=== PATIENT | male | born 1940 | race Caucasian/White ===

== ENCOUNTER 2021-05-04 11:57 | Emergency (ER) | payer MEDICARE, OTHER, SELFPAY ==
[2021-02-22 15:38] VITALS: BMI 32.6
[2021-05-04 11:58] VITALS: BP 104/65; PULSE 83; RESP 18; TEMP 37.4; O2SAT 96; BMI 30.4
[2021-05-04 12:02] VITALS: BP 104/65; PULSE 83; RESP 18; TEMP 37.4; O2SAT 96
--- NOTE | 2021-05-04 12:37 | RAD_ITS ---
STUDY: X-RAY CHEST REASON FOR EXAM: Male, 81 years old. Cough TECHNIQUE: Single frontal view of the chest. COMPARISON: 04/19/2017 FINDINGS: There are groundglass appearing opacities within the lower lungs. There is blunting of the right costophrenic angle. There is a nonspecific opacity within the left mid and lower lung. There is stable cardiomegaly. There is a dual-lead cardiac pacer device in place. There is a radiolucency again noted projecting over the cardiac silhouette suggestive of a hiatal hernia. Normal visualized pulmonary arteries. Normal visualized aortic arch and descending thoracic aorta. Normal visualized thoracic spine. Normal visualized ribs, clavicles, and shoulders. There is no demonstrated abnormality of the visualized soft tissue structures of the upper abdomen. RAD/Chest 1 View (Portable) IMPRESSION: Indeterminate bilateral groundglass opacities, nonspecific finding may be secondary to edema and/or an infectious process. Left basilar patchy opacity may be secondary to underlying atelectasis and/or pneumonia. Electronically Signed: Cheryl Avery MD at 13:51 EDT Tel , Service support ,
--- NOTE | 2021-05-04 12:38 | EKG12_ITS ---
Test Reason : SOB Blood Pressure : / mmHG Vent. Rate : 072 BPM Atrial Rate : 072 BPM P-R Int : 176 ms QRS Dur : 154 ms QT Int : 430 ms P-R-T Axes : 028 034 072 degrees QTc Int : 470 ms Atrial-sensed ventricular-paced rhythm Abnormal ECG Confirmed by SHAYY BALTAZAR, PING ([id number]), online editor EVERT JULIEN ([id number]) on 05/09/2021 9:32:52 AM Referred By: SHAYY/MAURICE Confirmed By:PING LUCAS MD
--- NOTE | 2021-05-04 12:39 | EDS_ITS ---
HPI History of Present Illness Chief Complaint: Shortness of Breath Detail of Chief Complaint: Shortness of breath for several weeks Informant: patient Narrative Narrative: Patient presents to the emergency department with his daughter from home. Patient complains of a cough and shortness of breath for several weeks. He was seen in urgent care last week and had a Covid test which was negative. Patient also has been immunized against Covid. Complains of exertional dyspnea. He denies fever. He denies chest pain. Today patient noted a quivering or a pulsation in his abdomen. He has had some mild nausea but no vomiting. He describes watery stools in the morning that has been going on for over a year. Patient denies any urinary symptoms. Patient has history of a pacemaker. [facility] Medical History (Updated 05/04/21 @ 14:[address] Luc Rogers DO) BPH w urinary obs/LUTS Chronic kidney disease (CKD) Complete heart block (04/19/17) Diverticulitis Dysphagia Essential (primary) hypertension GERD (gastroesophageal reflux disease) Obesity Home Medications aspirin 81 mg PO DAILY 04/19/17 [History Last Taken 05/05/17 07:00] lisinopril 10 mg tablet 10 mg PO DAILY 02/16/20 [History Last Taken Unknown] benzonatate [Tessalon Perles] 100 mg PO TID PRN #20 cap 05/04/21 [Rx Last Taken Unknown] levofloxacin 750 mg PO DAILY #7 tab 05/04/21 [Rx Last Taken Unknown] Allergy/AdvReac Type Severity Reaction Status Date / Time Fish Containing Products Allergy Swelling Verified 05/04/21 12:02 Family History Father Colon cancer Surgical History History of colonoscopy History of esophagogastroduodenoscopy (EGD) 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) History of tonsillectomy Social History Smoking Status: Former smoker ROS ROS ED ROS Narrative Intermittent lightheadedness Constitutional Constitutional ED: Reports systems reviewed and no addt'l complaints, except as documented; Denies body ache(s), change in weight or chills Eyes Eyes: Denies acute decrease in peripheral vision, change in vision, double vision or loss of vision ENT ENT ED: Reports none; Denies ear pain, lip swelling, loss taste/smell, neck pain, otalgia or sore throat Cardiovascular Cardiovascular: Reports none; Denies abdominal pain, chest pain with activity, leg edema, lightheadedness, palpitations, rapid heart rate or syncope Respiratory/Chest Respiratory/Chest: Reports none, cough and dyspnea; Denies change in mental status, dry cough, hemoptysis, shortness of breath at rest or shortness of breath with exertion Gastrointestinal Gastrointestinal: Reports none and diarrhea; Denies abdominal pain, change in stool character, hematemesis, hematochezia, melena, rectal bleeding or vomiting Genitourinary Genitourinary ED: Reports none; Denies abdominal discomfort, anuria, dysuria, genital pain or polyuria Musculoskeletal Musculoskeletal: Reports none; Denies arthralgias, back pain, difficulty walking, extremity pain, muscle weakness or myalgias Integumentary Reports none; Denies abscess or rash Neurologic Neurologic: Reports none; Denies abnormal gait, confusion, focal weakness, frequent falls, headache(s), loss of vision, numbness, paresthesias, radicular pain, vertigo or weakness Psychiatric Psychiatric: Reports systems reviewed and no addt'l complaints, except as documented and none; Denies behavioral changes, confusion, difficulty concentrating, hallucinations, suicidal ideation, tactile hallucinations or visual hallucinations Endocrine Endocrinology: Denies none, cold intolerance, excessive sweating, fatigue or heat intolerance Hematologic/Lymphatic Hematologic/Lymphatic: Reports none; Denies anemia, easy bleeding or easy bru ising Allergic/Immunologic Allergic/Immunologic ED: Denies as per HPI, none, lip swelling, mouth swelling, throat swelling, tongue swelling or hives EXAM Physical Exam Const Vital Signs: 05/04/21 11:58 05/04/21 12:02 05/04/21 12:16 Temperature 99.4 F H 99.4 F H Temperature Source Temporal Temporal Pulse Rate 83 83 Respiratory Rate 18 18 Respiratory Effort Short of Breath Blood Pressure 104/65 104/65 Blood Pressure Mean 78 78 Pulse Ox 96 96 Oxygen Delivery Method Room Air Room Air 05/04/21 12:58 05/04/21 13:00 Temperature Temperature Source Pulse Rate 72 72 Respiratory Rate 23 H 23 H Respiratory Effort Blood Pressure 120/59 L 120/59 L Blood Pressure Mean 79 79 Pulse Ox 95 95 Oxygen Delivery Method Room Air Room Air Positive well nourished and well developed General Appearance ED: well developed and NAD HEENT Reports TM's clear and moist mucous membranes normocephalic and atraumatic; Negative for trauma or tenderness Tympanic Membrane ED: Yes TM's clear Eyes PERRL and EOMs intact bilaterally General Eye ED: Negative for pale conjunctiva or scleral icterus Neck no lymphadenopathy, supple and no JVD General: Negative for tenderness Chest Wall inspection of chest normal and palpation of chest normal Chest: Negative for tenderness Resp normal respiratory effort and clear to auscultation bilaterally Effort and Inspection: Negative for respiratory distress or pain with movement Auscultation: Negative for rhonchi, wheezes or diminished lung sounds Cardio regular rate, regular rhythm, S1 normal heart sound, S2 normal heart sound and no murmurs Peripheral Pulses: pulses 2+ throughout GI normal to inspection, nondistended, normoactive bowel sounds, soft to palpation, non-tender, non-distended and no masses Back/Spine no CVA tenderness and no thoracic nor lumbar tenderness Extremity normal to inspection General Extremety ED: Negative for edema General Extremity: Negative for edema Neuro oriented x3, CN's II-XII intact bilaterally, no sensory deficits noted and gait normal Sensorium / Orientation: awake, alert, oriented to person, oriented to place and oriented to time Motor Exam: strength 5/5 throughout and strength abnormal Psych mental status grossly normal Skin no rashes or lesions noted and no wounds MDM MDM MDM Narrative Medical decision making narrative: Patient with increased markings in both lungs etiology uncertain. He has had symptoms for over 2 weeks however he is not hypoxic or ill-appearing. I will send off a Covid PCR test. He had a negative rapid test last week and has been fully immunized. Patient will be started on Levaquin and Tessalon Perles. He will be given referral to pulmonology for follow-up. He is advised to return if increasing shortness of breath or condition should worsen anyway. I will order a Legionella antigen. Lab Data Attestation: I reviewed the patient's lab results. Labs: Laboratory Results - last 24 hr 05/04/21 05/04/21 05/04/21 12:21 12:21 12:21 WBC 6.9 RBC 4.48 L Hgb 13.7 Hct 43.1 MCV 96.2 H MCH 30.6 MCHC 31.8 L RDW Std Deviation 46.0 H RDW Coeff of Angela 12.8 Plt Count 314 MPV 10.0 Immature Gran % (Auto) 0.300 Neut % (Auto) 64.8 Lymph % (Auto) 11.3 L [place] % (Auto) 14.9 H Eos % (Auto) 7.1 H Baso % (Auto) 1.6 H Absolute Neuts (auto) 4.5 Absolute Lymphs (auto) 0.78 L Nucleated RBC % 0 D-Dimer Quant (PE/DVT) Sodium 140 Potassium 4.7 Chloride 111 H Carbon Dioxide 23.0 Anion Gap 6 BUN 34 H Creatinine 1.58 H Estim Creat Clear Calc 35.47 Est GFR (MDRD) Af Amer 54 L Est GFR (MDRD) Non-Af 45 L BUN/Creatinine Ratio 21.5 H Glucose 90 Calcium 8.8 Total Bilirubin 0.60 AST 19 ALT 22 Alkaline Phosphatase 88 Troponin I High Sens 7.0 B-Natriuretic Peptide 19.1 Total Protein 7.3 Albumin 3.2 Globulin 4.1 Albumin/Globulin Ratio 0.8 L 05/04/21 12:55 WBC RBC Hgb Hct MCV MCH MCHC RDW Std Deviation RDW Coeff of Angela Plt Count MPV Immature Gran % (Auto) Neut % (Auto) Lymph % (Auto) [place] % (Auto) Eos % (Auto) Baso % (Auto) Absolute Neuts (auto) Absolute Lymphs (auto) Nucleated RBC % D-Dimer Quant (PE/DVT) 1.08 H* Sodium Potassium Chloride Carbon Dioxide Anion Gap BUN Creatinine Estim Creat Clear Calc Est GFR (MDRD) Af Amer Est GFR (MDRD) Non-Af BUN/Creatinine Ratio Glucose Calcium Total Bilirubin AST ALT Alkaline Phosphatase Troponin I High Sens B-Natriuretic Peptide Total Protein Albumin Globulin Albumin/Globulin Ratio Radiography Chest X-Ray - ED: 1 View Diagnostic Testing: Radiology Impression Chest X-Ray 05/04/21 12:37 IMPRESSION: Indeterminate bilateral groundglass opacities, nonspecific finding may be secondary to edema and/or an infectious process. Left basilar patchy opacity may be secondary to underlying atelectasis and/or pneumonia. Electronically Signed: Cheryl Avery MD at 13:51 EDT Tel , Service support , Abdomen/Pelvis CT 05/04/21 13:23 IMPRESSION: No acute intra-abdominal process. Atherosclerosis. Hiatal hernia. Degenerative changes of the lumbar spine. Electronically Signed: Cheryl Avery MD at 14:14 EDT Tel , Service support , Chest CTA 05/04/21 13:23 IMPRESSION: No demonstrated pulmonary embolism or arterial dissection. Bilateral groundglass opacities, a nonspecific finding which may be secondary to underlying edema and/or infectious process. Atherosclerosis. Hiatal hernia. Electronically Signed: Cheryl Avery MD at 14:10 EDT Tel , Service support , 1 view chest x-ray obtained interpreted by myself as bilateral infiltrates. Radiology in agreement. EKG Initial EKG: Attestation: I personally reviewed and interpreted this EKG as follows: Comments: Atrially sensed ventricularly paced rhythm with a ventricular rate of 72 bpm Discharge Plan Triage Chief Complaint: Shortness of Breath ED Provider: Luc Rogers Dx/Rx/DC Orders Clinical Impression: Pneumonia Instructions: ED Pneumonia (Adult) Prescriptions: New levofloxacin 750 mg tablet 750 mg PO DAILY Qty: 7 RF: 0 benzonatate [Tessalon Perles] 100 mg capsule 100 mg PO TID PRN (Reason: cough) Qty: 20 RF: 0 No Action lisinopril 10 mg tablet 10 mg PO DAILY RF: 0 aspirin 81 MG tablet,chewable 81 mg PO DAILY RF: 0 Primary Care Provider: Aris Og Referrals: Cody Monk MD [STAFF PHYSICIAN] - 3-5 Days Aris Og MD [Primary Care Provider] - 3-5 Days Disposition Disposition: Home, Self Care
[2021-05-04 12:51] LABS: Absolute Lymphocyte Count 0.78 X10^3/uL (0.83-4.51); Absolute Neutrophil Count 4.5 X10^3/uL (2.0-7.7); Basophil# 0.11 X10^3/uL; Basophil% 1.6 % (0-1); Eosinophil# 0.49 X10^3/uL; Eosinophils% 7.1 % (0-5); Hematocrit 43.1 % (40-54); Hemoglobin 13.7 g/dL (13.0-16.5); Lymphocyte # 0.78 X10^3/ul (0.83-4.51); Lymphocyte % 11.3 % (19-41); Mean Corp Hgb Conc 31.8 g/dL (32-36); Mean Corpuscular Hgb 30.6 pg (27.0-32.0); Mean Corpuscular Volume 96.2 fL (80-94); Monocyte# 1.03 X10^3/uL; Monocyte% 14.9 % (0-10); NRBC Flagged by Analyzer 0 % (0-5); Neutrophil # 4.49 X10^3/uL (2.7-7.7); Neutrophil % 64.8 % (47-70); Platelet Count 314 K/mm3 (150-450); RBC Distribution Width CV 12.8 % (11.6-14.6); Red Blood Count 4.48 M/mm3 (4.6-6.2); White Blood Count 6.9 K/mm3 (4.4-11.0)
[2021-05-04 12:58] VITALS: BP 120/59; PULSE 72; RESP 23; O2SAT 95
[2021-05-04 13:00] VITALS: BP 120/59; PULSE 72; RESP 23; O2SAT 95
[2021-05-04 13:10] LABS: ALB/GLOB Ratio 0.8 RATIO (0.9-2.4); AST(SGOT) 19 U/L (15-37); Alanine Aminotransfer ALT/SGPT 22 U/L (16-61); Albumin, Serum 3.2 g/dL (3.2-5.0); Alkaline Phosphatase 88 U/L (45-117); Anion Gap 6 (5-15); BNP,B-Type NATRIURETIC PEPTIDE 19.1 pg/mL (0-100); BUN 34 mg/dL (7-18); BUN/Creat Ratio 21.5 RATIO (10-20); Calcium,Total 8.8 mg/dL (8.5-10.1); Chloride 111 mmol/L (98-107); Creatinine, Serum 1.58 mg/dL (0.70-1.30); EST Glomerular Filtration Rate 45 mL/min (>60); Est Glom Filt Rate - Afr Amer 54 mL/min (>60); Estimated Creatinine Clearance 35.47 ml/min; Globulin 4.1 g/dL (2.2-4.2); Glucose 90 mg/dL (74-106); Potassium 4.7 mmol/L (3.5-5.1); Protein, Total 7.3 g/dL (6.4-8.2); Sodium Level 140 mmol/L (136-145)
[2021-05-04 13:21] LABS: D-Dimer Quantitative (DVT/PE) 1.08 FEU/ug/m (0.27-0.49)
--- NOTE | 2021-05-04 13:23 | CT_ITS ---
STUDY: CTA CHEST REASON FOR EXAM: Male, 81 years old. Elevated d-dimer RADIATION DOSAGE (If Supplied By Facility): CTDIvol = ( 16.76 ) mGy, DLP = ( 1803.25 ) mGycm TECHNIQUE: The examination was performed with the intravenous administration of IV 100mL Isovue-370. Post-processing of the angiographic images was performed, with multiplanar reformation and 3D reconstruction. Individualized dose optimization techniques were used for this CT. COMPARISON: None. FINDINGS: There is motion artifact degrading anatomic detail. There are bilateral groundglass opacities throughout the lungs. Normal enhancement of the main pulmonary artery and right and left pulmonary arteries. Normal enhancement of the bilateral peripheral pulmonary arteries. There is no demonstrated pulmonary embolism. There is atherosclerotic calcification of the aortic arch and descending thoracic aorta. There is no demonstrated aortic dissection. There are calcifications of the coronary arteries. There is a cardiac pacer device in place. There is a moderate-sized hiatal hernia. There are prominent and borderline enlarged hilar lymph nodes. Normal visualized trachea and bronchi. There are degenerative changes of thoracic spine. There is a separate dedicated CT report of the abdomen and pelvis. CT/CTA Chest W/WO Contrast IMPRESSION: No demonstrated pulmonary embolism or arterial dissection. Bilateral groundglass opacities, a nonspecific finding which may be secondary to underlying edema and/or infectious process. Atherosclerosis. Hiatal hernia. Electronically Signed: Cheryl Avery MD at 14:10 EDT Tel , Service support ,
--- NOTE | 2021-05-04 13:23 | CT_ITS ---
STUDY: CT ABDOMEN AND PELVIS WITH CONTRAST REASON FOR EXAM: Male, 81 years old. Abdominal pain RADIATION DOSAGE (If Supplied By Facility): CTDIvol = ( 16.76 ) mGy, DLP = ( 1803.25 ) mGycm TECHNIQUE: Transaxial images were obtained from the dome of the diaphragm to the symphysis pubis without oral contrast. IV 100mL Isovue-370 was administered. Sagittal and coronal images were reconstructed. Individualized dose optimization techniques were used for this CT. COMPARISON: None. FINDINGS: There is a separate dedicated CT report of the chest. There are scattered well circumscribed round low-attenuation foci throughout the liver measuring up to 3.4 cm within the left hepatic lobe. Normal gallbladder and extrahepatic biliary system. Normal spleen. Normal pancreas. Normal bilateral adrenal glands. There is a right renal cyst. Normal left kidney. There is a moderate-sized hiatal hernia. Normal small intestine. Normal colon. The appendix is visualized and appears normal. There is diffuse atherosclerotic calcification of the abdominal aorta, without a demonstrated aneurysm. Normal inferior vena cava. Normal retroperitoneum. Normal urinary bladder. Normal abdominal wall. There are diffuse degenerative changes of the visualized lumbar spine. There is a levoscoliosis of the lumbar spine. CT/Abdomen/Pelvis W IV Cont ONLY IMPRESSION: No acute intra-abdominal process. Atherosclerosis. Hiatal hernia. Degenerative changes of the lumbar spine. Electronically Signed: Cheryl Avery MD at 14:14 EDT Tel , Service support ,
[2021-05-04] MEDS: 0.9% Normal Saline 1,000 ML 150 ML IV (13:55)
[2021-05-04 15:06] LABS: Mucous, Urine 0 SEEN /hpf (<or=2+); Red Blood Cells-Urine 0 SEEN /hpf (0-5); Squamous Epithelial Cells - UA 0 SEEN /hpf (0-5); White Blood Cells 0 SEEN /hpf (0-5)
[2021-05-04 15:07] LABS: Color, Urine Yellow (Yellow); Glucose, Dipstick Normal (Normal); Ketone-Dipstick Negative (Negative); Leukocyte Esterase-Dipstick Negative /ul (Negative); Nitrite-Dipstick Negative (Negative); Occult Blood-Urine Negative /ul (Negative); Protein-Dipstick 15 mg/dl (Negative); Specific Gravity, Urine 1.015 (1.002-1.030); Urine Bilirubin Dipstick Negative (Negative); Urine Clarity Sl. Cloudy (Clear); Urine Urobilinogen Normal (Normal)
[2021-05-04 15:17] LABS: Bacteria RARE /hpf (None Seen); Hyaline Cast 0-5 SEEN /lpf (0-5)
[2021-05-04] MEDS: levoFLOXacin 750 MG Tablet PO (15:22)
== END 2021-05-04 15:35 | disposition home or self-care (01) ==
PROVIDERS: Emergency Provider Emergency Medicine; PCP Family Medicine
DX: J18.9 Pneumonia, unspecified organism (principal); I12.9 Hypertensive chronic kidney disease with stage 1 through stage 4 chronic kidney disease, or unspecified chronic kidney disease; N18.9 Chronic kidney disease, unspecified; N40.0 Benign prostatic hyperplasia without lower urinary tract symptoms; K21.9 Gastro-esophageal reflux disease without esophagitis; Z87.19 Personal history of other diseases of the digestive system; Z79.82 Long term (current) use of aspirin; Z79.899 Other long term (current) drug therapy; Z87.891 Personal history of nicotine dependence
CPT/HCPCS: 71045; 71275; 74177; 80053; 81001; 83880; 84484; 85025; 85379; 87449; 87635; 93005; 96360; 96361; 99283; J7030; Q9967; U0005; A4216; U0003

== ENCOUNTER → 2021-05-16 14:01 | Outpatient (CLI) | payer MEDICARE, OTHER, SELFPAY ==
[2021-05-10 05:44] VITALS: BMI 29.6
--- NOTE | 2021-05-16 14:02 | ECHOCS_ITS ---
Reason For Study: DYSPNEA Procedure This was a 2D Doppler, Color Flow transthoracic echocardiogram. The study was technically difficult. Contrast injection was performed. Exam performed in department. Left Ventricle Normal LV size. Left ventricular systolic function is normal. The estimated ejection fraction is 55 %. Stage 1 diastolic dysfunction. No regional wall motion abnormalities noted. Right Ventricle Normal RV size. ICD or pacer leads identified within the right ventricle. Normal systolic function. Atria Normal left atrium. Normal right atrium. Mitral Valve Normal mitral valve. Tricuspid Valve Normal tricuspid valve. Mild (1+) tricuspid valve insufficiency. Pulmonary artery systolic pressure is 44 mmHg. Aortic Valve Normal aortic valve. Pulmonic Valve Normal pulmonic valve. Great Vessels Normal aortic root. The pulmonary artery is normal size. Normal inferior vena cava. Pericardium/Pleural No pericardial effusion. Medication 22 gauge I.V. with prn adaptor inserted into right arm. Diluted definity 3.0ml given slow IV push to enhance endocardial definition. MMode/2D Measurements & Calculations LVIDd: 4.5 cm IVSd: 0.57 cm Ao root diam: 3.0 cm LVIDs: 3.1 cm LVPWd: 0.87 cm RVDd: 4.4 cm FS: 31.9 % LAV(MOD-bp): 38.8 ml LVAd ap4: 27.6 cm2 SV(MOD-sp4): 51.0 ml LAV(MOD-bp) Indexed: 19.4 ml/m2 LVLd ap4: 8.5 cm LAV(MOD-sp2): 26.4 ml EDV(MOD-sp4): 72.2 ml LAV(MOD-sp4): 43.7 ml EDV(sp4-el): 75.9 ml LVAs ap4: 12.8 cm2 LVLs ap4: 6.5 cm ESV(MOD-sp4): 21.3 ml ESV(sp4-el): 21.4 ml EF(MOD-sp4): 70.6 % EF(sp4-el): 71.8 % SV(sp4-el): 54.5 ml LA A4 area: 19.5 cm2 LA dimension(2D): 3.8 cm RA A4 area: 16.5 cm2 Time Measurements MV dec time: 0.25 sec Doppler Measurements & Calculations MV E max aidan: 58.6 cm/sec Lat Peak E' Aidan: 5.8 cm/sec Med Peak E' Aidan: 3.9 cm/sec MV A max aidan: 78.2 cm/sec E/E' lat: 10.1 E/E' med: 14.9 MV E/A: 0.75 Ao V2 max: 117.3 cm/sec LV V1 max: 106.5 cm/sec TR max aidan: 315.4 cm/sec Ao max P.5 mmHg LV V1 max P.5 mmHg TR max P.8 mmHg ECHO/Echo Complete W/ Contrast Interpretation Summary Normal LV size. Left ventricular systolic function is normal. Pulmonary artery systolic pressure is 44 mmHg. The estimated ejection fraction is 55 %. Stage 1 diastolic dysfunction. Ordering Physician: Cody Monk Performed By: Lulu Trejo, ROBERT, RVT
== END ==
PROVIDERS: PCP Family Medicine; Referring Provider Internal Medicine Critical Care Medicine; Visit Provider Internal Medicine Critical Care Medicine
DX: I44.2 Atrioventricular block, complete (principal); R93.89 Abnormal findings on diagnostic imaging of other specified body structures
CPT/HCPCS: 93306; Q9957; A4216; C8929; J3490

== ENCOUNTER → 2021-05-17 09:16 | Outpatient (CLI) | payer MEDICARE, OTHER, SELFPAY ==
[2021-05-10 05:44] VITALS: BMI 29.6
--- NOTE | 2021-05-17 14:46 | PFTCOMP_ITS ---
COMPLETE PULMONARY FUNCTION TEST INTERPRETATION Brief HPI: Patient is an 81 year old male, currently under the care of myself, who presents to [facility] for complete pulmonary function tests secondary to diagnosis of abnormal imaging. Respiratory therapist reports good effort and reproducible results. Interpretation: Forced expiration spirometry shows no large airways obstructive ventilatory defect with an FEV1 of 82% predicted. There is no significant bronchodilator response by strict ATS criteria. Spirograms are of good quality and plateau normally. The respiratory flow volume loop shows a normal pattern. Lung volumes by body plethysmography show a decreased total lung capacity at 4.31 L, 73% predicted. All other lung volumes are reduced symmetrically. Diffusion capacity by carbon monoxide is decreased at 49% predicted. The airway resistance is elevated. No previous pulmonary function tests were available for review. Impression: Mild restrictive ventilatory defect with a disproportionate reduction in diffusion capacity
== END ==
PROVIDERS: PCP Family Medicine; Referring Provider Internal Medicine Critical Care Medicine; Visit Provider Internal Medicine Critical Care Medicine
DX: R93.89 Abnormal findings on diagnostic imaging of other specified body structures (principal); I44.2 Atrioventricular block, complete
CPT/HCPCS: 94060; 94726; 94729

== ENCOUNTER → 2021-07-25 13:10 | Outpatient (CLI) | payer MEDICARE, OTHER, SELFPAY ==
[2021-05-10 05:44] VITALS: BMI 29.6
--- NOTE | 2021-07-25 13:12 | CT_ITS ---
STUDY: CT CHEST WITHOUT CONTRAST REASON FOR EXAM: Male, 81 years old. GGO previously RADIATION DOSAGE (If Supplied By Facility): CTDIvol = ( 12.08 ) mGy, DLP = ( 429.38 ) mGycm TECHNIQUE: Transaxial imaging was performed without the administration of intravenous contrast material. Individualized dose optimization techniques were used for this CT. COMPARISON: 05/04/2021 FINDINGS: Left subclavian pacemaker. The lungs are normal. There is no demonstrated pleural abnormality. Normal heart and pericardium. There are calcifications of the coronary arteries. Large hiatal hernia. Normal hilar regions. Normal unenhanced pulmonary arteries. Normal aorta arch and descending thoracic aorta. Normal osseous structures. Multiple hepatic cysts. CT/Chest without Contrast IMPRESSION: Normal unenhanced CT Chest examination. Interval resolution of bilateral subsegmental atelectasis or pneumonitis. Electronically Signed: Albert Araujo MD at 9:15 EDT Tel , Service support ,
== END ==
PROVIDERS: PCP Family Medicine; Referring Provider Internal Medicine Critical Care Medicine; Visit Provider Internal Medicine Critical Care Medicine
DX: I44.2 Atrioventricular block, complete (principal); R93.89 Abnormal findings on diagnostic imaging of other specified body structures
CPT/HCPCS: 71250

== ENCOUNTER → 2024-03-31 | Outpatient (CLI) | payer MEDICARE, OTHER, SELFPAY ==
[2024-03-31 15:37] LABS: Absolute Lymphocyte Count 1.36 X10^3/uL (0.83-4.51); Absolute Neutrophil Count 4.6 X10^3/uL (2.0-7.7); Basophil% 1.4 % (0-1); Eosinophil# 0.42 X10^3/uL; Eosinophils% 5.8 % (0-5); Lymphocyte # 1.36 X10^3/ul (0.83-4.51); Lymphocyte % 18.8 % (19-41); Mean Corp Hgb Conc 31.8 g/dL (32-36); Mean Corpuscular Volume 97.6 fL (80-94); Mean Platelet Vol. 10.4 fl (6.2-12.0); Monocyte# 0.69 X10^3/uL; Monocyte% 9.6 % (0-10); NRBC Flagged by Analyzer 0 % (0-5); Neutrophil # 4.64 X10^3/uL (2.7-7.7); Neutrophil % 64.3 % (47-70); Platelet Count 234 K/mm3 (150-450); RBC Distribution Width CV 12.5 % (11.6-14.6); Red Blood Count 4.51 M/mm3 (4.6-6.2); White Blood Count 7.2 K/mm3 (4.4-11.0)
[2024-03-31 16:11] LABS: ALB/GLOB Ratio 0.9 RATIO (0.9-2.4); AST(SGOT) 18 U/L (15-37); Alanine Aminotransfer ALT/SGPT 22 U/L (16-61); Albumin, Serum 3.5 g/dL (3.2-5.0); Alkaline Phosphatase 72 U/L (45-117); Anion Gap 5 (5-15); BUN 21 mg/dL (7-18); BUN/Creat Ratio 15.8 RATIO (10-20); Calcium,Total 8.7 mg/dL (8.5-10.1); Chloride 111 mmol/L (98-107); Creatinine, Serum 1.33 mg/dL (0.70-1.30); EST Glomerular Filtration Rate 55 mL/min (>60); Est Glom Filt Rate - Afr Amer 66 mL/min (>60); Globulin 3.7 g/dL (2.2-4.2); Glucose 69 mg/dL (74-106); Magnesium 2.7 mg/dL (1.6-2.6); Potassium 4.6 mmol/L (3.5-5.1); Protein, Total 7.2 g/dL (6.4-8.2); Sodium Level 142 mmol/L (136-145); T4 Free Direct 0.85 ng/dL (0.76-1.46); Thyroid Stim Hormone (TSH) 0.82 uIU/mL (0.358-3.74)
== END | disposition home or self-care (01) ==
LOC: LAB 14:39
PROVIDERS: PCP Internal Medicine; Referring Provider Nurse Practitioner Family; Visit Provider Nurse Practitioner Family
DX: I47.29 Other ventricular tachycardia (principal); I11.0 Hypertensive heart disease with heart failure; I50.32 Chronic diastolic (congestive) heart failure; I44.2 Atrioventricular block, complete
CPT/HCPCS: 36415; 80053; 83735; 84439; 84443; 85025

== ENCOUNTER → 2024-05-09 | Outpatient (CLI) | payer MEDICARE, OTHER, SELFPAY ==
--- NOTE | 2024-05-09 14:36 | ECHOCS_ITS ---
Reason For Study: NSVT Procedure This was a 2D Doppler, Color Flow transthoracic echocardiogram. The study was technically difficult. Contrast injection was performed. Exam performed in department. Left Ventricle Normal LV size. Moderate concentric left ventricular hypertrophy. Left ventricular systolic function is normal. The left ventricular ejection fraction is 60 %. Stage 1 diastolic dysfunction. No regional wall motion abnormalities noted. Right Ventricle Normal RV size. Normal systolic function. Atria Normal left atrium. Normal right atrium. Mitral Valve Normal mitral valve. Tricuspid Valve Normal tricuspid valve. Aortic Valve Trisinus/trileaflet aortic valve. Mild focal aortic valve calcification. Pulmonic Valve Normal pulmonic valve. Great Vessels Normal aortic root. Pericardium/Pleural No pericardial effusion. Medication 22 gauge I.V. with prn adaptor inserted into left arm. Diluted definity 1ml given slow IV push to enhance endocardial definition. MMode/2D Measurements & Calculations LVIDd: 4.1 cm IVSd: 1.3 cm LAV(MOD-bp): 46.9 ml LVIDs: 2.3 cm LVPWd: 1.3 cm FS: 43.1 % LAV(MOD-bp) Indexed: 22.6 ml/m2 LAV(MOD-sp2): 31.8 ml LAV(MOD-sp4): 56.4 ml SV(MOD-sp4): 68.5 ml SV(sp4-el): 72.5 ml LVAd ap4: 35.2 cm2 LVLd ap4: 9.1 cm EDV(MOD-sp4): 110.6 ml EDV(sp4-el): 115.5 ml LVAs ap4: 19.3 cm2 LVLs ap4: 7.3 cm ESV(MOD-sp4): 42.1 ml ESV(sp4-el): 43.0 ml EF(MOD-sp4): 61.9 % EF(sp4-el): 62.8 % LA dimension(2D): 4.4 cm LA A4 area: 21.0 cm2 RA A4 area: 16.6 cm2 Time Measurements MV dec time: 0.29 sec Doppler Measurements & Calculations MV E max aidan: 43.5 cm/sec Lat Peak E' Aidan: 11.8 cm/sec Med Peak E' Aidan: 8.5 cm/sec MV A max aidan: 68.5 cm/sec E/E' lat: 3.7 E/E' med: 5.1 MV E/A: 0.64 MV V2 max: 81.4 cm/sec MV dec slope: 158.4 cm/sec2 Ao V2 max: 111.2 cm/sec MV max P.7 mmHg Ao max P.9 mmHg MV V2 mean: 46.6 cm/sec Ao V2 mean: 75.3 cm/sec MV mean P.0 mmHg Ao mean P.6 mmHg MV V2 VTI: 24.8 cm Ao V2 VTI: 27.1 cm AV (velocity ratio): 0.99 LV V1 max: 107.4 cm/sec LV V1 max P.6 mmHg LV V1 mean P.1 mmHg LV V1 mean: 65.3 cm/sec LV V1 VTI: 26.8 cm ECHO/Echo Complete W/ Contrast Interpretation Summary Normal LV size. Moderate concentric left ventricular hypertrophy. Left ventricular systolic function is normal. The left ventricular ejection fraction is 60 %. Stage 1 diastolic dysfunction. Contrast injection was performed. Ordering Physician: Maia Argueta Referring Physician: Maia Argueta Performed By: Leydi Serrano RCS
== END | disposition home or self-care (01) ==
LOC: CVS 14:35
PROVIDERS: PCP Internal Medicine; Referring Provider Physician Assistant Medical; Visit Provider Physician Assistant Medical
DX: I47.29 Other ventricular tachycardia (principal)
CPT/HCPCS: 93306; Q9957; A4216; C8929

== ENCOUNTER → 2025-04-14 | Outpatient (CLI) | payer MEDICARE, OTHER, SELFPAY ==
[2025-04-14 12:26] LABS: Hematocrit 45.3 % (40-54); Hemoglobin 15.1 g/dL (13.0-16.5); Immature Granulocytes Count 0.010 X10^3/uL (0.0-0.0); Mean Corp Hgb Conc 33.3 g/dL (32-36); Mean Corpuscular Volume 94.8 fL (80-94); Mean Platelet Vol. 10.0 fl (6.2-12.0); NRBC Flagged by Analyzer 0 % (0-5); Platelet Count 224 K/mm3 (150-450); RBC Distribution Width CV 12.9 % (11.6-14.6); RBC Distribution Width SD 45.2 fl (35.1-43.9); Red Blood Count 4.78 M/mm3 (4.6-6.2); White Blood Count 6.6 K/mm3 (4.4-11.0)
[2025-04-14 13:11] LABS: Cholesterol 186 mg/dL (<=200); Low Density Lipoprotein Calc. 115 mg/dL; Magnesium 2.5 mg/dL (1.5-2.2); Pro- Brain NATRIURETIC PEPTIDE 90 pg/mL (<=1800); Triglycerides 116 mg/dL; Very Low Density Lipoprotein 23 mg/dL (5-40); cholesterol:hdl ratio screen 3.86
[2025-04-14 13:15] LABS: AST(SGOT) 23 U/L (<=37); Alanine Aminotransfer ALT/SGPT 15 U/L (<=46); Albumin, Serum 4.0 g/dL (3.4-4.8); Alkaline Phosphatase 90 U/L (40-129); Anion Gap 11 (5-15); BUN 19 mg/dL (4-19); BUN/Creat Ratio 17.6 RATIO (10-20); Calcium,Total 9.3 mg/dL (7.6-11.0); Carbon Dioxide 24.2 mmol/L (21.0-32.0); Chloride 104 mmol/L (98-108); Globulin 3.1 g/dL (2.2-4.2); Glucose 93 mg/dL (70-99); Potassium 4.9 mmol/L (3.3-5.1)
== END | disposition home or self-care (01) ==
PROVIDERS: PCP Internal Medicine; Referring Provider Student in an Organized Health Care Education/Training Program; Visit Provider Student in an Organized Health Care Education/Training Program
DX: I47.29 Other ventricular tachycardia (principal); I11.0 Hypertensive heart disease with heart failure; I50.32 Chronic diastolic (congestive) heart failure; Z95.0 Presence of cardiac pacemaker; R06.09 Other forms of dyspnea
CPT/HCPCS: 36415; 80053; 80061; 83735; 83880; 84443; 85025

== ENCOUNTER → 2025-05-11 | Outpatient (CLI) | payer MEDICARE, OTHER, SELFPAY ==
--- NOTE | 2025-05-11 07:22 | ECHOD_ITS ---
Reason For Study Reason For Study: HO Procedure This was a 2D Doppler, Color Flow transthoracic echocardiogram. The study was technically difficult. Exam performed in department. Left Ventricle Normal LV size. The left ventricular ejection fraction is 65 %. Stage 1 diastolic dysfunction. No regional wall motion abnormalities noted. Right Ventricle Normal RV size. ICD or pacer leads identified within the right ventricle. Normal systolic function. Atria Normal left atrium. Normal right atrium. Mitral Valve Normal mitral valve. Tricuspid Valve Normal tricuspid valve. Aortic Valve Trisinus/trileaflet aortic valve. Pulmonic Valve Normal pulmonic valve. Great Vessels Normal aortic root. The pulmonary artery is normal size. Inferior vena cava collapse with respiration. Pericardium/Pleural No pericardial effusion. MMode/2D Measurements & Calculations LVIDd: 3.7 cm IVSd: 1.3 cm LVOT diam: 2.4 cm LVIDs: 2.5 cm LVPWd: 1.1 cm LVOT area: 4.6 cm2 RVDd: 3.6 cm FS: 31.7 % asc Aorta Diam: 2.6 cm LAV(MOD-bp): 38.6 ml LVAd ap4: 19.9 cm2 LAV(MOD-bp) Indexed: 19.1 ml/m2 LVLd ap4: 7.4 cm LAV(MOD-sp2): 39.7 ml EDV(MOD-sp4): 44.3 ml LAV(MOD-sp4): 36.1 ml EDV(sp4-el): 45.5 ml LVAs ap4: 11.1 cm2 LVLs ap4: 6.6 cm ESV(MOD-sp4): 15.9 ml ESV(sp4-el): 15.9 ml EF(MOD-sp4): 64.0 % EF(sp4-el): 65.0 % LVAd ap2: 18.3 cm2 SV(MOD-sp4): 28.4 ml SV(MOD-sp2): 21.3 ml LVLd ap2: 7.4 cm SI(MOD-sp4): 14.0 ml/m2 SI(MOD-sp2): 10.5 ml/m2 EDV(MOD-sp2): 36.5 ml EDV(sp2-el): 38.2 ml LVAs ap2: 10.9 cm2 LVLs ap2: 6.8 cm ESV(MOD-sp2): 15.2 ml ESV(sp2-el): 14.6 ml EF(MOD-sp2): 58.3 % SV(sp4-el): 29.6 ml Ao sinus diam: 3.[address] Junction: 2.7 cm LA dimension(2D): 3.0 cm LA A4 area: 17.0 cm2 RA A4 area: 12.2 cm2 TAPSE: 1.5 cm Time Measurements MV dec time: 0.22 sec Doppler Measurements & Calculations MV E max aidan: 49.8 cm/sec Lat Peak E' Aidan: 6.6 cm/sec Med Peak E' Aidan: 6.4 cm/sec MV A max aidan: 105.7 cm/sec E/E' lat: 7.5 E/E' med: 7.8 MV E/A: 0.47 MV dec slope: 230.3 cm/sec2 Ao V2 max: 112.2 cm/sec LV V1 max: 102.2 cm/sec Ao max P.0 mmHg LV V1 max P.2 mmHg Ao V2 mean: 78.5 cm/sec LV V1 mean P.3 mmHg Ao mean P.8 mmHg LV V1 mean: 70.5 cm/sec Ao V2 VTI: 23.7 cm LV V1 VTI: 20.9 cm AV (velocity ratio): 0.88 XIOMY(I,D): 4.0 cm2 XIOMY(V,D): 4.2 cm2 SV(LVOT): 95.7 ml PA V2 max: 119.3 cm/sec ECHO/Echo Complete Interpretation Summary Normal LV size. The left ventricular ejection fraction is 65 %. Stage 1 diastolic dysfunction. ICD or pacer leads identified within the right ventricle. Ordering Physician: Nino Gutierrez Referring Physician: Quentin Álvarez M.D. Performed By: Jacy Sepulveda RDCS
--- OUTSIDE RECORDS SUMMARY | 2025-05-11 07:23 | XMS RPT_ITS | CCD ---
Author Organization [facility] CliniSyla Care Team Providers Care Water Project Manager Name Role Phone JAZMIN ABDIEL Unavailable Unavailable SIERRA CHRISTOPHER Unavailable Unavailable JAZMIN, ABDIEL Unavailable Unavailable JAZMIN, ABDIEL Unavailable Unavailable SIERRA CHRISTOPHER Unavailable Unavailable JAZMIN, ABDIEL Unavailable Unavailable JAZMIN, ABDIEL Unavailable Unavailable JAZMIN ABDIEL Unavailable Unavailable SUSANNAH OG Unavailable Unavailable Susannah Og MD Primary Care Provider Susannah Og MD Primary Care Provider Quentin Álvarez MD Primary Care Provider Dr. Susannah Og Referring U navailable Pending, Provider Primary Care Unavailable Doug Hensley Attending Unavailable Doug Hensley Admitting Unavailable Quentin Álvarez MD Primary Care Provider Quentin Álvarez MD Primary Care Provider Susannah Og MD Primary Care Provider Ally HORSES OR MULES TEAMSTER.CLINICAL SECRETARY, Jailene M Unavailable Dr. Quentin Álvarez MD Primary Care Provider Dr. Marciano Couch MD Attending Provider Dr. Quentin Álvarez MD Referring Provider Nino Londono Attending Provider Nino Londono Referring Provider QUENTIN ÁLVAREZ Primary Care Unavailable QUENTIN ÁLVAREZ Referring Unavailable QUENTIN ÁLVAREZ Referring Unavailable QUENTIN ÁLVAREZ Primary Care Unavailable ADRIANO SANTOS Attending Unavailable ÁLVAREZ, EVELYNE Referring Unavailable ÁLVAREZ, EVELYNE Primary Care Unavailable ADRIANO SANTOS Attending Unavailable ÁLVAREZ, EVELYNE Primary Care Unavailable ÁLVAREZ, EVELYNE Primary Care Unavailable INGRID BISHOP Referring Unavailable ÁLVAREZ, EVELYNE Primary Care Unavailable ÁLVAREZ, EVELYNE Primary Care Unavailable GANTA, JOEY Referring Unavailable ÁLVAREZ, EVELYNE Referring Unavailable ÁLVAREZ, EVELYNE Primary Care Unavailable GANTAJOEY Attending Unavailable ÁLVAREZ, EVELYNE Primary Care Unavailable ÁLVAREZ, EVELYNE Referring Unavailable ÁLVAREZ, EVELYNE Primary Care Unavailable ÁLVAREZ, EVELYNE Attending Unavailable ÁLVAREZ, EVELYNE Primary Care Unavailable ANSHUL MANLEY Referring Unavailable ÁLVAREZ, EVELYNE Referring Unavailable ÁLVAREZ, EVELYNE Primary Care Unavailable ADRIANO SANTOS Attending Unavailable ÁLVAREZ, EVELYNE Primary Care Unavailable ÁLVAREZ, EVELYNE Referring Unavailable Álvarez, Quentin Primary Care Unavailable Khoa, Marciano Attending Unavailable Álvarez, Quentin Primary Care Unavailable Demiter, Nino Attending Unavailable Demiter, Nino Referring Unavailable Álvarez, Quentin Primary Care Unavailable Demiter, Nino Attending Unavailable Demiter, Nino Referring Unavailable Álvarez, Quentin Primary Care Unavailable Khoa, Marciano Attending Unavailable Álvarez, Quentin Primary Care Unavailable Khoa, Marciano Attending Unavailable Álvarez, Quentin Primary Care Unavailable Álvarez, Quentin Referring Unavailable Demiter, Nino Attending Unavailable Álvarez, Quentin Primary Care Unavailable Khoa, Marciano Attending Unavailable Allergies Allergy Classification Reported Allergen(s) Allergy Type Date of Onset Reaction(s) Facility (20 sources) CHICKEN DERIVED; Translations: [CHICKEN DERIVED] Propensity to adverse reactions (disorder) 8 Swelling [facility] Repository (1 source) CHICKEN; Translations: [CHICKEN] Propensity to adverse reactions (disorder) [facility]ository (20 sources) FISH CONTAINING PRODUCTS; Translations: [FISH CONTAINING PRODUCTS] Propensity to adverse reactions (disorder) 7 Intolerance [facility] Repository (3 sources) Latex Allergy to substance 4 Itching [facility] (1 source) Latex Drug allergy (disorder) 4 [facility] Medications Current Medications Medication Drug Class(es) Dates Sig (Normalized) Sig (Original) [id number] 200 actuat albuterol 0.09 mg/actuat metered dose inhaler (3 sources) beta2-Adrenergic Agonist Start: 10-28-2024 take 2 puff(s) by inhalation every four hours as needed for wheezing albuterol HFA (PROVENTIL HFA, VENTOLIN HFA) 90 mcg/actuation inhaler Inhale 2 Puffs as instructed every 4 hours as needed for wheezing/shortness of breath. 6.7 g 10/28/2024 Active benzonatate 100 mg oral capsule (8 sources) Non-narcotic Antitussive Start: 10-28-2024 take 1 capsule by mouth every eight hours as needed benzonatate (TESSALON PERLE) 100 mg capsule Take 1 capsule by mouth three times a day as needed. 21 capsule 10/28/2024 Active Start: 10-26-2023 End: 11-07-2023 take 1 capsule by mouth every eight hours as needed benzonatate (TESSALON PERLES) 100 mg capsule Take 1 capsule by mouth three times a day as needed. 14 capsule 10/26/2023 11/07/2023 Discontinued Start: 05-04-2021 End: 08-11-2021 take 1 capsule by mouth three times daily as needed for cough Benzonatate (Tessalon Perles) 100 mg capsule Discontinued 100 mg PO THREE TIMES A DAY as needed for cough 20 0 May 04, 2021 12:00am August 11, 2021 11:39am Comment on above: Take 1 capsule by [facility] three times a day as needed. dorzolamide 20 mg/ml / timolol 5 mg/ml ophthalmic solution (20 sources) Carbonic Anhydrase Inhibitor, beta-Adrenergic Lev Start: 04-09-2024 take 1 drop(s) into the eye(s) once daily dorzolamide-timolol (COSOPT) 22.3-6.8 mg/mL ophthalmic solution Use 1 Drop in both eyes once daily. 04/09/2024 Active 24 hr metoprolol succinate 25 mg extended release oral tablet (20 sources) beta-Adrenergic Lev Start: 04-16-2024 take 1 tablet by mouth every hour metoprolol succinate ER (TOPROL XL) 25 mg 24 hr tablet Take 1 tablet by mouth every afternoon. 04/16/2024 Active Start: 04-16-2024 End: 04-06-2025 take 1 tablet by mouth once daily Metoprolol Succinate 25 mg tablet extended release 24 hr Active 25 mg PO DAILY 90 3 April 06, 2025 8:45am Multivit With Min-Folic Acid (Centrum Adult 50 Fresh-Fruity) 120 mcg tablet,chewable (3 sources) Start: 02-16-2022 Multivit With Min-Folic Acid (Centrum Adult 50 Fresh-Fruity) 120 mcg tablet,chewable Active 1 {tbl} PO DAILY February 16, 2022 12:00am multivitamin tablet (20 sources) take 1 tablet by mouth once daily multivitamin tablet Take 1 tablet by mouth once daily. Active take 1 tablet by mouth once manny y multivitamin tablet Take 1 tablet by mouth once daily. 0 Active Comment on above: Take 1 tablet by selam th once daily. Prevagen (3 sources) Start: 04-06-2023 Prevagen Activ e PO April 06, 2023 12:00am Completed/Discontinued Medications Medication Drug Class(es) Dates Sig (Normalized) Sig (Original) aspirin 81 mg chewable tablet (10 sources) Platelet Aggregation Inhibitor, Nonsteroidal Anti-inflammatory Drug Start: 04-19-2017 End: 05-10-2021 take 1 tablet by mouth once daily Aspirin 81 MG tablet,chewable Discontinued 81 mg PO DAILY April 19, 2017 12:00am May 10, 2021 9:11am End: 08-02-2022 take 1 tablet by mouth once daily aspirin, enteric coated (ASPIRIN, ENTERIC COATED) 81 mg EC tablet Take 81 mg by mouth once daily. 08/02/2022 Discontinued Comment on above: Take 81 mg by mouth once daily. furosemide 20 mg oral tablet (1 source) Loop Diuretic Start: 05-24-20 End: 07-18-20 take 1 tablet by mouth once daily furosemide (LASIX) 20 mg tablet Indications: SOB (shortness of breath) Take 1 tablet by mouth once daily for 7 days. 7 tablet 05/24/2021 07/18/2021 Discontinued (Course of therapy completed) levoFLOXacin 750 mg oral tablet (3 sources) Quinolone Antimicrobial Start: 05-04-20 End: 08-11-20 take 1 tablet by mouth once daily Levofloxacin 750 mg tablet Discontinued 750 mg PO DAILY 7 May 04, 2021 12:00am August 11, 2021 11:39am lisinopril 2.5 mg oral tablet (20 sources) Angiotensin Converting Enzyme Inhibitor Start: 05-17-20 End: 05-07-20 take 1 tablet by mouth once daily Lisinopril 2.5 mg tablet Discontinued 2.5 mg PO DAILY 30 May 17, 2023 12:00am April 16, 2024 3:43pm Start: 04-06-2023 End: 05-17-2023 take 1 tablet by mouth once daily Lisinopril 5 mg tablet Discontinued 5 mg PO DAILY April 06, 2023 12:00am May 17, 2023 1:09pm Start: 01-31-2023 take 1 tablet by selam th once daily lisinopril (ZESTRIL) 5 mg tablet Indications: Primary hypertension Take 1 tablet by mouth once daily. 30 tablet 5 01/31/2023 Active Start: 11-02-2022 End: 01-31-2023 take 1 tablet by mouth once daily lisinopril (ZESTRIL, PRINIVIL) 10 mg tablet Take 1 tablet by mouth once daily. 90 tablet 3 11/02/2022 01/31/2023 Discontinued (Dosage adjustment) Start: 11-02-2022 take 1 tablet by selam th once daily lisinopril (ZESTRIL, PRINIVIL) 10 mg tablet Take 1 tablet by mouth once daily. 90 tablet 3 11/02/2022 Active Start: 04-11-2022 End: 08-02-2022 take 1 tablet by mouth once daily lisinopril (ZESTRIL, PRINIVIL) 10 mg tablet Indications: Hypertension, essential Take 1 tablet by mouth once daily. 90 tablet 0 07/17/2022 08/02/2022 Discontinued Start: 02-16-2022 End: 04-06-2023 Lisinopril 10 mg tablet Disc ontinued NMA PO February 16, 2022 12:00am April 06, 2023 2:10pm Start: 07-18-2021 End: 01-24-2022 take 1 tablet by mouth once daily lisinopril (ZESTRIL, PRINIVIL) 10 mg tablet Indications: Hypertension, essential Take 1 tablet by mouth once daily. 90 tablet 0 01/25/2022 Active Start: 02-16-2020 End: 05-10-2021 take 1 tablet by mouth once daily Lisinopril 10 mg tablet Discontinued 10 mg PO DAILY February 16, 2020 12:00am May 10, 2021 9:11am Comment on above: Take 1 tablet by selam th once daily. Take 1 tablet by selam th once daily. [facility] omeprazole 40 mg delayed release oral capsule (3 sources) Proton Pump Inhibitor Start: 7 End: 0 take 1 capsule by mouth once daily Omeprazole 40 MG capsule Discontinued 40 mg PO DAILY May 05, 2017 12:00am February 16, 2020 9:17pm Problems Active Problems Problem Classification Problem Date Documented Da te Episodic/Chronic Cardiac dysrhythmias (4 sources) Nonsustained ventricular tachycardia ; Translations: [Nonsustained ventricular tachycardia] 03-26-2024 Chronic Cataract (3 sources) Bilateral cataracts; Translations: [Unspecified cataract] 04-06-2023 Chronic Chronic kidney disease (20 sources) Chronic kidney disease stage 3; Translations: [CKD (chronic kidney disease), stage III] 11-25-2018 Chronic Chronic kidney disease (1 source) Chronic kidney disease; Translations: [Stage 3a chronic kidney disease (HCC)] Onset: 9 Conduction disorders (20 sources) Atrioventricular block, complete; Translations: [Complete atrioventricular block] Onset: 7 Resolved: 2 04-24-2017 Chronic Comment on above: [employer] 04/23/17 Congestive heart failure; nonhypertensive (4 sources) Chronic diastolic heart failure; Translations: [Chronic diastolic (congestive) heart failure] Onset: 5 08-11-2021 Chronic Diverticulosis and diverticulitis (1 source) Diverticulosis of large intestine without perforation or abscess without bleeding; Translations: [Dvrtclos of lg int w/o perforation or abscess w/o bleeding] Onset: 2 Chronic Essential hypertension (20 sources) Essential hypertension; Translations: [Essential (primary) hypertension] Onset: 9 Chronic Fluid and electrolyte disorders (1 source) Hyperkalemia; Translations: [Hyperkalemia] Episodic Gastritis and duodenitis (20 sources) Chronic superficial gastritis; Translations: [Chronic superficial gastritis without bleeding] Resolved: 2 04-22-2017 Chronic Glaucoma (20 sources) Glaucoma; Translations: [Unspecified glaucoma] Onset: 4 11-07-2023 Chronic Immunizations and screening for infectious disease (1 source) Vaccination needed; Translations: [Encounter for immunization] 11-07-2023 Episodic Other acquired deformities (20 sources) Thoracogenic scoliosis, thoracic region; Translations: [Thoracogenic scoliosis] Onset: 4 05-07-2024 Chronic Other ear and sense organ disorders (1 source) Hearing difficulty; Translations: [Unspecified hearing loss, bilateral] 06-04-2024 Chronic Other ear and sense organ disorders (1 source) Unspecified hearing loss, bilateral; Translations: [Hearing impaired person, bilateral] Onset: Chronic Other gastrointestinal disorders (1 source) Diarrhea; Translations: [Diarrhea, unspecified] 05-07-2024 Episodic Other hereditary and degenerative nervous system conditions (1 source) Impaired cognition; Translations: [Mild cognitive impairment, so stated] 06-04-2024 Chronic Other hereditary and degenerative nervous system conditions (1 source) Mild cognitive impairment, so stated; Translations: [Cognitive impairment, mild, so stated] Onset: Chronic Other lower respiratory disease (1 source) Paroxysmal dyspnea; Translations: [Dyspnea, unspecified] 11-07-2023 Episodic Other lower respiratory disease (2 sources) Cough; Translations: [Acute cough] 10-27-2023 Episodic Other lower respiratory disease (2 sources) Dyspnea; Translations: [Shortness of breath] 05-20-2021 Episodic Other lower respiratory disease (4 sources) Cough; Translations: [Acute cough] 09-01-2024 Episodic Other lower respiratory disease (3 sources) Dyspnea on exertion; Translations: [Other forms of dyspnea] 04-14-2025 Episodic Other lower respiratory disease (2 sources) Other forms of dyspnea; Translations: [Other forms of dyspnea] Onset: 5 Episodic Other nervous system disorders (1 source) Other chronic pain; Translations: [Neck pain, chronic] Onset: 4 Chronic Other nutritional; endocrine; and metabolic disorders (20 sources) Obese class I; Translations: [Obesity, unspecified] Onset: 3 Chronic Other screening for suspected conditions (not mental disorders or infectious disease) (3 sources) CT of chest abnormal; Translations: [Abnormal findings on diagnostic imaging of other specified body structures] 05-10-2021 Chronic Other upper respiratory infections (2 sources) Acute upper respiratory infection; Translations: [Acute upper respiratory infection, unspecified] 10-27-2023 Episodic Pneumonia (except that caused by tuberculosis or sexually transmitted disease) (3 sources) Pneumonia; Translations: [Pneumonia, unspecified organism] 05-04-2021 Episodic Residual codes; unclassified (1 source) Sleep apnea; Translations: [Sleep apnea, unspecified] 06-04-2024 Chronic Residual codes; unclassified (1 source) Sleep apnea, unspecified; Translations: [Sleep apnea, unspecified type] Onset: 4 Chronic Residual codes; unclassified (2 sources) Amnesia; Translations: [Other amnesia] 05-07-2024 Episodic Spondylosis; intervertebral disc disorders; other back problems (20 sources) Cervical spondylosis without myelopathy; Translations: [Spondylosis without myelopathy or radiculopathy, cervical region] Onset: 4 05-08-2024 Chronic Unclassified (1 source) Unknown / UNK(Unknown) Onset: 7 Unclassified (1 source) Acute cough; Translations: [Acute cough] Onset: 4 Unclassified (1 source) Other ventricular tachycardia; Translations: [Other ventricular tachycardia] Onset: 5 Past or Other Problems Problem Classification Problem Date Documented Da te Episodic/Chronic Abdominal hernia (20 sources) Hiatal hernia; Translations: [Diaphragmatic hernia without obstruction or gangrene] Onset: 11-07-2023 11-07-2023 Episodic Acute and unspecified renal failure (20 sources) Acute renal failure syndrome; Translations: [Acute kidney failure, unspecified] Onset: 04-20-2017 Resolved: 2017 04-24-2017 Episodic Esophageal disorders (20 sources) Gastro-esophageal reflux disease with esophagitis; Translations: [Reflux esophagitis] Resolved: 08-02-2022 04-19-2017 Chronic Genitourinary symptoms and ill-defined conditions (20 sources) Retention of urine; Translations: [Retention of urine, unspecified] Onset: 02-10-2023 02-10-2023 Episodic Hyperplasia of prostate (20 sources) Benign prostatic hypertrophy with outflow obstruction; Translations: [Benign prostatic hyperplasia with lower urinary tract symptoms] Onset: 07-28-2010 Resolved: 08-02-2022 09-26-2021 Chronic Other and unspecified benign neoplasm (20 sources) Polyp of colon; Translations: [Polyp of colon] Onset: 07-28-2010 Resolved: 08-02-2022 09-26-2021 Episodic Other and unspecified benign neoplasm (20 sources) History of polyp of colon; Translations: [Personal history of colonic polyps] Onset: 08-15-2010 08-15-2010 Episodic Other diseases of kidney and ureters (20 sources) Acquired complex renal cyst; Translations: [Cyst of kidney, acquired] Onset: 02-10-2023 02-10-2023 Episodic Other gastrointestinal disorders (20 sources) Dysphagia; Translations: [Dysphagia, unspecified] Onset: 11-09-2016 Resolved: 2017 2017 Episodic Other gastrointestinal disorders (1 source) Diarrhea, unspecified; Translations: [Diarrhea, unspecified type] Onset: 05-07-2024 Episodic Other nutritional; endocrine; and metabolic disorders (20 sources) Body mass index 30+ - obesity; Translations: [Obesity, unspecified] Onset: 04-23-2017 Resolved: 11-07-2023 04-23-2017 Chronic Other nutritional; endocrine; and metabolic disorders (20 sources) Obesity; Translations: [Obesity, unspecified] Onset: 07-28-2010 Resolved: 11-25-2018 11-25-2018 Chronic Other screening for suspected conditions (not mental disorders or infectious disease) (20 sources) Patient encounter status; Translations: [Encounter for screening for lipoid disorders] Onset: 11-09-2016 Resolved: 2017 Episodic Residual codes; unclassified (1 source) Family history of malignant neoplasm of digestive organs; Translations: [Family history of malignant neoplasm of digestive organs] Onset: 01-18-2022 Episodic Residual codes; unclassified (1 source) Other amnesia; Translations: [Memory loss] Onset: 06-04-2024 Episodic Screening and history of mental health and substance abuse codes (2 sources) Encounter for screening for depression; Translations: [Encounter for screening examination for other mental health and behavioral disorders] Onset: 05-07-2024 Episodic Spondylosis; intervertebral disc disorders; other back problems (20 sources) Chronic neck pain; Translations: [Cervicalgia] Onset: 05-07-2024 05-07-2024 Episodic Unclassified (20 sources) SUMMARY Onset: 04-22-2017 Resolved: 08-02-2022 09-27-2021 Results Test Name Value Interpretation Reference Range Facility Absolute lymphocyte countOrd ered By: Nino Gutierrez on 04-14-2025 Lymphocytes Auto (Unsp spec) [#/Vol] 1.40 10*3/uL 0.83-4.51 [facility] Absolute neutrophil countOrd ered By: Ninobrad Gutierrez on 04-14-2025 Neutrophils (Bld) [#/Vol] 4.0 10*3/uL 2.0-7.7 [facility] Anion gap in Serum or Plasma Ordered By: Nino Gutierrez on 04-14-2025 Anion gap [Moles/Vol] 11 mmol/L 02-12 [facility] Automated lymphocyte count a s percentage of total leukocytesOrdered By: Ninobrad Gutierrez on 04-14-2025 Lymphocytes/100 WBC Auto (Unsp spec) 21.3 % - [facility] BUN/creatinine ratioOrdered By: [facility] on 04-14-2025 Urea nitrogen/Creatinine [Mass ratio] 17.6 mg/mg 10- [facility] Basophil percentageOrdered B y: Ninobrad Gutierrez on 04-14-2025 Basophils/100 WBC (Bld) 1.5 % High 0- [facility] Bilirubin, totalOrdered By: Ninobrad Gutierrez on 04-14-2025 Bilirubin [Mass/Vol] 0.95 mg/dL 0.00-1.30 [facility] CBC W/Diff, Automatedon 03-31 Absolute Lymph 1.40 X10 3/uL Normal 0.83-4.51 [facility] Comment on above: Performed By: #### L 100.0100, L501.9520, L501.5200, L500.4100, L500.4050, [id number] #### [facility] [address] [place], [address] Absolute Neut 4.0 X10 3/uL Normal 2.0-7.7 [facility] Comment on above: Performed By: #### L 100.0100, L501.9520, L501.5200, L500.4100, L500.4050, [id number] #### [facility] [address] [place], [address] Basophils/100 WBC (Bld) 1.5 % High 0-1 [facility] Comment on above: Performed By: #### L 100.0100, L501.9520, L501.5200, L500.4100, L500.4050, [id number] #### [facility] [address] [place], [address] Eosinophils/100 WBC (Bld) 7.0 % High 0-5 [facility] Comment on above: Performed By: #### L 100.0100, L501.9520, L501.5200, L500.4100, L500.4050, [id number] #### [facility] [address] [place], [address] Erythrocyte distribution width (RBC) [Ratio] 12.9 % Normal 11.6-14.6 [facility] Comment on above: Performed By: #### L 100.0100, L501.9520, L501.5200, L500.4100, L500.4050, [id number] #### [facility] [address] [place], [address] Hematocrit (Bld) [Volume fraction] 45.3 % Normal 40-54 [facility] Comment on above: Performed By: #### L 100.0100, L501.9520, L501.5200, L500.4100, L500.4050, [id number] #### [facility] [address] [place], [address] Hemoglobin (Bld) [Mass/Vol] 15.1 g/dL Normal 13.0-16.5 [facility] Comment on above: Performed By: #### L 100.0100, L501.9520, L501.5200, L500.4100, L500.4050, [id number] #### [facility] [address] [place], [address] IG% 0.200 Normal 0.0-0.9 [facility] Comment on above: Result Comment: IG% - Immature Granulocytes (promyelocytes, myelocytes and metamyelocytes) > 1% indicates that a LEFT SHIFT is Present. Performed By: #### L 100.0100, L501.9520, L501.5200, L500.4100, L500.4050, [id number] #### [facility] [address] [place], [address] Lymphocytes/100 WBC (Bld) 21.3 % Normal 19-41 [facility] Comment on above: Performed By: #### L 100.0100, L501.9520, L501.5200, L500.4100, L500.4050, [id number] #### [facility] [address] [place], [address] MCH (RBC) [Entitic mass] 31.6 pg Normal 27.0-32.0 [facility] Comment on above: Performed By: #### L 100.0100, L501.9520, L501.5200, L500.4100, L500.4050, [id number] #### [facility] [address] [place], [address] MCHC (RBC) [Mass/Vol] 33.3 g/dL Normal 32-36 [facility] Comment on above: Performed By: #### L 100.0100, L501.9520, L501.5200, L500.4100, L500.4050, [id number] #### [facility] [address] [place], [address] MCV (RBC) [Entitic vol] 94.8 fL High 80-94 [facility] Comment on above: Performed By: #### L 100.0100, L501.9520, L501.5200, L500.4100, L500.4050, [id number] #### [facility] [address] [place], [address] Monocytes/100 WBC (Bld) 8.5 % Normal 0-10 [facility] Comment on above: Performed By: #### L 100.0100, L501.9520, L501.5200, L500.4100, L500.4050, [id number] #### [facility] [address] [place], [address] Neutrophils/100 WBC (Bld) 61.5 % Normal 47-70 [facility] Comment on above: Performed By: #### L 100.0100, L501.9520, L501.5200, L500.4100, L500.4050, [id number] #### [facility] [address] [place], [address] Nucleated RBC (Bld) [#/Vol] 0 10*3/uL Normal 0-5 [facility] Comment on above: Performed By: #### L 100.0100, L501.9520, L501.5200, L500.4100, L500.4050, [id number] #### [facility] [address] [place], [address] Platelet mean volume (Bld) [Entitic vol] 10.0 fL Normal 6.2-12.0 [facility] Comment on above: Performed By: #### L 100.0100, L501.9520, L501.5200, L500.4100, L500.4050, [id number] #### [facility] [address] [place], [address] Platelets (Bld) [#/Vol] 224 10*3/uL Normal 150-450 [facility] Comment on above: Performed By: #### L 100.0100, L501.9520, L501.5200, L500.4100, L500.4050, [id number] #### [facility] [address] [place], [address] RBC (Bld) [#/Vol] 4.78 10*6/uL Normal 4.6-6.2 [facility] Comment on above: Performed By: #### L 100.0100, L501.9520, L501.5200, L500.4100, L500.4050, [id number] #### [facility] [address] [place], [address] RDW SD 45.2 fl High 35.1-43.9 [facility] Comment on above: Performed By: #### L 100.0100, L501.9520, L501.5200, L500.4100, L500.4050, [id number] #### [facility] [address] [place], [address] WBC (Bld) [#/Vol] 6.6 10*3/uL Normal 4.4-11.0 [facility] Comment on above: Performed By: #### L 100.0100, L501.9520, L501.5200, L500.4100, L500.4050, [id number] #### [facility] [address] [place], [address] Calculated very low density lipoprotein (VLDL) cholesterol measurementOrdered By: Nino Gutierrez on 04-14-2025 Calculated very low density lipoprotein (VLDL) cholesterol measurement 23 mg/dL 5-40 [facility] Carbon dioxide, total [Moles /volume] in Central venous bloodOrdered By: Nino Gutierrez on 04-14-2025 CO2 [Moles/Vol] 24.2 mmol/L 21.0-32.0 [facility] Cardiology Visit Reporton Cardiology Visit Report [facility] [address] [place] [address] OFFICE VISIT Date of Service: 04/14/25 MR#: [id number] Acct: [id number] Name: OLIVIA BRISCOE Rep #: [id number] : 1940 Provider: JIMI Gutierrez Age/Sex: 84/M [place] [facility] Status: Signed HPI HPI History of Present Illness Details: Olivia Briscoe is an 84-year-old male who presents to office today for follow-up for monitoring his cardiovascular health. He has a history of hypertension and obesity. He presented to [facility] in March 2017 and was noted to be in complete heart block and was transferred to [facility] where he underwent placement of a dual-chamber Medtronic pacemaker. He does have some nonsustained ventricular tachycardia noted on his pacemaker evaluations, this is not new for him. He is intolerant to beta-blockers secondary to low blood pressures and not wanting to take them. Upon presentation today, patient reports overall doing well. He reports he received vaccinations a few months ago and he now finds himself becoming short of breath with over exertion. This resolves with rest. He is able to tolerate 1 flight of stairs and walking up to our office without any concerns. Further ROS below. Intake Vital Signs 04/16/24 15:20 04/14/25 06:23 Height 5 ft 8 in 5 ft 8 in Weight: 209 lb BMI 31.7 BP 138/83 H Blood Pressure Location Lt brachial Position Sitting Respiration 18 Pulse 64 Pulse Source Monitor Pulse Oximetry (%) 98 Intake Visit Reasons: 1 Y FU [employer]ding [employer] Required: No Is patient in pain?: No Allergies latex Allergy (Unknown, Verified 04/16/24 15:16) Itching Fish Containing Products Allergy (Verified 04/16/24 15:16) Swelling Medications ???Medication ???Instructions ???Recorded ???Confirmed ???Type multivitamin with minerals-folic 1 tab PO DAILY 02/16/22 04/14/25 H istory acid 120 mcg chewable tablet (Centrum Adult 50 Plus Fresh-Fruity) Prevagen PO 04/06/23 04/14/25 History metoprolol succinate 25 mg 25 mg PO DAILY #90 tabs 04/06/25 0 04/14/25 Rx tablet,extended release 24 hr Ejection fraction %: 55 Have you fallen in the past year?: No PFSH Medical History Nonsustained ventricular tachycardia Cataracts, bilateral Dysphagia Diverticulitis BPH w urinary obs/LUTS GERD (gastroesophageal reflux disease) Chronic kidney disease (CKD) Complete heart block (04/19/17) Essential (primary) hypertension Obesity Surgical History History of esophagogastroduodenoscopy (EGD) History of colonoscopy History of tonsillectomy 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) Family History Father Colon cancer Social History Smoking Status: Former smoker how long ago did patient quit smokin alcohol intake: never substance use type: does not use caffeine: Yes Type: carbonated beverages Number of servings: 2 and coffee ROS Const Const: Negative for fatigue, weakness, headache(s) or frequent falls Eyes Eyes: Negative for blurry vision ENT ENT: Negative for headache(s), dizziness or Nosebleed/epistaxis Cardio Chest Pain: No Palpitations: No Edema: None Muscle aches with walking: None Resp Respiratory: Positive for SOB with activity; Negative for SOB at rest or SOB orthopnea SOB lying down GI GI: Negative nausea, vomiting, heartburn, bright, red blood in stools or black,tarry stools : Negative for hematuria Neuro Neuro: Negative for dizziness, lightheadedness, near syncope, syncope, frequent falls, headache(s), weakness or blurry vision Endo Endo: Negative for fatigue Cardiology Exam Const Appearance: cooperative, comfortable, no acute distress and well developed; Negative diaphoretic or ill appearing Nutritional Appearance: average body habitus Orientation: alert and oriented x3 Ambulating without assistive device Head Head: normal to inspection, normocephalic and atraumatic Ears: hearing grossly normal bilaterally Nose: external nose normal and Negative epistaxis Face and Sinus: face symmetric Eyes General: appearance normal, both eyes and all related structures Eyelids: eyelids normal Conjunctivae: conjunctivae normal; Negative scleral icterus EOM: EOM intact bilaterally Neck Neck: no JVD Carotids: normal carotid upstroke; Negative bruit Neck Mass: Negative Neck mass Chest Chest inspection: normal respiratory effort; Negative respiratory distress, audible wheezes or tachypneic Auscultation: Bilateral: Clear to Auscultation Cardio Rate: regular rate Rhythm: regu (more content not included)... Normal [facility] Chloride assayOrdered By: Ceferino Gutierrez on 04-14-2025 Chloride [Moles/Vol] 104 mmol/L 98-108 [facility] Comprehensive Metabolic Prof ilon 04-14-2025 Albumin [Mass/Vol] 4.0 g/dL Normal 3.4-4.8 [facility] Comment on above: Performed By: #### L 100.0100, L501.9520, L501.5200, L500.4100, L500.4050, L503.7505 #### [facility] [address] [place], [address] Albumin/Globulin [Mass ratio] 1.3 {ratio} Normal 0.9-2.4 [facility] Comment on above: Performed By: #### L 100.0100, L501.9520, L501.5200, L500.4100, L500.4050, L503.7505 #### [facility] [address] [place], [address] ALK PHOS 90 U/L Normal 40-129 [facility] Comment on above: Performed By: #### L 100.0100, L501.9520, L501.5200, L500.4100, L500.4050, L503.7505 #### [facility] [address] [place], [address] ALT [Catalytic activity/Vol] 15 U/L Normal <=46 [facility] Comment on above: Performed By: #### L 100.0100, L501.9520, L501.5200, L500.4100, L500.4050, L503.7505 #### [facility] [address] [place], [address] AST [Catalytic activity/Vol] 23 U/L Normal <=37 [facility] Comment on above: Result Comment: Hemo lysis present, Results??could be affected. ?? Performed By: #### L 100.0100, L501.9520, L501.5200, L500.4100, L500.4050, L503.7505 #### [facility] [address] [place], [address] Bilirubin [Mass/Vol] 0.95 mg/dL Normal 0.00-1.30 [facility] Comment on above: Performed By: #### L 100.0100, L501.9520, L501.5200, L500.4100, L500.4050, L503.7505 #### [facility] [address] [place], [address] BUN/CRE 17.6 RATIO Normal 10-20 [facility] Comment on above: Performed By: #### L 100.0100, L501.9520, L501.5200, L500.4100, L500.4050, L503.7505 #### [facility] [address] [place], [address] Calcium [Mass/Vol] 9.3 mg/dL Normal 7.6-11.0 [facility] Comment on above: Performed By: #### L 100.0100, L501.9520, L501.5200, L500.4100, L500.4050, L503.7505 #### [facility] [address] [place], [address] Chloride [Moles/Vol] 104 mmol/L Normal 98-108 [facility] Comment on above: Performed By: #### L 100.0100, L501.9520, L501.5200, L500.4100, L500.4050, L503.7505 #### [facility] [address] [place], [address] CO2 [Moles/Vol] 24.2 mmol/L Normal 21.0-32.0 [facility] Comment on above: Performed By: #### L 100.0100, L501.9520, L501.5200, L500.4100, L500.4050, L503.7505 #### [facility] [address] [place], [address] Creatinine [Mass/Vol] 1.08 mg/dL Normal 0.70-1.20 [facility] Comment on above: Performed By: #### L 100.0100, L501.9520, L501.5200, L500.4100, L500.4050, L503.7505 #### [facility] [address] [place], [address] GAP 11 Normal 5-15 [facility] Comment on above: Performed By: #### L 100.0100, L501.9520, L501.5200, L500.4100, L500.4050, L503.7505 #### [facility] [address] [place], [address] GFR/1.73 sq M.predicted among non-blacks MDRD (S/P/Bld) [Vol rate/Area] 68 mL/min/{1.73_m2} Normal >60 [facility] Comment on above: Result Comment: mL/m in/1.73m2 CKD-EPI Creatinine Equation (2020) Performed By: #### L 100.0100, L501.9520, L501.5200, L500.4100, L500.4050, L503.7505 #### [facility] [address] [place], [address] Globulin (S) [Mass/Vol] 3.1 g/dL Normal 2.2-4.2 [facility] Comment on above: Performed By: #### L 100.0100, L501.9520, L501.5200, L500.4100, L500.4050, L503.7505 #### [facility] [address] [place], [address] Glucose [Mass/Vol] 93 mg/dL Normal 70-99 [facility] Comment on above: Performed By: #### L 100.0100, L501.9520, L501.5200, L500.4100, L500.4050, L503.7505 #### [facility] [address] [place], [address] Potassium [Moles/Vol] 4.9 mmol/L Normal 3.3-5.1 [facility] Comment on above: Result Comment: Hemo lysis present, Results??could be affected. ?? Performed By: #### L 100.0100, L501.9520, L501.5200, L500.4100, L500.4050, L503.7505 #### [facility] [address] [place], [address] Sodium [Moles/Vol] 139 mmol/L Normal 133-145 [facility] Comment on above: Performed By: #### L 100.0100, L501.9520, L501.5200, L500.4100, L500.4050, L503.7505 #### [facility] [address] [place], [address] T PROT 7.0 g/dL Normal 5.9-8.4 [facility] Comment on above: Performed By: #### L 100.0100, L501.9520, L501.5200, L500.4100, L500.4050, L503.7505 #### [facility] [address] [place], [place], [address] Urea nitrogen [Mass/Vol] 19 mg/dL Normal 4-19 [facility] Comment on above: Performed By: #### L 100.0100, L501.9520, L501.5200, L500.4100, L500.4050, L503.7505 #### [facility] [address] [place], [place], [address] Eosinophil percentageOrdered By: Nino Gutierrez on 04-14-2025 Eosinophils/100 WBC (Bld) 7.0 % High 0-5 [facility] Erythrocyte distribution wid th ratioOrdered By: Nino Gutierrez on 04-14-2025 Erythrocyte distribution width (RBC) [Ratio] 12.9 % 11.6-14.6 [facility] Erythrocyte distribution wid th standard deviationOrdered By: Ninobrad Gutierrez on 04-14-2025 Erythrocyte distribution width (RBC) [Ratio] 45.2 fl High 35.1-43.9 [facility] Glomerular filtration rate ( GFR) estimation/1.73 sq m using serum, plasma, or whole bOrdered By: Nino Gutierrez on 04-14-2025 GFR/1.73 sq M.predicted among non-blacks MDRD (S/P/Bld) [Vol rate/Area] 68 mL/min/{1.73_m2} >60 [facility] Comment on above: mL/min/1.73m2 CKD-EP I Creatinine Equation (2020) Hematocrit Auto (Bld) [Volum e fraction]Ordered By: Nino Gutierrez on 04-14-2025 Hematocrit (Bld) [Volume fraction] 45.3 % 40-54 [facility] Hemoglobin measurementOrdere d By: Nino Gutierrez on 04-14-2025 Hemoglobin (Bld) [Mass/Vol] 15.1 g/dL 13.0-16.5 [facility] Immature granulocytes/100 WB C Auto (Bld)Ordered By: Nino Gutierrez on 04-14-2025 Immature granulocytes/100 WBC (Bld) 0.200 % 0.0-0.9 [facility] Comment on above: IG% - Immature Granu locytes (promyelocytes, myelocytes and metamyelocytes) > 1% indicates that a LEFT SHIFT is Present. L503.7505on 04-14-2025 Natriuretic peptide B (Bld) [Mass/Vol] 90 pg/mL Normal <=1800 [facility] Comment on above: Result Comment: Hear t Failure Unlikely: < 300 pg/mL Heart Failure Likely < 50 Years: > 450 pg/mL 50-75 Years: > 900 pg/mL >75 Years: > 1800 pg/mL Performed By: #### L 100.0100, L501.9520, L501.5200, L500.4100, L500.4050, L503.7505 #### [facility] [address] [place], [address] LDL calc ser/plasOrdered By: Nino Gutierrez on 04-14-2025 Cholesterol in LDL [Mass/Vol] 115 mg/dL [facility] Comment on above: Cghqamjqpt=839-460 m g/dL & Higher Nguj=156 mg/dL or greater Laboratory - Chemistry and C hemistry - challengeOrdered By: Nino Gutierrez on 04-14-2025 AST [Catalytic activity/Vol] 23 U/L <38 [facility] Comment on above: Hemolysis present, R esults could be affected. Lipid Profileon 04-14-2025 CHOL:HDL 3.86 Normal [facility] Comment on above: Performed By: #### L 100.0100, L501.9520, L501.5200, L500.4100, L500.4050, L503.7505 #### [facility] [address], [address] Cholesterol [Mass/Vol] 186 mg/dL Normal <=200 [facility] Comment on above: Result Comment: Chol esterol level, Desirable <200 mg/dL Borderline high cholesterol 200-239 mg/dL High cholesterol >=240 mg/dL Recommendations of the NCEP Adult Treatment Panel for the following risk-cutoff thresholds for the [place] population. Performed By: #### L 100.0100, L501.9520, L501.5200, L500.4100, L500.4050, L503.7505 #### [facility] [address] [place], [address] Cholesterol in HDL [Mass/Vol] 48 mg/dL Normal [facility] Comment on above: Result Comment: Yesi onal Cholesterol Education Program (NCEP) guidelines: <40 mg/dL: Low HDL-cholesterol (major risk factor for CHD) >= 60 mg/dL: High HDL-cholesterol (negative risk factor for CHD) HDL-cholesterol is affected by a number of factors, e.g. smoking, exercise, hormones, sex and age. Performed By: #### L 100.0100, L501.9520, L501.5200, L500.4100, L500.4050, L503.7505 #### [facility] [address] [place], [address] Cholesterol in LDL [Mass/Vol] 115 mg/dL Normal [facility] Comment on above: Result Comment: Bord fsugcy=362-211 mg/dL Higher Zhiv=096 mg/dL or greater Performed By: #### L 100.0100, L501.9520, L501.5200, L500.4100, L500.4050, L503.7505 #### [facility] [address] [place], [address] Cholesterol in VLDL [Mass/Vol] 23 mg/dL Normal 5-40 [facility] Comment on above: Performed By: #### L 100.0100, L501.9520, L501.5200, L500.4100, L500.4050, L503.7505 #### [facility] [address] [place], [address] Triglyceride [Mass/Vol] 116 mg/dL Normal [facility] Comment on above: Result Comment: The drugs N-Acetylcysteine and Metamizole may falsely depress this assay. Normal range: <150 mg/dL Borderline High: 150-199 mg/dL High: 200-499 mg/dL Very High: >500 mg/dL Performed By: #### L 100.0100, L501.9520, L501.5200, L500.4100, L500.4050, L503.7505 #### [facility] [address] [place], [address] MCV (mean corpuscular volume ) determinationOrdered By: Nino Gutierrez on 04-14-2025 MCV (RBC) [Entitic vol] 94.8 fL High 80-94 [facility] Magnesiumon 04-14-2025 Magnesium [Mass/Vol] 2.5 mg/dL High 1.5-2.2 [facility] Comment on above: Performed By: #### L 100.0100, L501.9520, L501.5200, L500.4100, L500.4050, L503.7505 #### [facility] [address] [place], [place], [address] Magnesium measurement (mass/ volume)Ordered By: Nino Gutierrez on 04-14-2025 Magnesium (Unsp spec) [Mass/Vol] 2.5 mg/dL High 1.5-2.2 [facility] Mean corpuscular hemoglobin (MCH) determinationOrdered By: Nino Gutierrez on 04-14-2025 MCH (RBC) [Entitic mass] 31.6 pg 27.0-32.0 [facility] Mean corpuscular hemoglobin concentration (MCHC) determinationOrdered By: Nino Gutierrez on 04-14-2025 MCHC (RBC) [Mass/Vol] 33.3 g/dL 32-36 [facility] Mean platelet volume determi nationOrdered By: Nino Gutierrez on 04-14-2025 Platelet mean volume (Bld) [Entitic vol] 10.0 fL 6.2-12.0 [facility] Monocyte percentageOrdered B y: Nino Gutierrez on 04-14-2025 Monocytes/100 WBC (Bld) 8.5 % 0-10 [facility] Natriuretic peptide.B prohor ori N-Terminal [Mass/volume] in Serum or PlasmaOrdered By: Nino Gutierrez on 04-14-2025 Natriuretic peptide.B prohormone N-Terminal [Mass/Vol] 90 pg/mL <1800 [facility] Comment on above: Heart Failure Unlike ly: < 300 pg/mLHeart Failure Likely< 50 Years: > 450 pg/mL50-75 Years: > 900 pg/mL>75 Years: > 1800 pg/mL Neutrophil percentageOrdered By: Nino Gutierrez on 04-14-2025 Neutrophils/100 WBC (Bld) 61.5 % 47-70 [facility] Nucleated red blood cell per centageOrdered By: Nino Gutierrez on 04-14-2025 Nucleated RBC/100 WBC (Bld) [Ratio] 0 % 0-5 [facility] Platelet countOrdered By: Ceferino Gutierrez on 04-14-2025 Platelets (Bld) [#/Vol] 224 10*3/uL 150-450 [facility] Potassium measurement (mass/ volume)Ordered By: Nino Gutierrez on 04-14-2025 Potassium (Unsp spec) [Mass/Vol] 4.9 mmol/L 3.3-5.1 [facility] Comment on above: Hemolysis present, R esults could be affected. RBC Auto (Bld) [#/Vol]Ordere d By: Nino Gutierrez on 04-14-2025 RBC (Bld) [#/Vol] 4.78 10*6/uL 4.6-6.2 [facility] Screening total cholesterol/ high density lipoprotein (HDL) cholesterol ratioOrdered By: Nino Gutierrez on 04-14-2025 Cholesterol.total/Chol esterol in HDL [Mass ratio] 3.86 {ratio} [facility] Serum creatinine measurement (mass/volume)Ordered By: Nino Gutierrez on 04-14-2025 Creatinine [Mass/Vol] 1.08 mg/dL 0.70-1.20 [facility] Serum globulin measurementOr dered By: Nino Gutierrez on 04-14-2025 Globulin (S) [Mass/Vol] 3.1 g/dL 2.2-4.2 [facility] Serum glucose measurement (m ass/volume)Ordered By: Nino Matt on 04-14-2025 Glucose [Mass/Vol] 93 mg/dL 70-99 [facility] Serum or plasma alanine zaidi otransferase (ALT) measurementOrdered By: [facility]2025 ALT [Catalytic activity/Vol] 15 U/L <47 [facility] Serum or plasma albumin davin urement (mass/volume)Ordered By: [facility] on 04-14-2025 Albumin [Mass/Vol] 4.0 g/dL 3.4-4.8 [facility] Serum or plasma albumin/glob ulin mass ratioOrdered By: [facility] on 04-14-2025 Albumin/Globulin [Mass ratio] 1.3 {ratio} 0.9-2.4 [facility] Serum or plasma alkaline shana sphatase measurementOrdered By: [facility] on 04-14-2025 ALP [Catalytic activity/Vol] 90 U/L 40-129 [facility] Serum or plasma calcium davin urement (mass/volume)Ordered By: [facility] on 04-14-2025 Calcium [Mass/Vol] 9.3 mg/dL 7.6-11.0 [facility] Serum or plasma cholesterol in HDL measurement (mass/volume)Ordered By: Nino Matt on 04-14-2025 Cholesterol in HDL [Mass/Vol] 48 mg/dL >40 [facility] Comment on above: National Cholesterol Education Program (NCEP) guidelines:<40 mg/dL: Low HDL-cholesterol (major risk factor for CHD)>= 60 mg/dL: High HDL-cholesterol (negative risk factor for CHD)HDL-cholesterol is affected by a number of factors, e.g. smoking, exercise, hormones, sex and age. Serum or plasma cholesterol measurement (mass/volume)Ordered By: Nino Gutierrez on 04-14-2025 Cholesterol [Mass/Vol] 186 mg/dL <201 [facility] Comment on above: Cholesterol level, D esirable <200 mg/dLBorderline high cholesterol 200-239 mg/dLHigh cholesterol >=240 mg/dLRecommendations of the NCEP Adult Treatment Panel for the following risk-cutoff thresholds for the [place] population. Serum or plasma urea nitroge n measurement (mass/volume)Ordered By: Nino Gutierrez on 04-14-2025 Urea nitrogen [Mass/Vol] 19 mg/dL 4-19 [facility] Sodium levelOrdered By: Reji Gutierrez on 04-14-2025 Sodium [Moles/Vol] 139 mmol/L 133-145 [facility] TSH DL <= 0.005 mIU/L QnOrde red By: Nino Gutierrez on 04-14-2025 TSH Qn 1.140 uIU/mL 0.300-4.20 0 [facility] Thyroid Stim Hormone (TSH)on 04-14-2025 TSH 1.140 uIU/mL Normal 0.300-4.20 0 [facility] Comment on above: Performed By: #### L 100.0100, L501.9520, L501.5200, L500.4100, L500.4050, L503.7505 #### [facility] [place], [address] Total proteinOrdered By: Fabio Gutierrez on 04-14-2025 Protein [Mass/Vol] 7.0 g/dL 5.9-8.4 [facility] Triglycerides measurementOrd ered By: Nino Gutierrez on 04-14-2025 Triglyceride [Mass/Vol] 116 mg/dL <199 [facility] Comment on above: The drugs N-Acetylcy steine and Metamizole may falsely depress this assay. Normal range: <150 mg/dLBorderline High: 150-199 mg/dLHigh: 200-499 mg/dLVery High: >500 mg/dL White blood cell (WBC) count Ordered By: Nino Gutierrez on 04-14-2025 WBC (Bld) [#/Vol] 6.6 10*3/uL 4.4-11.0 [facility] CNOVon 10-28-2024 CNOV Office Visit ([facility] ) OLIVIA BRISCOE ([id number]) 1940 M Date Time Provider Department 10/28/24 1:45 PM ANSHUL [facility] During your visit today, we recorded the following information about you: Temperature Pulse Respiration Blood pressure 97 degrees 66/minute 22/minute 118/70 Weight 95 kg Anshul Manley PA 10/28/2024 12:56 PM Signed This note was created using Snapflowriter. Subjective Olivia Briscoe is a 84 year old male. HPI 84-year-old male presents for cough, chest congestion, wheezing, shortness of breath x 1 week. Patient states he has had a cough for the past week. He states occasionally he coughs up some phlegm. He feels congested in the chest and at nighttime feels like he is wheezing. He has a little shortness of breath with cough. No chest pain. No history of COPD or asthma. Does have history of CHF. No new leg swelling. He has had a runny nose, watery eyes. He has not had a fever. His is sick with similar symptoms. Patient had COVID back in August, states this feels similar. No other complaint. PAST MEDICAL HISTORY Diagnosis Date Chronic diastolic CHF (congestive heart failure) (HCC) 08/01/2021 Chronic superficial gastritis without bleeding History: EGD proven in 11/2016 Assessment: stable Plan: continue home PPI CKD (chronic kidney disease), stage III (HCC) Colon polyps 07/28/2010 polypectomy 2002, 2004 (Dr. Verdin); negative in 2006 FH of colon cancer (father) Complete heart block (HCC) 04/19/2017 Dr. Couch Diverticulitis [address] Larose Enlarged prostate 2006 has subsided-was taking flomax Family history of malignant neoplasm of gastrointestinal tract Glaucoma 11/07/2023 Hiatal hernia 02/20/2012 Hypertension Hypertrophy of prostate with urinary obstruction and other lower urinary tract symptoms (LUTS) 07/28/2010 Symptoms only with Sudafed, otherwise does well Obesity Obesity, Class I, BMI 30-34.9 01/31/2023 Pacemaker Personal history of colonic polyps Pneumonitis 05/04/2021 Seborrheic keratoses PAST SURGICAL HISTORY Procedure Laterality Date COLONOSCOPY COLONOSCOPY 11/28/2016 COLONOSCOPY FLX DX W/COLLJ SPEC WHEN PFRMD 08/15/2010 Normal EGD 11/28/2016 PACEMAKER INSERTION DUAL CHAMB 04/23/2017 TONSILLECTOMY PRIMARY/SECONDARY Tonsillectomy ALLERGIES Chicken Derived and Fish Containing Products MEDICATIONS metoprolol succinate ER (TOPROL XL) 25 mg 24 hr tablet Take 1 tablet by mouth every afternoon. dorzolamide-timolol (COSOPT) 22.3-6.8 mg/mL ophthalmic solution Use 1 Drop in both eyes once daily. multivitamin tablet Take 1 tablet by mouth once daily. FAMILY HISTORY Problem Relation Age of Onset Colon Cancer Father age 75 Social History Tobacco Use Smoking status: Former Current packs/day: 0.00 Types: Cigarettes Quit date: 1961 Years since quittin.1 Smokeless tobacco: Never Tobacco comments: 1961 quit Substance Use Topics Alcohol use: No Drug use: No Review of Systems Constitutional: Positive for chills and fatigue. Negative for fever. HENT: Positive for rhinorrhea. Negative for congestion and sore throat. Respiratory: Positive for cough, shortness of breath and wheezing. Gastrointestinal: Negative for diarrhea and vomiting. Objective BP 118/70 Pulse 66 Temp 36.1 ?C (97 ?F) Resp 22 Wt 95 kg (209 lb 7 oz) SpO2 95% BMI 33.05 kg/m? Physical Exam Vitals and nursing note reviewed. Constitutional: General: He is not in acute distress. Appearance: Normal appearance. He is not toxic-appearing. HENT: Right Ear: Tympanic membrane and ear canal normal. Left Ear: Tympanic membrane and ear canal normal. Nose: Nose normal. Mouth/Throat: Mouth: Mucous membranes are moist. Pharynx: Oropharynx is clear. Eyes: Conjunctiva/sclera: Conjunctivae normal. Cardiovascular: Rate and Rhythm: Normal rate and regular rhythm. Pulmonary: Effort: Pulmonary effort is normal. Breath sounds: Wheezing present. No rhonchi or rales. Skin: General: Skin is warm and dry. Neurological: Mental Status: He is alert. Assessment and Plan ASSESSMENT/PLAN: 1. Acute cough - ICD9: 786.2, ICD10: R05.1 - XR CHEST 2V FRONTAL/LAT-no acute radiographic abnormality. Stable large hiatal hernia. -Rx albuterol inhaler, Rx Tessalon [place]les -Follow-up with PCP if no improvement in symptoms. -Declines viral swab Diagnosis and treatment plan were discussed and questions were answered to the patient's satisfaction. Pt acknowledged understanding of concepts and follow up plan. Specific signs and symptoms that would indicate the need for higher level of care were discussed in detail warranting prompt ER evaluation. JIMI Oconnell Allergies As of Date: 10/28/2024 Noted Allergy Reaction CHICKEN DERIVED 12/13/2017 7 - Swelling Comments: Certain (more content not included)... Normal [facility] XR CHEST 2V FRONTAL/LATon XR CHEST 2V FRONTAL/LAT * * *Final Report* * * DATE OF EXAM: Oct 28 2024 12:49PM WOX [id number] - XR CHEST 2V FRONTAL/LAT / PROCEDURE REASON: Acute cough * * * * Physician Interpretation * * * * EXAMINATION: CHEST RADIOGRAPH (2 VIEW FRONTAL and LATERAL) CLINICAL HISTORY: Acute cough MQ: XC2_6 EXAM DATE/TIME: 10/28/2024 12:49 PM COMPARISON: Chest x-ray dated 09/01/2024 RESULT: Lines, tubes, and devices: Left transvenous pacemaker with leads projecting over the right-sided cardiac chambers. Lungs and pleura: No consolidation. No lung mass. No pleural effusion. No pneumothorax. Cardiomediastinal silhouette: Stable cardiomediastinal silhouette. Stable large hiatal hernia. Bones and soft tissues: Osseous demineralization and degenerative changes. IMPRESSION: No acute radiographic abnormality. Stable large hiatal hernia. Microfilm Machine Operator: IMMANUEL Transcribe Date/Time: Oct 28 2024 12:50P Dictated by : GERARD ROD MD This examination was interpreted and the report reviewed and electronically signed by: GERARD ROD MD on Oct 28 2024 12:51PM EST [id number] Normal [facility] XR Chest PA and Lateralon IMPRESSION: No acute radiographic abnormality. Stable large hiatal hernia. Microfilm Machine Operator: PSCB Transcribe Date/Time: Oct 28 2024 12:50P Dictated by : GERARD ROD MD This examination was interpreted and the report reviewed and electronically signed by: GERARD ROD MD on Oct 28 2024 12:51PM [facility] DIVISION OF RADIOLOGY * * *Final Report* * * DATE OF EXAM: Oct 28 2024 12:49PM WOX 5291 - XR CHEST 2V FRONTAL/LAT / PROCEDURE REASON: Acute cough * * * * Physician Interpretation * * * * EXAMINATION: CHEST RADIOGRAPH (2 VIEW FRONTAL & LATERAL) CLINICAL HISTORY: Acute cough MQ: XC2_6 EXAM DATE/TIME: 10/28/2024 12:49 PM COMPARISON: Chest x-ray dated 09/01/2024 RESULT: Lines, tubes, and devices: Left transvenous pacemaker with leads projecting over the right-sided cardiac chambers. Lungs and pleura: No consolidation. No lung mass. No pleural effusion. No pneumothorax. Cardiomediastinal silhouette: Stable cardiomediastinal silhouette. Stable large hiatal hernia. Bones and soft tissues: Osseous demineralization and degenerative changes. DIVISION OF RADIOLOGY Provider, [facility] - 10/28/2024 * * *Final Report* * * DATE OF EXAM: Oct 28 2024 12:49PM WOX 5291 - XR CHEST 2V FRONTAL/LAT / PROCEDURE REASON: Acute cough * * * * Physician Interpretation * * * * EXAMINATION: CHEST RADIOGRAPH (2 VIEW FRONTAL & LATERAL) CLINICAL HISTORY: Acute cough MQ: XC2_6 EXAM DATE/TIME: 10/28/2024 12:49 PM COMPARISON: Chest x-ray dated 09/01/2024 RESULT: Lines, tubes, and devices: Left transvenous pacemaker with leads projecting over the right-sided cardiac chambers. Lungs and pleura: No consolidation. No lung mass. No pleural effusion. No pneumothorax. Cardiomediastinal silhouette: Stable cardiomediastinal silhouette. Stable large hiatal hernia. Bones and soft tissues: Osseous demineralization and degenerative changes. IMPRESSION IMPRESSION: No acute radiographic abnormality. Stable large hiatal hernia. Microfilm Machine Operator: PSCB Transcribe Date/Time: Oct 28 2024 12:50P Dictated by : GERARD ROD MD This examination was interpreted and the report reviewed and electronically signed by: GERARD ROD MD on Oct 28 2024 12:51PM EST [facility] Radiology Study observation (narrative) [facility] XR Chest PA and LateralOrder ed By: Ccf Provider on 10-28-2024 [facility] Ami 09-04-2024 CNPN Telephone (UCWSTR) OLIVIA BRISCOE ([id number]) 1940 M Date Time Provider Department 09/04/24 [facility] During your visit today, we recorded the following information about you: Ingrid Bishop APRN.CLINICAL SECRETARY 09/04/2024 9:05 AM Signed Please reach out and share the above with patient. Luis Ivory MA 09/04/2024 9:58 AM Signed Patient notified. Luis Ivory MA Allergies As of Date: 09/04/2024 Noted Allergy Reaction CHICKEN DERIVED 12/13/2017 7 - Swelling Comments: Certain chicken and how it's cooked FISH CONTAINING PRODUCTS 11/09/2016 5 - Intolerance Date Reviewed: 09/01/2024 Reviewed by: Bethany Granados LPN - Fully Assessed Reason for Visit: Results [95] Prescriptions as of 09/04/2024 - metoprolol succinate ER (TOPROL XL) 25 mg 24 hr tablet Take 1 tablet by mouth every afternoon. - dorzolamide-timolol (COSOPT) 22.3-6.8 mg/mL ophthalmic solution Use 1 Drop in both eyes once daily. - multivitamin tablet Take 1 tablet by mouth once daily. Problem List As Of Date 09/04/2024 Noted Resolved Hypertrophy of prostate with urinary obstructio*07/28/2010 08/02/2022 Colon polyps [K63.5] 07/28/2010 08/02/2022 Obesity [E66.9] 07/28/2010 11/25/2018 Personal history of colonic polyps [Z86.0100] 08/15/2010 Dysphagia [R13.10] 11/09/2016 2017 Encounter for screening colonoscopy [Z12.11] 11/09/2016 2017 Chronic superficial gastritis without bleeding * 08/02/2022 Reflux esophagitis [K21.00] 08/02/2022 Complete heart block (HCC) [I44.2] 04/20/2017 08/02/2022 RAZIA (acute kidney injury) (HCC) [N17.9] 04/20/2017 2017 SUMMARY 04/22/2017 08/02/2022 Obesity (BMI 30-39.9) [E66.9] 04/23/2017 11/07/2023 Pacemaker [Z95.0] 04/23/2017 CKD (chronic kidney disease), stage III (HCC) [* Hypertension [I10] Obesity, Class I, BMI 30-34.9 [E66.811] 01/31/2023 Acquired complex cyst of kidney [N28.1] 02/10/2023 Bladder retention of urine [R33.9] 02/10/2023 Glaucoma [H40.9] 11/07/2023 Diagnosed: 11/07/2023 Hiatal hernia [K44.9] 11/07/2023 Thoracogenic scoliosis of thoracic region [M41.*05/07/2024 Neck pain, chronic [M54.2, G89.29] 05/07/2024 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 Patient should do supportive therapies at home. Patient was negative for flu and RSV. Ara Dumont MA 09/02/2024 7:51 AM Signed Patient given results and verbalized understanding of instructions given. PHOEBE Balderas Melissa, MA 09/02/2024 7:53 AM Signed Patient given results and verbalized understanding of instructions given. Ara Dumont MA Allergies As of Date: 09/02/2024 Noted Allergy Reaction CHICKEN DERIVED 12/13/2017 7 - Swelling Comments: Certain chicken and how it's cooked FISH CONTAINING PRODUCTS 11/09/2016 5 - Intolerance Date Reviewed: 09/01/2024 Reviewed by: Bethany Granados LPN - Fully Assessed Reason for Visit: Results [95] Prescriptions as of 09/02/2024 - metoprolol succinate ER (TOPROL XL) 25 mg 24 hr tablet Take 1 tablet by mouth every afternoon. - dorzolamide-timolol (COSOPT) 22.3-6.8 mg/mL ophthalmic solution Use 1 Drop in both eyes once daily. - multivitamin tablet Take 1 tablet by mouth once daily. Problem List As Of Date 09/02/2024 Noted Resolved Hypertrophy of prostate with urinary obstructio*07/28/2010 08/02/2022 Colon polyps [K63.5] 07/28/2010 08/02/2022 Obesity [E66.9] 07/28/2010 11/25/2018 Personal history of colonic polyps [Z86.0100] 08/15/2010 Dysphagia [R13.10] 11/09/2016 2017 Encounter for screening colonoscopy [Z12.11] 11/09/2016 2017 Chronic superficial gastritis without bleeding * 08/02/2022 Reflux esophagitis [K21.00] 08/02/2022 Complete heart block (HCC) [I44.2] 04/20/2017 08/02/2022 ARZIA (acute kidney injury) (HCC) [N17.9] 04/20/2017 2017 SUMMARY 04/22/2017 08/02/2022 Obesity (BMI 30-39.9) [E66.9] 04/23/2017 11/07/2023 Pacemaker [Z95.0] 04/23/2017 CKD (chronic kidney disease), stage III (HCC) [* Hypertension [I10] Obesity, Class I, BMI 30-34.9 [E66.811] 01/31/2023 Acquired complex cyst of kidney [N28.1] 02/10/2023 Bladder retention of urine [R33.9] 02/10/2023 Glaucoma [H40.9] 11/07/2023 Diagnosed: 11/07/2023 Hiatal hernia [K44.9] 11/07/2023 Thoracogenic scoliosis of thoracic region [M41.*05/07/2024 Neck pain, chronic [M54.2, G89.29] 05/07/2024 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 Subjective Olivia Gaona Juan Danielbradpascual is a 84 year old male. 84 year old male with PMH HTN, CHF, and obesity presents for illness. Acute onset 4 days ago +runny nose + cough +non productive Denies eye, ear complaints Denies sore throat Denies dyspnea Denies CP Has used OTC decongestants with much relief States today he feels better. He is here with his being seen for similar. The history is provided by the patient. No hourly sign language interpreter was used. Cough This is a new problem. The current episode started more than 2 days ago. The problem occurs constantly. The problem has been gradually improving. The cough is Non-productive. There has been no fever. Associated symptoms include chills, ear congestion and rhinorrhea. Pertinent negatives include no chest pain, no sweats, no weight loss, no ear pain, no headaches, no sore throat, no myalgias, no shortness of breath, no wheezing and no eye redness. He has tried decongestants for the symptoms. The treatment provided no relief. He is not a smoker. His past medical history does not include bronchitis, pneumonia, bronchiectasis, COPD, emphysema or asthma. PAST MEDICAL HISTORY Diagnosis Date Chronic diastolic CHF (congestive heart failure) (HCC) 08/01/2021 Chronic superficial gastritis without bleeding History: EGD proven in 11/2016 Assessment: stable Plan: continue home PPI CKD (chronic kidney disease), stage III ([facility]) Colon polyps 07/28/2010 polypectomy 2002, 2004 (Dr. Verdin); negative in 2006 FH of colon cancer (father) Complete heart block (HCC) 04/19/2017 Dr. Couch Diverticulitis [address] Larose Enlarged prostate 2006 has subsided-was taking flomax Family history of malignant neoplasm of gastrointestinal tract Glaucoma 11/07/2023 Hiatal hernia 02/20/2012 Hypertension Hypertrophy of prostate with urinary obstruction and other lower urinary tract symptoms (LUTS) 07/28/2010 Symptoms only with Sudafed, otherwise does well Obesity Obesity, Class I, BMI 30-34.9 01/31/2023 Pacemaker Personal history of colonic polyps Pneumonitis 05/04/2021 Seborrheic keratoses PAST SURGICAL HISTORY Procedure Laterality Date COLONOSCOPY /2006 COLONOSCOPY 11/28/2016 COLONOSCOPY FLX DX W/COLLJ SPEC WHEN PFRMD 08/15/2010 Normal EGD 11/28/2016 PACEMAKER INSERTION DUAL CHAMB 04/23/2017 TONSILLECTOMY PRIMARY/SECONDARY Tonsillectomy ALLERGIES Chicken Derived and Fish Containing Products MEDICATIONS metoprolol succinate ER (TOPROL XL) 25 mg 24 hr tablet Take 1 tablet by mouth every afternoon. dorzolamide-timolol (COSOPT) 22.3-6.8 mg/mL ophthalmic solution Use 1 Drop in both eyes once daily. multivitamin tablet Take 1 tablet by mouth once daily. FAMILY HISTORY Problem Relation Age of Onset Colon Cancer Father age 75 Social History Tobacco Use Smoking status: Former Current packs/day: 0.00 Types: Cigarettes Quit date: 1961 Years since quittin.9 Smokeless tobacco: Never Tobacco comments: 1961 quit Substance Use Topics Alcohol use: No Drug use: No Review of Systems Constitutional: Positive for chills and fatigue. Negative for fever and weight loss. HENT: Positive for congestion and rhinorrhea. Negative for ear pain and sore throat. Eyes: Negative for redness. Respiratory: Positive for cough. Negative for apnea, choking, chest tightness, shortness of breath and wheezing. Cardiovascular: Negative for chest pain. Gastrointestinal: Negative for abdominal pain, diarrhea, nausea and vomiting. Musculoskeletal: Negative for myalgias. Skin: Negative for color change, pallor and rash. Allergic/Immunologic: Positive for food allergies. Negative for environmental allergies and immunocompromised state. Neurological: Negative for dizziness, facial asymmetry and headaches. Hematological: Negative for adenopathy. Does not bruise/bleed easily. Psychiatric/Behavioral: Negative for agitation and behavioral problems. Objective BP 126/72 Pulse 67 Temp 36.9 ?C (98.4 ?F) (Tympanic) Resp 16 Wt 96.1 kg (211 lb 13.8 oz) SpO2 96% BMI 33.43 kg/m? Physical Exam Vitals and nursing note reviewed. Constitutional: General: He is not in acute distress. Appearance: Normal appearance. He is not ill-appearing, toxic-appearing or diaphoretic. Comments: Elderly but non toxic appearing HENT: Head: Normocephalic and atraumatic. Right Ear: External ear normal. Left Ear: Exte (more content not included)... Normal [facility] COVID AND INFLUENZA A/B AND RSV PCR, ROUTINEon 09-01-2024 SARS-CoV-2 (COVID-19) RNA LENNOX+probe Ql (Unsp spec) SARS-COV-2 (AGENT OF COVID-19) RNA: Detected INFLUENZA A RNA: Not detected INFLUENZA B RNA: Not detected RESPIRATORY SYNCYTIAL VIRUS (RSV) RNA: Not detected Abnormal [facility] Comment on above: Performed By: #### C VFLRS ####[facility] LABCLIA [id number] [place] [id number] [place] XR CHEST 2V FRONTAL/LATon XR CHEST 2V FRONTAL/LAT * * *Final Report* * * DATE OF EXAM: Sep 01 2024 6:24PM WOX [id number] - XR CHEST 2V FRONTAL/LAT / PROCEDURE REASON: Acute cough * * * * Physician Interpretation * * * * EXAMINATION: CHEST RADIOGRAPH (2 VIEW FRONTAL and LATERAL) CLINICAL HISTORY: Acute cough MQ: XC2_6 EXAM DATE/TIME: 09/01/2024 6:24 PM COMPARISON: 10/27/2023 RESULT: Lines, tubes, and devices: A cardiac pacemaker is noted with leads projecting the region of the right atrium and right ventricle. Lungs and pleura: No consolidation. No lung mass. No pleural effusion. No pneumothorax. Patchy linear densities are noted near the lung bases medially which may represent areas of scarring or atelectasis. This appears similar to the prior study. Cardiomediastinal silhouette: Stable cardiomediastinal silhouette.A large hiatal hernia is noted. Bones and soft tissues: Degenerative changes are noted in the thoracic spine. Scoliosis is noted. IMPRESSION: Stable chest x-ray. No acute radiographic abnormality. Microfilm Machine Operator: IMMANUEL Transcribe Date/Time: Sep 01 2024 6:36P Dictated by : GEOVANNA CRISTOBAL MD This examination was interpreted and the report reviewed and electronically signed by: GEOVANNA CRISTOBAL MD on Sep 01 2024 6:40PM EST [id number] Normal [facility] XR Chest PA and Lateralon IMPRESSION: Stable c hest x-ray. No acute radiographic abnormality. Microfilm Machine Operator: IMMANUEL Transcribe Date/Time: Sep 01 2024 6:36P Dictated by : GEOVANNA CRISTOBAL MD This examination was interpreted and the report reviewed and electronically signed by: GEOVANNA CRISTOBAL MD on Sep 01 2024 6:40PM EST DIVISION OF RADIOLOGY * * *Final Report* * * DATE OF EXAM: Sep 01 2024 6:24PM WOX 5291 - XR CHEST 2V FRONTAL/LAT / PROCEDURE REASON: Acute cough * * * * Physician Interpretation * * * * EXAMINATION: CHEST RADIOGRAPH (2 VIEW FRONTAL & LATERAL) CLINICAL HISTORY: Acute cough MQ: XC2_6 EXAM DATE/TIME: 09/01/2024 6:24 PM COMPARISON: 10/27/2023 RESULT: Lines, tubes, and devices: A cardiac pacemaker is noted with leads projecting the region of the right atrium and right ventricle. Lungs and pleura: No consolidation. No lung mass. No pleural effusion. No pneumothorax. Patchy linear densities are noted near the lung bases medially which may represent areas of scarring or atelectasis. This appears similar to the prior study. Cardiomediastinal silhouette: Stable cardiomediastinal silhouette.A large hiatal hernia is noted. Bones and soft tissues: Degenerative changes are noted in the thoracic spine. Scoliosis is noted. DIVISION OF RADIOLOGY Provider, [facility] - 09/01/2024 * * *Final Report* * * DATE OF EXAM: Sep 01 2024 6:24PM WOX 5291 - XR CHEST 2V FRONTAL/LAT / PROCEDURE REASON: Acute cough * * * * Physician Interpretation * * * * EXAMINATION: CHEST RADIOGRAPH (2 VIEW FRONTAL & LATERAL) CLINICAL HISTORY: Acute cough MQ: XC2_6 EXAM DATE/TIME: 09/01/2024 6:24 PM COMPARISON: 10/27/2023 RESULT: Lines, tubes, and devices: A cardiac pacemaker is noted with leads projecting the region of the right atrium and right ventricle. Lungs and pleura: No consolidation. No lung mass. No pleural effusion. No pneumothorax. Patchy linear densities are noted near the lung bases medially which may represent areas of scarring or atelectasis. This appears similar to the prior study. Cardiomediastinal silhouette: Stable cardiomediastinal silhouette.A large hiatal hernia is noted. Bones and soft tissues: Degenerative changes are noted in the thoracic spine. Scoliosis is noted. IMPRESSION IMPRESSION: Stable chest x-ray. No acute radiographic abnormality. Microfilm Machine Operator: IMMANUEL Transcribe Date/Time: Sep 01 2024 6:36P Dictated by : GEOVANNA CRISTOBAL MD This examination was interpreted and the report reviewed and electronically signed by: GEOVANNA CRISTOBAL MD on Sep 01 2024 6:40PM EST [facility] Radiology Study observation (narrative) [facility] XR Chest PA and LateralOrder ed By: Ccf Provider on 09-01-2024 [facility] CNTHERAPYon 07-02-2024 CNTHERAPY OT/PT/Speech Visit ( PTWS) OLIVIA BRISCOE ([id number]) 1940 M Date Time Provider Department 07/02/24 3:00 PM ADRIANO SANTOS PTWS Date Time Provider Department Center 07/02/2024 3:00 PM [id number], COLIN PTWS [employer] Reason for Visit: PT Discharge [752] Primary Visit Diagnosis: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] Allergies As of Date: 07/02/2024 Noted Allergy Reaction CHICKEN DERIVED 12/13/2017 7 - Swelling Comments: Certain chicken and how it's cooked FISH CONTAINING PRODUCTS 11/09/2016 5 - Intolerance Date Reviewed: 06/04/2024 Reviewed by: Kaleigh العراقي LPN - Fully Assessed Prescriptions as of 07/03/2024 - metoprolol succinate ER (TOPROL XL) 25 mg 24 hr tablet Take 1 tablet by mouth every afternoon. - dorzolamide-timolol (COSOPT) 22.3-6.8 mg/mL ophthalmic solution Use 1 Drop in both eyes once daily. - multivitamin tablet Take 1 tablet by mouth once daily. Screw Machine Operator Swiss Type: Therapy (PT/OT/Speech/Resp) ID: [id number] 07/02/2024 3:21 PM Author: ADRIANO SANTOS Signed by ADRIANO SANTOS PT on 07/02/2024 at 3:21 PM Document text: Program_ID:[id number] Access Code: [email or web address] URL: [email or web address]/ Date: 07-02-2024 Prepared By: Adriano Santos Program Notes Exercises - Seated Scapular Retraction - 2 x daily - 7 x weekly - 2 sets - 10 reps - Seated Shoulder Shrugs - 2 x daily - 7 x weekly - 2 sets - 10 reps - Seated Cervical Rotation AROM - 2 x daily - 7 x weekly - 2 sets - 10-15 reps - Seated Cervical Extension AROM - 2 x daily - 7 x weekly - 2 sets - 10-15 reps - Seated Shoulder Circles - 2 x daily - 7 x weekly - 2 sets - 10 reps Normal [facility] THERAPY NTon 07-02-2024 THERAPY NT HNO ID: [id number] Author: ADRIANO SANTOS, PT Service: ? Author Type: Physical Therapist Type: Therapy (PT/OT/Speech/Resp) Filed: 07/02/2024 15:21 Note Text: Program_ID:[id number] Access Code: [email or web address] URL: [email or web address]/ Date: 07-02-2024 Prepared By: Adriano Santos Program Notes Exercises - Seated Scapular Retraction - 2 x daily - 7 x weekly - 2 sets - 10 reps - Seated Shoulder Shrugs - 2 x daily - 7 x weekly - 2 sets - 10 reps - Seated Cervical Rotation AROM - 2 x daily - 7 x weekly - 2 sets - 10-15 reps - Seated Cervical Extension AROM - 2 x daily - 7 x weekly - 2 sets - 10-15 reps - Seated Shoulder Circles - 2 x daily - 7 x weekly - 2 sets - 10 reps Normal [facility] CNTHERAPYon 06-25-2024 CNTHERAPY OT/PT/Speech Visit ( PTWS) OLIVIA BRISCOE ([id number]) 1940 M Date Time Provider Department 06/25/24 3:30 PM JEANINE KU Date Time Provider Department Center 06/25/2024 3:30 PM [id number] MOLINA [employer] Reason for Visit: Physical Therapy [503] Primary Visit Diagnosis: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 - dorzolamide-timolol (COSOPT) 22.3-6.8 mg/mL ophthalmic solution Use 1 Drop in both eyes once daily. - multivitamin tablet Take 1 tablet by mouth once daily. 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 - dorzolamide-timolol (COSOPT) 22.3-6.8 mg/mL ophthalmic solution Use 1 Drop in both eyes once daily. - multivitamin tablet Take 1 tablet by mouth once daily. 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 - dorzolamide-timolol (COSOPT) 22.3-6.8 mg/mL ophthalmic solution Use 1 Drop in both eyes once daily. - multivitamin tablet Take 1 tablet by mouth once daily. Screw Machine Operator Swiss Type: Therapy (PT/OT/Speech/Resp) ID: [id number] 06/12/2024 4:20 PM Author: ADRIANO SANTOS Signed by ADRIANO SANTOS PT on 06/12/2024 at 4:20 PM Document text: Program_ID:[id number] Access Code: [email or web address] URL: [email or web address]/ Date: 06-12-2024 Prepared By: Adriano Santos Program Notes Exercises - Seated Scapular Retraction - 2 x daily - 7 x weekly - 2 sets - 10 reps - Seated Shoulder Shrugs - 2 x daily - 7 x weekly - 2 sets - 10 reps - Seated Cervical Rotation AROM - 2 x daily - 7 x weekly - 2 sets - 10-15 reps - Seated Cervical Extension AROM - 2 x daily - 7 x weekly - 2 sets - 10-15 reps Normal [facility] THERAPY NTon 06-12-2024 THERAPY NT HNO ID: [id number] Author: ADRIANO SANTOS, PT Service: ? Author Type: Physical Therapist Type: Therapy (PT/OT/Speech/Resp) Filed: 06/12/2024 16:20 Note Text: Program_ID:[id number] Access Code: [email or web address] URL: [email or web address]/ Date: 06-12-2024 Prepared By: Adriano Santos Program Notes Exercises - Seated Scapular Retraction - 2 x daily - 7 x weekly - 2 sets - 10 reps - Seated Shoulder Shrugs - 2 x daily - 7 x weekly - 2 sets - 10 reps - Seated Cervical Rotation AROM - 2 x daily - 7 x weekly - 2 sets - 10-15 reps - Seated Cervical Extension AROM - 2 x daily - 7 x weekly - 2 sets - 10-15 reps Normal [facility] TSH SerPl-aCncon 06-12-2024 TSH Qn 1.340 m[IU]/L Normal 0.270-4.20 0 [facility] Comment on above: Order Comment: Speci men Type: BLOOD SPECIMEN Ordering Facility: [facility] Address: [address] [place] [address] Performed By: #### 2 132-9, 3016-3 #### [facility] CLIA [id number] [address] [place] [address] [place] Vit B12 SerPl-mCncon 024 Cobalamin (Vitamin B12) [Mass/Vol] 516 pg/mL Normal 232-1245 [facility] Comment on above: Order Comment: Speci men Type: BLOOD SPECIMEN Ordering Facility: [facility] Address: [address] [place] [address] Performed By: #### 2 132-9, 3016-3 #### [facility] CLIA [id number] [address] [place] [address] OF [place] CNPMargarita 06-05-2024 [facility] OLIVIA BRISCOE ([id number]) 1940 M Date Time Provider Department 06/05/24 MICHELLE LOVE During your visit today, we recorded the following information about you: Michelle Love, RT(R) 06/05/2024 10:34 AM Signed Sean, This patient has a cardiac device that is not FDA approved for MRI and is considered MRI non-conditional. If there is no alternative diagnostic exam that can answer the clinical question and the MRI exam is required to decide the best course of treatment for the patient, then the ordering clinician will need to follow the steps below: Contact the staff radiologist or MR physician for the type of MR exam requested to discuss possible alternative diagnostic imaging exam, the potential risks of the MR exam, and the benefits of the MR exam. If both ordering clinician and staff radiologist agree that the benefits of the MR exam outweigh the risks, please document in the patient?s EPIC chart and include the name of the radiologist with whom you spoke. F Staff Rad: Neuro [phone] The potential risks of the MRI exam include any of the following: -Device malfunction which may or may not require surgical replacement -Cardiac arrhythmias from induced current in the leads -Heating of leads due to Radiofrequency which could cause núñez -Dislodgement or movement of device Please follow up using this telephone encounter to let us know the discussion has taken place and we will get the patient scheduled for device interrogation, informed consent, and the MRI exam. If the exam is no longer wanted, please cancel the order in Epic. Thank You, MR Imaging Education / MRI Safety Team Joey Hale MD 06/05/2024 12:52 PM Signed We should wait on the mri then RegardsJoey MD Allergies As of Date: 06/05/2024 Noted Allergy Reaction CHICKEN DERIVED 12/13/2017 7 - Swelling Comments: Certain chicken and how it's cooked FISH CONTAINING PRODUCTS 11/09/2016 5 - Intolerance Date Reviewed: 06/04/2024 Reviewed by: Kaleigh العراقي LPN - Fully Assessed Reason for Visit: Radiology MRI [1487] Prescriptions as of 06/05/2024 - metoprolol succinate ER (TOPROL XL) 25 mg 24 hr tablet Take 1 tablet by mouth every afternoon. - dorzolamide-timolol (COSOPT) 22.3-6.8 mg/mL ophthalmic solution Use 1 Drop in both eyes once daily. - multivitamin tablet Take 1 tablet by mouth once daily. Problem List As Of Date 06/05/2024 Noted Resolved Hypertrophy of prostate with urinary obstructio*07/28/2010 08/02/2022 Colon polyps [K63.5] 07/28/2010 08/02/2022 Obesity [E66.9] 07/28/2010 11/25/2018 Personal history of colonic polyps [Z86.010] 08/15/2010 Dysphagia [R13.10] 11/09/2016 2017 Encounter for screening colonoscopy [Z12.11] 11/09/2016 2017 Chronic superficial gastritis without bleeding * 08/02/2022 Reflux esophagitis [K21.00] 08/02/2022 Complete heart block (HCC) [I44.2] 04/20/2017 08/02/2022 RAZIA (acute kidney injury) (HCC) [N17.9] 04/20/2017 2017 SUMMARY 04/22/2017 08/02/2022 Obesity (BMI 30-39.9) [E66.9] 04/23/2017 11/07/2023 Pacemaker [Z95.0] 04/23/2017 CKD (chronic kidney disease), stage III (HCC) [* Hypertension [I10] Obesity, Class I, BMI 30-34.9 [E66.9] 01/31/2023 Acquired complex cyst of kidney [N28.1] 02/10/2023 Bladder retention of urine [R33.9] 02/10/2023 Glaucoma [H40.9] 11/07/2023 Diagnosed: 11/07/2023 Hiatal hernia [K44.9] 11/07/2023 Thoracogenic scoliosis of thoracic region [M41.*05/07/2024 Neck pain, chronic [M54.2, G89.29] 05/07/2024 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*05/08/2024 Encounter Status:Closed by MICHELLE LOVE on 06/05/24 [facility] Patrick 06-04-2024 CNOV Office Visit (INTMWS ) OLIVIA BRISCOE ([id number]) 1940 M Date Time Provider Department 06/04/24 4:00 PM JOEY HALE INTBRIA During your visit today, we recorded the following information about you: Pulse Respiration Blood pressure Weight 60/minute 12/minute 134/78 96.9 kg Joey Hale MD 06/04/2024 5:49 PM Signed error Jeoy Hale MD 06/04/2024 5:57 PM Addendum [facility] Initial Consult Olivia Briscoe is a 84 year old year old male who comes for Comprehensive Geriatric Assessment. Pt accompanied by: daughter Woodrow Caregivers involved in care: HPI: Family notes that he is generally not the best communicator but he has been more confused and having memory loss. Daughter also notes he has been more isolated than before, is watching TV most of the time, does not exercise, is having loneliness although he is and living in the same house because his and him do not have the best marriage. He is hard of hearing but refuses to admit to it. Patient is a self-admitted procrastinator. He has not been sleeping well and states it is because of his bed but is not willing to do anything about it. Had some problems with glaucoma and is having difficulty in vision on the left side. Recently he has also taken Prevagen for his memory issues and he thinks it is helping although daughter does not think it is helping For example if he just watched something on tv he cannot tell exactly what it was, or gives only half the story. Any Family History of dementia? No one in the family, Are you or your spouse a ? No Alzheimer Questionnaire Long-term Memory: Difficulty remembering distant events from the past like childhood, previous employment, wedding: YES Behavioral/personality: Withdrawn/Depressed: YES Crying spells: NO Anxious: YES History of aggression: NO History of irritability: NO Apathy:YES Recent changes in weight or appetite: YES gained Alcohol or Drug use: NO Smoking? NO Sleep: Do you snore loudly (louder than talking or loud enough to be heard through closed doors)? Likely yes Do you often feel tired, fatigued, or sleepy during daytime? Yes Has anyone observed you stop breathing during your sleep? Yes Are you restless when you sleep at night? No Do you have problems falling a sleep? No Do you have problems staying a sleep? no Psychosis: Hallucinations or delusions: NO Suicidal or homicidal ideations: NO Obsessions, compulsions, or hoarding: NO Safety: Does pt know his/her address? YES What would you do if there was a fire? Get out How would you call for help?911 Does he/she know 911? YES Are there any firearms in the home? NO If yes are they in a secure location? No Social History: Primary language: Sierra Leonean Marital Status: Living situation: Home w/ Spouse Socially engaged? (participates in activities such as clubs, bahai, community center, sports, games, visiting friends/relatives, etc?): NO his is house bound, so he is only going out to see family Caregiver [place] and Stress Are your feeling overwhelmed?no Do you have concerns about your own health? YES Are you neglecting your own needs? NO Do you have financial concerns? NO Do your fear loss of employment? NO Do you have concerns about verbal/physical abuse? NO Do you feel that you are still capable of taking care of your relative? NO Are you willing to continue being in the caregiver role? NO B-ADLs: (I=independent,A=assistance, D=dependent) ?Bathing: I, Dressing: I, Toileting: I, Transferring:I, Continence: I, Feeding: I, I-ADLs: Ability to use phone: I, Shopping: I, Cooking: I, Housekeeping: I, Laundry: I, Transportation:I, Medications: {I, Handle Finances: I. PMHx: PAST MEDICAL HISTORY 08/01/2021: Chronic diastolic CHF (congestive heart failure) ([facility]) No date: Chronic superficial gastritis without bleeding Comment: History: EGD proven in 11/2016 Assessment: stable Plan: continue home PPI No date: CKD (chronic kidney disease), stage III ([facility]) 07/28/2010: Colon polyps Comment: polypectomy 2002, 2004 (Dr. Verdin); negative in 2006 FH of colon cancer (father) 04/19/2017: Complete heart block ([facility]) Comment: Dr. Couch 2009: Diverticulitis No date: Dysphagia Comment: Seeing Dr. Larose 2006: Enlarged prostate Comment: has subsided-was taking flomax No date: Family history of malignant neoplasm of gastrointestinal tract 11/07/2023: Glaucoma 02/20/2012: Hiatal hernia No date: Hypertension 07/28/2010: Hypertrophy of prostate with urinary obstruction and other lower urinary tract symptoms (LUTS) Comment: Symptoms only with Sudafed, otherwise does well No date: Obesity 01/31/2023: Obesity, Class I, BMI 30-34.9 No date: Pacemaker No date: Personal history of colonic po (more content not included)... Normal [facility] [id number] 05-29-2024 [id number] HNO ID: [id number] Author: ADRIANO SANTOS PT Service: ? Author Type: Physical Therapist Type: [id number] Filed: 05/29/2024 14:19 Note Text: [facility] Physical Therapy Plan of Care Certification Patient Name: Olivia Briscoe : 1940 [facility] #: [id number] Date: 05/29/2024 To: Quentin Álvarez MD From Therapist: Adriano Santos PT RE: Patient Certification/ Recertification Your review, approval and electronic signature are required in order to comply with Payor: MEDICARE / Plan: MEDICARE A AND B / Product Type: Medicare / regulations. The identified Physical Therapy PLAN OF CARE for the patient is as follows: M47.812 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hy or radiculopathy (primary encounter diagnosis) PLAN OF CARE: Assessment: Olivia Briscoe presents with chief complaint of B neck pain that interferes with driving, sleeping AND Head Movement.. He presents with impairments in ADL's, flexibility, independence in exercise, joint mobility, overall function, posture, range of motion, symptom management, and tissue tenderness. PROMIS? (Patient-Reported Outcomes Measurement Information System) scores were reviewed and identified as within normal limits. Prognosis for therapy is Fair due to: clinical presentation, chronic nature of impairments, Prognosis may be improved by within-session changes, good support system/ coping skills, good overall health status.He will benefit from skilled therapy services to meet the goals established for this plan of care as noted below. Goals for Episode of Care: established 05/29/24 to 07/10/24. [place] in home exercise program. Patient will decrease pain rating by 2 points to meet minimal clinical important difference for numeric pain rating scale. Improve postural awareness. Improve cervical ROM of at least 10-15 degrees in each direction to allow for ease of ADL/IADLs. Drive with no aggravation of pain/symptoms. Sleep throughout the night without pain/symptoms. Patient Goals: Alleviate Pain; improve neck motion. Time Frame for Goals and Treatment : 07/10/24 Planned Interventions, Frequency, and Duration: Current Frequency: 1x/week Duration: 4 weeks Total Number of Visits Planned: 4 Planned Treatment Interventions: Therapeutic exercise (05691), Neuromuscular re-education (59630), Manual therapy (64186), Therapeutic activities (03118), Self-assisted management (45330), Patient/Family/Caregiver Education PLAN FOR NEXT VISIT: Assess reponse to HEP; posture awareness, soft tissue work and PROM/AAROM/AROM for cervical. Patient demonstrates good understanding of plan of care and treatment. The above goals and plan of care were discussed and agreed upon by patient/family. For further details regarding this patient refer to the Physical Therapy electronically documented visit dated 05/29/2024. Provider Attestation I have reviewed the treatment plan for Olivia Briscoe, [facility]# [id number] for the period of 05/29/24 -- 07/04/24, established on 05/29/2024. Signature certifies the need for therapy services. Normal [facility] CNTHERAPYon 05-29-2024 CNTHERAPY OT/PT/Speech Visit ( PTWS) OLIVIA BIRSCOE ([id number]) 1940 M Date Time Provider Department 05/29/24 12:15 PM ADRIANO SANTOS PTWS Date Time Provider Department Center 05/29/2024 12:15 PM [id number], COLIN PTWS Martínez Lopez Reason for Visit: PT Eval [747] Primary Visit Diagnosis: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] Allergies As of Date: 05/29/2024 Noted Allergy Reaction CHICKEN DERIVED 12/13/2017 7 - Swelling Comments: Certain chicken and how it's cooked FISH CONTAINING PRODUCTS 11/09/2016 5 - Intolerance Date Reviewed: 11/07/2023 Reviewed by: Kaleigh العراقي LPN - Fully Assessed Prescriptions as of 05/29/2024 - metoprolol succinate ER (TOPROL XL) 25 mg 24 hr tablet Take 1 tablet by mouth every afternoon. - dorzolamide-timolol (COSOPT) 22.3-6.8 mg/mL ophthalmic solution Use 1 Drop in both eyes once daily. - multivitamin tablet Take 1 tablet by mouth once daily. [facility]INTMWS[facility] OLIVIA BRISCOE ([id number]) 1940 M Date Time Provider Department 05/08/24 QUENTIN ÁLVAREZ During your visit today, we recorded the following information about you: Lizabeth Brumfield LPN 05/08/2024 3:00 PM Signed ----- Message from Quentin Álvarez MD sent at 05/08/2024 1:53 PM EDT ----- Significant degenerative joint disease. PT consult ordered. He can decide and schedule if desired. Lizabeth Brumfield LPN 05/08/2024 3:08 PM Signed Phoned patient went over results, notes from Dr Álvarez with understanding. Assisted with transfer to ladle patcher to get PT appt set up. Allergies As of Date: 05/08/2024 Noted Allergy Reaction CHICKEN DERIVED 12/13/2017 7 - Swelling Comments: Certain chicken and how it's cooked FISH CONTAINING PRODUCTS 11/09/2016 5 - Intolerance Date Reviewed: 11/07/2023 Reviewed by: Kaleigh العراقي LPN - Fully Assessed Reason for Visit: Results [95] Prescriptions as of 05/08/2024 - metoprolol succinate ER (TOPROL XL) 25 mg 24 hr tablet Take 1 tablet by mouth every afternoon. - dorzolamide-timolol (COSOPT) 22.3-6.8 mg/mL ophthalmic solution Use 1 Drop in both eyes once daily. - multivitamin tablet Take 1 tablet by mouth once daily. Problem List As Of Date 05/08/2024 Noted Resolved Hypertrophy of prostate with urinary obstructio*07/28/2010 08/02/2022 Colon polyps [K63.5] 07/28/2010 08/02/2022 Obesity [E66.9] 07/28/2010 11/25/2018 Personal history of colonic polyps [Z86.010] 08/15/2010 Dysphagia [R13.10] 11/09/2016 2017 Encounter for screening colonoscopy [Z12.11] 11/09/2016 2017 Chronic superficial gastritis without bleeding * 08/02/2022 Reflux esophagitis [K21.00] 08/02/2022 Complete heart block (HCC) [I44.2] 04/20/2017 08/02/2022 RAZIA (acute kidney injury) (HCC) [N17.9] 04/20/2017 2017 SUMMARY 04/22/2017 08/02/2022 Obesity (BMI 30-39.9) [E66.9] 04/23/2017 11/07/2023 Pacemaker [Z95.0] 04/23/2017 CKD (chronic kidney disease), stage III (HCC) [* Hypertension [I10] Obesity, Class I, BMI 30-34.9 [E66.9] 01/31/2023 Acquired complex cyst of kidney [N28.1] 02/10/2023 Bladder retention of urine [R33.9] 02/10/2023 Glaucoma [H40.9] 11/07/2023 Hiatal hernia [K44.9] 11/07/2023 Thoracogenic scoliosis of thoracic region [M41.*05/07/2024 Neck pain, chronic [M54.2, G89.29] 05/07/2024 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 Medicare Health Risk Assessment General Health Good Exercise: Minutes/Day 0 min Exercise: Days/Week 0 days Alcohol: Daily Use Never Alcohol: Drinks/Day Patient does not drink Alcohol: 6 or more drinks Never Feel off balance No Concerns: Teeth/Dentures Yes Concerns: Sexual function No Troubled by feelings None of the above Frequency: Eating healthy diet Several days ADLs requiring help Handling finances Safety precautions in home/vehicle Yes Smoke, vape, chews tobacco No Difficulty hearing No Difficulty seeing No Current Providers Specialists: I have reviewed specialist-related care of the patient in the medical record. Current care team: Patient Care Team: Quentin Álvarez MD as PCP - General (Internal Medicine) Outside specialists seen: [facility] Dr. Yaya Schaffer. Dr. Mildred Couch, Cardiology. Medical/Family history review Reviewed and updated problem list, medical/surgical/family/soci al history, medications, and allergies. Opioid use review Opioid Medications (last 90 days) No data to display Anxiety/Depression screening Recommendation: no further intervention at this time Cognitive screening Cognitive screening reviewed and Recommended referral for further evaluation (score 0-2). Functional Observation Was the patient's Timed Up AND Go test unsteady or ? 12 seconds? No Advance Care Planning Patient did not wish or was not able to name a surrogate decision maker or provide an advance care plan Measurements BP 153/85 (BP Site: Left Arm, BP Position: Sitting, BP Cuff Size: Large Adult) Pulse 61 Temp 36.7 ?C (98 ?F) (Temporal) Resp 12 Ht 169.5 cm (5' 6.75) Wt 95.4 kg (210 lb 5.1 oz) BMI 33.19 kg/m? Vision Screening: Follows with optometry/ophthalmology Right: 20/40 Left: 20/ 200 Both: 20/40 Assessment/Plan Medicare annual wellness visit, subsequent (Z00.00) - Counseled on healthy diet and regular exercise - Fall avoidance information provided - Personalized prevention plan provided - Discussed need for and benefit of weight loss. BMI 33.19 kg/(m2) - RSV vaccine at his pharmacy. Quentin Álvarez MD 05/07/2024 3:00 PM Signed This note was created using OneMorePallet. Subjective Olivia Briscoe is a 84 year old male here for follow up, accompanied by his daughter. He complained of chronic neck pain and stiffness 4-5 months. There has been no injury. His hypertension was not controlled. He was taken off lisinopril and started on metoprolol by his firefighter type one. Since he had Prevnar, he's had recurrent loose diarrhea that was slowly improving over the past 6 months. Review of Systems Constitutional: Negative for appetite change, fatigue and fever. HENT: Negative. Eyes: Negative for visual disturbance. Respiratory: Negative for cough, shortness of breath and wheezing. Cardiovascular: Negative for chest pain, palpitations and leg swelling. Gastrointestinal: Negative for abdominal pain, blood in stool, constipation, nausea and vomiting. Genitourinary: Positive for urgency. Negative for difficulty urinating. Musculoskeletal: Positive for neck pain. Neurological: Negative for dizziness and headaches. Psychiatric/Behavioral: Negative for dysphoric mood. The patient is not nervous/anxious. ACTIVE PROBLEM LIST Personal History of Colonic Polyps Pacemaker Ckd (Chronic Kidney Disease), Stage Iii (Hcc) Hypertension Obesity, Class I, Bmi 30-34.9 Acquired Complex Cyst of Kidney Bladder Retention of Urine Glaucoma Hiatal Hernia Thoracogenic Scoliosis of Thoracic Region Neck Pain, Chronic Social History Tobacco Use Smoking status: Former Packs/day: .5 Types: Cigarettes Quit date: 1961 Years since quittin.6 Smokeless tobacco: Never Tobacco comments: 1962 quit Substance Use Topics Alcohol use: No Drug use: No Current Outpatient Medications Medication Sig metoprolol succinate ER (TOPROL XL) 25 mg 24 hr tablet Take 1 tablet by mouth every afternoon. dorzolamide-timolol (COSOPT) 22.3-6.8 mg/mL ophthalmic solution Use 1 Drop in both eyes once daily. multivitamin tablet Take 1 tablet by mouth once daily. No current facility-administered medications for this visit. Objective BP 153/85 (BP Site: Left Arm, BP Position: Sitting, BP Cuff Size: Large Adult) Pulse 61 Temp 36.7 ?C (98 ?F) (Temporal) Resp 12 Ht 169.5 cm (5' 6.75) Wt 95.4 kg ( (more content not included)... Normal [facility] XR CERVICAL 4V AP/LAT/OBLon 05-07-2024 XR CERVICAL 4V AP/LAT/OBL * * *Final Report* * * DATE OF EXAM: May 07 2024 3:18PM WOX [id number] - XR CERVICAL 4V AP/LAT/OBL / PROCEDURE REASON: multiple diagnoses * * * * Physician Interpretation * * * * Examination: XR CERVICAL 4V AP/LAT/OBL History: Neck pain, chronic Neck pain, chronic Technique: XR CERVICAL 4V AP/LAT/OBL Comparison: None RESULT: Straightening of the normal lordosis with reversal of the curve in the lower cervical region. Levoscoliosis. No fracture or prevertebral swelling is seen. Multilevel moderate to severe disc space narrowing and spondylosis throughout the mid and lower cervical region. No significant foraminal encroachment IMPRESSION: DEGENERATIVE CHANGE AND ALIGNMENT ABNORMALITIES DESCRIBED Microfilm Machine Operator: [facility] Transcribe Date/Time: May 07 2024 4:08P Dictated by : OLIVIA KRAUSE MD This examination was interpreted and the report reviewed and electronically signed by: OLIVIA KRAUSE MD on May 07 2024 4:11PM EST [id number] Normal [facility] XR Cervical spine AP and Lat eral and obliqueon 05-07-2024 IMPRESSION: DEGENERATIVE CHANGE AND ALIGNMENT ABNORMALITIES DESCRIBED Microfilm Machine Operator: IMMANUEL Transcribe Date/Time: May 07 2024 4:08P Dictated by : OLIVIA KRAUSE MD This examination was interpreted and the report reviewed and electronically signed by: OLIVIA KRAUSE MD on May 07 2024 4:11PM [facility] DIVISION OF RADIOLOGY * * *Final Report* * * DATE OF EXAM: May 07 2024 3:18PM WOX [id number] - XR CERVICAL 4V AP/LAT/OBL / PROCEDURE REASON: multiple diagnoses * * * * Physician Interpretation * * * * Examination: XR CERVICAL 4V AP/LAT/OBL History: Neck pain, chronic Neck pain, chronic Technique: XR CERVICAL 4V AP/LAT/OBL Comparison: None RESULT: Straightening of the normal lordosis with reversal of the curve in the lower cervical region. Levoscoliosis. No fracture or prevertebral swelling is seen. Multilevel moderate to severe disc space narrowing and spondylosis throughout the mid and lower cervical region. No significant foraminal encroachment DIVISION OF RADIOLOGY Provider, Regi Garcia [facility] - 05/07/2024 * * *Final Report* * * DATE OF EXAM: May 07 2024 3:18PM WOX [id number] - XR CERVICAL 4V AP/LAT/OBL / PROCEDURE REASON: multiple diagnoses * * * * Physician Interpretation * * * * Examination: XR CERVICAL 4V AP/LAT/OBL History: Neck pain, chronic Neck pain, chronic Technique: XR CERVICAL 4V AP/LAT/OBL Comparison: None RESULT: Straightening of the normal lordosis with reversal of the curve in the lower cervical region. Levoscoliosis. No fracture or prevertebral swelling is seen. Multilevel moderate to severe disc space narrowing and spondylosis throughout the mid and lower cervical region. No significant foraminal encroachment IMPRESSION IMPRESSION: DEGENERATIVE CHANGE AND ALIGNMENT ABNORMALITIES DESCRIBED Microfilm Machine Operator: IMMANUEL Transcribe Date/Time: May 07 2024 4:08P Dictated by : OLIVIA KRAUSE MD This examination was interpreted and the report reviewed and electronically signed by: OLIVIA KRAUSE MD on May 07 2024 4:11PM [facility] Radiology Study observation (narrative) [facility] XR Cervical spine AP and Lat eral and obliqueOrdered By: Ccf Provider on 05-07-2024 [facility] XR Chest PA and Lateralon IMPRESSION: 1. No radiographic evidence of acute cardiopulmonary process. 2. Large hiatal hernia. Microfilm Machine Operator: PSCB Transcribe Date/Time: Oct 27 2023 11:50A Dictated by : GERARD ROD MD This examination was interpreted and the report reviewed and electronically signed by: GERARD ROD MD on Oct 27 2023 11:51AM [facility] DIVISION OF RADIOLOGY * * *Final Report* * * DATE OF EXAM: Oct 27 2023 11:50AM WOX 5291 - XR CHEST 2V FRONTAL/LAT / PROCEDURE REASON: multiple diagnoses * * * * Physician Interpretation * * * * EXAMINATION: CHEST RADIOGRAPH (2 VIEW FRONTAL & LATERAL) CLINICAL HISTORY: URI, acute Acute cough MQ: XC2_6 EXAM DATE/TIME: 10/27/2023 11:50 AM COMPARISON: Chest x-ray dated June 02, 2021 RESULT: Lines, tubes, and devices: Left transvenous pacemaker with leads projecting over the right-sided cardiac chambers. Lungs and pleura: No consolidation. No lung mass. No pleural effusion. No pneumothorax. Stable mild elevation of the left hemidiaphragm. Cardiomediastinal silhouette: Stable cardiomediastinal silhouette. Large hiatal hernia. Bones and soft tissues: Stable dextroscoliosis. Multilevel degenerative changes. DIVISION OF RADIOLOGY Provider, [facility] - 10/27/2023 * * *Final Report* * * DATE OF EXAM: Oct 27 2023 11:50AM WOX 5291 - XR CHEST 2V FRONTAL/LAT / PROCEDURE REASON: multiple diagnoses * * * * Physician Interpretation * * * * EXAMINATION: CHEST RADIOGRAPH (2 VIEW FRONTAL & LATERAL) CLINICAL HISTORY: URI, acute Acute cough MQ: XC2_6 EXAM DATE/TIME: 10/27/2023 11:50 AM COMPARISON: Chest x-ray dated June 02, 2021 RESULT: Lines, tubes, and devices: Left transvenous pacemaker with leads projecting over the right-sided cardiac chambers. Lungs and pleura: No consolidation. No lung mass. No pleural effusion. No pneumothorax. Stable mild elevation of the left hemidiaphragm. Cardiomediastinal silhouette: Stable cardiomediastinal silhouette. Large hiatal hernia. Bones and soft tissues: Stable dextroscoliosis. Multilevel degenerative changes. IMPRESSION IMPRESSION: 1. No radiographic evidence of acute cardiopulmonary process. 2. Large hiatal hernia. Microfilm Machine Operator: IMMANUEL Transcribe Date/Time: Oct 27 2023 11:50A Dictated by : GERARD ROD MD This examination was interpreted and the report reviewed and electronically signed by: GERARD ROD MD on Oct 27 2023 11:51AM EST [facility] Radiology Study observation (narrative) [facility] XR Chest PA and LateralOrder ed By: Ccf Provider on 10-27-2023 [facility] Colonoscopyon 01-18-2022 Colonoscopy PATIENTNAME Patient Name: Olivia Briscoe EXAMDATE Procedure Date: 01/18/2022 8:28 AM PATIENTID PATIENTACCOUNTNUM PATIENTDOB Date of : 1940 ADMITTYPE Admit Type: Outpatient PATIENTROOM Site: [facility] Proc RM 1 ETHNICITY Ethnicity: Not or RACE Race: White PROVDR Attending MD: Doug Hensley DO ENDOPROCEDURENAME Procedure: Colonoscopy INDICATION Indications: Screening patient at increased risk: Family history of colorectal cancer in multiple 1st-degree relatives PRIMARYPROVIDER Providers: Doug Hensley DO (Doctor), Sveta Cooper RN (Nurse), Winifred Herring, Piece Work Inspector EDREFPROVIDER Referring: Susannah Og CURRENT_MEDS Medicines: Midazolam 2.5 mg IV, Meperidine 50 mg IV COMPLIC Complications: No immediate complications. ENDOPROCEDURETEXT Procedure: Pre-Anesthesia Assessment: - Prior to the procedure, a History and Physical was performed, and patient medications and allergies were reviewed. The patient is competent. The risks and benefits of the procedure and the sedation options and risks were discussed with the patient. All questions were answered and informed consent was obtained. Patient identification and proposed procedure were verified by the physician in the pre-procedure area. Mental Status Examination: alert and oriented. Airway Examination: normal oropharyngeal airway and neck mobility. Respiratory Examination: clear to auscultation. CV Examination: normal. Prophylactic Antibiotics: The patient does not require prophylactic antibiotics. Prior Anticoagulants: The patient has taken no anticoagulant or antiplatelet agents. ASA Grade Assessment: II - A patient with mild systemic disease. After reviewing the risks and benefits, the patient was deemed in satisfactory condition to undergo the procedure. The anesthesia plan was to use moderate sedation / analgesia (conscious sedation). Immediately prior to administration of medications, the patient was re-assessed for adequacy to receive sedatives. The heart rate, respiratory rate, oxygen saturations, blood pressure, adequacy of pulmonary ventilation, and response to care were monitored throughout the procedure. The physical status of the patient was re-assessed after the procedure. After I obtained informed consent, the scope was passed under direct vision. Throughout the procedure, the patient's blood pressure, pulse, and oxygen saturations were monitored continuously. The adult colonoscope was introduced through the anus and advanced to the cecum, identified by appendiceal orifice and ileocecal valve. The colonoscopy was performed without difficulty. The patient tolerated the procedure well. The quality of the bowel preparation was good. The ileocecal valve, appendiceal orifice, and rectum were photographed. FINDING Findings: The perianal and digital rectal examinations were normal. Pertinent negatives include normal sphincter tone and no palpable rectal lesions. Multiple small and large-mouthed diverticula were found in the sigmoid colon and descending colon. The exam was otherwise without abnormality on direct and retroflexion views. SEDATION Moderate Sedation: Moderate (conscious) sedation was administered by the endoscopy nurse and supervised by the endoscopist. The following parameters were monitored: oxygen saturation, heart rate, blood pressure, and response to care. Total physician intraservice time was 23 minutes. EBL Estimated Blood Loss: Estimated blood loss: none. IMPRESS Impression: - Moderate diverticulosis in the sigmoid colon and in the descending colon. - The examination was otherwise normal on direct and retroflexion views. - No specimens collected. ENDORECOMMENDATION Recommendation: - Patient has a contact number available for emergencies. The signs and symptoms of potential delayed complications were discussed with the patient. Return to normal activities tomorrow. Written discharge instructions were provided to the patient. - Resume previous diet. - Continue present medications. - No repeat colonoscopy due to the absence of advanced adenomas. - Return to referring physician as previously scheduled. CPT_CODES Procedure Code(s): --- Professional --- G0105, Colorectal cancer screening; colonoscopy on individual at high risk 74067, Moderate sedation; each additional 15 minutes intraservice time G0500, Moderate sedation services provided by the same physician or other qualified health account executive healthcare performing a gastrointestinal endoscopic service that sedation supports, requiring the presence of an independent trained observer to assist in the monitoring of the patient's level of consciousness and physiological status; initial 15 minutes of intra-service time; patient age 5 years or older (additional time may be reported (more content not included)... Normal [facility] CORONAVIRUS 2019, SCREEN ASY MPTOMATICon 01-17-2022 SARS-CoV-2 (COVID-19) RNA LENNOX+probe Ql (Unsp spec) Not detected Normal Not Detected [facility] Comment on above: Result Comment: . This assay is designed to detect the N, ORF1ab and/or S genes of SARS-CoV-2 via nucleic acid amplification. A Negative (NOT DETECTED) result does not preclude 2019-nCoV infection since the adequacy of sample collection and/or low viral burden may result in presence of viral nucleic acids below the clinical sensitivity of this test method. Negative (NOT DETECTED) result should not be used as the sole basis for treatment or other patient management decisions. Rather negative results should be combined with clinical observations, patient history, and epidemiological information to make patient management decisions. Fact sheet for providers: https://www.fda.gov/media/684545/download Fact sheet for patients: https://www.fda.gov/media/242455/download This test has received FDA Emergency Use Authorization (EUA) and has been verified by [facility] ([facility]). This test is only authorized for the duration of time that circumstances exist to justify the authorization of the emergency use of in vitro diagnostic tests for the detection of SARS-CoV-2 virus and/or diagnosis of COVID-19 infection under section 564(b)(1) of the Act, 21 U.S.C. 360bbb-3(b)(1), unless the authorization is terminated or revoked sooner. [facility] is certified under CLIA-88 as qualified to perform high complexity testing. Testing is performed in the [facility] laboratories located at [address] [place] [address]. Performed By: #### C OVSC #### [address] [place] [address] Covid 19 Resultson SARS-CoV-2 (COVID-19) RNA LENNOX+probe Ql (Unsp spec) NEGATIVE COVID-19 Test Coronaviruses are common world-wide and are the cause of many common colds. SARS-COV2 is a new coronavirus that began circulating worldwide in 2019 so we are calling it COVID-19. It has been estimated that four out of five patients with COVID-19 will recover at home without the need for medical attention. Symptoms of COVID-19 may include cough, fever, shortness of breath, loss of taste or smell and other flu-like symptoms including chills, sore muscles, sore throat, and headache. Severe illness is more common in older people and people with other health problems such as high blood pressure, obesity, and immune system problems. If the test is positive, you have COVID-19. You will be contacted by the ordering physicians office and instructed to remain on home isolation, in accordance with CDC guidelines. You may also be contacted by the [facility] to see if any of your close contacts may have been exposed to the virus and need to quarantine. If the test is negative, you likely do not have COVID-19 at this time, but you still may have a different illness that can spread to other people (like Influenza, or the Flu) and could still be at risk for getting COVID-19. We recommend that you stay away from other people to limit the spread of illness until your symptoms are improving and you are fever-free for 24 hours without the use of fever lowering medications such as acetaminophen or ibuprofen. No test is 100% accurate so if you are still concerned you may have COVID-19, talk to your doctor about the need to continue to stay away from others. Medicines Unless your provider told you not to use the following: Acetaminophen (Tylenol and others) is generally safe. Anti-inflammatory medications, such as Ibuprofen (Advil or Motrin) or Naproxen (Aleve) can also be used. Avtm-cnq-euuitxg cough and cold medicines can be used according to the instructions on the package. Some iirm-ybc-ltwfkac medicines also contain acetaminophen. Make sure you are not taking more than your recommended dose. For those not hospitalized, there is no specific treatment available for this illness. Antibiotics do not treat Coronaviruses. Follow-Up Follow up with your doctor by scheduling a virtual visit or consider follow-up at one of our urgent care fever clinics. If you are having difficulty breathing, or are very weak and having difficulty standing, this is a medical emergency. Call 911 or have someone take you to the nearest emergency room immediately. If possible, wear a facemask. Additional guidance from the CDC for patients who tested POSITIVE for COVID-19 How to isolate: Isolate yourself in a specific room at home and limit your contact with others. Use a separate bathroom from other members of the household, when possible. Leave home only to get essential medical care. Do not go to work, school or public areas. Avoid using public transportation, ride-sharing, or taxis. Restrict contact with pets and other animals. If you must care for your pet or be around animals while you are sick, wash your hands before and after your interaction and wear a facemask. Make sure that shared spaces in the home have good airflow, such as by an air conditioner or an opened window, weather permitting. Personal Hygiene Procedures: Wear a face mask when in the same room as other people or pets. If a face mask interferes with your breathing, others should wear a mask when sharing space with you. Frequent hand-washing: wash your hands with soap and water for at least 20 seconds. If soap and water are not available, use alcohol-based hand inventory assistant. Avoid touching your eyes, nose, and mouth with unwashed hands. Household Hygiene Procedures: Avoid sharing personal household items such as dishes, glassware, cups, eating utensils, towels or bedding with other people or pets in your home. After use, these items should be washed with soap and hot water. Disinfect all high-touch surfaces every day with antibacterial cleaning solutions such as Lysol wipes, bleach, cleansers, etc. High-touch surfaces include tabletops, doorknobs, bathroom fixtures, toilets, phones, keyboards, tablets and bedside tables. Immediately clean any surfaces that may have blood, poop or body fluids on them, using antibacterial cleaning solutions such as Lysol wipes, bleach, cleansers, etc. If clothing or bedding come into contact with blood, poop or body fluids, they should be washed immediately. Follow the directions on the laundry detergent and clothing labels but hot water is recommended when possible. Stopping home isolation precautions: If possible, consult your doctor before stopping home isolation precautions. According to the CDC, you can discontinue home isolation precautions when you have met both of these criteria: Your fever and respiratory symptoms have been gone for 24 tarun (more content not included)... Normal [facility] CORONAVIRUS 2019, SCREEN ASY MPTOMATICon 01-16-2022 Lab Specimen Source Nasal, Nasopharyngeal Normal [facility] Comment on above: Performed By: #### C OVSC #### [facility] [address] [place] [address] XR Chest PA and Lateralon IMPRESSION: Grossly stable chronic interstitial lung changes. No definite vascular redistribution to suggest active pulmonary edema. No focal consolidation. Large hiatal hernia. Microfilm Machine Operator: PSCB Transcribe Date/Time: Jun 02 2021 2:08P Dictated by : LIZABETH CORONADO MD This examination was interpreted and the report reviewed and electronically signed by: LIZABETH CORONADO MD on Jun 02 2021 2:15PM [facility] DIVISION OF RADIOLOGY * * *Final Report* * * DATE OF EXAM: Jun 02 2021 2:04PM WOX 5291 - XR CHEST 2V FRONTAL/LAT / PROCEDURE REASON: SOB (shortness of breath) * * * * Physician Interpretation * * * * EXAMINATION: CHEST RADIOGRAPH (2 VIEW FRONTAL & LATERAL) CLINICAL HISTORY: SOB (shortness of breath) MQ: XC2_6 EXAM DATE/TIME: 06/02/2021 2:04 PM COMPARISON: Comparison is made to prior chest radiographs dated 05/20/2021 and 04/24/2017 RESULT: Lines, tubes, and devices: There is a cardiac pacemaker with the tips of its intact leads overlying cardiac silhouette. Lungs and pleura: Chronic interstitial lung changes with lingular and bibasilar fibrotic scarring is stable. There is no superimposed focal consolidation or acute pleural process/fluid. There is no vascular redistribution to suggest pulmonary edema. Cardiomediastinal silhouette: The cardiac, mediastinal and hilar shadows are unchanged with enlarged cardiac silhouette and unfolded thoracic aorta. Large hiatal hernia is again identified and may be increased in size. Other: The bony structures are intact DIVISION OF RADIOLOGY Provider, Regi Yao - 06/02/2021 * * *Final Report* * * DATE OF EXAM: Jun 02 2021 2:04PM WOX 5291 - XR CHEST 2V FRONTAL/LAT / PROCEDURE REASON: SOB (shortness of breath) * * * * Physician Interpretation * * * * EXAMINATION: CHEST RADIOGRAPH (2 VIEW FRONTAL & LATERAL) CLINICAL HISTORY: SOB (shortness of breath) MQ: XC2_6 EXAM DATE/TIME: 06/02/2021 2:04 PM COMPARISON: Comparison is made to prior chest radiographs dated 05/20/2021 and 04/24/2017 RESULT: Lines, tubes, and devices: There is a cardiac pacemaker with the tips of its intact leads overlying cardiac silhouette. Lungs and pleura: Chronic interstitial lung changes with lingular and bibasilar fibrotic scarring is stable. There is no superimposed focal consolidation or acute pleural process/fluid. There is no vascular redistribution to suggest pulmonary edema. Cardiomediastinal silhouette: The cardiac, mediastinal and hilar shadows are unchanged with enlarged cardiac silhouette and unfolded thoracic aorta. Large hiatal hernia is again identified and may be increased in size. Other: The bony structures are intact IMPRESSION IMPRESSION: Grossly stable chronic interstitial lung changes. No definite vascular redistribution to suggest active pulmonary edema. No focal consolidation. Large hiatal hernia. Microfilm Machine Operator: [facility] Transcribe Date/Time: Jun 02 2021 2:08P Dictated by : LIZABETH CORONADO MD This examination was interpreted and the report reviewed and electronically signed by: LIZABETH CORONADO MD on Jun 02 2021 2:15PM EST [facility] Radiology Study observation (narrative) [facility] XR Chest PA and LateralOrder ed By: Ccf Provider on 06-02-2021 [facility] XR Chest PA and Lateralon IMPRESSION: Findings are suggestive of pulmonary venous congestion/pulmonary edema. Hiatal hernia. Microfilm Machine Operator: [email or web address] Transcribe Date/Time: May 20 2021 3:51P Dictated by : YASMINE OSBORNE MD This examination was interpreted and the report reviewed and electronically signed by: YASMINE OSBORNE MD on May 20 2021 3:53PM [facility] DIVISION OF RADIOLOGY * * *Final Report* * * DATE OF EXAM: May 20 2021 3:47PM WOX 5291 - XR CHEST 2V FRONTAL/LAT / PROCEDURE REASON: multiple diagnoses * * * * Physician Interpretation * * * * EXAMINATION: CHEST RADIOGRAPH (2 VIEW FRONTAL & LATERAL) CLINICAL HISTORY: Cough SOB (shortness of breath) MQ: XC2_6 EXAM DATE/TIME: 05/20/2021 3:47 PM COMPARISON: Chest x-ray on 04/24/2017. RESULT: Lines, tubes, and devices: No change in position of left chest dual-chamber pacemaker. Lungs and pleura: Obscuring of the bilateral pulmonary markings is demonstrated, with what appears to be pulmonary vascular cephalization. Bibasilar atelectasis seen. No pleural effusions or pneumothorax. Cardiomediastinal silhouette: Slightly prominent cardiac silhouette. There is a medium-sized hiatal hernia. Bones and soft tissues: The spine shows degenerative changes. DIVISION OF RADIOLOGY [facility] * * *Final Report* * * DATE OF EXAM: May 20 2021 3:47PM WOX 5291 - XR CHEST 2V FRONTAL/LAT / PROCEDURE REASON: multiple diagnoses * * * * Physician Interpretation * * * * EXAMINATION: CHEST RADIOGRAPH (2 VIEW FRONTAL & LATERAL) CLINICAL HISTORY: Cough SOB (shortness of breath) MQ: XC2_6 EXAM DATE/TIME: 05/20/2021 3:47 PM COMPARISON: Chest x-ray on 04/24/2017. RESULT: Lines, tubes, and devices: No change in position of left chest dual-chamber pacemaker. Lungs and pleura: Obscuring of the bilateral pulmonary markings is demonstrated, with what appears to be pulmonary vascular cephalization. Bibasilar atelectasis seen. No pleural effusions or pneumothorax. Cardiomediastinal silhouette: Slightly prominent cardiac silhouette. There is a medium-sized hiatal hernia. Bones and soft tissues: The spine shows degenerative changes. IMPRESSION IMPRESSION: Findings are suggestive of pulmonary venous congestion/pulmonary edema. Hiatal hernia. Microfilm Machine Operator: PSCB Transcribe Date/Time: May 20 2021 3:51P Dictated by : YASMINE OSBORNE MD This examination was interpreted and the report reviewed and electronically signed by: YASMINE OSBORNE MD on May 20 2021 3:53PM EST [facility] Radiology Study observation (narrative) [facility] XR Chest PA and LateralOrder ed By: Ccf Provider on 05-20-2021 [facility] Vital Signs Date Time Vital Sign Value Performing Clinician Facility 04-14-2025 06:23-0400 Body height 172.[address] Quentin Álvarez MD Work Phone: [phone] [place] [address] 04-14-2025 06:23-0400 Body mass index (BMI) [Ratio] 31.7 kg/m2 Dr. Quentin Álvarez MD Work Phone: [phone] [place] [address] 04-14-2025 06:23-0400 Body weight 94.[address] Quentin Álvarez MD Work Phone: 3([phone])[phone] [place] [address] 04-14-2025 06:23-0400 Diastolic blood pressure 83 mm[Hg] Dr. Quentin Álvarez MD Work Phone: 7(720)[phone] [place] [address] 04-14-2025 06:23-0400 Heart rate 64 /min Dr. Quentin Álvarez MD Work Phone: 6([phone])[phone] [place] [address] 04-14-2025 06:23-0400 Respiratory rate 18 /min Dr. Quentin Álvarez MD Work Phone: 4(083)[phone] [place] [address] 04-14-2025 06:23-0400 SaO2% (BldA) [Mass fraction] 98 % Dr. Quentin Álvarez MD Work Phone: [phone])[phone] [place] [address] 04-14-2025 06:23-0400 Systolic blood pressure 138 mm[Hg] Dr. Quentin Álvarez MD Work Phone: [phone] [place] [address] 10-28-2024 12:30-0500 Body mass index (BMI) [Ratio] 33.05 kg/m2 Krispaul Abmarc PA Work Phone: [phone] [place] [address] 10-28-2024 12:30-0500 Body temperature 97 [degF] Krislyn Aberegg PA Work Phone: [phone])[phone] [place] [address] 10-28-2024 12:30-0500 Body weight 95 kg Krislyaime Abchachogg PA Work Phone: 1(122)[phone] [place] [address] 10-28-2024 12:30-0500 Diastolic blood pressure 70 mm[Hg] Krislyn Aberegg PA Work Phone: [facility] 10-28-2024 12:30-0500 Heart rate 66 /min Krislyn Aberegg PA Work Phone: [facility] 10-28-2024 12:30-0500 Respiratory rate 22 /min Krislyn Aberegg PA Work Phone: [facility] 10-28-2024 12:30-0500 SaO2% (BldA) [Mass fraction] 95 % Krislyn Aberegg PA Work Phone: [facility] 10-28-2024 12:30-0500 Systolic blood pressure 118 mm[Hg] Krislyn Aberegg PA Work Phone: [facility] 09-01-2024 17:32-0500 Body mass index (BMI) [Ratio] 33.43 kg/m2 Ingrid Bishop HORSES [employer] MULES TEAMSTER.CLINICAL SECRETARY Work Phone: [facility] 09-01-2024 17:32-0500 Body temperature 98.4 [degF] Ingrid Bishop HORSES OR MULES TEAMSTER.CLINICAL SECRETARY Work Phone: [facility] 09-01-2024 17:32-0500 Body weight 96.1 kg Ingrid Bishop HORSES OR MULES TEAMSTER.CLINICAL SECRETARY Work Phone: [facility] 09-01-2024 17:32-0500 Diastolic blood pressure 72 mm[Hg] Ingrid Bishop HORSES OR MULES TEAMSTER.CLINICAL SECRETARY Work Phone: [facility] 09-01-2024 17:32-0500 Heart rate 67 /min Ingrid Bishop HORSES OR MULES TEAMSTER.CLINICAL SECRETARY Work Phone: [facility] 09-01-2024 17:32-0500 Respiratory rate 16 /min Ingrid Bishop HORSES OR MULES TEAMSTER.CLINICAL SECRETARY Work Phone: [facility] 09-01-2024 17:32-0500 SaO2% (BldA) [Mass fraction] 96 % Ingrid Bishop HORSES OR MULES TEAMSTER.CLINICAL SECRETARY Work Phone: [facility] 09-01-2024 17:32-0500 Systolic blood pressure 126 mm[Hg] Ingrid Bishop CLINICAL SECRETARY Work Phone: [facility] 06-25-2024 15:00-0400 Diastolic blood pressure 84 mm[Hg] Jeanine Ku PLASTICS PRODUCTION MACHINE OPERATOR Work Phone: [facility] 06-25-2024 15:00-0400 Heart rate 61 /min Jeanine Ku PLASTICS PRODUCTION MACHINE OPERATOR Work Phone: [facility] 06-25-2024 15:00-0400 SaO2% (BldA) [Mass fraction] 97 % Jeanine Ku PLASTICS PRODUCTION MACHINE OPERATOR Work Phone: [facility] 06-25-2024 15:00-0400 Systolic blood pressure 145 mm[Hg] Jeanine Truonglake PLASTICS PRODUCTION MACHINE OPERATOR Work Phone: [facility] 06-04-2024 15:19-0400 Body mass index (BMI) [Ratio] 33.71 kg/m2 Joey Hale MD Work Phone: [facility] 06-04-2024 15:19-0400 Body weight 96.89 kg Joey Hale MD Work Phone: [facility] 06-04-2024 15:19-0400 Diastolic blood pressure 78 mm[Hg] Joey Hale MD Work Phone: [facility] 06-04-2024 15:19-0400 Heart rate 60 /min Joey Hale MD Work Phone: [facility] 06-04-2024 15:19-0400 Respiratory rate 12 /min Joey Hale MD Work Phone: [facility] 06-04-2024 15:19-0400 Systolic blood pressure 134 mm[Hg] Joey Hale MD Work Phone: [facility] 05-07-2024 13:40-0400 Diastolic blood pressure 85 mm[Hg] Quentin Álvarez MD Work Phone: [facility] 05-07-2024 13:40-0400 Heart rate 61 /min Quentin Álvarez MD Work Phone: [facility] 05-07-2024 13:40-0400 Systolic blood pressure 153 mm[Hg] Quentin Álvarez MD Work Phone: [facility] 05-07-2024 13:34-0400 Body height 169.5 cm Quentin Álvarez MD Work Phone: [facility] 05-07-2024 13:34-0400 Body mass index (BMI) [Ratio] 33.19 kg/m2 Quentin Álvarez MD Work Phone: [facility] 05-07-2024 13:34-0400 Body temperature 98.01 [degF] Quentin Álvarez MD Work Phone: [facility] 05-07-2024 13:34-0400 Body weight 95.4 kg Quentin Álvarez MD Work Phone: [facility] 05-07-2024 13:34-0400 Respiratory rate 12 /min Quentin Álvarez MD Work Phone: [facility] 11-07-2023 14:15-0500 Body temperature 98.4 [degF] Quentin Álvarez MD Work Phone: [facility] 11-07-2023 14:15-0500 Body weight 93.44 kg Quentin Álvarez MD Work Phone: [facility] 11-07-2023 14:15-0500 Diastolic blood pressure 62 mm[Hg] Quentin Álvarez MD Work Phone: [facility] 11-07-2023 14:15-0500 Heart rate 68 /min Quentin Álvarez MD Work Phone: [facility] 11-07-2023 14:15-0500 Respiratory rate 16 /min Quentin Álvarez MD Work Phone: [facility] 11-07-2023 14:15-0500 Systolic blood pressure 110 mm[Hg] Quentin Álvarez MD Work Phone: [facility] 01-31-2023 14:35-0400 Body height 169.2 cm Quentin Álvarez MD Work Phone: [facility] 01-31-2023 14:35-0400 Body weight 94.35 kg Quentin Álvarez MD Work Phone: [facility] 01-31-2023 14:35-0400 Diastolic blood pressure 62 mm[Hg] Quentin Álvarez MD Work Phone: [facility] 01-31-2023 14:35-0400 Heart rate 64 /min Quentin Álvarez MD Work Phone: [facility] 01-31-2023 14:35-0400 Respiratory rate 16 /min Quentin Álvarez MD Work Phone: [facility] 01-31-2023 14:35-0400 Systolic blood pressure 118 mm[Hg] Quentin Álvarez MD Work Phone: [facility] 08-02-2022 09:21-0400 Body height 169.5 cm Quentin Álvarez MD Work Phone: [facility] 08-02-2022 09:21-0400 Body temperature 97.5 [degF] Quentin Álvarez MD Work Phone: [facility] 08-02-2022 09:21-0400 Body weight 94.35 kg Quentin Álvarez MD Work Phone: [facility] 08-02-2022 09:21-0400 Diastolic blood pressure 74 mm[Hg] Quentin Álvarez MD Work Phone: [facility] 08-02-2022 09:21-0400 Heart rate 68 /min Quentin Álvarez MD Work Phone: [facility] 08-02-2022 09:21-0400 Respiratory rate 16 /min Quentin Álvarez MD Work Phone: [facility] 08-02-2022 09:21-0400 Systolic blood pressure 116 mm[Hg] Quentin Álvarez MD Work Phone: [facility] 01-30-2022 08:45-0400 Body weight 94.62 kg Katerin Podlogar HORSES OR MULES TEAMSTER.CLINICAL SECRETARY Work Phone: [facility] 01-30-2022 08:45-0400 Diastolic blood pressure 64 mm[Hg] Katerin Podlogar HORSES OR MULES TEAMSTER.CLINICAL SECRETARY Work Phone: [facility] 01-30-2022 08:45-0400 Heart rate 71 /min Katerin Podlogar HORSES OR MULES TEAMSTER.CLINICAL SECRETARY Work Phone: [facility] 01-30-2022 08:45-0400 Respiratory rate 18 /min Katerin Podlogar HORSES OR MULES TEAMSTER.CLINICAL SECRETARY Work Phone: [facility] 01-30-2022 08:45-0400 SaO2% (BldA) [Mass fraction] 99 % Katerin Podlogar HORSES OR MULES TEAMSTER.CLINICAL SECRETARY Work Phone: [facility] 01-30-2022 08:45-0400 Systolic blood pressure 122 mm[Hg] Katerin Podlogar HORSES OR MULES TEAMSTER.CLINICAL SECRETARY Work Phone: [facility] Encounters Encounter Date Encounter Type Care Provider Facility Start: 05-11-2025 ambulatory Quentin Reis ty:[facility] Start: 05-04-2025 End: 05-04-2025 ambulatory Winifred Nelson MA [facility] [place] Start: 05-04-2025 End: 05-04-2025 Patient encounter procedure Winifred Nelson MA [facility] Comment on above: Population Health Na vigation Outreach ([facility] Start: 04-14-2025 End: 04-14-[address] Quentin Álvarez MD Work Phone: -Laboratory Start: 04-14-2025 End: 04-14-2025 Patient encounter procedure Nino KRAUSE -Laboratory Work Phone: Start: 04-14-2025 End: 04-14-2025 Patient encounter procedure Nino KRAUSE -[facility] Work Phone: Start: 04-14-2025 End: 04-14-[address] Quentin Álvarez MD Work Phone: [facility] Start: 04-14-2025 End: 04-14-2025 ambulatory Quentin Álvarez Facility:[facility] Start: 03-26-2025 End: 03-26-[address] Quentin Álvarez MD Work Phone: [facility] Start: 03-26-2025 End: 03-26-[address] Marciano Couch MD [facility] Work Phone: Start: 12-25-2024 End: 12-25-[facility] [place] [place]: 12-25-2024 End: 12-25-[address] Marciano Couch MD [facility] Work Phone: Start: 12-10-2024 End: 12-10-2024 ambulatory Winifred Nelson MA [facility] [place] Start: 12-10-2024 End: 12-10-2024 Patient encounter procedure Winifred Nelson MA [facility] [place] Comment on above: Population Health Na vigation Outreach ([facility]) Start: 10-28-2024 End: 10-28-2024 Patient encounter procedure Anshul KRAUSE Work Phone: [facility] Comment on above: Acute cough (Primary Dx) Start: 10-28-2024 End: 10-28-2024 ambulatory QUENTIN ÁLVAREZ Facility:[facility] Start: 10-28-2024 End: 10-28-2024 Subsequent hospital visit by physician Xr [facility] Work Phone: Radiology Comment on above: Acute cough [R05.1] Start: 09-25-2024 End: 09-25-2024 ambulatory Quentin Álvarez [place] Start: 09-04-2024 End: 09-04-2024 Telephone encounter Ingrid Bishop APRN.CNP Work Phone: [facility] Comment on above: Results Start: 09-02-2024 End: 09-02-2024 Telephone encounter Vishnu Cobian APRN.CNP Work Phone: [facility] Comment on above: Results Start: 09-01-2024 End: 09-01-2024 Subsequent hospital visit by physician [facility] Work Phone: Radiology Comment on above: Acute cough [R05.1] Start: 09-01-2024 End: 09-01-2024 ambulatory EVELYNE MEHUL Facility: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) Start: 06-26-2024 End: 06-26-2024 ambulatory Quentin Álvarez Facility:[facility] Start: 06-25-2024 End: 06-25-2024 ambulatory Jeanine Truongba PLASTICS PRODUCTION MACHINE OPERATOR Work Phone: [facility] Comment on above: 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 Start: 06-05-2024 End: 06-05-2024 ambulatory Michelle Love RT(R) [facility] Comment on above: MRI Scheduling Start: 06-05-2024 End: 06-05-2024 E-mail encounter from caregiver Michelle Love RT(R) [facility] Start: 06-05-2024 End: 06-05-2024 Telephone encounter Michelle Love RT(R) [facility] Comment on above: Radiology MRI Start: 06-04-2024 End: 06-04-2024 Patient encounter procedure Joey Hale MD Work Phone: [facility] Comment on above: Cognitive impairment , mild, so stated (Primary Dx); Memory loss; Hearing impaired person, bilateral; Sleep apnea, unspecified type Start: 06-04-2024 End: 06-04-2024 ambulatory QUENTIN ÁLVAREZ Facility: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 Start: 05-07-2024 End: 05-07-2024 Patient encounter procedure Quentin Álvarez MD Work Phone: [facility] [place] Comment on above: Medicare annual well ness visit, subsequent (Primary Dx); Screening for depression; Encounter for screening examination for other mental health and behavioral disorders; Primary hypertension; Stage 3a chronic kidney disease (HCC); Pacemaker; Neck pain, chronic; Thoracogenic scoliosis of thoracic region; Diarrhea, unspecified type; Memory loss Start: 11-07-2023 End: 11-07-2023 Patient encounter procedure Quentin Álvarez MD Work Phone: Internal [facility] Comment on above: Paroxysmal dyspnea ( Primary Dx); Primary hypertension; Hiatal hernia; Stage 3a chronic kidney disease (HCC); Need for vaccination Start: 10-27-2023 End: 10-27-2023 Subsequent hospital visit by physician [facility]r [facility] Work Phone: Radiology Comment on above: URI, acute [J06.9] Start: 05-04-2023 Telephone encounter Quentin cotter MD Work Phone: Internal [facility] Comment on above: Eye Doctor Informati on Start: 04-06-[address] Yessi Álvarez MD Work Phone: [facility] Comment on above: Bilateral cataract e xtractions Start: 01-31-2023 End: 01-31-2023 Patient encounter procedure Quentin Álvarez MD Work Phone: Internal [facility] Comment on above: Medicare annual well ness visit, subsequent (Primary Dx); Stage 3a chronic kidney disease (HCC); Obesity, Class I, BMI 30-34.9; Primary hypertension; Screening for glaucoma Start: 08-02-2022 End: 08-02-2022 Patient encounter procedure Quentin Álvarez MD Work Phone: [facility] Comment on above: Primary hypertension (Primary Dx); Stage 3a chronic kidney disease (HCC); Obesity (BMI 30-39.9); Complete heart block (HCC) Start: 07-17-2022 Refill Susannah Og MD Work Phone: [facility] Comment on above: Refill Request Start: 01-31-2022 Telephone encounter Katerin mullen APRN.CLINICAL SECRETARY Work Phone: [facility] Comment on above: Results Start: 01-30-2022 End: 01-30-2022 Patient encounter procedure Katerin Lerma APRN.CNP Work Phone: [facility] Comment on above: Hypertension, essent ial (Primary Dx); Screening for hyperlipidemia; Stage 3a chronic kidney disease (HCC); Complete heart block (HCC) Start: 01-24-2022 Refill Susannah Og MD Work Phone: [facility] Comment on above: Refill Request Start: 01-18-2022 End: 01-18-[address] Susannah Og Facility:[id number] Start: 06-02-2021 End: 06-02-2021 Subsequent hospital visit by physician [facility] Work Phone: Radiology Comment on above: SOB (shortness of br eat) [R06.02] Start: 05-20-2021 End: 05-20-2021 Subsequent hospital visit by physician [facility]r [facility] [place] Work Phone: Radiology Comment on above: Cough [R05] Start: 10-16-[address] [facility] Facility :[facility] Start: 02-11-2018 End: 02-11-2018 [facility] Facility:[facility] Start: 09-13-2017 End: 09-13-2017 [facility] Facility:[facility] Start: 08-14-2017 End: 08-14-2017 [facility] Facility:[facility] Procedures Date Procedure Procedure Detail Performing Clinician Start: 10-28-2024 Radiologic exam ches t 2 views Anshul Manley PA Work Phone: Start: 09-01-2024 Radiologic exam ches t 2 views Ingrid Bishop APRN.CLINICAL SECRETARY Work Phone: Start: 05-07-2024 Radex spine cervical 4 or 5 views Quentin Álvarez MD Work Phone: Start: 05-07-2024 Adult depression screening assessment Quentin Álvarez MD Work Phone: Start: 10-27-2023 Radiologic exam ches t 2 views Jamesn P Abchachogg PA Work Phone: Start: 06-02-2021 Radiologic exam ches t 2 views Susannah Og MD Work Phone: Start: 05-20-2021 Radiologic exam ches t 2 views Susannah Og MD Work Phone: Plan of Treatment Date Care Activity Detail Author Start: 03-19-2028 Urine microalbumin profile [facility] Start: 05-01-2027 Diabetes Screening Diabetes Screenin g [facility] Start: 05-08-2026 Diabetes Screening Diabetes Screenin g [facility] Start: 01-23-2026 DIABETES SCREEN DIABETES SCREEN [facility] Start: 06-01-2025 Influenza vaccination Influenza Vacc ine (#1) [facility] Start: 05-20-2025 End: 05-20-2025 Patient encounter procedure 05/20/2025 10:40 AM EDT Office Visit [facility] [address] [place], [place] [phone] Quentin Álvarez MD [address] [place], [place] [phone] Medicare Wellness [facility] Comment on above: Medicare Wellness Start: 05-07-2025 Anxiety Screening Anxiety Screening [facility] Start: 05-07-2025 Depression Screening Depression Scre ening [facility] Start: 05-07-2025 Medicare Annual Well ness Visit Medicare Annual Wellness Visit [facility] Start: 01-30-2025 DIABETES SCREEN DIABETES SCREEN [facility] Start: 11-07-2024 Covid-19 Vaccine ( season) Covid-19 Vaccine () [facility] Comment on above: Postponed from 06/01 (Declined at this time) Start: 10-01-2024 Advance Directive Discussion Advance Directive Discussion [facility] Start: 09-05-2024 End: 09-05-2024 Patient encounter procedure 09/05/2024 1:00 PM EST Office Visit Neurology [address] [place], [place] [id number] Carmella Bang, HORSES OR MULES TEAMSTER.CLINICAL SECRETARY [address] [place] [address] Sleep apnea, unspecified type [G47.30] Neurology Comment on above: Sleep apnea, unspeci fied type [G47.30] Start: 08-13-2024 End: 08-13-2024 Patient encounter procedure [facility] Comment on above: 2 month follow up Start: 08-07-2024 End: 08-07-2024 Patient encounter procedure 08/07/2024 2:40 PM EST Office Visit [facility] [place] [address] [place] [address] Quentin Álvarez MD [address] [place] [address] 3 month follow-up [facility] [place] Comment on above: 3 month follow-up Start: 07-02-2024 End: 07-02-2024 ambulatory 07/02/2024 3:00 PM EDT OT/PT/Speech Visit [facility] [address], [place] [phone] Adriano Santos, PT [address] [place] [address] 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 (ICD-10-CM)] [facility] Comment on above: 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 (ICD-10-CM)] Start: 06-25-2024 End: 06-25-2024 ambulatory 06/25/2024 3:30 PM EDT OT/PT/Speech Visit [facility] [address] [facility] [address] Jeanine Ku, PLASTICS PRODUCTION MACHINE OPERATOR [address] [place], [place] [phone] 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 (ICD-10-CM)] [facility] Comment on above: 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 (ICD-10-CM)] Start: 06-18-2024 End: 06-18-2024 ambulatory 06/18/2024 3:30 PM EDT OT/PT/Speech Visit [facility] [address] [place] [address] Jeanine Ku, PLASTICS PRODUCTION MACHINE OPERATOR [address] [place] [address] 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 (ICD-10-CM)] [facility] Comment on above: 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 (ICD-10-CM)] Start: 06-12-2024 End: 06-12-2024 ambulatory 06/12/2024 3:45 PM EDT OT/PT/Speech Visit [facility] [address] [place] [address] Adriano Santos, PT [address] [place] [address] 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 (ICD-10-CM)] [facility] Comment on above: 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 (ICD-10-CM)] Start: 06-09-2024 End: 06-09-2024 Patient encounter procedure 06/09/2024 11:30 AM EDT Office Visit Audiology [address] [address] Kellen Longo, AUD [address] [place] [address] Memory loss [R41.3] Audiology Comment on above: Memory loss [R41.3] Start: 06-04-2024 End: 06-04-2024 Patient encounter procedure [facility] Comment on above: Consult to Geriatric s Start: 06-04-2024 End: 09-03-2024 Cobalamin (Vitamin B12) [Mass/volume] in Serum or Plasma VITAMIN B12 Lab Routine Cognitive impairment, mild, so stated Expected: 06/04/2024, Expires: 09/03/2024 [facility] Comment on above: Expected: 06/04/2024 , Expires: 09/03/2024 Start: 06-04-2024 End: 09-03-2024 Thyrotropin [Units/volume] in Serum or Plasma THYROID STIMULATING HORMONE Lab Routine Cognitive impairment, mild, so stated Expected: 06/04/2024, Expires: 09/03/2024 [facility] Comment on above: Expected: 06/04/2024 , Expires: 09/03/2024 Start: 06-01-2024 Covid-19 Vaccine () Covid-19 Vaccine () [facility] Start: 06-01-2024 Covid-19 Vaccine () Covid-19 Vaccine () [facility] Start: 06-01-2024 Influenza vaccination Influenza Vacc ine (#1) [facility] Start: 05-29-2024 End: 05-29-2024 ambulatory 05/29/2024 12:15 PM EDT OT/PT/Speech Visit [facility] [address] [place] [phone] Adriano Santos, PT [address] [place] [address] 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] [facility] Comment on above: 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] Start: 05-07-2024 End: 08-06-2024 CBC panel - Blood by Automated count CBC Lab Routine Primary hypertension Expected: 05/07/2024, Expires: 08/06/2024 [facility] Work Phone: Comment on above: Expected: 05/07/2024 , Expires: 08/06/2024 Start: 05-07-2024 End: 08-06-2024 Comprehensive metabolic 2000 panel - Serum or Plasma COMP METABOLIC PANEL Lab Routine Stage 3a chronic kidney disease (HCC) Expected: 05/07/2024, Expires: 08/06/2024 [facility] Work Phone: Comment on above: Expected: 05/07/2024 , Expires: 08/06/2024 Start: 05-07-2024 End: 08-06-2024 Lipid 1996 panel - Serum or Plasma LIPID PANEL BASIC Lab Routine Primary hypertension Expected: 05/07/2024, Expires: 08/06/2024 [facility] Work Phone: Comment on above: Expected: 05/07/2024 , Expires: 08/06/2024 Start: 03-30-2024 Influenza vaccination Influenza Vacc ine (#1) [facility] Comment on above: Postponed from 06/01 (Declined at this time) Start: 12-21-2023 DIABETES SCREEN DIABETES SCREEN [facility] Start: 10-01-2023 Advance Directive Discussion Advance Directive Discussion [facility] Start: 08-02-2023 COVID-19 VACCINE (3 - Booster for Moderna series) COVID-19 VACCINE (3 - Booster for Moderna series) [facility] Comment on above: Postponed from 12/01 (Declined at this time) Start: 08-02-2023 COVID-19 VACCINE (3 - Moderna series) COVID-19 VACCINE (3 - Moderna series) [facility] Comment on above: Postponed from 12/01 (Declined at this time) Start: 06-01-2023 Influenza vaccination [facility] Start: 05-03-2023 End: 07-03-2023 Basic metabolic 2000 panel - Serum or Plasma BASIC METABOLIC PNL Lab Routine Stage 3a chronic kidney disease (HCC) Expected: 05/03/2023, Expires: 07/03/2023 [facility] Work Phone: Comment on above: Expected: 05/03/2023 , Expires: 07/03/2023 Start: 03-30-2023 Influenza vaccination INFLUENZA (#1) [facility] Comment on above: Postponed from 06/01 (Declined at this time) Start: 01-30-2023 End: 04-01-2023 Basic metabolic 2000 panel - Serum or Plasma BASIC METABOLIC PNL Lab Routine Stage 3a chronic kidney disease (HCC) Expected: 01/30/2023, Expires: 04/01/2023 [facility] Work Phone: Comment on above: Expected: 01/30/2023 , Expires: 04/01/2023 Start: 01-30-2023 End: 04-01-2023 CBC panel - Blood by Automated count CBC Lab Routine Stage 3a chronic kidney disease (HCC) Expected: 01/30/2023, Expires: 04/01/2023 [facility] Work Phone: Comment on above: Expected: 01/30/2023 , Expires: 04/01/2023 Start: 06-01-2022 Influenza vaccination [facility] Start: 03-06-2022 COVID-19 VACCINE (3 - Booster for Moderna series) COVID-19 VACCINE (3 - Booster for Moderna series) [facility] Start: 01-31-2022 End: 04-02-2022 POTASSIUM BLD POTASSIUM BLD Lab Routine Hyperkalemia Expected: 01/31/2022, Expires: 04/02/2022 [facility] Work Phone: Comment on above: Expected: 01/31/2022 , Expires: 04/02/2022 Start: 01-30-2022 End: 04-01-2022 Comprehensive metabolic 2000 panel - Serum or Plasma [facility] Work Phone: Comment on above: Expected: 01/30/2022 , Expires: 04/01/2022 Start: 01-30-2022 End: 04-01-2022 LIPID PANEL BASIC [facility] Work Phone: Comment on above: Expected: 01/30/2022 , Expires: 04/01/2022 Start: 12-01-2021 COVID-19 VACCINE (3 - Booster for Moderna series) COVID-19 VACCINE (3 - Booster for Moderna series) [facility] Start: 10-01-2021 ADVANCE DIRECTIVE DISCUSSION ADVANCE DIRECTIVE DISCUSSION [facility] Start: 10-01-2021 DEPRESSION ASSESSMENT DEPRESSION ASS ESSMENT [facility] Start: 01-13-2021 COVID-19 VACCINE (2 - Moderna 3-dose series) COVID-19 VACCINE (2 - Moderna 3-dose series) [facility] Start: 05-14-2018 SHINGRIX VACCINE (2 of 2) SHINGRIX VACCINE (2 of 2) [facility] Start: 2000 RSV Vaccine (1 - 1-d ose 60+ series) RSV Vaccine (1 - 1-dose 60+ series) [facility] CBC W Auto Different ial panel - Blood [facility] Clostridioides diffi cile toxin genes [Presence] in Stool by LENNOX with probe detection C. DIFFICILE PCR Lab Routine Diarrhea, unspecified type Ordered: 05/07/2024 [facility] Work Phone: Comment on above: Ordered: 05/07/2024 Comprehensive metabo lic 2000 panel - Serum or Plasma [facility] COVID & INFLUENZA A/ B & RSV PCR, ROUTINE COVID & INFLUENZA A/B & RSV PCR, ROUTINE Microbiology Routine URI, acute Ordered: 09/01/2024 [facility] Work Phone: Comment on above: Ordered: 09/01/2024 End: 06-05-2025 HEARING TEST/AUDIOGRAM HEARING TEST/AUDIOGRAM Audiology Routine Memory loss Cognitive impairment, mild, 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, bilateral 1 Occurrences starting 06/04/2024 until 06/05/2025 [facility] Comment on above: 1 Occurrences starti ng 06/04/2024 until 06/05/2025 Lipid 1996 panel - S usha or Plasma [facility] Magnesium measurement [facility] End: 07-04-2025 MR Brain WO contrast MRI BRAIN W QUANT WO IVCON Radiology Routine Cognitive impairment, mild, so stated 1 Occurrences starting 06/04/2024 until 07/04/2025 [facility] Work Phone: Comment on above: 1 Occurrences starti ng 06/04/2024 until 07/04/2025 End: 07-04-2025 MR Unspecified body region 3D post processing MRI 3D POST PROCESSING Radiology Routine Cognitive impairment, mild, so stated 1 Occurrences starting 06/04/2024 until 07/04/2025 [facility] Comment on above: 1 Occurrences starti ng 06/04/2024 until 07/04/2025 Natriuretic peptide. B prohormone N-Terminal [Mass/volume] in Serum or Plasma [facility] NM Heart Views W str ess and W radionuclide IV [facility] Thyroid stimulating hormone measurement [facility] Heart [facility] End: 03-01-2024 US KIDNEY/BLADDER US KIDNEY/BLADDER Radiology Routine Stage 3a chronic kidney disease (HCC) 1 Occurrences starting 01/31/2023 until 03/01/2024 [facility] Work Phone: Comment on above: 1 Occurrences starti ng 01/31/2023 until 03/01/2024 [facility] Immun[facility] Immunization Date Immunization Notes Care Provider Fa cility 11-07-2023 pneumococcal Conjuga te, unspecified formulation Quentin Álvarez MD Work Phone: [facility] Work Phone: 11-07-2023 pneumococcal conjuga te (PCV20) vaccine, 20 valent (PREVNAR 20) Quentin Álvarez MD Work Phone: [facility] 11-25-2018 influenza virus vaccine, unspecified formulation Quentin Álvarez MD Work Phone: [facility] 11-10-2016 pneumococcal conjuga te vaccine, 13 valent Susannah Og MD Work Phone: [facility] 07-28-2010 pneumococcal polysaccharide vaccine, 23 valent Susannah Og MD Work Phone: [facility] Work Phone: 12-02-2004 pneumococcal polysaccharide vaccine, 23 valent Susannah Og MD Work Phone: [facility] Payers Date Payer Category Payer Self-pay 2019 Private Health Insurance DAVE RM PPO [id number] 2019-Present [phone] [address] [place] [address] PPO [id number] 2019 Private Health Insurance [id number] 2007 Private Health Insurance [id number] 2005 Medicare MEDICARE MEDICAR E A AND B [id number] 2005-Present [phone] [place] [address] Medicare [id number] 2005 Medicare [id number] 2005 Medicare [id number] 1940 Unknown [id number] Medicare [id number] Unknown [id number] Unknown [id number] Unknown [id number] Unknown [id number] Unknown [id number] Unknown [id number] Unknown [id number] Unknown [id number] Social History Date Type Detail Facility Start: 04-20-2017 End: 06-04-2024 Tobacco smoking status MIIS Ex-smoker [facility] Work Phone: End: 10-01-1961 History of tobacco use Current smoker [facility] Work Phone: End: 10-01-1961 History of tobacco use Cigarette Smoker [facility] Work Phone: Start: 07-18-2021 End: 10-28-2024 Alcohol intake Current non-drinker of alcohol (finding) [facility] Start: 08-03-2010 End: 08-02-2022 Tobacco Comment 2 quit [facility] Start: 1940 Sex Assigned At Not on file [facility] Start: 04-20-2021 End: 08-02-2022 Exposure to SARS-CoV-2 (event) Not sure [facility] Work Phone: Start: 04-20-2017 End: 01-31-2023 Cigarettes smoked current (pack per day) - Reported 0.5 [facility] Work Phone: Start: 04-20-2017 End: 06-04-2024 Tobacco use and exposure Smokeless tobacco non-user [facility] Work Phone: Start: 1940 Sex Assigned At Male [facility] Start: 01-31-2023 History SDOH Alcohol Frequency 1 [facility] Start: 01-31-2023 History SDOH Alcohol Std Drinks 0 [facility] Start: 01-31-2023 End: 05-07-2024 Alcohol Use Disorder Identification Test - Consumption [AUDIT-C] [facility] Work Phone: How often to you hav e a drink containing alcohol? Never [facility] Work Phone: How many standard dr inks containing alcohol do you have on a typical day? Patient does not drink [facility] Work Phone: Do you feel stress - tense, restless, nervous, or anxious, or unable to sleep at night because your mind is troubled all the time - these days [OSQ] Not at all [facility] Work Phone: Start: 08-01-2022 Gender identity Identifies as male gender (finding) [facility] Start: 08-01-2022 Sexual orientation Heterosexual (finding) [facility] Medical Equipment Procedure Code Equipment Code Equipment Origin al Text Equipment Identifier Dates [id number] Advisa [id number] Start: 04-23-2017 Functional Status Date Assessment Result Facility 04-24-2017 Are you deaf, or do you have serious difficulty hearing No 04/24/2017 3:12 PM EDT Roque Randle, DANISH No [facility] 04-24-2017 Are you blind, or do you have serious difficulty seeing, even when wearing glasses No 04/24/2017 3:12 PM EDT Roque Randle, DANISH No [facility] 04-24-2017 Do you have serious difficulty walking or climbing stairs No 04/24/2017 3:12 PM EDT Roque Randle RN No [facility] 04-24-2017 Do you have difficul ty dressing or bathing No 04/24/2017 3:12 PM EDT Roque Randle, DANISH No [facility] 04-24-2017 Because of a physica l, mental, or emotional condition, do you have difficulty doing errands alone such as visiting a physician's office or shopping No 04/24/2017 3:12 PM EDT Roque Randle RN No [facility] Mental Status Date Assessment Result Facility 04-24-2017 Because of a physica l, mental, or emotional condition, do you have serious difficulty concentrating, remembering, or making decisions No 04/24/2017 3:12 PM EDT Roque Randle RN No [facility] Clinical Notes 04-20-2017 to 05-04-2025 Winifred Nelson MA - 05/04/2025 3:32 PM EDT Note Date & Type Note Facility 05-04-2025 Note HNO ID: [id number] Author: WINIFRED NELSON MA Service: ? Author Type: Line Manager Type: Progress Notes Filed: 05/04/2025 15:37 Note Text: POPULATION HEALTH NAVIGATION OUTREACH Action/FYI Topic Due (Y or N) Comments Medicare Wellness PCP Follow up Colorectal Cancer Screening Controlling Blood Pressure A1C HCC Y Flu Vaccine Care Everywhere Reviewed MyChart Activation Updated Appointment Note Y Reason for Outreach Care Gap/HCC or Scheduling Wellness Visits Care Gaps due: N/A Patient Contacted: Unable or unnecessary to reach patient: HCC related Patient already scheduled Updated appointment notes Navigation Signature: Winifred Nelson MA May 04, 2025 3:32 PM [facility] 05-04-2025 History of Present illness Narrative POPULATION HEALTH NAVIGATION OUTREACH Action/FYI Topic Due (Y or N) Comments Medicare Wellness PCP Follow up Colorectal Cancer Screening Controlling Blood Pressure A1C HCC Y Flu Vaccine Care Everywhere Reviewed MyChart Activation Updated Appointment Note Y Reason for Outreach Care Gap/HCC or Scheduling Wellness Visits Care Gaps due: N/A Patient Contacted: Unable or unnecessary to reach patient: HCC related Patient already scheduled Updated appointment notes Navigation Signature: Winifred Nelson MA May 04, 2025 3:32 PM documented in this encounter [facility] 05-04-2025 Note Patient Outreach (ERICH TNAV) OLIVIA BRISCOE ([id number]) 1940 M Date Time Provider Department 05/04/25 WINIFRED NELSON NETJOSHV During your visit today, we recorded the following information about you: Winifred Nelson MA 05/04/2025 3:37 PM Signed POPULATION HEALTH NAVIGATION OUTREACH Action/FYI Topic Due (Y or N) Comments Medicare Wellness PCP Follow up Colorectal Cancer Screening Controlling Blood Pressure A1C HCC Y Flu Vaccine Care Everywhere Reviewed MyChart Activation Updated Appointment Note Y Reason for Outreach Care Gap/HCC or Scheduling Wellness Visits Care Gaps due: N/A Patient Contacted: Unable or unnecessary to reach patient: HCC related Patient already scheduled Updated appointment notes Navigation Signature: Winifred Nelson MA May 04, 2025 3:32 PM Allergies As of Date: 05/04/2025 Noted Allergy Reaction CHICKEN DERIVED 12/13/2017 7 - Swelling Comments: Certain chicken and how it's cooked FISH CONTAINING PRODUCTS 11/09/2016 5 - Intolerance Date Reviewed: 10/28/2024 Reviewed by: Renee Villa LPN - Fully Assessed Reason for Visit: Population Health Navigation Outreach [3910] Cmt: JONO MIRELES PCSA Prescriptions as of 05/04/2025 - albuterol HFA (PROVENTIL HFA, VENTOLIN HFA) 90 mcg/actuation inhaler Inhale 2 Puffs as instructed every 4 hours as needed for wheezing/shortness of breath. - benzonatate (TESSALON PERLE) 100 mg capsule Take 1 capsule by mouth three times a day as needed. - metoprolol succinate ER (TOPROL XL) 25 mg 24 hr tablet Take 1 tablet by mouth every afternoon. - dorzolamide-timolol (COSOPT) 22.3-6.8 mg/mL ophthalmic solution Use 1 Drop in both eyes once daily. - multivitamin tablet Take 1 tablet by mouth once daily. Problem List As Of Date 05/04/2025 Noted Resolved Hypertrophy of prostate with urinary obstructio*07/28/2010 08/02/2022 Colon polyps [K63.5] 07/28/2010 08/02/2022 Obesity [E66.9] 07/28/2010 11/25/2018 Personal history of colonic polyps [Z86.0100] 08/15/2010 Dysphagia [R13.10] 11/09/2016 2017 Encounter for screening colonoscopy [Z12.11] 11/09/2016 2017 Chronic superficial gastritis without bleeding * 08/02/2022 Reflux esophagitis [K21.00] 08/02/2022 Complete heart block (HCC) [I44.2] 04/20/2017 08/02/2022 RAZIA (acute kidney injury) (HCC) [N17.9] 04/20/2017 2017 SUMMARY 04/22/2017 08/02/2022 Obesity (BMI 30-39.9) [E66.9] 04/23/2017 11/07/2023 Pacemaker [Z95.0] 04/23/2017 CKD (chronic kidney disease), stage III (HCC) [* Hypertension [I10] Obesity, Class I, BMI 30-34.9 [E66.811] 01/31/2023 Acquired complex cyst of kidney [N28.1] 02/10/2023 Bladder retention of urine [R33.9] 02/10/2023 Glaucoma [H40.9] 11/07/2023 Diagnosed: 11/07/2023 Hiatal hernia [K44.9] 11/07/2023 Thoracogenic scoliosis of thoracic region [M41.*05/07/2024 Neck pain, chronic [M54.2, G89.29] 05/07/2024 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*05/08/2024 Encounter Status:Closed by WINIFRED NELSON on 05/04/25 [facility] 04-14-2025 Evaluation note Diagnosis Onset Date Resolution Dyspnea on exertion acute April 14, 2025 10:29am Nonsustained ventricular tachycardia acute April 14, 2025 10:29am Complete heart block April 19, 2017 chronic April 14, 2025 10:29am Essential (primary) hypertension chronic April 14, 2025 10:29am History of permanent cardiac pacemaker placement April 23, 2017 chronic April 14, 2025 10:29am [facility] Work Phone: 1(717) 836-109203-12-2025 NoteHNO ID: [id number] Author: WINIFRED NELSON MA Service: ? Author Type: Line Manager Type: Progress Notes Filed: 12/10/2024 13:54 Note Text: POPULATION HEALTH NAVIGATION OUTREACH Action/FYI [employer] MESSAGE SENT Topic Due (Y or N) Comments Medicare Wellness Y AFTER 05-07-25 PCP Follow up Colorectal Cancer Screening Controlling Blood Pressure A1C HCC Y Flu Vaccine Y Care Everywhere Reviewed MyChart Activation Updated Appointment Note Reason for Outreach Care Gap/HCC or Scheduling Wellness Visits Care Gaps due: Medicare Annual Wellness Visit Flu Vaccine Patient Contacted: Unable or unnecessary to reach patient: Left message Scoutziehart message sent HCC related Navigation Signature: Winifred Nelson MA December 10, 2024 1:[facility] History of Present illness Narrative* Winifred Nelson MA - 12/10/2024 1:48 PM EDT POPULATION HEALTH NAVIGATION OUTREACH Action/FYI L[facility] [employer] MESSAGE SENT Topic Due (Y or N) Comments Medicare Wellness Y AFTER 05-07-25 PCP Follow up Colorectal Cancer Screening Controlling Blood Pressure A1C HCC Y Flu Vaccine Y Care Everywhere Reviewed MyChart Activation Updated Appointment Note Reason for Outreach Care Gap/HCC or Scheduling Wellness Visits Care Gaps due: Medicare Annual Wellness Visit Flu Vaccine Patient Contacted: Unable or unnecessary to reach patient: Left message MyChart message sent HCC related Navigation Signature: Winifred Nelson MA December 10, 2024 1:48 PM [facility] NotePatient Outreach (NETNAV) OLIVIA BRISCOE ([id number]) 1940 M Date Time Provider Department 12/10/24 WINIFRED NELSON NETNAV During your visit today, we recorded the following information about you: Winifred Nelson MA 12/10/2024 1:54 PM Signed POPULATION HEALTH NAVIGATION OUTREACH Action/FYI [facility] MYCHART MESSAGE SENT Topic Due (Y or N) Comments Medicare Wellness Y AFTER 05-07-25 PCP Follow up Colorectal Cancer Screening Controlling Blood Pressure A1C HCC Y Flu Vaccine Y Care Everywhere Reviewed MyChart Activation Updated Appointment Note Reason for Outreach Care Gap/HCC or Scheduling Wellness Visits Care Gaps due: Medicare Annual Wellness Visit Flu Vaccine Patient Contacted: Unable or unnecessary to reach patient: Left message Scoutziehart message sent HCC related Navigation Signature: Winifred Nelson MA December 10, 2024 1:48 PM Allergies As of Date: 12/10/2024 Noted Allergy Reaction CHICKEN DERIVED 12/13/2017 7 - Swelling Comments: Certain chicken and how it's cooked FISH CONTAINING PRODUCTS 11/09/2016 5 - Intolerance Date Reviewed: 10/28/2024 Reviewed by: Renee Villa LPN - Fully Assessed Reason for Visit: Population Health Navigation Outreach [3910] Cmt: [employer] WORKBE[employer]CK MARTÍNEZ PCSA Prescriptions as of 12/10/2024 - albuterol HFA (PROVENTIL HFA, VENTOLIN HFA) 90 mcg/actuation inhaler Inhale 2 Puffs as instructed every 4 hours as needed for wheezing/shortness of breath. - benzonatate (TESSALON PERLE) 100 mg capsule Take 1 capsule by mouth three times a day as needed. - metoprolol succinate ER (TOPROL XL) 25 mg 24 hr tablet Take 1 tablet by mouth every afternoon. - dorzolamide-timolol (COSOPT) 22.3-6.8 mg/mL ophthalmic solution Use 1 Drop in both eyes once daily. - multivitamin tablet Take 1 tablet by mouth once daily. Problem List As Of Date 12/10/2024 Noted Resolved Hypertrophy of prostate with urinary obstructio*07/28/2010 08/02/2022 Colon polyps [K63.5] 07/28/2010 08/02/2022 Obesity [E66.9] 07/28/2010 11/25/2018 Personal history of colonic polyps [Z86.0100] 08/15/2010 Dysphagia [R13.10] 11/09/2016 2017 Encounter for screening colonoscopy [Z12.11] 11/09/2016 2017 Chronic superficial gastritis without bleeding * 08/02/2022 Reflux esophagitis [K21.00] 08/02/2022 Complete heart block (HCC) [I44.2] 04/20/2017 08/02/2022 RAZIA (acute kidney injury) (HCC) [N17.9] 04/20/2017 2017 SUMMARY 04/22/2017 08/02/2022 Obesity (BMI 30-39.9) [E66.9] 04/23/2017 11/07/2023 Pacemaker [Z95.0] 04/23/2017 CKD (chronic kidney disease), stage III (HCC) [* Hypertension [I10] Obesity, Class I, BMI 30-34.9 [E66.811] 01/31/2023 Acquired complex cyst of kidney [N28.1] 02/10/2023 Bladder retention of urine [R33.9] 02/10/2023 Glaucoma [H40.9] 11/07/2023 Diagnosed: 11/07/2023 Hiatal hernia [K44.9] 11/07/2023 Thoracogenic scoliosis of thoracic region [M41.*05/07/2024 Neck pain, chronic [M54.2, G89.29] 05/07/2024 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 FALL SCREENING: Has the patient had 2 falls in the last year or 1 fall with injury or currently using an Ambulatory Assistive Device (Walker, Cane, Wheelchair, Crutches, etc.)? No PATIENT GENDER DATA: Assigned male at PATIENT RELEVANT IMPLANT DATA REVIEWED: Not Applicable PATIENT PRESENTS WITH AN IMPLANTABLE OR ATTACHED CARD DEALER: No RADIOLOGY DEPARTMENT: General X-ray: Exam(s) Completed: Chest X-Ray PERIPHERAL IV DATA: Not applicable SIGNED BY: Neli Krause October 28, 2024 12:50 PM documented in this encounterV[facility]01-28-2025 NoteHNO ID: [id number] Author: JOYCELYN SANTOS Tech Service: ? Author Type: Technologist Type: Progress Notes Filed: 10/28/2024 12:50 Note Text: Radiology Service Progress Note PATIENT NAME: Olivia Briscoe DATE OF SERVICE: October 28, 2024 TIME: 12:50 PM PATIENT IDENTITY VERIFICATION COMPLETED USING TWO (2) IDENTIFIERS: Name and Date of confirmed by patient verbally. FALL SCREENING: Has the patient had 2 falls in the last year or 1 fall with injury or currently using an Ambulatory Assistive Device (Walker, Cane, Wheelchair, Crutches, etc.)? No PATIENT GENDER DATA: Assigned male at PATIENT RELEVANT IMPLANT DATA REVIEWED: Not Applicable PATIENT PRESENTS WITH AN IMPLANTABLE OR ATTACHED CARD DEALER: No RADIOLOGY DEPARTMENT: General X-ray: Exam(s) Completed: Chest X-Ray PERIPHERAL IV DATA: Not applicable SIGNED BY: Neli Krause October 28, 2024 12:50 [facility]01-28-2025 NoteHNO ID: [id number] Author: ANSHUL MANLEY PA Service: ? Author Type: Physician Placement Interviewer Type: Progress Notes Filed: 10/28/2024 12:56 Note Text: This note was created using Snapflowriter. Subjective Olivia Briscoe is a 84 year old male. HPI 84-year-old male presents for cough, chest congestion, wheezing, shortness of breath x 1 week. Patient states he has had a cough for the past week. He states occasionally he coughs up some phlegm. He feels congested in the chest and at nighttime feels like he is wheezing. He has a little shortness of breath with cough. No chest pain. No history of COPD or asthma. Does have history of CHF. No new leg swelling. He has had a runny nose, watery eyes. He has not had a fever. His is sick with similar symptoms. Patient had COVID back in August, states this feels similar. No other complaint. PAST MEDICAL HISTORY Diagnosis Date Chronic diastolic CHF (congestive heart failure) (HCC) 08/01/2021 Chronic superficial gastritis without bleeding History: EGD proven in 11/2016 Assessment: stable Plan: continue home PPI CKD (chronic kidney disease), stage III (HCC) Colon polyps 07/28/2010 polypectomy 2002, 2004 (Dr. Verdin); negative in 2006 FH of colon cancer (father) Complete heart block (HCC) 04/19/2017 Dr. Couch Diverticulitis [address] Larose Enlarged prostate 2006 has subsided-was taking flomax Family history of malignant neoplasm of gastrointestinal tract Glaucoma 11/07/2023 Hiatal hernia 02/20/2012 Hypertension Hypertrophy of prostate with urinary obstruction and other lower urinary tract symptoms (LUTS) 07/28/2010 Symptoms only with Sudafed, otherwise does well Obesity Obesity, Class I, BMI 30-34.9 01/31/2023 Pacemaker Personal history of colonic polyps Pneumonitis 05/04/2021 Seborrheic keratoses PAST SURGICAL HISTORY Procedure Laterality Date COLONOSCOPY COLONOSCOPY 11/28/2016 COLONOSCOPY FLX DX W/COLLJ SPEC WHEN PFRMD 08/15/2010 Normal EGD 11/28/2016 PACEMAKER INSERTION DUAL CHAMB 04/23/2017 TONSILLECTOMY PRIMARY/SECONDARY Tonsillectomy ALLERGIES Chicken Derived and Fish Containing Products MEDICATIONS metoprolol succinate ER (TOPROL XL) 25 mg 24 hr tablet Take 1 tablet by mouth every afternoon. dorzolamide-timolol (COSOPT) 22.3-6.8 mg/mL ophthalmic solution Use 1 Drop in both eyes once daily. multivitamin tablet Take 1 tablet by mouth once daily. FAMILY HISTORY Problem Relation Age of Onset Colon Cancer Father age 75 Social History Tobacco Use Smoking status: Former Current packs/day: 0.00 Types: Cigarettes Quit date: 1961 Years since quittin.1 Smokeless tobacco: Never Tobacco comments: 1961 quit Substance Use Topics Alcohol use: No Drug use: No Review of Systems Constitutional: Positive for chills and fatigue. Negative for fever. HENT: Positive for rhinorrhea. Negative for congestion and sore throat. Respiratory: Positive for cough, shortness of breath and wheezing. Gastrointestinal: Negative for diarrhea and vomiting. Objective BP 118/70 Pulse 66 Temp 36.1 ?C (97 ?F) Resp 22 Wt 95 kg (209 lb 7 oz) SpO2 95% BMI 33.05 kg/m? Physical Exam Vitals and nursing note reviewed. Constitutional: General: He is not in acute distress. Appearance: Normal appearance. He is not toxic-appearing. HENT: Right Ear: Tympanic membrane and ear canal normal. Left Ear: Tympanic membrane and ear canal normal. Nose: Nose normal. Mouth/Throat: Mouth: Mucous membranes are moist. Pharynx: Oropharynx is clear. Eyes: Conjunctiva/sclera: Conjunctivae normal. Cardiovascular: Rate and Rhythm: Normal rate and regular rhythm. Pulmonary: Effort: Pulmonary effort is normal. Breath sounds: Wheezing present. No rhonchi or rales. Skin: General: Skin is warm and dry. Neurological: Mental Status: He is alert. Assessment and Plan ASSESSMENT/PLAN: 1. Acute cough - ICD9: 786.2, ICD10: R05.1 - XR CHEST 2V FRONTAL/LAT-no acute radiographic abnormality. Stable large hiatal hernia. -Rx albuterol inhaler, Rx Tessalon Perles -Follow-up with PCP if no improvement in symptoms. -Declines viral swab Diagnosis and treatment plan were discussed and questions were answered to the patient's satisfaction. Pt acknowledged understanding of concepts and follow up plan. Specific signs and symptoms that would indicate the need for higher level of care were discussed in detail warranting prompt ER evaluation. Anshul Manley [facility] [facility] History of Present illness Narrative* Anshul Manley, JIMI - 10/28/2024 12:37 PM EST This note was created using Snapflowriter. Subjective Olivia Briscoe is a 84 year old male. HPI 84-year-old male presents for cough, chest congestion, wheezing, shortness of breath x 1 week. Patient states he has had a cough for the past week. He states occasionally he coughs up some phlegm. He feels congested in the chest and at nighttime feels like he is wheezing. He has a little shortness of breath with cough. No chest pain. No history of COPD or asthma. Does have history of CHF. No new leg swelling. He has had a runny nose, watery eyes. He has not had a fever. His is sick with similar symptoms. Patient had COVID back in August, states this feels similar. No other complaint. PAST MEDICAL HISTORY Diagnosis Date Chronic diastolic CHF (congestive heart failure) (HCC) 08/01/2021 Chronic superficial gastritis without bleeding History: EGD proven in 11/2016 Assessment: stable Plan: continue home PPI CKD (chronic kidney disease), stage III (HCC) Colon polyps 07/28/2010 polypectomy 2002, 2004 (Dr. Verdin); negative in 2006 FH of colon cancer (father) Complete heart block (HCC) 04/19/2017 Dr. Couch Diverticulitis [address] Larose Enlarged prostate 2006 has subsided-was taking flomax Family history of malignant neoplasm of gastrointestinal tract Glaucoma 11/07/2023 Hiatal hernia 02/20/2012 Hypertension Hypertrophy of prostate with urinary obstruction and other lower urinary tract symptoms (LUTS) 07/28/2010 Symptoms only with Sudafed, otherwise does well Obesity Obesity, Class I, BMI 30-34.9 01/31/2023 Pacemaker Personal history of colonic polyps Pneumonitis 05/04/2021 Seborrheic keratoses PAST SURGICAL HISTORY Procedure Laterality Date COLONOSCOPY COLONOSCOPY 11/28/2016 COLONOSCOPY FLX DX W/COLLJ SPEC WHEN PFRMD 08/15/2010 Normal EGD 11/28/2016 PACEMAKER INSERTION DUAL CHAMB 04/23/2017 TONSILLECTOMY PRIMARY/SECONDARY <AGE 12 Tonsillectomy ALLERGIES Chicken Derived and Fish Containing Products MEDICATIONS metoprolol succinate ER (TOPROL XL) 25 mg 24 hr tablet Take 1 tablet by mouth every afternoon. dorzolamide-timolol (COSOPT) 22.3-6.8 mg/mL ophthalmic solution Use 1 Drop in both eyes once daily. multivitamin tablet Take 1 tablet by mouth once daily. FAMILY HISTORY Problem Relation Age of Onset Colon Cancer Father age 75 Social History Tobacco Use Smoking status: Former Current packs/day: 0.00 Types: Cigarettes Quit date: 1961 Years since quittin.1 Smokeless tobacco: Never Tobacco comments: 1961 quit Substance Use Topics Alcohol use: No Drug use: No Review of Systems Constitutional: Positive for chills and fatigue. Negative for fever. HENT: Positive for rhinorrhea. Negative for congestion and sore throat. Respiratory: Positive for cough, shortness of breath and wheezing. Gastrointestinal: Negative for diarrhea and vomiting. Objective BP 118/70 Pulse 66 Temp 36.1 C (97 F) Resp 22 Wt 95 kg (209 lb 7 oz) SpO2 95% BMI 33.05kg/m Physical Exam Vitals and nursing note reviewed. Constitutional: General: He is not in acute distress. Appearance: Normal appearance. He is not toxic-appearing. HENT: Right Ear: Tympanic membrane and ear canal normal. Left Ear: Tympanic membrane and ear canal normal. Nose: Nose normal. Mouth/Throat: Mouth: Mucous membranes are moist. Pharynx: Oropharynx is clear. Eyes: Conjunctiva/sclera: Conjunctivae normal. Cardiovascular: Rate and Rhythm: Normal rate and regular rhythm. Pulmonary: Effort: Pulmonary effort is normal. Breath sounds: Wheezing present. No rhonchi or rales. Skin: General: Skin is warm and dry. Neurological: Mental Status: He is alert. Assessment and Plan ASSESSMENT/PLAN: 1. Acute cough - ICD9: 786.2, ICD10: R05.1 - XR CHEST 2V FRONTAL/LAT-no acute radiographic abnormality. Stable large hiatal hernia. -Rx albuterol inhaler, Rx Tessalon Perles -Follow-up with PCP if no improvement in symptoms. -Declines viral swab Diagnosis and treatment plan were discussed and questions were answered to the patient's satisfaction. Pt acknowledged understanding of concepts and follow up plan. Specific signs and symptoms that would indicate the need for higher level of care were discussed in detail warranting prompt ER evaluation. JIMI Oconnell [facility] Telephone encounter Note * Telephone Encounter - Luis Ivory MA - 09/04/2024 9:57 AM EST Patient notified. Luis Ivory MA [facility]12-[facility]24 Miscellaneous Notes* Telephone Encounter - Luis Ivory MA - 09/04/2024 9:57 AM EST Patient notified. Luis Ivory MA * Telephone Encounter - Ingrid Bishop APRN.CNP - 09/04/2024 9:04 AM EST Images from the original note were not included. Please reach out and share the above with patient. documented in this [facility]12-[facility]-2024 Telephone encounter Note * Telephone Encounter - Ingrid Bishop APRN.CNP - 09/04/2024 9:04 AM EST Images from the original note were not included. Please reach out and share the above with patient. [facility] Work Phone: 1(935) 603-859112-03-2024 Telephone encounter Note* Telephone Encounter - Ara Dumont MA - 09/02/2024 7:52 AM EST Patient given results and verbalized understanding of instructions given. Ara Dumont MA [facility]12-03-2024 Miscellaneous Notes* Telephone Encounter - Ara Dumont MA - 09/02/2024 7:52 AM EST Patient given results and verbalized understanding of instructions given. Ara Dumont MA * Telephone Encounter - Ara Dumont MA - 09/02/2024 7:51 AM EST Patient given results and verbalized understanding of instructions given. Ara Dumont MA * Telephone Encounter - Vishnu Cobian APRN.CNP - 09/02/2024 7:45 AM EST Please call patient let him know he is positive for COVID. Patient should do supportive therapies at home. Patient was negative for flu and RSV. documented in this [facility]12-[facility]-2024 Telephone encounter Note * Telephone Encounter - Ara Dumont MA - 09/02/2024 7:51 AM EST Patient given results and verbalized understanding of instructions given. Ara Dumont MA [facility]12-03-2024 Telephone encounter Note* Telephone Encounter - Vishnu Cobian APRN.CNP - 09/02/2024 7:45 AM EST Please call patient let him know he is positive for COVID. Patient should do supportive therapies at home. Patient was negative for flu and RSV. [facility] Work Phone: 1(735) 231-856812-02-2024 NoteHNO ID: [id number] Author: INGRID BISHOP APRN.CNP Service: ? Author Type: Nurse Practitioner Type: Progress Notes Filed: 09/01/2024 19:02 Note Text: Attempted to call patient to inform of negative CXR No answer. VM left [employer] message sent.[facility]12-02-2024 History of Present illness Narrative* Ingrid Bishop APRN.CNP - 09/01/2024 7:00 PM EST Attempted to call patient to inform of negative CXR No answer. VM left [employer] message sent. * Ingrid Bishop APRN.CNP - 09/01/2024 5:46 PM EST This note was created using Snapflowriter. Subjective Olivia Briscoe is a 84 year old male. 84 year old male with PMH HTN, CHF, and obesity presents for illness. Acute onset 4 days ago +runny nose + cough +non productive Denies eye, ear complaints Denies sore throat Denies dyspnea Denies CP Has used OTC decongestants with much relief States today he feels better. He is here with his being seen for similar. The history is provided by the patient. No hourly sign language interpreter was used. Cough This is a new problem. The current episode started more than 2 days ago. The problem occurs constantly. The problem has been gradually improving. The cough is Non-productive. There has been no fever.Associated symptoms include chills, ear congestion and rhinorrhea. Pertinent negatives include no chest pain, no sweats, no weight loss, no ear pain, no headaches, no sore throat, no myalgias, no shortness of breath, no wheezing and no eye redness. He has tried decongestants for the symptoms. The treatment provided no relief. He is not a smoker. His past medical history does not include bronchitis, pneumonia, bronchiectasis, COPD, emphysema or asthma. PAST MEDICAL HISTORY Diagnosis Date Chronic diastolic CHF (congestive heart failure) ([facility]) 08/01/2021 Chronic superficial gastritis without bleeding History: EGD proven in 11/2016 Assessment: stable Plan: continue home PPI CKD (chronic kidney disease), stage III ([facility]) Colon polyps 07/28/2010 polypectomy 2002, 2004 (Dr. Verdin); negative in 2006 FH of colon cancer (father) Complete heart block ([facility]) 04/19/2017 Dr. Couch Diverticulitis [address] Larose Enlarged prostate 2006 has subsided-was taking flomax Family history of malignant neoplasm of gastrointestinal tract Glaucoma 11/07/2023 Hiatal hernia 02/20/2012 Hypertension Hypertrophy of prostate with urinary obstruction and other lower urinary tract symptoms (LUTS) 07/28/2010 Symptoms only with Sudafed, otherwise does well Obesity Obesity, Class I, BMI 30-34.9 01/31/2023 Pacemaker Personal history of colonic polyps Pneumonitis 05/04/2021 Seborrheic keratoses PAST SURGICAL HISTORY Procedure Laterality Date COLONOSCOPY /2006 COLONOSCOPY 11/28/2016 COLONOSCOPY FLX DX W/COLLJ SPEC WHEN PFRMD 08/15/2010 Normal EGD 11/28/2016 PACEMAKER INSERTION DUAL CHAMB 04/23/2017 TONSILLECTOMY PRIMARY/SECONDARY <AGE 12 Tonsillectomy ALLERGIES Chicken Derived and Fish Containing Products MEDICATIONS metoprolol succinate ER (TOPROL XL) 25 mg 24 hr tablet Take 1 tablet by mouth every afternoon. dorzolamide-timolol (COSOPT) 22.3-6.8 mg/mL ophthalmic solution Use 1 Drop in both eyes once daily. multivitamin tablet Take 1 tablet by mouth once daily. FAMILY HISTORY Problem Relation Age of Onset Colon Cancer Father age 75 Social History Tobacco Use Smoking status: Former Current packs/day: 0.00 Types: Cigarettes Quit date: 1961 Years since quittin.9 Smokeless tobacco: Never Tobacco comments: 1961 quit Substance Use Topics Alcohol use: No Drug use: No Review of Systems Constitutional: Positive for chills and fatigue. Negative for fever and weight loss. HENT: Positive for congestion and rhinorrhea. Negative for ear pain and sore throat. Eyes: Negative for redness. Respiratory: Positive for cough. Negative for apnea, choking, chest tightness, shortness of breath and wheezing. Cardiovascular: Negative for chest pain. Gastrointestinal: Negative for abdominal pain, diarrhea, nausea and vomiting. Musculoskeletal: Negative for myalgias. Skin: Negative for color change, pallor and rash. Allergic/Immunologic: Positive for food allergies. Negative for environmental allergies and immunocompromised state. Neurological: Negative for dizziness, facial asymmetry and headaches. Hematological: Negative for adenopathy. Does not bruise/bleed easily. Psychiatric/Behavioral: Negative for agitation and behavioral problems. Objective BP 126/72 Pulse 67 Temp 36.9 C (98.4 F) (Tympanic) Resp 16 Wt 96.1 kg (211 lb 13.8 oz) SpO2 96% BMI 33.43 kg/m Physical Exam Vitals and nursing note reviewed. Constitutional: General: He is not in acute distress. Appearance: Normal appearance. He is not ill-appearing, toxic-appearing or diaphoretic. Comments: Elderly but non toxic appearing HENT: Head: Normocephalic and atraumatic. Right Ear: External ear normal. Left Ear: External ear normal. Nose: Rhinorrhea present. Mouth/Throat: Mouth: Mucous membranes are moist. Pharynx: Oropharynx is clear. Posterior oropharyngeal erythema present. No oropharyngeal exudate. Eyes: General: Right eye: No discharge. Left eye: No discharge. Extraocular Movements: Extraocular movements intact. Conjunctiva/sclera: Conjunctivae normal. Pupils: Pupils are equal, round, and reactive to light. Cardiovascular: Rate and Rhythm: Normal rate and regular rhythm. Pulses: Normal pulses. Heart sounds: Normal heart sounds. No murmur heard. No friction rub. No gallop. Pulmonary: Effort: Pulmonary effort is normal. No respiratory distress. Breath sounds: Normal breath sounds. No stridor. No wheezing, rhonchi or rales. Chest: Chest wall: No tenderness. Abdominal: General: Abdomen is flat. There is no distension. Palpations: Abdomen is soft. There is no mass. Tenderness: There is no abdominal tenderness. There is no guarding or rebound. Hernia: No hernia is present. Musculoskeletal: General: No swelling, tenderness, deformity or signs of injury. Normal range of motion. Cervical back: Normal range of motion and neck supple. No rigidity or tenderness. Right lower leg: No edema. Left lower leg: No edema. Lymphadenopathy: Cervical: Cervical adenopathy present. Skin: General: Skin is warm and dry. Capillary Refill: Capillary refill takes less than 2 seconds. Coloration: Skin is not jaundiced or pale. Findings: No bruising, lesion or rash. Neurological: General: No focal deficit present. Mental Status: He is alert and oriented to person, place, and time. Cranial Nerves: No cranial nerve deficit. Sensory: No sensory deficit. Motor: No weakness. Coordination: Coordination normal. Gait: Gait normal. Deep Tendon Reflexes: Reflexes normal. Psychiatric: Mood and Affect: Mood normal. Behavior: Behavior normal. Thought Content: Thought content normal. Assessment and Plan ASSESSMENT/PLAN: 1. Acute cough - ICD9: 786.2, ICD10: R05.1 (primary diagnosis) X 4 days Lungs CTA here for same Concerns for pneumonia - XR CHEST 2V FRONTAL/LAT-obtained and pending, will call with result. 2. URI, acute - ICD9: 465.9, ICD10: J06.9 X 4 days No red flags - Discussed viral etiology and rationale for treatment. - Symptomatic treatment with prn analgesia - Supportive care with fluids and rest - The patient may also use nasal saline gtts and suction prn. - Follow up in 3-5 days if symptoms persist or sooner if worsening of symptoms - COVID & INFLUENZA A/B & RSV PCR, ROUTINE-obtained and pending Ingrid Bishop APRN.CLINICAL SECRETARY documented in this encounterV[facility]12-02-2024 History of Present illness Narrative* Dwain Heath RT(R) - 09/01/2024 6:00 PM EST Radiology Service Progress Note PATIENT NAME: Olivia Briscoe DATE OF SERVICE: September 01, 2024 TIME: 6:15PM PATIENT IDENTITY VERIFICATION COMPLETED USING TWO (2) IDENTIFIERS: Name and Date of confirmedby patient verbally. FALL SCREENING: Has the patient had 2 falls in the last year or 1 fall with injury or currently using an Ambulatory Assistive Device (Walker, Cane, Wheelchair, Crutches, etc.)? No PATIENT GENDER DATA: Male PATIENT RELEVANT IMPLANT DATA REVIEWED: Not Applicable PATIENT PRESENTS WITH AN IMPLANTABLE OR ATTACHED CARD DEALER: No RADIOLOGY DEPARTMENT: General X-ray: Exam(s) Completed: Chest X-Ray PERIPHERAL IV DATA: Not applicable SIGNED BY: RT Juan David(Brad) September 01, 2024 6:25 PM documented in this encounterVeter[facility]12-02-2024 NoteHNO ID: [id number] Author: DWAIN HEATH RT(R) Service: Radiology Author Type: Technologist Type: Progress Notes Filed: 09/01/2024 18:25 Note Text: Radiology Service Progress Note PATIENT NAME: Olivia Briscoe DATE OF SERVICE: September 01, 2024 TIME: 6:15PM PATIENT IDENTITY VERIFICATION COMPLETED USING TWO (2) IDENTIFIERS: Name and Date of confirmed by patient verbally. FALL SCREENING: Has the patient had 2 falls in the last year or 1 fall with injury or currently using an Ambulatory Assistive Device (Walker, Cane, Wheelchair, Crutches, etc.)? No PATIENT GENDER DATA: Male PATIENT RELEVANT IMPLANT DATA REVIEWED: Not Applicable PATIENT PRESENTS WITH AN IMPLANTABLE OR ATTACHED CARD DEALER: No RADIOLOGY DEPARTMENT: General X-ray: Exam(s) Completed: Chest X-Ray PERIPHERAL IV DATA: Not applicable SIGNED BY: RT Juan David(Brad) September 01, 2024 6:25 [facility]12-02-2024 NoteHNO ID: [id number] Author: INGRID BISHOP APRN.CLINICAL SECRETARY Service: ? Author Type: Nurse Practitioner Type: Progress Notes Filed: 09/01/2024 18:20 Note Text: This note was created using Snapflowriter. Subjective Olivia Briscoe is a 84 year old male. 84 year old male with PMH HTN, CHF, and obesity presents for illness. Acute onset 4 days ago +runny nose + cough +non productive Denies eye, ear complaints Denies sore throat Denies dyspnea Denies CP Has used OTC decongestants with much relief States today he feels better. He is here with his being seen for similar. The history is provided by the patient. No hourly sign language interpreter was used. Cough This is a new problem. The current episode started more than 2 days ago. The problem occurs constantly. The problem has been gradually improving. The cough is Non-productive. There has been no fever. Associated symptoms include chills, ear congestion and rhinorrhea. Pertinent negatives include no chest pain, no sweats, no weight loss, no ear pain, no headaches, no sore throat, no myalgias, no shortness of breath, no wheezing and no eye redness. He has tried decongestants for the symptoms. The treatment provided no relief. He is not a smoker. His past medical history does not include bronchitis, pneumonia, bronchiectasis, COPD, emphysema or asthma. PAST MEDICAL HISTORY Diagnosis Date Chronic diastolic CHF (congestive heart failure) ([facility]) 08/01/2021 Chronic superficial gastritis without bleeding History: EGD proven in 11/2016 Assessment: stable Plan: continue home PPI CKD (chronic kidney disease), stage III ([facility]) Colon polyps 07/28/2010 polypectomy 2002, 2004 (Dr. Verdin); negative in 2006 FH of colon cancer (father) Complete heart block ([facility]) 04/19/2017 Dr. Couch Diverticulitis [address] Larose Enlarged prostate 2006 has subsided-was taking flomax Family history of malignant neoplasm of gastrointestinal tract Glaucoma 11/07/2023 Hiatal hernia 02/20/2012 Hypertension Hypertrophy of prostate with urinary obstruction and other lower urinary tract symptoms (LUTS) 07/28/2010 Symptoms only with Sudafed, otherwise does well Obesity Obesity, Class I, BMI 30-34.9 01/31/2023 Pacemaker Personal history of colonic polyps Pneumonitis 05/04/2021 Seborrheic keratoses PAST SURGICAL HISTORY Procedure Laterality Date COLONOSCOPY /2006 COLONOSCOPY 11/28/2016 COLONOSCOPY FLX DX W/COLLJ SPEC WHEN PFRMD 08/15/2010 Normal EGD 11/28/2016 PACEMAKER INSERTION DUAL CHAMB 04/23/2017 TONSILLECTOMY PRIMARY/SECONDARY Tonsillectomy ALLERGIES Chicken Derived and Fish Containing Products MEDICATIONS metoprolol succinate ER (TOPROL XL) 25 mg 24 hr tablet Take 1 tablet by mouth every afternoon. dorzolamide-timolol (COSOPT) 22.3-6.8 mg/mL ophthalmic solution Use 1 Drop in both eyes once daily. multivitamin tablet Take 1 tablet by mouth once daily. FAMILY HISTORY Problem Relation Age of Onset Colon Cancer Father age 75 Social History Tobacco Use Smoking status: Former Current packs/day: 0.00 Types: Cigarettes Quit date: 1961 Years since quittin.9 Smokeless tobacco: Never Tobacco comments: 1961 quit Substance Use Topics Alcohol use: No Drug use: No Review of Systems Constitutional: Positive for chills and fatigue. Negative for fever and weight loss. HENT: Positive for congestion and rhinorrhea. Negative for ear pain and sore throat. Eyes: Negative for redness. Respiratory: Positive for cough. Negative for apnea, choking, chest tightness, shortness of breath and wheezing. Cardiovascular: Negative for chest pain. Gastrointestinal: Negative for abdominal pain, diarrhea, nausea and vomiting. Musculoskeletal: Negative for myalgias. Skin: Negative for color change, pallor and rash. Allergic/Immunologic: Positive for food allergies. Negative for environmental allergies and immunocompromised state. Neurological: Negative for dizziness, facial asymmetry and headaches. Hematological: Negative for adenopathy. Does not bruise/bleed easily. Psychiatric/Behavioral: Negative for agitation and behavioral problems. Objective BP 126/72 Pulse 67 Temp 36.9 ?C (98.4 ?F) (Tympanic) Resp 16 Wt 96.1 kg (211 lb 13.8 oz) SpO2 96% BMI 33.43 kg/m? Physical Exam Vitals and nursing note reviewed. Constitutional: General: He is not in acute distress. Appearance: Normal appearance. He is not ill-appearing, toxic-appearing or diaphoretic. Comments: Elderly but non toxic appearing HENT: Head: Normocephalic and atraumatic. Right Ear: External ear normal. Left Ear: External ear normal. Nose: Rhinorrhea present. Mouth/Throat: Mouth: Mucous membranes are moist. Pharynx: Oropharynx is clear. Posterior oropharyngeal erythema present. No oropharyngeal exudate. Eyes: General: Right eye: No discharge. Left eye: No discharge. Extraocular Moveme (more content not included)...[facility] 07-02-2024 History of Present illness Narrative* Adriano Santos, PT - 07/02/2024 3:21 PM EDT Program_ID:[id number] Access Code: [email or web address] URL: [email or web address] Date: 07-02-2024 Prepared By: Adriano Santos Program Notes Exercises - Seated Scapular Retraction - 2 x daily - 7 x weekly - 2 sets - 10 reps - Seated Shoulder Shrugs - 2 x daily - 7 x weekly - 2 sets - 10 reps - Seated Cervical Rotation AROM - 2 x daily - 7 x weekly - 2 sets - 10-15 reps - Seated Cervical Extension AROM - 2 x daily - 7 x weekly - 2 sets - 10-15 reps - Seated Shoulder Circles - 2 x daily - 7 x weekly - 2 sets - 10 reps * Adriano Santos, PT - 07/02/2024 2:56 PM EDT Episode Visit Count: 5 Therapist That Will Accept/Oversee The Plan Of Care: Adriano Santos PT. Start of Care Date: 05/29/24 Onset Date: 04/17/24 Plan of Care Certification Date: 05/29/24 Next Certification Due Date: 07/04/24 [facility] PHYSICAL THERAPY DISCONTINUANCE OF CARE PLAN OF CARE UPDATE: Assessment: Olivia Briscoe is discontinued from Physical Therapy services due to goal achievementand maximal benefit.. Patient was seen for 5 visits from Start of Care Date: 05/29/24 to 07/02/2024 and treatment included: Therapeutic exercise, Manual therapy, and Self-assisted management. Updated 07/02/24. Goals for Episode of Care: established 05/29/24 to 07/10/24. [place] in home exercise program. (Goal Met) Patient will decrease pain rating by 2 points to meet minimal clinical important difference for numeric pain rating scale. (Goal Met) Improve postural awareness. (Goal Met) Improve cervical ROM of at least 10-15 degrees in each direction to allow for ease of ADL/IADLs. (Partially Met) Drive with no aggravation of pain/symptoms. (Improved, Partially Met) Sleep throughout the night without pain/symptoms. (Goal Met) Patient Goals: Alleviate Pain; improve neck motion. (Goal Met) SUBJECTIVE: States he didn't seem to have pain at home prior to coming, however driving activated it. Sitting here no pain/sxs. Thinks PT has helped quite a bit. Pain is not all over as it was, seemsmore isolated (points to trap area). Believes his head is positioned more straight. Pain: Pain Pain Level: (Not Rated) Pain Location: Neck - Left Description: Sore Frequency: With movement (With Rotation) PROMIS Scales 07/02/2024 06/12/2024 05/29/2024 Higher is Better Phys Func - Score 46 (within normal limits) 46 (within normal limits) Phys Func - Percentile 34 34 Self-Eff Symptom - Score 41 (Average) Self-Eff Symptom - Percentile 18 T-scores: mean of general population = 50. 5 points is clinically meaningfully difference Percentiles provide an indication of how the patient's score ranks in relation to the general population. Higher percentile rankings indicate better function/quality of life. 50th percentile is the average of the general population and indicates half of respondents had a worse score. OBJECTIVE MEASURES WITH LEVEL OF FUNCTION: Spine Observations R Cervical Spine Palpation Tenderness: No tenderness noted L Cervical Spine Palpation Tenderness: No tenderness noted Cervical Spine ROM Cervical ROM : Measurement AROM Cervical Flexion AROM (degrees) : 35 Degrees Cervical Extension AROM (degrees) : 25 Degrees Cervical Side-Bend Right AROM (degrees): 24 Degrees Cervical Side-Bend Left AROM (degrees) : 18 Degrees Cervical Rotation Right AROM (degrees) : 36 Degrees Cervical Rotation Left AROM (degrees) : 45 Degrees Upper Cervical AROM: Most Likely Close to Functional Limits/Baseline based on degeneration. UE and Cervical Strength R UE Strength: WNL L UE Strength: WNL TREATMENT: Therapeutic Exercise: 1: *Reassessment & objectives collected above. Discussed progress overall and POC. Patient reports he wants to continue with self-maintenance of improvement on his own. Anticipates d/c. 2: *Discussed HEP; reprinted all exercises on a new handout. Re-educated and demoed exercises for increased adherance and proper execution. 3: *Shoulder Posterior Circles: x10. Skilled Intervention: Patient was educated in proper exercise technique and purpose for exercises. Reviewed and educated patient on additions/changes for home exercise program as above (*). Skilled judgment was used in selection of appropriate interventions. Provided written instruction for home exercise program to facilitate proper performance and compliance. Correct performance of therapeutic exercises was facilitated with verbal and visual cuing. Billing Therapeutic Exercise Treatment Minutes: 30 Skilled Treatment Time Minutes (timed and untimed codes): 30 Total Session Time (minutes): 30 Session Start Time : 1500 Session Stop Time : 1530 Adriano Santos PT documented in this encounterV[facility]10-02-2024 NoteHNO ID: [id number] Author: ADRIANO SANTOS PT Service: ? Author Type: Physical Therapist Type: Progress Notes Filed: 07/03/2024 11:30 Note Text: Episode Visit Count: 5 Therapist That Will Accept/Oversee The Plan Of Care: Adriano Santos PT. Start of Care Date: 05/29/24 Onset Date: 04/17/24 Plan of Care Certification Date: 05/29/24 Next Certification Due Date: 07/04/24 REHABILITATION AND SPORTS THERAPY PHYSICAL THERAPY DISCONTINUANCE OF CARE PLAN OF CARE UPDATE: Assessment: Olivia Briscoe is discontinued from Physical Therapy services due to goal achievement and maximal benefit.. Patient was seen for 5 visits from Start of Care Date: 05/29/24 to 07/02/2024 and treatment included: Therapeutic exercise, Manual therapy, and Self-assisted management. Updated 07/02/24. Goals for Episode of Care: established 05/29/24 to 07/10/24. [place] in home exercise program. (Goal Met) Patient will decrease pain rating by 2 points to meet minimal clinical important difference for numeric pain rating scale. (Goal Met) Improve postural awareness. (Goal Met) Improve cervical ROM of at least 10-15 degrees in each direction to allow for ease of ADL/IADLs. (Partially Met) Drive with no aggravation of pain/symptoms. (Improved, Partially Met) Sleep throughout the night without pain/symptoms. (Goal Met) Patient Goals: Alleviate Pain; improve neck motion. (Goal Met) SUBJECTIVE: States he didn't seem to have pain at home prior to coming, however driving activated it. Sitting here no pain/sxs. Thinks PT has helped quite a bit. Pain is not all over as it was, seems more isolated (points to trap area). Believes his head is positioned more straight. Pain: Pain Pain Level: (Not Rated) Pain Location: Neck - Left Description: Sore Frequency: With movement (With Rotation) PROMIS Scales 07/02/2024 06/12/2024 05/29/2024 Higher is Better Phys Func - Score 46 (within normal limits) 46 (within normal limits) Phys Func - Percentile 34 34 Self-Eff Symptom - Score 41 (Average) Self-Eff Symptom - Percentile 18 T-scores: mean of general population = 50. 5 points is clinically meaningfully difference Percentiles provide an indication of how the patient's score ranks in relation to the general population. Higher percentile rankings indicate better function/quality of life. 50th percentile is the average of the general population and indicates half of respondents had a worse score. OBJECTIVE MEASURES WITH LEVEL OF FUNCTION: Spine Observations R Cervical Spine Palpation Tenderness: No tenderness noted L Cervical Spine Palpation Tenderness: No tenderness noted Cervical Spine ROM Cervical ROM : Measurement AROM Cervical Flexion AROM (degrees) : 35 Degrees Cervical Extension AROM (degrees) : 25 Degrees Cervical Side-Bend Right AROM (degrees): 24 Degrees Cervical Side-Bend Left AROM (degrees) : 18 Degrees Cervical Rotation Right AROM (degrees) : 36 Degrees Cervical Rotation Left AROM (degrees) : 45 Degrees Upper Cervical AROM: Most Likely Close to Functional Limits/Baseline based on degeneration. UE and Cervical Strength R UE Strength: WNL L UE Strength: WNL TREATMENT: Therapeutic Exercise: 1: *Reassessment AND objectives collected above. Discussed progress overall and POC. Patient reports he wants to continue with self-maintenance of improvement on his own. Anticipates d/c. 2: *Discussed HEP; reprinted all exercises on a new handout. Re-educated and demoed exercises for increased adherance and proper execution. 3: *Shoulder Posterior Circles: x10. Skilled Intervention: Patient was educated in proper exercise technique and purpose for exercises. Reviewed and educated patient on additions/changes for home exercise program as above (*). Skilled judgment was used in selection of appropriate interventions. Provided written instruction for home exercise program to facilitate proper performance and compliance. Correct performance of therapeutic exercises was facilitated with verbal and visual cuing. Billing Therapeutic Exercise Treatment Minutes: 30 Skilled Treatment Time Minutes (timed and untimed codes): 30 Total Session Time (minutes): 30 Session Start Time : 1500 Session Stop Time : 1530 Adriano Santos [facility]09-25-2024 NoteHNO ID: [id number] Author: JEANINE KU PTA Service: ? Author Type: Historical Archeologist Type: Progress Notes Filed: 06/26/2024 09:51 Note Text: Episode Visit Count: 4 Therapist That Will Accept/Oversee The Plan Of Care: Adriano Santos PT. Start of Care Date: 05/29/24 Onset Date: 04/17/24 Plan of Care Certification Date: 05/29/24 Next Certification Due Date: 07/04/24 Patient Identified by Name and Date of : Yes REHABILITATION AND SPORTS THERAPY PHYSICAL THERAPY TREATMENT NOTE ASSESSMENT: Olivia Briscoe tolerated the session with fatigue and expected muscle soreness. He demonstrated improvements in tightness of L side of neck with AROM. At end of session, pt felt dizzy and as he went to walk he was unsteady, BP taken 145/84, pulse 61. Pt is on Toprol and stated he took it this morning. BP was re-checked before pt left, one time it decreased, second time it increased. Pt did not want someone to be called to come and pick him up, stating they only have one vehicle and he had errands to run. Pt stated that he felt okay upon standing to leave and was escorted to lobby without any LOB or dizzy sensation. Message sent to pt's physician as precaution. The patient will continue to benefit from ongoing skilled physical therapy to progress toward set goals. PLAN FOR NEXT VISIT: PN SUBJECTIVE: Pt reports that his neck is normal today. Feels it may be a little better, but seems it is hard to always tell. Feels like his head is straighter and not tilited too much to the L or R . Exercises only seem to hurt a little while doing them, but once stopped goes away. Bothers him the most with laying on his side at night. Pain: Pain Pain Location: Neck - Left Description: Sore (when looking to the L) Post Treatment Pain Post Treatment Pain Location: Neck - Left OBJECTIVE MEASURES WITH LEVEL OF FUNCTION: Cervical Spine ROM Cervical Rotation Right AROM: Moderate limitation (27) Cervical Rotation Left AROM: Moderate limitation (34) Vitals BP: 145/84 Pulse: 61 SpO2: 97 % Additional Vitals: Yes Intra Assessment 1: BP Intra 1 Intra BP 1: 134/82 Intra BP Position 1: Sitting Intra Assessment 2: BP Intra 2 Intra BP 2: 144/85 TREATMENT: Therapeutic Exercise: 1: Cervical Rotation AROM: 2x10 each side. Kissing the pain. 2: AROM cervcial flexion and extension x10 3: Scapular retractions 2x10 4: Cervical circles ( head rolls) 2x5 each direction 5: *discontinue shoulder shrugs, causing increased tightness in neck Skilled Intervention: Patient was educated in proper exercise technique and purpose for exercises. Skilled judgment was used in selection of appropriate interventions. Correct performance of therapeutic exercises was facilitated with verbal and visual cuing. Manual Therapy: 1: STM over B cervical paraspinals and UT x 5 minutes 2: Manual PROM cervical rotation x15 3: Manual PROM cervical side bend to the R x15 Skilled Intervention: Manual skills to improve joint mobility, ROM, and decrease pain. Utilized anatomy knowledge of the therapist, and assessment of patient's response to intervention. Self-Fdc Management: 1: Advised pt to re-check BP at home and signs to watch for if BP is elevated. Skilled Intervention: Skilled judgment in the selection of proper modification for activity of daily living/home management based on clinical presentation, deficits, and needs. Billing Therapeutic Exercise Treatment Minutes: 33 Manual TherapyTreatment Minutes: 10 Self-Care/Home Management Treatment Minutes: 7 Skilled Treatment Time Minutes (timed and untimed codes): 50 Total Session Time (minutes): 50 Session Start Time : 1530 Session Stop Time : 1620 NICHOLE Rodriguez, PT, DPT.[facility]09-25-2024 History of Present illness Narrative* Jeanine Ku PTA - 06/25/2024 3:31 PM EDT Episode Visit Count: 4 Therapist That Will Accept/Oversee The Plan Of Care: Adriano Santos PT. Start of Care Date: 05/29/24 Onset Date: 04/17/24 Plan of Care Certification Date: 05/29/24 Next Certification Due Date: 07/04/24 Patient Identified by Name and Date of : Yes REHABILITATION AND SPORTS THERAPY PHYSICAL THERAPY TREATMENT NOTE ASSESSMENT: Olivia Briscoe tolerated the session with fatigue and expected muscle soreness. He demonstrated improvements in tightness of L side of neck with AROM. At end of session, pt felt dizzy and as he went to walk he was unsteady, BP taken 145/84, pulse 61. Pt is on Toprol and stated he tookit this morning. BP was re-checked before pt left, one time it decreased, second time it increased.Pt did not want someone to be called to come and pick him up, stating they only have one vehicle and he had errands to run. Pt stated that he felt okay upon standing to leave and was escorted to lobby without any LOB or dizzy sensation. Message sent to pt's physician as precaution. The patient will continue to benefit from ongoing skilled physical therapy to progress toward set goals. PLAN FOR NEXT VISIT: PN SUBJECTIVE: Pt reports that his neck is normal today. Feels it may be a little better, but seems it is hard to always tell. Feels like his head is straighter and not tilited too much to the L or R . Exercises only seem to hurt a little while doing them, but once stopped goes away. Bothers him themost with laying on his side at night. Pain: Pain Pain Location: Neck - Left Description: Sore (when looking to the L) Post Treatment Pain Post Treatment Pain Location: Neck - Left OBJECTIVE MEASURES WITH LEVEL OF FUNCTION: Cervical Spine ROM Cervical Rotation Right AROM: Moderate limitation (27) Cervical Rotation Left AROM: Moderate limitation (34) Vitals BP: 145/84 Pulse: 61 SpO2: 97 % Additional Vitals: Yes Intra Assessment 1: BP Intra 1 Intra BP 1: 134/82 Intra BP Position 1: Sitting Intra Assessment 2: BP Intra 2 Intra BP 2: 144/85 TREATMENT: Therapeutic Exercise: 1: Cervical Rotation AROM: 2x10 each side. Kissing the pain. 2: AROM cervcial flexion and extension x10 3: Scapular retractions 2x10 4: Cervical circles ( head rolls) 2x5 each direction 5: *discontinue shoulder shrugs, causing increased tightness in neck Skilled Intervention: Patient was educated in proper exercise technique and purpose for exercises. Skilled judgment was used in selection of appropriate interventions. Correct performance of therapeutic exercises was facilitated with verbal and visual cuing. Manual Therapy: 1: STM over B cervical paraspinals and UT x 5 minutes 2: Manual PROM cervical rotation x15 3: Manual PROM cervical side bend to the R x15 Skilled Intervention: Manual skills to improve joint mobility, ROM, and decrease pain. Utilized anatomy knowledge of the therapist, and assessment of patient's response to intervention. Self-Fdc Management: 1: Advised pt to re-check BP at home and signs to watch for if BP is elevated. Skilled Intervention: Skilled judgment in the selection of proper modification for activity of daily living/home management based on clinical presentation, deficits, and needs. Billing Therapeutic Exercise Treatment Minutes: 33 Manual TherapyTreatment Minutes: 10 Self-Care/Home Management Treatment Minutes: 7 Skilled Treatment Time Minutes (timed and untimed codes): 50 Total Session Time (minutes): 50 Session Start Time : 1530 Session Stop Time : 1620 NICHOLE Rodriguez, PT, DPT. documented in this encounterV[facility]09-18-2024 NoteHNO ID: [id number] Author: INGRID TALBOT PT Service: ? Author Type: Physical Therapist Type: Progress Notes Filed: 06/18/2024 17:14 Note Text: Episode Visit Count: 3 Therapist That Will Accept/Oversee The Plan Of Care: Adriano Santos PT. Start of Care Date: 05/29/24 Onset Date: 04/17/24 Plan of Care Certification Date: 05/29/24 Next Certification Due Date: 07/04/24 Patient Identified by Name and Date of : Yes REHABILITATION AND SPORTS THERAPY PHYSICAL THERAPY TREATMENT NOTE ASSESSMENT: Olivia Briscoe tolerated the session with fatigue, decreased symptoms, and expected muscle soreness. He demonstrated difficulty with flexion and extension AROM . The patient will continue to benefit from ongoing skilled physical therapy to progress toward set goals. PLAN FOR NEXT VISIT: Continue with cervical ROM and manual prn. SUBJECTIVE: Pt reports that the L side of his neck is very hard, feels tight. Pt states that when he turns his head to the L he feels like something is stopping it and can't go any further. Pain: Pain Pain Level: 2 Pain Location: Neck - Left Description: Tightness (painful when looking to the L) Post Treatment Pain Post Treatment Pain Location: Neck - Left Post Treatment Symptoms: [place] looser at end of session OBJECTIVE MEASURES WITH LEVEL OF FUNCTION: Soft tissue restrictions throughout L cervical paraspinals TREATMENT: Therapeutic Exercise: 1: Cervical Rotation AROM: 2x10 each side. Kissing the pain. 2: AROM cervcial flexion and extension x10 3: Scapular retractions 2x10 Skilled Intervention: Patient was educated in proper exercise technique and purpose for exercises. Skilled judgment was used in selection of appropriate interventions. Correct performance of therapeutic exercises was facilitated with verbal and visual cuing. Manual Therapy: 1: STM over L cervical paraspinals and UT 2: Manual PROM cervical rotation x15 3: Manual PROM cervical side bend to the R x15 Skilled Intervention: Manual skills to improve joint mobility, ROM, and decrease pain. Utilized anatomy knowledge of the therapist, and assessment of patient's response to intervention. Billing Therapeutic Exercise Treatment Minutes: 19 Manual TherapyTreatment Minutes: 23 Skilled Treatment Time Minutes (timed and untimed codes): 42 Total Session Time (minutes): 42 Session Start Time : 1526 Session Stop Time : 1608 NICHOLE Rodriguez, [facility]09-18-2024 History of Present illness Narrative* Ingrid Talbot, PT - 06/18/2024 3:28 PM EDT Episode Visit Count: 3 Therapist That Will Accept/Oversee The Plan Of Care: Adriano Santos, PT. Start of Care Date: 05/29/24 Onset Date: 04/17/24 Plan of Care Certification Date: 05/29/24 Next Certification Due Date: 07/04/24 Patient Identified by Name and Date of : Yes REHABILITATION AND SPORTS THERAPY PHYSICAL THERAPY TREATMENT NOTE ASSESSMENT: Olivia Brsicoe tolerated the session with fatigue, decreased symptoms, and expected muscle soreness. He demonstrated difficulty with flexion and extension AROM . The patient will continue to benefit from ongoing skilled physical therapy to progress toward set goals. PLAN FOR NEXT VISIT: Continue with cervical ROM and manual prn. SUBJECTIVE: Pt reports that the L side of his neck is very hard, feels tight. Pt states that when he turns his head to the L he feels like something is stopping it and can't go any further. Pain: Pain Pain Level: 2 Pain Location: Neck - Left Description: Tightness (painful when looking to the L) Post Treatment Pain Post Treatment Pain Location: Neck - Left Post Treatment Symptoms: [place] looser at end of session OBJECTIVE MEASURES WITH LEVEL OF FUNCTION: Soft tissue restrictions throughout L cervical paraspinals TREATMENT: Therapeutic Exercise: 1: Cervical Rotation AROM: 2x10 each side. Kissing the pain. 2: AROM cervcial flexion and extension x10 3: Scapular retractions 2x10 Skilled Intervention: Patient was educated in proper exercise technique and purpose for exercises. Skilled judgment was used in selection of appropriate interventions. Correct performance of therapeutic exercises was facilitated with verbal and visual cuing. Manual Therapy: 1: STM over L cervical paraspinals and UT 2: Manual PROM cervical rotation x15 3: Manual PROM cervical side bend to the R x15 Skilled Intervention: Manual skills to improve joint mobility, ROM, and decrease pain. Utilized anatomy knowledge of the therapist, and assessment of patient's response to intervention. Billing Therapeutic Exercise Treatment Minutes: 19 Manual TherapyTreatment Minutes: 23 Skilled Treatment Time Minutes (timed and untimed codes): 42 Total Session Time (minutes): 42 Session Start Time : 1526 Session Stop Time : 1608 NICHOLE Rodriguez PT documented in this encounterV[facility]09-12-2024 History of Present illness Narrative* Adriano Santos, PT - 06/12/2024 4:20 PM EDT Program_ID:[id number] Access Code: [email or web address] URL: [email or web address] Date: 06-12-2024 Prepared By: Adriano Santos Program Notes Exercises - Seated Scapular Retraction - 2 x daily - 7 x weekly - 2 sets - 10 reps - Seated Shoulder Shrugs - 2 x daily - 7 x weekly - 2 sets - 10 reps - Seated Cervical Rotation AROM - 2 x daily - 7 x weekly - 2 sets - 10-15 reps - Seated Cervical Extension AROM - 2 x daily - 7 x weekly - 2 sets - 10-15 reps * Adriano Santos, PT - 06/12/2024 3:47 PM EDT Episode Visit Count: 2 Therapist That Will Accept/Oversee The Plan Of Care: Adriano Santos PT. Start of Care Date: 05/29/24 Onset Date: 04/17/24 Plan of Care Certification Date: 05/29/24 Next Certification Due Date: 07/04/24 Patient Identified by Name and Date of : Yes REHABILITATION AND SPORTS THERAPY PHYSICAL THERAPY TREATMENT NOTE ASSESSMENT: Olivia Briscoe tolerated the session with expected muscle soreness. He demonstrated difficulty with completion and form of prior HEP exercises. The patient will continue to benefit fromongoing skilled physical therapy to progress toward set goals. PLAN FOR NEXT VISIT: Assess response and form for new HEP; manual therapy and progress as tolerated. SUBJECTIVE: Heat seems to help the pain the most; exercises seem to cause soreness. Reports sometimes he makes it worse by pinching the area. States it/pain seems a little more tolerable Pain: Pain Pain Level: 4 Pain Location: Neck - Left, Neck - Right Description: Sore, Tightness Post Treatment Pain Post Treatment Pain Level: Better Post Treatment Pain Location: Neck OBJECTIVE MEASURES WITH LEVEL OF FUNCTION: Decreased R AROM/PROM Cervical Rotation compared to Left. TREATMENT: Therapeutic Exercise: 1: *Discontinued UT Stretch, Pec Stretch and Open the Book due to continuous cueing and supervisionneeded; simplified exercises, reprinted handout. 2: *Discussed Heating prior to completing exercises. 3: Cervical Rotation AROM: 2x10 each side. Kissing the pain. 4: *Scapular Squeezes in Seated: 3x10. 5: *Seated Shoulder Shrugs: x10. 6: *Seated Neck Extension AROM: 2x10. 7: Trialed Supine Chin Tucks, Unable to follow cues. Skilled Intervention: Patient was educated in proper exercise technique and purpose for exercises. Reviewed and educated patient on additions/changes for home exercise program as above (*). Skilled judgment was used in selection of appropriate interventions. Provided written instruction for home exercise program to facilitate proper performance and compliance. Correct performance of therapeutic exercises was facilitated with verbal, visual, and tactile cuing. Manual Therapy: 1: STM with hands to B Paraspinals and UT: Push to tolerance. 2: Manual PROM Cervical Rotation: x20 Guzman. 3: Manual Flexibility to B UT: 4x30 each. Skilled Intervention: Manual skills to improve joint mobility, ROM, and decrease pain. Utilized anatomy knowledge of the therapist, and assessment of patient's response to intervention. Billing Therapeutic Exercise Treatment Minutes: 23 Manual TherapyTreatment Minutes: 17 Skilled Treatment Time Minutes (timed and untimed codes): 40 Total Session Time (minutes): 40 Session Start Time : 1545 Session Stop Time : 1625 Adriano Santos PT documented in this encounterVeter[facility] Health Administration09-12-2024 NoteHNO ID: [id number] Author: ADRIANO SANTOS PT Service: ? Author Type: Physical Therapist Type: Progress Notes Filed: 06/12/2024 16:28 Note Text: Episode Visit Count: 2 Therapist That Will Accept/Oversee The Plan Of Care: Adriano Santos PT. Start of Care Date: 05/29/24 Onset Date: 04/17/24 Plan of Care Certification Date: 05/29/24 Next Certification Due Date: 07/04/24 Patient Identified by Name and Date of : Yes REHABILITATION AND SPORTS THERAPY PHYSICAL THERAPY TREATMENT NOTE ASSESSMENT: Olivia Briscoe tolerated the session with expected muscle soreness. He demonstrated difficulty with completion and form of prior HEP exercises. The patient will continue to benefit from ongoing skilled physical therapy to progress toward set goals. PLAN FOR NEXT VISIT: Assess response and form for new HEP; manual therapy and progress as tolerated. SUBJECTIVE: Heat seems to help the pain the most; exercises seem to cause soreness. Reports sometimes he makes it worse by pinching the area. States it/pain seems a little more tolerable Pain: Pain Pain Level: 4 Pain Location: Neck - Left, Neck - Right Description: Sore, Tightness Post Treatment Pain Post Treatment Pain Level: Better Post Treatment Pain Location: Neck OBJECTIVE MEASURES WITH LEVEL OF FUNCTION: Decreased R AROM/PROM Cervical Rotation compared to Left. TREATMENT: Therapeutic Exercise: 1: *Discontinued UT Stretch, Pec Stretch and Open the Book due to continuous cueing and supervision needed; simplified exercises, reprinted handout. 2: *Discussed Heating prior to completing exercises. 3: Cervical Rotation AROM: 2x10 each side. Kissing the pain. 4: *Scapular Squeezes in Seated: 3x10. 5: *Seated Shoulder Shrugs: x10. 6: *Seated Neck Extension AROM: 2x10. 7: Trialed Supine Chin Tucks, Unable to follow cues. Skilled Intervention: Patient was educated in proper exercise technique and purpose for exercises. Reviewed and educated patient on additions/changes for home exercise program as above (*). Skilled judgment was used in selection of appropriate interventions. Provided written instruction for home exercise program to facilitate proper performance and compliance. Correct performance of therapeutic exercises was facilitated with verbal, visual, and tactile cuing. Manual Therapy: 1: STM with hands to B Paraspinals and UT: Push to tolerance. 2: Manual PROM Cervical Rotation: x20 Guzman. 3: Manual Flexibility to B UT: 4x30 each. Skilled Intervention: Manual skills to improve joint mobility, ROM, and decrease pain. Utilized anatomy knowledge of the therapist, and assessment of patient's response to intervention. Billing Therapeutic Exercise Treatment Minutes: 23 Manual TherapyTreatment Minutes: 17 Skilled Treatment Time Minutes (timed and untimed codes): 40 Total Session Time (minutes): 40 Session Start Time : 1545 Session Stop Time : 1625 Adriano Santos [facility]09-05-2024 Telephone encounter Note * Telephone Encounter - Joey Hale MD - 06/05/2024 12:52 PM EDT We should wait on the mri then Joey Cox MD [facility] Work Phone: [phone]) 333-901509-05-2024 Miscellaneous Notes* Telephone Encounter - Joey Hale MD - 06/05/2024 12:52 PM EDT We should wait on the mri then Joey Cox MD * Telephone Encounter - Michelle Love RT(R) - 06/05/2024 10:33 AM EDT Hello, This patient has a cardiac device that is not FDA approved for MRI and is considered MRI non-conditional. If there is no alternative diagnostic exam that can answer the clinical question and the MRI exam is required to decide the best course of treatment for the patient, then the ordering clinician will need to follow the steps below: Contact the staff radiologist or MR physician for the type of MR exam requested to discuss possiblealternative diagnostic imaging exam, the potential risks of the MR exam, and the benefits of the MRexam. If both ordering clinician and staff radiologist agree that the benefits of the MR exam outweigh the risks, please document in the patient s EPIC chart and include the name of the radiologist with whom you spoke. [facility] Staff Rad: Neuro [phone] The potential risks of the MRI exam include any of the following: -Device malfunction which may or may not require surgical replacement -Cardiac arrhythmias from induced current in the leads -Heating of leads due to Radiofrequency which could cause núñez -Dislodgement or movement of device Please follow up using this telephone encounter to let us know the discussion has taken place and we will get the patient scheduled for device interrogation, informed consent, and the MRI exam. If the exam is no longer wanted, please cancel the order in Epic. Thank You, MR Imaging Education / MRI Safety Team documented in [facility]24 Telephone encounter Note * Telephone Encounter - Michelle Love RT(R) - 06/05/2024 10:33 AM EDT Hello, This patient has a cardiac device that is not FDA approved for MRI and is considered MRI non-conditional. If there is no alternative diagnostic exam that can answer the clinical question and the MRI exam is required to decide the best course of treatment for the patient, then the ordering clinician will need to follow the steps below: Contact the staff radiologist or MR physician for the type of MR exam requested to discuss possiblealternative diagnostic imaging exam, the potential risks of the MR exam, and the benefits of the MRexam. If both ordering clinician and staff radiologist agree that the benefits of the MR exam outweigh the risks, please document in the patient s EPIC chart and include the name of the radiologist with whom you spoke. [facility] Staff Rad: Neuro [phone] The potential risks of the MRI exam include any of the following: -Device malfunction which may or may not require surgical replacement -Cardiac arrhythmias from induced current in the leads -Heating of leads due to Radiofrequency which could cause núñez -Dislodgement or movement of device Please follow up using this telephone encounter to let us know the discussion has taken place and we will get the patient scheduled for device interrogation, informed consent, and the MRI exam. If the exam is no longer wanted, please cancel the order in Epic. Thank You, MR Imaging Education / MRI Safety Team [facility]09-04-2024 NoteHNO ID: [id number] Author: JOEY HALE MD Service: ? Author Type: Physician Type: Progress Notes Filed: 06/04/2024 17:57 Note Text: [facility] Initial Consult Olivia Briscoe is a 84 year old year old male who comes for Comprehensive Geriatric Assessment. Pt accompanied by: daughter Woodrow Caregivers involved in care: HPI: Family notes that he is generally not the best communicator but he has been more confused and having memory loss. Daughter also notes he has been more isolated than before, is watching TV most of the time, does not exercise, is having loneliness although he is and living in the same house because his and him do not have the best marriage. He is hard of hearing but refuses to admit to it. Patient is a self-admitted procrastinator. He has not been sleeping well and states it is because of his bed but is not willing to do anything about it. Had some problems with glaucoma and is having difficulty in vision on the left side. Recently he has also taken Prevagen for his memory issues and he thinks it is helping although daughter does not think it is helping For example if he just watched something on tv he cannot tell exactly what it was, or gives only half the story. Any Family History of dementia? No one in the family, Are you or your spouse a ? No Alzheimer Questionnaire Long-term Memory: Difficulty remembering distant events from the past like childhood, previous employment, wedding: YES Behavioral/personality: Withdrawn/Depressed: YES Crying spells: NO Anxious: YES History of aggression: NO History of irritability: NO Apathy:YES Recent changes in weight or appetite: YES gained Alcohol or Drug use: NO Smoking? NO Sleep: Do you snore loudly (louder than talking or loud enough to be heard through closed doors)? Likely yes Do you often feel tired, fatigued, or sleepy during daytime? Yes Has anyone observed you stop breathing during your sleep? Yes Are you restless when you sleep at night? No Do you have problems falling a sleep? No Do you have problems staying a sleep? no Psychosis: Hallucinations or delusions: NO Suicidal or homicidal ideations: NO Obsessions, compulsions, or hoarding: NO Safety: Does pt know his/her address? YES What would you do if there was a fire? Get out How would you call for help?911 Does he/she know 911? YES Are there any firearms in the home? NO If yes are they in a secure location? No Social History: Primary language: [place] Leonean Marital Status: Living situation: Home w/ Spouse Socially engaged? (participates in activities such as clubs, bahai, community center, sports, games, visiting friends/relatives, etc?): NO his is house bound, so he is only going out to see family Caregiver [place]ham and Stress Are your feeling overwhelmed?no Do you have concerns about your own health? YES Are you neglecting your own needs? NO Do you have financial concerns? NO Do your fear loss of employment? NO Do you have concerns about verbal/physical abuse? NO Do you feel that you are still capable of taking care of your relative? NO Are you willing to continue being in the caregiver role? NO B-ADLs: (I=independent,A=assistance,D=dependent) ?Bathing: I, Dressing: I, Toileting: I, Transferring:I, Continence: I, Feeding: I, I-ADLs: Ability to use phone: I, Shopping: I, Cooking: I, Housekeeping: I, Laundry: I, Transportation:I, Medications: {I, Handle Finances: I. PMHx: PAST MEDICAL HISTORY 08/01/2021: Chronic diastolic CHF (congestive heart failure) (HCC) No date: Chronic superficial gastritis without bleeding Comment: History: EGD proven in 11/2016 Assessment: stable Plan: continue home PPI No date: CKD (chronic kidney disease), stage III (HCC) 07/28/2010: Colon polyps Comment: polypectomy 2002, 2004 (Dr. Verdin); negative in 2006 FH of colon cancer (father) 04/19/2017: Complete heart block (HCC) Comment: Dr. Couch 2009: Diverticulitis No date: Dysphagia Comment: Seeing Dr. Larose 2006: Enlarged prostate Comment: has subsided-was taking flomax No date: Family history of malignant neoplasm of gastrointestinal tract 11/07/2023: Glaucoma 02/20/2012: Hiatal hernia No date: Hypertension 07/28/2010: Hypertrophy of prostate with urinary obstruction and other lower urinary tract symptoms (LUTS) Comment: Symptoms only with Sudafed, otherwise does well No date: Obesity 01/31/2023: Obesity, Class I, BMI 30-34.9 No date: Pacemaker No date: Personal history of colonic polyps 05/04/2021: Pneumonitis No date: Seborrheic keratoses PSHx: PAST SURGICAL HISTORY /2006: COLONOSCOPY 11/28/2016: COLONOSCOPY 08/15/2010: COLONOSCOPY FLX DX W/COLLJ SPEC WHEN PFRMD Comment: Normal 11/28/2016: EGD 04/23/2017: PACEMAKER INSERTION DUAL CHAMB No date: TONSILLECTOMY PRIMARY/S (more content not included)...[facility]09-04-2024 History of Present illness Narrative* Joey Hale MD - 06/04/2024 4:13 PM EDT [facility] Initial Consult Olivia Briscoe is a 84 year old year old male who comes for Comprehensive Geriatric Assessment. Pt accompanied by: daughter Woodrow Caregivers involved in care: HPI: Family notes that he is generally not the best communicator but he has been more confused and having memory loss. Daughter also notes he has been more isolated than before, is watching TV most of thetime, does not exercise, is having loneliness although he is and living in the same house because his and him do not have the best marriage. He is hard of hearing but refuses to admit toit. Patient is a self-admitted procrastinator. He has not been sleeping well and states it is because of his bed but is not willing to do anything about it. Had some problems with glaucoma and is having difficulty in vision on the left side. Recently he has also taken Prevagen for his memory issuesand he thinks it is helping although daughter does not think it is helping For example if he just watched something on tv he cannot tell exactly what it was, or gives only half the story. Any Family History of dementia? No one in the family, Are you or your spouse a ? No Alzheimer Questionnaire Long-term Memory: Difficulty remembering distant events from the past like childhood, previous employment, wedding: YES Behavioral/personality: Withdrawn/Depressed: YES Crying spells: NO Anxious: YES History of aggression: NO History of irritability: NO Apathy:YES Recent changes in weight or appetite: YES gained Alcohol or Drug use: NO Smoking? NO Sleep: Do you snore loudly (louder than talking or loud enough to be heard through closed doors)? Likely yes Do you often feel tired, fatigued, or sleepy during daytime? Yes Has anyone observed you stop breathing during your sleep? Yes Are you restless when you sleep at night? No Do you have problems falling a sleep? No Do you have problems staying a sleep? no Psychosis: Hallucinations or delusions: NO Suicidal or homicidal ideations: NO Obsessions, compulsions, or hoarding: NO Safety: Does pt know his/her address? YES What would you do if there was a fire? Get out How would you call for help?911 Does he/she know 911? YES Are there any firearms in the home? NO If yes are they in a secure location? No Social History: Primary language: [place]an Marital Status: Living situation: Home w/ Spouse Socially engaged? (participates in activities such as clubs, bahai, community center, sports, games, visiting friends/relatives, etc?): NO his is house bound, so he is only going out to see family Caregiver [place] and Stress Are your feeling overwhelmed?no Do you have concerns about your own health? YES Are you neglecting your own needs? NO Do you have financial concerns? NO Do your fear loss of employment? NO Do you have concerns about verbal/physical abuse? NO Do you feel that you are still capable of taking care of your relative? NO Are you willing to continue being in the caregiver role? NO B-ADLs: (I=independent,A=assistance,D=dependent) ?Bathing: I, Dressing: I, Toileting: I, Transferring:I, Continence: I, Feeding: I, I-ADLs: Ability to use phone: I, Shopping: I, Cooking: I, Housekeeping: I, Laundry: I, Transportation:I, Medications: {I, Handle Finances: I. PMHx: PAST MEDICAL HISTORY 08/01/2021: Chronic diastolic CHF (congestive heart failure) (HCC) No date: Chronic superficial gastritis without bleeding Comment: History: EGD proven in 11/2016 Assessment: stable Plan: continue home PPI No date: CKD (chronic kidney disease), stage III ([facility]) 07/28/2010: Colon polyps Comment: polypectomy 2002, 2004 (Dr. Verdin); negative in 2006 FH of colon cancer (father) 04/19/2017: Complete heart block (HCC) Comment: Dr. Couch 2009: Diverticulitis No date: Dysphagia Comment: Seeing Dr. Larose 2006: Enlarged prostate Comment: has subsided-was taking flomax No date: Family history of malignant neoplasm of gastrointestinal tract 11/07/2023: Glaucoma 02/20/2012: Hiatal hernia No date: Hypertension 07/28/2010: Hypertrophy of prostate with urinary obstruction and other lower urinary tract symptoms (LUTS) Comment: Symptoms only with Sudafed, otherwise does well No date: Obesity 01/31/2023: Obesity, Class I, BMI 30-34.9 No date: Pacemaker No date: Personal history of colonic polyps 05/04/2021: Pneumonitis No date: Seborrheic keratoses PSHx: PAST SURGICAL HISTORY : COLONOSCOPY 11/28/2016: COLONOSCOPY 08/15/2010: COLONOSCOPY FLX DX W/COLLJ SPEC WHEN PFRMD Comment: Normal 11/28/2016: EGD 04/23/2017: PACEMAKER INSERTION DUAL CHAMB No date: TONSILLECTOMY PRIMARY/SECONDARY <AGE 12 Comment: Tonsillectomy Home Meds: Prior to Admission medications : Medication metoprolol succinate ER (TOPROL XL) 25 mg 24 hr tablet, Sig Take 1 tablet by mouth everyafternoon., Start Date 04/16/24, End Date , Taking? Yes, Authorizing Provider Provider, [facility] Medication dorzolamide-timolol (COSOPT) 22.3-6.8 mg/mL ophthalmic solution, Sig Use 1 Drop in both eyes once daily., Start Date 04/09/24, End Date , Taking? Yes, Authorizing Provider Provider, [facility] Medication multivitamin tablet, Sig Take 1 tablet by mouth once daily., Start Date , End Date , Taking? Yes, Authorizing Provider Provider, [facility] Other OTC med/supplements: Prevagen Medication Review: - ANY HIGH RISK MEDICATIONS (STOPP CRITERIA): NO ALLERGIES Allergen Reactions Chicken Derived Swelling Certain chicken and how it's cooked Fish Containing Pro* Intolerance Review of Systems Difficulty chew/swallow: no Pain: No Tremor: No Incontinence - During the last 3 months did you leak urine? NO Constipation/Change in bowel habits: NO Vision No vision problems reported Follows with accounting director:YES Hearing - Hearing aid : Hearing impairment, no hearing aids Falls: .: Falls in the last 12 months: None. If + falls: Physical Exam: General: Well-nourished, kempt Ambulatory: without assistance Mobility Aid: None Head: Normocephalic Eyes: EOMI Ears: R TM - nl light reflex, L TM - clear with good landmarks, nl light reflex Nose: clear Oropharynx: teeth in good repair Neck: supple and no adenopathy Cardio: regular rate and rhythm Pulmonary: Lungs clear to auscultation bilaterally Extremities: Extremities normal. No deformities, edema, or skin discoloration. Musculoskeletal: Normal but slow gait Gait: Unsteadiness: NO Shuffling: NO Tremors: NO Slowness: YES MoCA test was 13 on 30 CDR Dementia Scale 1) Subjective Memory Loss: YES 2) Measurable Memory Loss: YES 3) IADLs: NO 4) BADLs: NO Driving Safely: Yes > 50% 6) Medications: No Level: CDR 0.5 Depression Screening/Evaluation: GDS: Not done Labs: None available today Brain Imaging: Not done (R41.3) Memory loss Comment: \ Plan: CONSULT TO GERIATRICS Assessment and Plan: I. Medical /Mental Status/Decision Making Capacity 1-Mentation # Subjective memory loss with measurable memory loss with MOCA score of 16/30 ... Patient does not have functional impairment, he continues to do the same things that he did. Etiology is unclear at this point. He did not have any recall of the 5 words so there is some amnestic process. Contributorsto this presentation are multiple in his case. From interview it appears that he has sleep apnea that is not treated and he is not open to treatment, he has hearing issues that he does not admit to, he also appears depressed to me. Multiple times in the visit he said he is not going to be alive too long, he is admitted to feelinglonely, he says he is lonely in his own home because he does not talk to his and there is nobody he talks to. Not been a person who used to go out. He is not exercising, he is not motivated to do the things he did. And some suggestion of passive wishes for not being around. No active issues. Barriers to care are, lack of reflection, fear of medications and side effects and prompting him not to take medications. Some mistrust of the medical system and depression. We discussed with the daughter his depression and being unable to make the right decisions but bothhis daughter and him think that medication is not an option. They were willing to consider things to help improve depression like socializing more, exercising every day and eating better CDR 0.5 FAST 5 Patient and family are looking for preservation of function. Plan: MRI of the brain with quantification, vitamin B12 and thyroid Sleep study if the he is willing to get it done Treatment of depression with citalopram if he is willing but he was not willing. Hearing test and getting hearing aids. 2-Mobility -- He is able to move well and does not have major mobility issues. Does have significant scoliosis and cervical neck issues related to degeneration and the scoliosis. He has been gaining weight. And hehas no reason why he is not exercising except that probably he is not motivated and little depressed. We tried to educate him and give him information about available resources where he can go and exercise but he seems to be least interested. Plan Requested daughter to look into Silver sneakers at [employer] which will also get him out and get him to do stuff. 3-Medications and chronic medical conditions He is not on medication that could cause him too many issues. Obesity is a concern and weight loss would be beneficial for him Plan 4- Matters Most - We will discuss about will living will and healthcare power of immigration attorney in the upcoming visits. REFERRALS AND RECOMMENDATIONS 1. Discussed the cognitive benefits of memory exercises and reviewed examples 2. Discussed the cognitive benefits of physical exercise and socialization Joey Hale MD [place] [facility] * Joey Hale MD - 06/04/2024 4:03 PM EDT error documented in this encounterVeterans Health Administration09-04-2024 NoteHNO ID: [id number] Author: JOEY HALE MD Service: ? Author Type: Physician Type: Progress Notes Filed: 06/04/2024 17:49 Note Text: [facility] NoteHNO ID: [id number] Author: ADRIANO SANTOS PT Service: ? Author Type: Physical Therapist Type: Progress Notes Filed: 05/29/2024 14:19 Note Text: Episode Visit Count: 1 Therapist That Will Accept/Oversee The Plan Of Care: Adriano Santos PT. Start of Care Date: 05/29/24 Onset Date: 04/17/24 Plan of Care Certification Date: 05/29/24 Next Certification Due Date: 07/04/24 Patient Identified by Name and Date of : Yes REHABILITATION AND SPORTS THERAPY PHYSICAL THERAPY EVALUATION PLAN OF CARE: Assessment: Olivia Briscoe presents with chief complaint of B neck pain that interferes with driving, sleeping AND Head Movement.. He presents with impairments in ADL's, flexibility, independence in exercise, joint mobility, overall function, posture, range of motion, symptom management, and tissue tenderness. PROMIS? (Patient-Reported Outcomes Measurement Information System) scores were reviewed and identified as within normal limits. Prognosis for therapy is Fair due to: clinical presentation, chronic nature of impairments, Prognosis may be improved by within-session changes, good support system/ coping skills, good overall health status.He will benefit from skilled therapy services to meet the goals established for this plan of care as noted below. Goals for Episode of Care: established 05/29/24 to 07/10/24. [place] in home exercise program. Patient will decrease pain rating by 2 points to meet minimal clinical important difference for numeric pain rating scale. Improve postural awareness. Improve cervical ROM of at least 10-15 degrees in each direction to allow for ease of ADL/IADLs. Drive with no aggravation of pain/symptoms. Sleep throughout the night without pain/symptoms. Patient Goals: Alleviate Pain; improve neck motion. Time Frame for Goals and Treatment : 07/10/24 Planned Interventions, Frequency, and Duration: Current Frequency: 1x/week Duration: 4 weeks Total Number of Visits Planned: 4 Planned Treatment Interventions: Therapeutic exercise (60115), Neuromuscular re-education (92295), Manual therapy (64671), Therapeutic activities (66022), Self-assisted management (32857), Patient/Family/Caregiver Education PLAN FOR NEXT VISIT: Assess reponse to HEP; posture awareness, soft tissue work and PROM/AAROM/AROM for cervical. Patient demonstrates good understanding of plan of care and treatment. The above goals and plan of care were discussed and agreed upon by patient/family. SUBJECTIVE: Patient reports pain has bothered him for over month; no LAURA; reports difficulty turning the head to the L>R. Pain is more bothersome in on the L Neck > R. Trouble driving and looking in blind spots. Reports L Neck is a lot more tight than the R. Sleeping is tough to do because he has to get his head in the right spot. Pacemaker on L Side, doesn't want to directly lay on that side (states slants back a little bit). Patient Goals: Alleviate Pain; improve neck motion. Functional Limitations: driving, sleeping Functional Limitation Comments: AND Head Movement. Prior Level of Function: Independent without limitations Relevant History Employment: Retired Intake Information: Prescription present Previous Treatment: None Falls Interview: No positive findings with falls interview Pain: Pain Pain Level: 5 Pain Location: Neck - Left, Neck - Right Description: Sore, Tightness Frequency: Intermittent Post Treatment Pain Post Treatment Symptoms: I Feel like I can turn my head more. PROMIS Scales 05/29/2024 Higher is Better Phys Func - Score 46 (within normal limits) Phys Func - Percentile 34 T-scores: mean of general population = 50. 5 points is clinically meaningfully difference Percentiles provide an indication of how the patient's score ranks in relation to the general population. Higher percentile rankings indicate better function/quality of life. 50th percentile is the average of the general population and indicates half of respondents had a worse score. OBJECTIVE MEASURES WITH LEVEL OF FUNCTION: Posture / Alignment UE Observations: R Shoulder Elevated compared to L.; L Ear elevated compared to right. Crooked posture throughout, tries to self-correct however quickly returns. Spine Observations R Cervical Spine Palpation Tenderness: Upper trapezius, Levator scapulae, Paraspinals L Cervical Spine Palpation Tenderness: Upper trapezius, Levator scapulae, Paraspinals Cervical Spine ROM Cervical ROM : Limitation AROM Cervical Flexion AROM: Moderate limitation (25deg.) Cervical Extension AROM: Major limitation (15deg.) Cervical Side-Bend Right AROM: Major limitation (10deg) Cervical Side-Bend Left AROM: Major limitation (15deg.) Cervical Rotation Right AROM: Moderate limitation (25deg.) Cervical Rotation Left AROM: Moderate limitation (35deg.) UE AROM R UE AROM: WNL L UE AROM: WNL UE and Cervical Strength R UE Strength: Grossly (more content not included)...[facility] 05-29-2024 History of Present illness Narrative* Adriano Santos, PT - 05/29/2024 12:15 PM EDT Episode Visit Count: 1 Therapist That Will Accept/Oversee The Plan Of Care: Adriano Santos PT. Start of Care Date: 05/29/24 Onset Date: 04/17/24 Plan of Care Certification Date: 05/29/24 Next Certification Due Date: 07/04/24 Patient Identified by Name and Date of : Yes REHABILITATION AND SPORTS THERAPY PHYSICAL THERAPY EVALUATION PLAN OF CARE: Assessment: Olivia Briscoe presents with chief complaint of B neck pain that interferes with driving, sleeping & Head Movement.. He presents with impairments in ADL's, flexibility, independencein exercise, joint mobility, overall function, posture, range of motion, symptom management, and tissue tenderness. PROMIS (Patient-Reported Outcomes Measurement Information System) scores were reviewed and identified as within normal limits. Prognosis for therapy is Fair due to: clinical presentation, chronic nature of impairments, Prognosis may be improved by within-session changes, good support system/ coping skills, good overall health status.He will benefit from skilled therapy services tomeet the goals established for this plan of care as noted below. Goals for Episode of Care: established 05/29/24 to 07/10/24. [place] in home exercise program. Patient will decrease pain rating by 2 points to meet minimal clinical important difference for numeric pain rating scale. Improve postural awareness. Improve cervical ROM of at least 10-15 degrees in each direction to allow for ease of ADL/IADLs. Drive with no aggravation of pain/symptoms. Sleep throughout the night without pain/symptoms. Patient Goals: Alleviate Pain; improve neck motion. Time Frame for Goals and Treatment : 07/10/24 Planned Interventions, Frequency, and Duration: Current Frequency: 1x/week Duration: 4 weeks Total Number of Visits Planned: 4 Planned Treatment Interventions: Therapeutic exercise (94630), Neuromuscular re- education (67953), Manual therapy (63353), Therapeutic activities (67987), Self- assisted management (34448), Patient/Family/Caregiver Education PLAN FOR NEXT VISIT: Assess reponse to HEP; posture awareness, soft tissue work and PROM/AAROM/AROMfor cervical. Patient demonstrates good understanding of plan of care and treatment. The above goals and plan of care were discussed and agreed upon by patient/family. SUBJECTIVE: Patient reports pain has bothered him for over month; no LAURA; reports difficulty turning the head to the L>R. Pain is more bothersome in on the L Neck > R. Trouble driving and looking in blind spots. Reports L Neck is a lot more tight than the R. Sleeping is tough to do because he has to get his head in the right spot. Pacemaker on L Side, doesn't want to directly lay on that side (states sl ants back a little bit). Patient Goals: Alleviate Pain; improve neck motion. Functional Limitations: driving, sleeping Functional Limitation Comments: & Head Movement. Prior Level of Function: Independent without limitations Relevant History Employment: Retired Intake Information: Prescription present Previous Treatment: None Falls Interview: No positive findings with falls interview Pain: Pain Pain Level: 5 Pain Location: Neck - Left, Neck - Right Description: Sore, Tightness Frequency: Intermittent Post Treatment Pain Post Treatment Symptoms: I Feel like I can turn my head more. PROMIS Scales 05/29/2024 Higher is Better Phys Func - Score 46 (within normal limits) Phys Func - Percentile 34 T-scores: mean of general population = 50. 5 points is clinically meaningfully difference Percentiles provide an indication of how the patient's score ranks in relation to the general population. Higher percentile rankings indicate better function/quality of life. 50th percentile is the average of the general population and indicates half of respondents had a worse score. OBJECTIVE MEASURES WITH LEVEL OF FUNCTION: Posture / Alignment UE Observations: R Shoulder Elevated compared to L.; L Ear elevated compared to right. Crooked posture throughout, tries to self-correct however quickly returns. Spine Observations R Cervical Spine Palpation Tenderness: Upper trapezius, Levator scapulae, Paraspinals L Cervical Spine Palpation Tenderness: Upper trapezius, Levator scapulae, Paraspinals Cervical Spine ROM Cervical ROM : Limitation AROM Cervical Flexion AROM: Moderate limitation (25deg.) Cervical Extension AROM: Major limitation (15deg.) Cervical Side-Bend Right AROM: Major limitation (10deg) Cervical Side-Bend Left AROM: Major limitation (15deg.) Cervical Rotation Right AROM: Moderate limitation (25deg.) Cervical Rotation Left AROM: Moderate limitation (35deg.) UE AROM R UE AROM: WNL L UE AROM: WNL UE and Cervical Strength R UE Strength: Grossly 4+/5 L UE Strength: Grossly 4+/5 Gait Gait Observation: Posturing during gait is R Shoulder elevated and L Ear/Top of head elevated when compared bilat. Education: Education Learning Preferences: Demonstration, Explanation, Printed Materials Barriers: None Learning/educational needs: Procedure / Surgery, Home exercise program, Safety, Plan of Care, Gait Training Education Provided: Yes, see treatment interventions for education provided Education Provided To: Patient Education Mode/Type: Demonstration, Explanation/Discussion, Literature/Printed Materials Response to Education/Teach Back: States/Identifies TREATMENT: PT Treatment Interventions: Therapeutic Exercise, Manual Therapy, Self-Fdc Management Evaluation Therapeutic Exercise: 1: *Cervical Rotation AROM: x10 each side. (Discussed kissing the pain.) 2: *Gentle UT Stretch in sitting: x30 ea. 3: *Pec Stretch with hand placement at 45-60deg abd: 1x30 each. 4: *Open the Book, T/S Mobility: 1x10 ea. 5: Discussed the purpose of the HEP and the HEP handout was provided to the pt. HEP discussed in detail with how to safely and properly perform each therapeutic exercise. 6: Educated to modify painful ADL/IADLs as tolerated. Advised not to push past pain during exercises, and stop activity/exercise that increases his pain. Skilled Intervention: Patient was educated in proper exercise technique and purpose for exercises. Reviewed and educated patient on additions/changes for home exercise program as above (*). Skilled judgment was used in selection of appropriate interventions. Provided written instruction for home exercise program to facilitate proper performance and compliance. Correct performance of therapeutic exercises was facilitated with verbal, visual, and tactile cuing. Manual Therapy: 1: STM with hands to B Paraspinals and UT: Push to tolerance. 2: Manual PROM Cervical Rotation: x15 Guzman. Skilled Intervention: Manual skills to improve joint mobility, ROM, and decrease pain. Utilized anatomy knowledge of the therapist, and assessment of patient's response to intervention. Self-Fdc Management: 1: *General discussion on radiograph findings and posture. 2: *Discussed anatomy related to current diagnosis and exam deficits; discussed structural deficitsand functional deficits that can be caused stemming from chronic degerenation; discussed treatment options, and rehab process. Skilled Intervention: Skilled judgment in the selection of proper modification for activity of daily living/home management based on clinical presentation, deficits, and needs. Billing * Evaluation Low Complexity: 1 Unit Therapeutic Exercise Treatment Minutes: 12 Manual TherapyTreatment Minutes: 10 Self-Care/Home Management Treatment Minutes: 10 Skilled Treatment Time Minutes (timed and untimed codes): 49 Total Session Time (minutes): 49 Session Start Time : 1215 Session Stop Time : 1304 Adriano Santos PT documented in this [facility]08-[facility]-2024 Telephone encounter Note * Telephone Encounter - Lizabeth Brumfield LPN - 05/08/2024 3:05 PM EDT Phoned patient went over results, notes from Dr Álvarez with understanding. Assisted with transfer to ladle patcher to get PT appt set up. [facility]08-08[facility] Miscellaneous Notes* Telephone Encounter - Lizabeth Brumfield LPN - 05/08/2024 3:05 PM EDT Phoned patient went over results, notes from Dr Álvarez with understanding. Assisted with transfer to ladle patcher to get PT appt set up. * Telephone Encounter - Lizabeth Brumfield LPN - 05/08/2024 3:00 PM EDT ----- Message from Quentin Álvarez MD sent at 05/08/2024 1:53 PM EDT ----- Significant degenerative joint disease. PT consult ordered. He can decide and schedule if desired. documented in this encounterV[facility]08-08-2024 Telephone encounter Note * Telephone Encounter - Lizabeth Brumfield LPN - 05/08/2024 3:00 PM EDT ----- Message from Quentin Álvarez MD sent at 05/08/2024 1:53 PM EDT ----- Significant degenerative joint disease. PT consult ordered. He can decide and schedule if desired. [facility]08-07-[facility] History of Present illness Narrative* Nano Peters RT(R) - 05/07/2024 3:00 PM EDT Radiology Service Progress Note PATIENT NAME: Olivia Briscoe DATE OF SERVICE: May 07, 2024 TIME: 3:02 PM PATIENT IDENTITY VERIFICATION COMPLETED USING TWO (2) IDENTIFIERS: Name and Date of confirmedby patient verbally. FALL SCREENING: Has the patient had 2 falls in the last year or 1 fall with injury or currently using an Ambulatory Assistive Device (Walker, Cane, Wheelchair, Crutches, etc.)? No PATIENT GENDER DATA: Male PATIENT RELEVANT IMPLANT DATA REVIEWED: Yes PATIENT PRESENTS WITH AN IMPLANTABLE OR ATTACHED CARD DEALER: No RADIOLOGY DEPARTMENT: General X-ray: Exam(s) Completed: Spine X-Ray(s): Cervical AP / LAT / OBL PERIPHERAL IV DATA: Not applicable SIGNED BY: RT Yobani(R) May 07, 2024 3:02 PM documented in this encounterVeter[facility] Health [facility]08-07-2024 NoteHNO ID: [id number] Author: NANO PETERS RT(R) Service: ? Author Type: Piece Work Inspector Type: Progress Notes Filed: 05/07/2024 15:16 Note Text: Radiology Service Progress Note PATIENT NAME: Olivia Briscoe DATE OF SERVICE: May 07, 2024 TIME: 3:02 PM PATIENT IDENTITY VERIFICATION COMPLETED USING TWO (2) IDENTIFIERS: Name and Date of confirmed by patient verbally. FALL SCREENING: Has the patient had 2 falls in the last year or 1 fall with injury or currently using an Ambulatory Assistive Device (Walker, Cane, Wheelchair, Crutches, etc.)? No PATIENT GENDER DATA: Male PATIENT RELEVANT IMPLANT DATA REVIEWED: Yes PATIENT PRESENTS WITH AN IMPLANTABLE OR ATTACHED CARD DEALER: No RADIOLOGY DEPARTMENT: General X-ray: Exam(s) Completed: Spine X-Ray(s): Cervical AP / LAT / OBL PERIPHERAL IV DATA: Not applicable SIGNED BY: RT Yobani(R) May 07, 2024 3:02 [facility]08-07-2024 NoteHNO ID: [id number] Author: QUENTIN ÁLVAREZ MD Service: ? Author Type: Physician Type: Progress Notes Filed: 05/07/2024 15:00 Note Text: This note was created using Snapflowriter. Subjective Olivia Briscoe is a 84 year old male here for follow up, accompanied by his daughter. He complained of chronic neck pain and stiffness 4-5 months. There has been no injury. His hypertension was not controlled. He was taken off lisinopril and started on metoprolol by his firefighter type one. Since he had Prevnar, he's had recurrent loose diarrhea that was slowly improving over the past 6 months. Review of Systems Constitutional: Negative for appetite change, fatigue and fever. HENT: Negative. Eyes: Negative for visual disturbance. Respiratory: Negative for cough, shortness of breath and wheezing. Cardiovascular: Negative for chest pain, palpitations and leg swelling. Gastrointestinal: Negative for abdominal pain, blood in stool, constipation, nausea and vomiting. Genitourinary: Positive for urgency. Negative for difficulty urinating. Musculoskeletal: Positive for neck pain. Neurological: Negative for dizziness and headaches. Psychiatric/Behavioral: Negative for dysphoric mood. The patient is not nervous/anxious. 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 dorzolamide-timolol (COSOPT) 22.3-6.8 mg/mL ophthalmic solution Use 1 Drop in both eyes once daily. multivitamin tablet Take 1 tablet by mouth once daily. No current facility-administered medications for this visit. Objective BP 153/85 (BP Site: Left Arm, BP Position: Sitting, BP Cuff Size: Large Adult) Pulse 61 Temp 36.7 ?C (98 ?F) (Temporal) Resp 12 Ht 169.5 cm (5' 6.75) Wt 95.4 kg (210 lb 5.1 oz) BMI 33.19 kg/m? Physical Exam Constitutional: General: He is not in acute distress. HENT: Head: Normocephalic and atraumatic. Eyes: General: No scleral icterus. Conjunctiva/sclera: Conjunctivae normal. Neck: Thyroid: No thyroid mass. Vascular: Normal carotid pulses. No carotid bruit. Cardiovascular: Rate and Rhythm: Regular rhythm. Bradycardia present. Heart sounds: S1 normal and S2 normal. No murmur heard. Gallop present. S4 sounds present. Pulmonary: Effort: No respiratory distress. Breath sounds: No wheezing or rales. Abdominal: Palpations: Abdomen is soft. Tenderness: There is no abdominal tenderness. Musculoskeletal: Cervical back: Rigidity present. Pain with movement and muscular tenderness present. Decreased range of motion. Thoracic back: Deformity present. No tenderness. Scoliosis present. Right lower le+ Pitting Edema present. Left lower le+ Pitting Edema present. Lymphadenopathy: Cervical: No cervical adenopathy. Neurological: General: No focal deficit present. Mental Status: He is alert. Cranial Nerves: Cranial nerves 2-12 are intact. Sensory: Sensation is intact. Motor: Motor function is intact. Gait: Gait is intact. Psychiatric: Attention and Perception: Attention normal. Mood and Affect: Affect is angry. Speech: Speech normal. Behavior: Behavior normal. Thought Content: Thought content normal. Latest Ref Rng 05/01/2024 Protein, Total 6.3 - 8.0 g/dL 6.5 Albumin 3.9 - 4.9 g/dL 3.8 (L) Calcium 8.5 - 10.2 mg/dL 9.1 Bilirubin, Total 0.2 - 1.3 mg/dL 0.9 Alkaline Phosphatase 38 - 113 U/L 76 AST 14 - 40 U/L 21 ALT 10 - 54 U/L 18 Glucose 74 - 99 mg/dL 85 BUN 9 - 24 mg/dL 23 Creatinine 0.73 - 1.22 mg/dL 1.20 Sodium 136 - 144 mmol/L 138 Potassium 3.7 - 5.1 mmol/L 4.4 Chloride 98 - 107 mmol/L 105 CO2 22 - 30 mmol/L 24 Anion Gap 8 - 15 mmol/L 9 eGFR >=60 mL/min/1.73m? 60 WBC 3.70 - 11.00 k/uL 7.89 RBC 4.20 - 6.00 m/uL 4.65 Hemoglobin 13.0 - 17.0 g/dL 14.3 Hematocrit 39.0 - 51.0 % 45.1 MCV 80.0 - 100.0 fL 97.0 MCH 26.0 - 34.0 pg 30.8 MCHC 30.5 - 36.0 g/dL 31.7 RDW-CV 11.5 - 15.0 % 12.5 Platelet Count 150 - 400 k/uL 225 MPV 9.0 - 12.7 fL 11.0 Absolute nRBC <0.01 k/uL <0.01 Cholesterol, Total <200 mg/dL 169 Triglyceride <150 mg/dL 121 HDL Cholesterol >39 mg/dL 45 Non HDL Cholesterol <130 mg/dL 124 Fasting Time hrs 12 VLDL Cholesterol <30 mg/dL 24 TC:HDL Ratio <5.10 3.76 LDL Cholesterol <100 mg/dL 100 (H) LDL:HDL Ratio <2.54 2.22 Legend: (L) Low (H) High Assessme (more content not included)...[facility]08-07-2024 History of Present illness Narrative* Quentin Álvarez MD - 05/07/2024 2:50 PM EDT This note was created using NoteWriter. Subjective Olivia Briscoe is a 84 year old male here for follow up, accompanied by his daughter. He complained of chronic neck pain and stiffness 4-5 months. There has been no injury. His hypertension was not controlled. He was taken off lisinopril and started on metoprolol by his firefighter type one. Since he had Prevnar, he's had recurrent loose diarrhea that was slowly improving over the past 6 months. Review of Systems Constitutional: Negative for appetite change, fatigue and fever. HENT: Negative. Eyes: Negative for visual disturbance. Respiratory: Negative for cough, shortness of breath and wheezing. Cardiovascular: Negative for chest pain, palpitations and leg swelling. Gastrointestinal: Negative for abdominal pain, blood in stool, constipation, nausea and vomiting. Genitourinary: Positive for urgency. Negative for difficulty urinating. Musculoskeletal: Positive for neck pain. Neurological: Negative for dizziness and headaches. Psychiatric/Behavioral: Negative for dysphoric mood. The patient is not nervous/anxious. 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 dorzolamide-timolol (COSOPT) 22.3-6.8 mg/mL ophthalmic solution Use 1 Drop in both eyes once daily. multivitamin tablet Take 1 tablet by mouth once daily. No current facility-administered medications for this visit. Objective BP 153/85 (BP Site: Left Arm, BP Position: Sitting, BP Cuff Size: Large Adult) Pulse 61 Temp 36.7 C (98 F) (Temporal) Resp 12 Ht 169.5 cm (5' 6.75) Wt 95.4 kg (210 lb 5.1 oz) BMI 33.19 kg/m Physical Exam Constitutional: General: He is not in acute distress. HENT: Head: Normocephalic and atraumatic. Eyes: General: No scleral icterus. Conjunctiva/sclera: Conjunctivae normal. Neck: Thyroid: No thyroid mass. Vascular: Normal carotid pulses. No carotid bruit. Cardiovascular: Rate and Rhythm: Regular rhythm. Bradycardia present. Heart sounds: S1 normal and S2 normal. No murmur heard. Gallop present. S4 sounds present. Pulmonary: Effort: No respiratory distress. Breath sounds: No wheezing or rales. Abdominal: Palpations: Abdomen is soft. Tenderness: There is no abdominal tenderness. Musculoskeletal: Cervical back: Rigidity present. Pain with movement and muscular tenderness present. Decreased range of motion. Thoracic back: Deformity present. No tenderness. Scoliosis present. Right lower le+ Pitting Edema present. Left lower le+ Pitting Edema present. Lymphadenopathy: Cervical: No cervical adenopathy. Neurological: General: No focal deficit present. Mental Status: He is alert. Cranial Nerves: Cranial nerves 2-12 are intact. Sensory: Sensation is intact. Motor: Motor function is intact. Gait: Gait is intact. Psychiatric: Attention and Perception: Attention normal. Mood and Affect: Affect is angry. Speech: Speech normal. Behavior: Behavior normal. Thought Content: Thought content normal. Latest Ref [facility] [place] 05/01/2024 Protein, Total 6.3 - 8.0 g/dL 6.5 Albumin 3.9 - 4.9 g/dL 3.8 (L) Calcium 8.5 - 10.2 mg/dL 9.1 Bilirubin, Total 0.2 - 1.3 mg/dL 0.9 Alkaline Phosphatase 38 - 113 U/L 76 AST 14 - 40 U/L 21 ALT 10 - 54 U/L 18 Glucose 74 - 99 mg/dL 85 BUN 9 - 24 mg/dL 23 Creatinine 0.73 - 1.22 mg/dL 1.20 Sodium 136 - 144 mmol/L 138 Potassium 3.7 - 5.1 mmol/L 4.4 Chloride 98 - 107 mmol/L 105 CO2 22 - 30 mmol/L 24 Anion Gap 8 - 15 mmol/L 9 eGFR >=60 mL/min/1.73m 60 WBC 3.70 - 11.00 k/uL 7.89 RBC 4.20 - 6.00 m/uL 4.65 Hemoglobin 13.0 - 17.0 g/dL 14.3 Hematocrit 39.0 - 51.0 % 45.1 MCV 80.0 - 100.0 fL 97.0 MCH 26.0 - 34.0 pg 30.8 MCHC 30.5 - 36.0 g/dL 31.7 RDW-CV 11.5 - 15.0 % 12.5 Platelet Count 150 - 400 k/uL 225 MPV 9.0 - 12.7 fL 11.0 Absolute nRBC <0.01 k/uL <0.01 Cholesterol, Total <200 mg/dL 169 Triglyceride <150 mg/dL 121 HDL Cholesterol >39 mg/dL 45 Non HDL Cholesterol <130 mg/dL 124 Fasting Time hrs 12 VLDL Cholesterol <30 mg/dL 24 TC:HDL Ratio <5.10 3.76 LDL Cholesterol <100 mg/dL 100 (H) LDL:HDL Ratio <2.54 2.22 Legend: (L) Low (H) High Assessment and Plan 1. Medicare annual wellness visit, subsequent - ICD9: V70.0, ICD10: Z00.00 (primary diagnosis) - See wellness note. 2. Screening for depression - ICD9: V79.0, ICD10: Z13.31 - DEPRESSION SCREENING 3. Encounter for screening examination for other mental health and behavioral disorders - ICD9: V79.8, ICD10: Z13.39 - ANXIETY SCREENING 4. Primary hypertension - ICD9: 401.9, ICD10: I10 - Worsening control - Continue current medications - I recommend he follow up with cardiology in 1-2 months, or at least reach out about hypertension.Medications are coming from his firefighter type one. 5. Stage 3a chronic kidney disease (HCC) - ICD9: 585.3, ICD10: N18.31 - eGFR: 60 Improving - Counseled on avoiding NSAIDs, adequate hydration 6. Pacemaker - ICD9: V45.01, ICD10: Z95.0 - [facility]. 7. Neck pain, chronic - ICD9: 723.1, 338.29, ICD10: M54.2, G89.29 Likely degenerative joint disease. Consider physical therapy. - XR CERV OTHER 4V AP/LAT/OBL 8. Thoracogenic scoliosis of thoracic region - ICD9: 737.34, ICD10: M41.34 Chronic. 9. Diarrhea, unspecified type - ICD9: 787.91, ICD10: R19.7 Chronic. - C. DIFFICILE PCR 10. Memory loss - ICD9: 780.93, ICD10: R41.3 - CONSULT TO GERIATRICS Quentin Álvarez MD * Quentin Álvarez MD - 05/07/2024 2:03 PM EDT Images from the original note were not included. Olivia Briscoe is a 84 year old male here for a Medicare wellness visit. Medicare Health Risk Assessment General Health Good Exercise: Minutes/Day 0 min Exercise: Days/Week 0 days Alcohol: Daily Use Never Alcohol: Drinks/Day Patient does not drink Alcohol: 6 or more drinks Never Feel off balance No Concerns: Teeth/Dentures Yes Concerns: Sexual function No Troubled by feelings None of the above Frequency: Eating healthy diet Several days ADLs requiring help Handling finances Safety precautions in home/vehicle Yes Smoke, vape, chews tobacco No Difficulty hearing No Difficulty seeing No Current Providers Specialists: I have reviewed specialist-related care of the patient in the medical record. Current care team: Patient Care Team: Quentin Álvarez MD as PCP - General (Internal Medicine) Outside specialists seen: [facility] Dr. Yaya Schaffer. Dr. Mildred Couch, Cardiology. Medical/Family history review Reviewed and updated problem list, medical/surgical/family/social history, medications, and allergies. Opioid use review Opioid Medications (last 90 days) No data to display Anxiety/Depression screening Recommendation: no further intervention at this time Cognitive screening Cognitive screening reviewed and Recommended referral for further evaluation (score 0-2). Functional Observation Was the patient's Timed Up & Go test unsteady or ? 12 seconds? No Advance Care Planning Patient did not wish or was not able to name a surrogate decision maker or provide an advance care plan Measurements BP 153/85 (BP Site: Left Arm, BP Position: Sitting, BP Cuff Size: Large Adult) Pulse 61 Temp 36.7 C (98 F) (Temporal) Resp 12 Ht 169.5 cm (5' 6.75) Wt 95.4 kg (210 lb 5.1 oz) BMI 33.19 kg/m Vision Screening: Follows with optometry/ophthalmology Right: 20/40 Left: 20/ 200 Both: 20/40 Assessment/Plan Medicare annual wellness visit, subsequent (Z00.00) - Counseled on healthy diet and regular exercise - Fall avoidance information provided - Personalized prevention plan provided - Discussed need for and benefit of weight loss. BMI 33.19 kg/(m^2) - RSV vaccine at his pharmacy. documented in this [facility]-2024 NoteHNO ID: [id number] Author: QUENTIN ÁLVAREZ MD Service: ? Author Type: Physician Type: Progress Notes Filed: 05/07/2024 15:00 Note Text: Olivia Briscoe is a 84 year old male here for a Medicare wellness visit. Medicare Health Risk Assessment General Health Good Exercise: Minutes/Day 0 min Exercise: Days/Week 0 days Alcohol: Daily Use Never Alcohol: Drinks/Day Patient does not drink Alcohol: 6 or more drinks Never Feel off balance No Concerns: Teeth/Dentures Yes Concerns: Sexual function No Troubled by feelings None of the above Frequency: Eating healthy diet Several days ADLs requiring help Handling finances Safety precautions in home/vehicle Yes Smoke, vape, chews tobacco No Difficulty hearing No Difficulty seeing No Current Providers Specialists: I have reviewed specialist-related care of the patient in the medical record. Current care team: Patient Care Team: Quentin Álvarez MD as PCP - General (Internal Medicine) Outside specialists seen: [facility] Dr. Yaya Schaffer. Dr. Mildred Couch, Cardiology. Medical/Family history review Reviewed and updated problem list, medical/surgical/family/social history, medications, and allergies. Opioid use review Opioid Medications (last 90 days) No data to display Anxiety/Depression screening Recommendation: no further intervention at this time Cognitive screening Cognitive screening reviewed and Recommended referral for further evaluation (score 0-2). Functional Observation Was the patient's Timed Up AND Go test unsteady or ? 12 seconds? No Advance Care Planning Patient did not wish or was not able to name a surrogate decision maker or provide an advance care plan Measurements BP 153/85 (BP Site: Left Arm, BP Position: Sitting, BP Cuff Size: Large Adult) Pulse 61 Temp 36.7 ?C (98 ?F) (Temporal) Resp 12 Ht 169.5 cm (5' 6.75) Wt 95.4 kg (210 lb 5.1 oz) BMI 33.19 kg/m? Vision Screening: Follows with optometry/ophthalmology Right: 20/40 Left: 20/ 200 Both: 20/40 Assessment/Plan Medicare annual wellness visit, subsequent (Z00.00) - Counseled on healthy diet and regular exercise - Fall avoidance information provided - Personalized prevention plan provided - Discussed need for and benefit of weight loss. BMI 33.19 kg/(m2) - RSV vaccine at his pharmacy.[facility]02-07-2024 History of Present illness Narrative* Quentin Álvarez MD - 11/07/2023 2:20 PM EST This note was created using OneMorePallet. Subjective Olivia Briscoe is a 83 year old male. He felt well, and did not pursue urology consult. His hypertension was controlled. He was on unrecalled eye drops, possibly prednisolone. He was seen a few weeks ago for RSV. CXR showed hiatal hernia. He gave a history of rare episodes of significant dyspnea when ill with cough, that felt like his airway was being cutoff. We discussed pulmonary function testing and pulmonary consult. He recalled being evaluated by pulmonary in the past, and review of records did show evaluation by Dr. Cody Monk with conclusion of diastolic congestive heart failure. Review of Systems Constitutional: Negative for fatigue and fever. Respiratory: Negative for cough, chest tightness, shortness of breath and wheezing. Cardiovascular: Negative for chest pain, palpitations and leg swelling. Genitourinary: Negative for decreased urine volume, difficulty urinating and dysuria. Neurological: Negative for dizziness and headaches. 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 [facility] multivitamin tablet Take 1 tablet by mouth once daily. No current facility-administered medications for this visit. Objective BP 110/62 (BP Site: Left Arm, BP Position: Sitting, BP Cuff Size: Large Adult) Pulse 68 Temp 36.9 C (98.4 F) (Temporal) Resp 16 Wt 93.4 kg (206 lb) BMI 32.65 kg/m Physical Exam Constitutional: General: He is not in acute distress. Appearance: He is obese. HENT: Head: Normocephalic. Eyes: Conjunctiva/sclera: Conjunctivae normal. Cardiovascular: Rate and Rhythm: Normal rate and regular rhythm. Heart sounds: No murmur heard. No gallop. Pulmonary: Breath sounds: No wheezing, rhonchi or rales. Chest: Chest wall: No tenderness. Abdominal: Tenderness: There is no abdominal tenderness. Musculoskeletal: Right lower leg: No edema. Neurological: Mental Status: He is alert. Assessment and Plan 1. Paroxysmal dyspnea - ICD9: 786.09, ICD10: R06.00 (primary diagnosis) Infrequent. I reviewed pulmonary consult 3 years ago. Observe only for now. 2. Primary hypertension - ICD9: 401.9, ICD10: I10 - Controlled - Continue current medications - Encouraged sodium restriction, DASH or Mediterranean diet - CBC - LIPID PANEL BASIC 3. Hiatal hernia - ICD9: 553.3, ICD10: K44.9 - It is doubtful this is causing symptoms. 4. Stage 3a chronic kidney disease (HCC) - ICD9: 585.3, ICD10: N18.31 - eGFR: 53 Stable - Counseled on avoiding NSAIDs, adequate hydration - COMP METABOLIC PANEL 5. Need for vaccination - ICD9: V05.9, ICD10: Z23 - PNEUMOCOCCAL VACCINE, 20 VALENT (PREVNAR 20) Quentin Álvarez MD documented in this encounterVeter[facility] Administration01-27-2024 History of Present illness Narrative* Dwain Heath, RT(R) - 10/27/2023 11:50 AM EST Radiology Service Progress Note PATIENT NAME: Olivia Briscoe DATE OF SERVICE: October 27, 2023 TIME: 11:40 AM PATIENT IDENTITY VERIFICATION COMPLETED USING TWO (2) IDENTIFIERS: Name and Date of confirmedby patient verbally. FALL SCREENING: Has the patient had 2 falls in the last year or 1 fall with injury or currently using an Ambulatory Assistive Device (Walker, Cane, Wheelchair, Crutches, etc.)? No PATIENT GENDER DATA: Male PATIENT RELEVANT IMPLANT DATA REVIEWED: Not Applicable PATIENT PRESENTS WITH AN IMPLANTABLE OR ATTACHED CARD DEALER: No RADIOLOGY DEPARTMENT: General X-ray: Exam(s) Completed: Chest X-Ray PERIPHERAL IV DATA: Not applicable SIGNED BY: RT Juan David(R) October 27, 2023 11:51 AM documented in this encounterVeterans Health Administration08-04-2023 Miscellaneous Notes* Telephone Encounter - Beth Barbosa RN - 05/04/2023 5:01 PM EDT Patient's calls and states that patient goes to [facility] Dr. Bartolome Pham OD [address] [facility] [place] [address]. [phone] Phone. [facility] is where work for cataract surgery plus follow up from glaucoma is done. Dr. Yaya Schaffer was the doctor who will do procedure. Beth Barbosa RN documented in this encounterVeterans Health Administration05-03-2023 History of Present illness Narrative* Quentin Álvarez MD - 01/31/2023 3:17 PM EDT This note was created using Snapflowriter. Subjective Olivia Briscoe is a 82 year old male. He was doing reasonably well. His blood pressure was controlled when checked at home. Water intake was adequate. His pacemaker reportedly had a few more years. Review of Systems Constitutional: Negative for fatigue and fever. Respiratory: Negative for chest tightness and shortness of breath. Cardiovascular: Negative for chest pain, palpitations and leg swelling. Genitourinary: Negative for difficulty urinating and dysuria. Musculoskeletal: Negative. Neurological: Negative for dizziness and headaches. ACTIVE PROBLEM LIST Personal History of Colonic Polyps Obesity (Bmi 30-39.9) Pacemaker Ckd (Chronic Kidney Disease), Stage Iii (Hcc) Hypertension Current Outpatient Medications Medication Sig multivitamin tablet Take 1 tablet by mouth once daily. lisinopril (ZESTRIL, PRINIVIL) 10 mg tablet Take 1 tablet by mouth once daily. No current facility-administered medications for this visit. Objective BP 118/62 (BP Site: Right Arm, BP Position: Sitting, BP Cuff Size: Large Adult) Pulse 64 Resp 16 Ht 169.2 cm (5' 6.6) Wt 94.3 kg (208 lb) BMI 32.97 kg/m Physical Exam Constitutional: Appearance: He is not ill-appearing. Cardiovascular: Rate and Rhythm: Normal rate and regular rhythm. Heart sounds: No murmur heard. No gallop. Pulmonary: Breath sounds: Normal breath sounds. Musculoskeletal: Right lower leg: No edema. Left lower leg: No edema. Neurological: General: No focal deficit present. Mental Status: He is alert. Component Latest Ref Rng & Units 01/23/2023 WBC 3.70 - 11.00 k/uL 8.37 RBC 4.20 - 6.00 m/uL 4.80 Hemoglobin 13.0 - 17.0 g/dL 14.9 Hematocrit 39.0 - 51.0 % 45.3 MCV 80.0 - 100.0 fL 94.4 MCH 26.0 - 34.0 pg 31.0 MCHC 30.5 - 36.0 g/dL 32.9 RDW-CV 11.5 - 15.0 % 12.9 Platelet Count 150 - 400 k/uL 257 MPV 9.0 - 12.7 fL 10.7 Absolute nRBC <0.01 k/uL <0.01 Glucose 74 - 99 mg/dL 96 BUN 9 - 24 mg/dL 24 Creatinine 0.73 - 1.22 mg/dL 1.45 (H) Sodium 136 - 144 mmol/L 138 Potassium 3.7 - 5.1 mmol/L 5.2 (H) Chloride 97 - 105 mmol/L 104 CO2 22 - 30 mmol/L 23 Anion Gap 9 - 18 mmol/L 11 Calcium 8.5 - 10.2 mg/dL 9.3 eGFR >=60 mL/min/1.73m 48 (L) Assessment and Plan 1. Medicare annual wellness visit, subsequent - ICD9: V70.0, ICD10: Z00.00 (primary diagnosis) See wellness visit. 2. Stage 3a chronic kidney disease (HCC) - ICD9: 585.3, ICD10: N18.31 - eGFR: Worsening - Counseled on avoiding regular use of NSAIDs, adequate hydration, potential risk of IV dye - BASIC METABOLIC PNL - US KIDNEY/BLADDER - Reduce LISINOPRIL to 5 MG. 3. Obesity, Class I, BMI 30-34.9 - ICD9: 278.00, ICD10: E66.9 Stable - Behavioral intervention 4. Primary hypertension - ICD9: 401.9, ICD10: I10 - good control - Decrease lisinopril (Zestril/Prinivil) - Reviewed risks of HTN and principles of treatment - Goal of BP <130/80 - LISINOPRIL 5 MG TABLET 5. Screening for glaucoma - ICD9: V80.1, ICD10: Z13.5 Last eye exam 20 years ago? - CONSULT TO OPHTHALMOLOGY Quentin Álvarez MD * Quentin Álvarez MD - 01/31/2023 2:56 PM EDT Medicare Yearly Visit Medical B eligibilty date 03/31/2005 Date of last exam NA PAST MEDICAL HISTORY Diagnosis Date Chronic diastolic CHF (congestive heart failure) (HCC) 08/01/2021 Chronic superficial gastritis without bleeding History: EGD proven in 11/2016 Assessment: stable Plan: continue home PPI CKD (chronic kidney disease), stage III (HCC) Colon polyps 07/28/2010 polypectomy 2002, 2004 (Dr. Verdin); negative in 2006 FH of colon cancer (father) Complete heart block (HCC) Dr. Couch Diverticulitis [address] Larose Enlarged prostate 2006 has subsided-was taking flomax Family history of malignant neoplasm of gastrointestinal tract Hiatal hernia Hypertension Hypertrophy of prostate with urinary obstruction and other lower urinary tract symptoms (LUTS) 07/28/2010 Symptoms only with Sudafed, otherwise does well Obesity Pacemaker Personal history of colonic polyps Pneumonitis 05/04/2021 Seborrheic keratoses PAST SURGICAL HISTORY Procedure Laterality Date COLONOSCOPY /2006 COLONOSCOPY 11/28/2016 COLONOSCOPY FLX DX W/COLLJ SPEC WHEN PFRMD 08/15/2010 Normal EGD 11/28/2016 PACEMAKER INSERTION DUAL CHAMB 04/23/2017 TONSILLECTOMY PRIMARY/SECONDARY <AGE 12 Tonsillectomy ALLERGIES: Chicken Derived and Fish Containing Products Medications reviewed: Yes FAMILY HISTORY Problem Relation Age of Onset Colon Cancer Father age 75 SOCIAL HISTORY: Social History Tobacco Use Smoking status: Former Packs/day: 0.50 Types: Cigarettes Quit date: 1961 Years since quittin.3 Smokeless tobacco: Never Tobacco comments: 1961 quit Substance Use Topics Alcohol use: No Drug use: No Olivia denies regular aerobic exercise. He watches his diet for sodium, low fat and low cholesterol most of the time. List of current specialists seen: Dr. Mildred Couch, cardiology. End of Live Planning discussed including patients advanced directive wishes: Yes I am willing to follow Olivia's advanced directives when made. PHQ-2 / Depression screen He in the past two weeks denies having felt down, depressed, hopeless, or with little interest or pleasure in doing things. Functional Ability/Safety Screen 1. Was the patient's timed Up and Go test unsteady or longer than 30 seconds? No 2. Does the patient need help with the phone, transportation, shopping,preparing meals, housework, laundry, medications or managing money? No 3. Does your home have rugs in the hallway, lack of grab bars in the bathroom, lack of handrails onthe stairs or have poor lighting? No Hearing Evaluation: normal PHYSICAL EXAM BP 118/62 (BP Site: Right Arm, BP Position: Sitting, BP Cuff Size: Large Adult) Pulse 64 Resp 16 Ht 169.2 cm (5' 6.6) Wt 94.3 kg (208 lb) BMI 32.97 kg/m Alert and oriented X 3: YES Body mass index is 32.97 kg/m . Visual acuity: OD: 20/100 OS: 20/ 100 OU: 20/100 The Mini Cog(c): Word recall=2/3 + Clock drawing=2/2=4/5. (<3 is positive). ASSESSMENT/PLAN: 82 year old male The following prevention plan was discussed during the office visit and provided to the patient: - Counseled on healthy diet and regular exercise - Discussed need for and benefit of weight loss. BMI 32.97 kg/(m^2) - Fall avoidance - Vaccines recommended Shingrix at pharmacy - Depression screening - Glaucoma screening Quentin Álvarez MD documented in this encounterVeterans Health Administration11-02-2022 Instructions* Patient Instructions* Quentin Álvarez MD - 08/02/2022 10:02 AM EDT BLOOD WORK IN 6 MONTHS. documented in this encounterVeterans Health Administration11-02-2022 History of Present illness Narrative* Quentin Álvarez MD - 08/02/2022 9:41 AM EDT This note was created using Callvineter. Subjective Patient presents with: Establish Care Olivia Briscoe is a 82 year old male. He had no concerns. He was taking only lisinopril, and hoping to get off medication in the future. He sees Dr. Couch for cardiology and was being seen only once a year. He had prolonged dyspnea, treated for pneumonitis, referred to pulmonary and found to havesome diastolic congestive heart failure by pulmonary but symptoms improved with no specific treatment. Review of Systems Constitutional: Negative. HENT: Negative. Eyes: Negative. Respiratory: Negative. Cardiovascular: Negative. Gastrointestinal: Negative. Genitourinary: Negative. Musculoskeletal: Negative. PAST MEDICAL HISTORY Diagnosis Date Chronic diastolic CHF (congestive heart failure) (HCC) 08/01/2021 Chronic superficial gastritis without bleeding History: EGD proven in 11/2016 Assessment: stable Plan: continue home PPI CKD (chronic kidney disease), stage III (HCC) Colon polyps 07/28/2010 polypectomy 2002, 2004 (Dr. Verdin); negative in 2006 FH of colon cancer (father) Complete heart block (HCC) Dr. Couch Diverticulitis [address] Larose Enlarged prostate 2006 has subsided-was taking flomax Family history of malignant neoplasm of gastrointestinal tract Gastritis Hiatal hernia Hypertension Hypertrophy of prostate with urinary obstruction and other lower urinary tract symptoms (LUTS) 07/28/2010 Symptoms only with Sudafed, otherwise does well Obesity Pacemaker Personal history of colonic polyps Pneumonitis 05/04/2021 Reflux esophagitis Seborrheic keratoses PAST SURGICAL HISTORY Procedure Laterality Date COLONOSCOPY COLONOSCOPY 11/28/2016 COLONOSCOPY FLX DX W/COLLJ SPEC WHEN PFRMD 08/15/10 Normal EGD 11/28/2016 TONSILLECTOMY PRIMARY/SECONDARY <AGE 12 Tonsillectomy Social History Tobacco Use Smoking status: Former Packs/day: 0.50 Types: Cigarettes Quit date: 1961 Years since quittin.8 Smokeless tobacco: Never Tobacco comments: 1961 quit Substance Use Topics Alcohol use: No Drug use: No ALLERGIES Allergen Reactions Chicken Derived Swelling Certain chicken and how it's cooked Fish Containing Pro* Intolerance Current Outpatient Medications Medication Sig [START ON 11/02/2022] lisinopril (ZESTRIL, PRINIVIL) 10 mg tablet Take 1 tablet by mouth once daily. No current facility-administered medications for this visit. Objective BP 116/74 (BP Site: Right Arm, BP Position: Sitting, BP Cuff Size: Large Adult) Pulse 68 Temp 36.4 C (97.5 F) (Temporal) Resp 16 Ht 169.5 cm (5' 6.75) Wt 94.3 kg (208 lb) BMI 32.82 kg/m Physical Exam Constitutional: Appearance: Normal appearance. HENT: Head: Normocephalic. Eyes: Extraocular Movements: Extraocular movements intact. Conjunctiva/sclera: Conjunctivae normal. Cardiovascular: Rate and Rhythm: Normal rate and regular rhythm. Heart sounds: No murmur heard. No gallop. Pulmonary: Effort: Pulmonary effort is normal. Breath sounds: Normal breath sounds. Abdominal: Palpations: Abdomen is soft. Tenderness: There is no abdominal tenderness. Musculoskeletal: Right lower leg: No edema. Left lower leg: No edema. Lymphadenopathy: Cervical: No cervical adenopathy. Neurological: General: No focal deficit present. Mental Status: He is alert and oriented to person, place, and time. Gait: Gait abnormal. Psychiatric: Attention and Perception: Attention normal. Mood and Affect: Affect is flat. Speech: Speech normal. Assessment and Plan ASSESSMENT/PLAN: 1. Primary hypertension - ICD9: 401.9, ICD10: I10 (primary diagnosis) - good control - Continue current medication(s) - Discussed need and benefit for weight loss. - Reviewed risks of HTN and principles of treatment - Goal of BP <130/80 2. Stage 3a chronic kidney disease (HCC) - ICD9: 585.3, ICD10: N18.31 - eGFR: Stable - Counseled on avoiding regular use of NSAIDs, adequate hydration, potential risk of IV dye - CBC - BASIC METABOLIC PNL 3. Obesity (BMI 30-39.9) - ICD9: 278.00, ICD10: E66.9 Newly diagnosed - Behavioral intervention 4. Complete heart block (HCC) - ICD9: 426.0, ICD10: I44.2 S/p PPM. Quentin Álvarez MD documented in this encounterVeterans Health Administration10-17-2022 Miscellaneous Notes* Telephone Encounter - Beth Barbosa RN - 07/17/2022 8:09 AM EDT Last Office Visit: 01/30/2022 Future Office Visit: 08/02/2022 Last Medication Refill: Lisinopril 04/11/2022 90 tab 0 refill Date of Last Labs: 01/30/2022 documented in this encounterVeterans Health Administration05-03-2022 Miscellaneous Notes* Telephone Encounter - Frances Peña RN - 01/31/2022 9:45 AM EDT Phoned patient and given provider's message below with verbalized understanding. Patient will call back to schedule lab appt. Sent provider message to patient's MC, per patient request. * Telephone Encounter - Katerin Lerma APRN.JAYA - 01/31/2022 8:48 AM EDT Please call patient and let him know his total cholesterol and LDL ( bad cholesterol) has increasedfrom last check. Recommend low fat diet and should exercise at least 150 minutes per week. Potassium level mildly elevated. I would recommend we recheck. Ihave placed order, please assist in scheduling lab appointment. Kidney function slightly decreased from last check- continue to eat low salt diet, stay well hydrated and avoid NSAID products. Thanks, Katerin Lerma APRN.CNP documented in this encounterVeterans Health Administration05-02-2022 History of Present illness Narrative* Katerin Lerma APRN.CNP - 01/30/2022 8:44 AM EDT 01/30/2022 Patient presents with: F/U 6 months: medication refills SUBJECTIVE: This is a 81 year old that is here today for Above Complaints. Since last office visit has been in good health without ER visits or hospitalizations. HTN: Patient is compliant with meds Yes Monitors bp at home: Yes. Denies side effects: Yes. Chest pain: No. Dyspnea: No. Edema: No. Palpitations: No. Syncope: No. Headache: No. Dizziness: No. HEART: Has upcoming follow-up with [facility]. Denies SOB, dyspnea, orthopnea, chest pain,palpitations, or leg edema CKD: reports eating low salt diet and avoids NSAID products Wants to switch PCP's. Patient reports Dr. Og put something his chart about his scientologist Had colonoscopy about 2 weeks ago. He reports findings were normal and told this is the last one heneeds to have. PAST MEDICAL HISTORY Diagnosis Date CKD (chronic kidney disease), stage III (HCC) Complete heart block (HCC) Dr. Couch Diverticulitis [address] Larose Enlarged prostate 2006 has subsided-was taking flomax Family history of malignant neoplasm of gastrointestinal tract Gastritis Hiatal hernia Hypertension Obesity Pacemaker Personal history of colonic polyps Reflux esophagitis Seborrheic keratoses ALLERGIES Chicken Derived and Fish Containing Products MEDICATIONS Current Outpatient Medications Medication Sig lisinopril (ZESTRIL, PRINIVIL) 10 mg tablet Take 1 tablet by mouth once daily. aspirin, enteric coated (ASPIRIN, ENTERIC COATED) 81 mg EC tablet Take 81 mg by mouth once daily. (Patient not taking: Reported on 05/10/2021 ) No current facility-administered medications for this visit. Medications and allergies reviewed by this provider. SOCIAL HISTORY Social History Tobacco Use Smoking status: Former Smoker Packs/day: 0.50 Types: Cigarettes Quit date: 1961 Years since quittin.3 Smokeless tobacco: Never Used Tobacco comment: 1962 quit Substance Use Topics Alcohol use: No Drug use: No REVIEW OF SYSTEMS All other reviewed and negative other than HPI. OBJECTIVE: BP 122/64 Pulse 71 Resp 18 Wt 94.6 kg (208 lb 9.6 oz) SpO2 99% BMI 30.80 kg/m . Vital signs reviewed by this provider. APPEARANCE Well appearing, alert, in no acute distress, well-hydrated, well nourished. EYES conjunctiva and sclera normal. HEART RRR with normal S1 and S2, no murmurs, no gallops, no JVD appreciated LUNG clear to auscultation. No wheezes, rhonchi, or rales EXTREMITIES Extremities normal, No deformities, No skin discoloration and No edema SKIN Skin color, texture, turgor normal, no suspicious rashes or lesions to exposed skin Component Latest Ref Rng & Units 12/20/2020 Protein, Total 6.3 - 8.0 g/dL 6.9 Albumin 3.9 - 4.9 g/dL 4.2 Calcium 8.5 - 10.2 mg/dL 8.9 Bilirubin, Total 0.2 - 1.3 mg/dL 0.7 Alkaline Phosphatase 38 - 113 U/L 85 AST 14 - 40 U/L 15 Glucose 74 - 99 mg/dL 77 BUN 9 - 24 mg/dL 22 Creatinine 0.73 - 1.22 mg/dL 1.24 (H) Sodium 136 - 144 mmol/L 141 Potassium 3.7 - 5.1 mmol/L 4.9 Chloride 97 - 105 mmol/L 106 (H) CO2 22 - 30 mmol/L 25 Anion Gap 9 - 18 mmol/L 10 ALT 10 - 54 U/L 12 eGFR- >60 eGFR-All Other Races . 56 Total Cholesterol, Nonfasting <200 mg/dL 176 Triglycerides, Nonfasting <150 mg/dL 142 HDL Cholesterol, Nonfasting >39 mg/dL 43 LDL Cholesterol, Nonfasting <100 mg/dL 105 (H) Non HDL Cholesterol, Nonfasting <130 mg/dL 133 (H) VLDL Cholesterol, Nonfasting <30 mg/dL 28 Total Chol/HDL Ratio, Nonfasting <5.10 mg/dL 4.09 LDL/HDL Ratio, Nonfasting <2.54 mg/dL 2.44 SHINGRIX VACCINE(2 of 2) due on 05/14/2018 ADVANCE DIRECTIVE DISCUSSION Never done COVID-19 VACCINE(3 - Booster for Moderna series) due on 03/06/2022 INFLUENZA(Season Ended) due on 06/01/2022 DIABETES SCREEN due on 12/21/2023 DTAP,TDAP,TD(2 - Td or Tdap) due on 03/19/2028 PNEUMOVAX AGE 65 AND OVER WITH 5YR LOOKBACK Addressed MENINGOCOCCAL CONJUGATE Aged Out ASSESSMENT/PLAN: 1. Hypertension, essential - ICD9: 401.9, ICD10: I10 (primary diagnosis) - good control - Continue current medication(s) - Encouraged dietary sodium restriction/DASH diet - Recommended regular aerobic exercise. - Recommend home blood pressure monitoring, to bring results in on next visit - Discussed need and benefit for weight loss. - Recheck in 6 months, sooner should new symptoms or problems arise. Discussed with patient he can make appointment to establish care for his next visit. Patient is thinking about changing to Dr. Álvarez - Goal of BP <130/80 - LIPID PANEL BASIC - COMP METABOLIC PANEL 2. Screening for hyperlipidemia - ICD9: V77.91, ICD10: Z13.220 - LIPID PANEL BASIC 3. Stage 3a chronic kidney disease (HCC) - ICD9: 585.3, ICD10: N18.31 - continue to eat low salt diet and avoid NSAID products - COMP METABOLIC PANEL 4. Complete heart block (HCC) - ICD9: 426.0, ICD10: I44.2 - follow-up with cardiology as scheduled Katerin Lerma APRN.JAYA Prescription instructions reviewed with patient as applicable. Patient advised if symptoms do not improve or if symptoms worsen sooner, to contact their primary care physician. Potential red flag symptoms discussed with the patient. Reviewed appropriate action plan to take if red flag symptoms occur. Patient agreeable to treatment plan. documented in this encounterVeterans Health Administration04-27-2022 Miscellaneous Notes* Telephone Encounter - Lorrie Xiao LPN - 01/25/2022 8:15 AM EDT Spoke with pt and scheduled for a follow up. Lorrie Xiao LPN * Telephone Encounter - Katerin Lerma APRN.CNP - 01/25/2022 7:50 AM EDT If he is going to stay on with us he is due for follow-up. Please assist in scheduling. Katerin Lerma APRN.CNP * Telephone Encounter - MARY KAY Mccullough - 01/24/2022 3:52 PM EDT TC to patient who was given providers message below. Patient says the he is wanting to find a new provider but the one he was planning on seeing is no longer accepting patients. Asked patient if he was still planning on changing to a new provider for which he says yes I am, but I haven't been looking so I'm still with you guys. Please advise. Thank you. MARY KAY Mccullough * Telephone Encounter - Katerin Lerma APRN.CNP - 01/24/2022 2:59 PM EDT Patient reported he wanted to see new doctor at last appointment. Can't refill medications if he isnot going to see us. Could give short term supply until he gets in to see someone else. Thanks, Katerin Lerma APRN.CNP * Telephone Encounter - Armida Bullock - 01/24/2022 1:06 PM EDT Patient has been identified by name and date of : Yes Pending Prescriptions Disp Refills LISINOPRIL 10 MG TABLET 90 tablet 1 Sig: Take 1 tablet by mouth once daily. CONCHIS: No RX INSTRUCTIONS: Patient aware RX will be sent to pharmacy. No need to notify patient. Armida Bullock documented in this encounterVeterans Health Administration09-02-2021 History of Present illness Narrative* Alecia Sargent RT(R) - 06/02/2021 2:00 PM EDT Radiology Service Progress Note PATIENT NAME: Olivia Briscoe DATE OF SERVICE: June 02, 2021 TIME: 1:53 PM PATIENT IDENTITY VERIFICATION COMPLETED USING TWO (2) IDENTIFIERS: Name and Date of confirmedby patient verbally. FALL SCREENING: Has the patient had 2 falls in the last year or 1 fall with injury or currently using an Ambulatory Assistive Device (Walker, Cane, Wheelchair, Crutches, etc.)? No PATIENT GENDER DATA: Male PATIENT RELEVANT IMPLANT DATA REVIEWED: Yes RADIOLOGY DEPARTMENT: General X-ray: Exam(s) Completed: Chest X-Ray PERIPHERAL IV DATA: Not applicable SIGNED BY: RT Esther(Brad) June 02, 2021 1:53 PM documented in this encounterV[facility] Administration08-20-2021 History of Present illness Narrative* Alecia Sargent RT(R) - 05/20/2021 3:20 PM EDT Radiology Service Progress Note PATIENT NAME: Olivia Briscoe DATE OF SERVICE: May 20, 2021 TIME: 3:34 PM PATIENT IDENTITY VERIFICATION COMPLETED USING TWO (2) IDENTIFIERS: Name and Date of confirmedby patient verbally. FALL SCREENING: Has the patient had 2 falls in the last year or 1 fall with injury or currently using an Ambulatory Assistive Device (Walker, Cane, Wheelchair, Crutches, etc.)? No PATIENT GENDER DATA: Male PATIENT RELEVANT IMPLANT DATA REVIEWED: Yes RADIOLOGY DEPARTMENT: General X-ray: Exam(s) Completed: Chest X-Ray PERIPHERAL IV DATA: Not applicable SIGNED BY: RT Esther(Brad) May 20, 2021 3:34 PM documented in this encounterVeter[facility] Health Administration07-24-2017 History of Past illness Narrative* Problem Noted Date Diagnosed Date Resolved Date Obesity (BMI 30-39.9) 04/23/20172023 SUMMARY 04/22/2017 08/02/2022 Overview: Presentation/Indication for admission/procedure: Complete heart block PMH/PSH: GERD Procedure/OR performed (including complications): Temporary RIJ pacer in place (ventricular pacing) Brief Hospital Course/Narrative: 04/20/2017: admitted for CHB 2017: temp pacemaker RIJ placed 04/22/2017: stable, no acute events, awaiting PPM placement on Sunday (04/23) Active Issues/New Events (dated): LVEF: 62% RVF: normal Impression/Plan: see below Complete heart block 04/20/2017 022 Overview: History: incidental finding during OP visit, asymptomatic, bradycardic in the 30s with escape rhythm. Assessment: CHB w/ wide escape rhythm, now s/p placement of PPM. Also had CXR and device check. Plan: - Device check and CXR completed. - stable for dc today. RAZIA (acute kidney injury) 04/20/2017 Dysphagia 11/09/2016 2017 Encounter for screening colonoscopy 11/09/2016 2017 Hypertrophy of prostate with urinary obstruction and other lower urinary tract symptoms (LUTS) 07/28/2010 08/02/2022 Overview: Symptoms only with Sudafed, otherwise does well Colon polyps 07/28/2010 08/02/2022 Overview: polypectomy 2002, 2004 (Dr. Verdin); negative in 2006 FH of colon cancer (father) Obesity 07/28/2010 11/25/2018 Chronic superficial gastriti s without bleeding 08/02/2022 Overview: History: EGD proven in 11/2016 Assessment: stable Plan: continue home PPI Reflux esophagitis documented as of this encounter (statuses as of 11/08/2023) [facility] History of Past illness Narrative* Problem Noted Date Resolved Date SUMMARY 04/22/2017 08/02/2022 Overview: Presentation/Indication for admission/procedure: Complete heart block PMH/PSH: GERD Procedure/OR performed (including complications): Temporary RIJ pacer in place (ventricular pacing) Brief Hospital Course/Narrative: 04/20/2017: admitted for CHB 2017: temp pacemaker RIJ placed 04/22/2017: stable, no acute events, awaiting PPM placement on Sunday (04/23) Active Issues/New Events (dated): LVEF: 62% RVF: normal Impression/Plan: see below Complete heart block 04/20/2017 08/02/2022 Overview: History: incidental finding during OP visit, asymptomatic, bradycardic in the 30s with escape rhythm. Assessment: CHB w/ wide escape rhythm, now s/p placement of PPM. Also had CXR and device check. Plan: - Device check and CXR completed. - stable for dc today. RAZIA (acute kidney injury) 04/20/20172016 Dysphagia 11/09/2016 2017 Encounter for screening colonoscopy 11/09/2016 2017 Hypertrophy of prostate with urinary obstruction and other lower urinary tract symptoms (LUTS) 07/28/2010 08/02/2022 Overview: Symptoms only with Sudafed, otherwise does well Colon polyps 07/28/2010 08/02/2022 Overview: polypectomy 2002, 2004 (Dr. Verdin); negative in 2006 FH of colon cancer (father) Obesity 07/28/2010 11/25/2018 Chronic superficial gastritis without bleeding 08/02/2022 Overview: History: EGD proven in 11/2016 Assessment: stable Plan: continue home PPI Reflux esophagitis 08/02/2022 documented as of this encounter (statuses as of 08/03/2022) [facility] of Past illness Narrative* Problem Noted Date Resolved Date SUMMARY 04/22/2017 08/02/2022 Overview: Presentation/Indication for admission/procedure: Complete heart block PMH/PSH: GERD Procedure/OR performed (including complications): Temporary RIJ pacer in place (ventricular pacing) Brief Hospital Course/Narrative: 04/20/2017: admitted for CHB 2017: temp pacemaker RIJ placed 04/22/2017: stable, no acute events, awaiting PPM placement on Sunday (04/23) Active Issues/New Events (dated): LVEF: 62% RVF: normal Impression/Plan: see below Complete heart block 04/20/2017 08/02/2022 Overview: History: incidental finding during OP visit, asymptomatic, bradycardic in the 30s with escape rhythm. Assessment: CHB w/ wide escape rhythm, now s/p placement of PPM. Also had CXR and device check. Plan: - Device check and CXR completed. - stable for dc today. RAZIA (acute kidney injury) 04/20/20172016 Dysphagia 11/09/2016 2017 Encounter for screening colonoscopy 11/09/2016 2017 Hypertrophy of prostate with urinary obstruction and other lower urinary tract symptoms (LUTS) 07/28/2010 08/02/2022 Overview: Symptoms only with Sudafed, otherwise does well Colon polyps 07/28/2010 08/02/2022 Overview: polypectomy 2004 (Dr. Verdin); negative in 2006 FH of colon cancer (father) Obesity 07/28/2010 11/25/2018 Chronic superficial gastritis without bleeding 08/02/2022 Overview: History: EGD proven in 11/2016 Assessment: stable Plan: continue home PPI Reflux esophagitis 08/02/2022 documented as of this encounter (statuses as of 02/01/2023) [facility] History of Past illness Narrative* Problem Noted Date Diagnosed Date Resolved Date SUMMARY 04/22/2017 08/02/2022 Overview: Presentation/Indication for admission/procedure: Complete heart block PMH/PSH: GERD Procedure/OR performed (including complications): Temporary RIJ pacer in place (ventricular pacing) Brief Hospital Course/Narrative: 04/20/2017: admitted for CHB 2017: temp pacemaker RIJ placed 04/22/2017: stable, no acute events, awaiting PPM placement on Sunday (04/23) Active Issues/New Events (dated): LVEF: 62% RVF: normal Impression/Plan: see below Complete heart block 04/20/2017 022 Overview: History: incidental finding during OP visit, asymptomatic, bradycardic in the 30s with escape rhythm. Assessment: CHB w/ wide escape rhythm, now s/p placement of PPM. Also had CXR and device check. Plan: - Device check and CXR completed. - stable for dc today. RAZIA (acute kidney injury) 04/20/2017 Dysphagia 11/09/2016 2017 Encounter for screening colonoscopy 11/09/2016 2017 Hypertrophy of prostate with urinary obstruction and other lower urinary tract symptoms (LUTS) 07/28/2010 08/02/2022 Overview: Symptoms only with Sudafed, otherwise does well Colon polyps 07/28/2010 08/02/2022 Overview: polypectomy 2002, 2004 (Dr. Verdin); negative in 2006 FH of colon cancer (father) Obesity 07/28/2010 11/25/2018 Chronic superficial gastriti s without bleeding 08/02/2022 Overview: History: EGD proven in 11/2016 Assessment: stable Plan: continue home PPI Reflux esophagitis documented as of this encounter (statuses as of 05/08/2023) [facility] History of Past illness Narrative* Problem Noted Date Resolved Date RAZIA (acute kidney injury) 04/20/20172016 Dysphagia 11/09/2016 2017 Encounter for screening colonoscopy 11/09/2016 2017 Obesity 07/28/2010 11/25/2018 documented as of this encounter (statuses as of 01/25/2022) [facility] History of Past illness Narrative* Problem Noted Date Resolved Date RAZIA (acute kidney injury) 04/20/20172016 Dysphagia 11/09/2016 2017 Encounter for screening colonoscopy 11/09/2016 2017 Obesity 07/28/2010 11/25/2018 documented as of this encounter (statuses as of 01/30/2022) [facility] History of Past illness Narrative* Problem Noted Date Resolved Date RAZIA (acute kidney injury) 04/20/20172016 Dysphagia 11/09/2016 2017 Encounter for screening colonoscopy 11/09/2016 2017 Obesity 07/28/2010 11/25/2018 documented as of this encounter (statuses as of 01/31/2022) [facility] of Past illness Narrative* Problem Noted Date Resolved Date RAZIA (acute kidney injury) 04/20/20172016 Dysphagia 11/09/2016 2017 Encounter for screening colonoscopy 11/09/2016 2017 Obesity 07/28/2010 11/25/2018 documented as of this encounter (statuses as of 07/17/2022) [facility] [place] [facility]* Diagnosis Hypertension, essential Unspecified essential hypertension documented [facility] this encounter [facility]* Diagnosis Hypertension, essential- Primary Unspecified essential hypertension Screening for hyperlipidemia Screening for lipoid disorders Stage 3a chronic kidney disease (HCC) Complete heart block (HCC) Atrioventricular block, complete [facility] encounter [facility]* Diagnosis Hyperkalemia- Primary [facility]potassemia [facility] Diagnosis Hypertension, essential Unspecified essential hypertension [facility] Diagnosis Primary hypertension- Primary Unspecified essential hypertension Stage 3a chronic kidney disease (HCC) Obesity (BMI 30-39.9) Obesity, unspecified Complete heart block (HCC) Atrioventricular block, complete [facility]* Diagnosis Medicare annual wellness visit, subsequent- Primary Routine general medical examination at a health care facility Stage 3a chronic kidney disease (HCC) Obesity, Class I, BMI 30-34.9 Obesity, unspecified Primary hypertension Unspecified essential hypertension Screening for glaucoma [facility]* Diagnosis Paroxysmal dyspnea- Primary Other dyspnea and respiratory abnormality Primary hypertension Unspecified essential hypertension Hiatal hernia Diaphragmatic hernia without mention of obstruction or gangrene Stage 3a chronic kidney disease (HCC) Need for vaccination Need for prophylactic vaccination and inoculation against unspecified single disease documented [facility] encounter [facility] [place] [facility]* Diagnosis Medicare annual wellness visit, subsequent- Primary Routine general medical examination at a health care facility Screening for depression Encounter for screening examination for other mental health and behavioral disorders Primary hypertension Unspecified essential hypertension Stage 3a chronic kidney disease (HCC) Pacemaker Cardiac pacemaker in situ Neck pain, chronic Cervicalgia Thoracogenic scoliosis of thoracic region Thoracogenic scoliosis Diarrhea, unspecified type Memory loss Neck pain, chronic Cervicalgia documented [facility] encounter [facility] [place] [facility]* Diagnosis 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 [facility] [place] [facility]* Diagnosis 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 [facility] [place] [facility]* Diagnosis Cognitive impairment, mild, so stated- Primary Mild cognitive impairment, so stated Memory loss Hearing impaired person, bilateral Sleep apnea, unspecified type [facility] [place] [facility]* Diagnosis Neck pain, chronic Cervicalgia [facility] [place] [facility]* Diagnosis URI, acute Acute upper respiratory infections of unspecified site Acute cough [facility] [place] [facility]* Diagnosis 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 [facility] [place] [facility]* Diagnosis 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 [facility] [place] [facility]* Diagnosis 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 documented in this encounter [facility] note* Diagnosis Cough SOB (shortness of breath) Shortness of breath [facility] [place] [facility]* Diagnosis SOB (shortness of breath) Shortness of breath [facility] [place] [facility]* Diagnosis Acute cough- Primary URI, acute Acute upper respiratory infections of unspecified site Acute cough [facility] [place] [facility]* Diagnosis Acute cough [facility] [place] [facility]* Diagnosis Acute cough- Primary Acute cough documented [facility] this encounter [facility] [place] noteNo assessment information availableBanning General Hospital Work Phone: Reason for referral (narrative)* Diagnostic Procedure Only (Routine) - Authorized Specialty Diagnoses / Procedures Referred By Contac t Referred To Contact US IMAGING Diagnoses Stage 3a chronic kidney disease (HCC) Procedures US KIDNEY/BLADDER US RETROPERITONEAL REAL TIME W/IMAGE COMPLETE Quentin Álvarez MD [address] [place] [address] Us Imaging Referral ID Status Reason Start Date Expiration Date Visits Requested Visits Authorized [id number] Authorized Auto-Generat ed Referral 01/31/2023 03/01/2024 1 1 * Consult, Test, Treat (Routine) - Authorized Specialty Diagnoses / Procedures Referred By Contart t Referred To Contact Ophthalmology Diagnoses Screening for glaucoma Procedures CONSULT TO OPHTHALMOLOGY OFFICE/OUTPATIENT [facility] 60-74 MINUTES Quentin Álvarez MD [address] [place] [id number] Referral ID Status Reason Start Date Expiration Date Visits Requested Visits Authorized [id number] Authorized PCP Requested Referral 01/31/2023 01/31/2024 1 1 [facility] for referral (narrative)* Diagnostic Procedure Only (Routine) - Closed Specialty Diagnoses / Procedures Referred By Nadir t Referred To Contact XR IMAGING Diagnoses Neck pain, chronic Procedures XR CERV OTHER 4V AP/LAT/OBL RADEX SPINE CERVICAL 4 OR 5 VIEWS Quentin Álvarez MD [address] [place] [id number] [place] [address] Referral ID Status Reason Start Date Expiration Date V isits Requested Visits Authorized [id number] Closed Auto-Generate d Referral 05/07/2024 06/06/2025 1 1 [facility] for referral (narrative)No reason for referral information availableBanning General Hospital Work Phone: Reason for visit Narrative* Diagnostic Procedure Only (Routine) - Closed Specialty Diagnoses / Procedures Referred By Contac t Referred To Contact XR IMAGING Diagnoses Neck pain, chronic Procedures XR CERV OTHER 4V AP/LAT/OBL RADEX SPINE CERVICAL 4 OR 5 VIEWS Quentin Álvarez MD [address] [place] [address] [place] [address] Referral ID Status Reason Start Date Expiration Date V isits Requested Visits Authorized [id number] Closed Auto-Generate d Referral 05/07/2024 06/06/2025 1 1 [facility] Summary Purpose Family History No Family History Records Found Relationship Condition Age at Onset Recorded Date/T minal father Malignant neoplasm of colon Unknown Advance Directives No Advanced Directives Records FoundDocuments on File Type Date Recorded Patient Scalemaker Expl anation Advance Directive(s) 04/20/2017 2:30 PM Advance Directive(s) 11/28/2016 1:36 PM Advance Directive Response Recorded Date/ Time Living Will No May 04, 2021 12:16pm Do you have a Healthcare Power of Marine Specialist? No May 04, 2021 12:16pm Health Concerns Infection Onset Date Last Indicated Resolved Time RSV 10/26/2023 10/26/2023 Reason for Referral Specialty Diagnoses / Procedures Referred By Contac t Referred To Contact Gerontology Diagnoses Memory loss Procedures CONSULT TO GERIATRICS OFFICE/OUTPATIENT [facility] 60 MINUTES Quentin Álvarez MD [address] [place] [address] Referral ID Status Reason Start Date Expiration Date Visits Requested Visits Authorized [id number] Authorized PCP Requested Referral 05/07/2024 05/07/2025 1 1 Specialty Diagnoses / Procedures Referred By Contac t Referred To Contact XR IMAGING Diagnoses Neck pain, chronic Procedures XR CERV OTHER 4V AP/LAT/OBL RADEX SPINE CERVICAL 4 OR 5 VIEWS Quentin Álvarez MD [address] [place] [address] [place] [address] Referral ID Status Reason Start Date Expiration Date V isits Requested Visits Authorized [id number] Closed Auto-Generate d Referral 05/07/2024 06/06/2025 1 1 Specialty Diagnoses / Procedures Referred By Contac t Referred To Contact [facility] Diagnoses 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hy or radiculopathy Procedures CONSULT TO PHYSICAL THERAPY PHYSICAL THERAPY EVALUATION HIGH COMPLEX 45 MINS Quentin Álvarez MD [address] [place] [address] [facility] [place] [address] [place] [address] Referral ID Status Reason Start Date Expiration Date Visits Requested Visits Authorized [id number] Authorized PCP Requested Referral Auto-Generate d Referral 05/08/2024 05/08/2025 99 99 Specialty Diagnoses / Procedures Referred By Contac t Referred To Contact Diagnoses Sleep apnea, unspecified type Procedures CONSULT TO SLEEP MEDICINE - ADULT OFFICE/OUTPATIENT [facility] MDM 60 MINUTES Joey Hale MD [address] [place] [address] Referral ID Status Reason Start Date Expiration Date Visits Requested Visits Authorized [id number] Authorized PCP Requested Referral 06/04/2024 06/04/2025 1 1 Specialty Diagnoses / Procedures Referred By Contac t Referred To Contact Diagnoses Memory loss Cognitive impairment, mild, 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, bilateral Procedures HEARING TEST/AUDIOGRAM COMPRE AUDIOMETRY THRESHOLD EVAL SP RECOGNIJ Joey Hale MD [address] [place] [address] [facility] [address] [place] [address] Referral ID Status Reason Start Date Expiration Date Visits Requested Visits Authorized [id number] Authorized Auto-Generat ed Referral 06/04/2024 09/02/2024 1 1 Specialty Diagnoses / Procedures Referred By Contac t Referred To Contact MR IMAGING Diagnoses Cognitive impairment, mild, so stated Procedures MRI 3D POST PROCESSING 3D RENDERING W/INTERP&POSTPROC DIFF WORK STATION Joey Hale MD [facility] [place] [address] [place] [address] Referral ID Status Reason Start Date Expiration Date Visits Requested Visits Authorized [id number] New Request Auto-Generat ed Referral 06/04/2024 07/04/2025 1 1 Specialty Diagnoses / Procedures Referred By Contac t Referred To Contact MR IMAGING Diagnoses Cognitive impairment, mild, so stated Procedures MRI BRAIN W QUANT WO IVCON MRI BRAIN BRAIN STEM W/O CONTRAST MATERIAL Joey Hale MD [address] [facility] [place] [address] [place] [address] Referral ID Status Reason Start Date Expiration Date Visits Requested Visits Authorized [id number] New Request Auto-Generat ed Referral 06/04/2024 07/04/2025 1 1 Chief Complaint and Reason for Visit Chief Complaint Admit Date Pacer Check Remote December 25, 2024 8:3 8am Pacer Check Remote March 26, 2025 9:21 am Chief Complaint Admit Date Pacer Check Remote December 25, 2024 8:3 8am Pacer Check Remote March 26, 2025 9:21 am 1 Y FU April 14, 2025 10:2 9am Chief Complaint Admit Date Pacer Check Remote December 25, 2024 8:3 8am Pacer Check Remote March 26, 2025 9:21 am 1 Y FU April 14, 2025 10:2 9am INT LAB ORDERS April 14, 2025 11:3 3am Reason for Visit Admit Date Dyspnea on exertion April 14, 2025 10:2 9am Nonsustained ventricular tachycardia Ashvin 2024 10:29am Complete heart block April 14, 2025 10: 29am Essential (primary) hypertension April 142024 10:29am History of permanent cardiac pacemaker p lacement April 14, 2025 10:29am Additional Source Comments (unrecognized sect ion and content) No Status Records FoundNo Status Records FoundNo Status Records FoundNo Status Records FoundNo Status Records FoundNo Status Records Found INFORMATION SOURCE (unrecogn ized section and content) DATE CREATED AUTHOR 03/20/2018 [facility] DATE CREATED AUTHOR AUTHOR'S ORGANIZ ATION 01/19/2022 [facility] DATE CREATED AUTHOR AUTHOR'S ORGANIZ ATION 12/20/2022 [facility] DATE CREATED AUTHOR AUTHOR'S ORGANIZ ATION 06/07/2024 [facility] DATE CREATED AUTHOR AUTHOR'S ORGANIZ ATION 05/07/2025 [facility] DATE CREATED AUTHOR AUTHOR'S ORGANIZ ATION 05/09/2025 [facility] Source Comments (unrecognize d section and content) In the event this informatio n is protected by the Federal Confidentiality of Alcohol and Drug Abuse Patient Records regulations: The Federal rules restrict any use of the information to criminally investigate or prosecute any alcohol or drug abuse patient.[facility] AdministrationIn the event this information is protected by the Federal Confidentiality of Alcohol and Drug Abuse Patient Records regulations: The Federal rules restrict any use of the information to criminally investigate or prosecute any alcohol or drug abuse patient.[facility] AdministrationIn the event this information is protected by the Federal Confidentiality of Alcohol and Drug Abuse Patient Records regulations: The Federal rules restrict any use of the information to criminally investigate or prosecute any alcohol or drug abuse patient.[facility] AdministrationIn the event this information is protected by the Federal Confidentiality of Alcohol and Drug Abuse Patient Records regulations: The Federal rules restrict any use of the information to criminally investigate or prosecute any alcohol or drug abuse patient.[facility] AdministrationIn the event this information is protected by the Federal Confidentiality of Alcohol and Drug Abuse Patient Records regulations: The Federal rules restrict any use of the information to criminally investigate or prosecute any alcohol or drug abuse patient.[facility] AdministrationIn the event this information is protected by the Federal Confidentiality of Alcohol and Drug Abuse Patient Records regulations: The Federal rules restrict any use of the information to criminally investigate or prosecute any alcohol or drug abuse patient.[facility] AdministrationIn the event this information is protected by the Federal Confidentiality of Alcohol and Drug Abuse Patient Records regulations: The Federal rules restrict any use of the information to criminally investigate or prosecute any alcohol or drug abuse patient.[facility] AdministrationIn the event this information is protected by the Federal Confidentiality of Alcohol and Drug Abuse Patient Records regulations: The Federal rules restrict any use of the information to criminally investigate or prosecute any alcohol or drug abuse patient.[facility] AdministrationIn the event this information is protected by the Federal Confidentiality of Alcohol and Drug Abuse Patient Records regulations: The Federal rules restrict any use of the information to criminally investigate or prosecute any alcohol or drug abuse patient.[facility] AdministrationIn the event this information is protected by the Federal Confidentiality of Alcohol and Drug Abuse Patient Records regulations: The Federal rules restrict any use of the information to criminally investigate or prosecute any alcohol or drug abuse patient.[facility] AdministrationIn the event this information is protected by the Federal Confidentiality of Alcohol and Drug Abuse Patient Records regulations: The Federal rules restrict any use of the information to criminally investigate or prosecute any alcohol or drug abuse patient.[facility] AdministrationIn the event this information is protected by the Federal Confidentiality of Alcohol and Drug Abuse Patient Records regulations: The Federal rules restrict any use of the information to criminally investigate or prosecute any alcohol or drug abuse patient.[facility] AdministrationIn the event this information is protected by the Federal Confidentiality of Alcohol and Drug Abuse Patient Records regulations: The Federal rules restrict any use of the information to criminally investigate or prosecute any alcohol or drug abuse patient.[facility] AdministrationIn the event this information is protected by the Federal Confidentiality of Alcohol and Drug Abuse Patient Records regulations: The Federal rules restrict any use of the information to criminally investigate or prosecute any alcohol or drug abuse patient.[facility] AdministrationIn the event this information is protected by the Federal Confidentiality of Alcohol and Drug Abuse Patient Records regulations: The Federal rules restrict any use of the information to criminally investigate or prosecute any alcohol or drug abuse patient.[facility] AdministrationIn the event this information is protected by the Federal Confidentiality of Alcohol and Drug Abuse Patient Records regulations: The Federal rules restrict any use of the information to criminally investigate or prosecute any alcohol or drug abuse patient.[facility] AdministrationIn the event this information is protected by the Federal Confidentiality of Alcohol and Drug Abuse Patient Records regulations: The Federal rules restrict any use of the information to criminally investigate or prosecute any alcohol or drug abuse patient.[facility] AdministrationIn the event this information is protected by the Federal Confidentiality of Alcohol and Drug Abuse Patient Records regulations: The Federal rules restrict any use of the information to criminally investigate or prosecute any alcohol or drug abuse patient.[facility] AdministrationIn the event this information is protected by the Federal Confidentiality of Alcohol and Drug Abuse Patient Records regulations: The Federal rules restrict any use of the information to criminally investigate or prosecute any alcohol or drug abuse patient.[facility] AdministrationIn the event this information is protected by the Federal Confidentiality of Alcohol and Drug Abuse Patient Records regulations: The Federal rules restrict any use of the information to criminally investigate or prosecute any alcohol or drug abuse patient.[facility] AdministrationIn the event this information is protected by the Federal Confidentiality of Alcohol and Drug Abuse Patient Records regulations: The Federal rules restrict any use of the information to criminally investigate or prosecute any alcohol or drug abuse patient.[facility] AdministrationIn the event this information is protected by the Federal Confidentiality of Alcohol and Drug Abuse Patient Records regulations: The Federal rules restrict any use of the information to criminally investigate or prosecute any alcohol or drug abuse patient.[facility] AdministrationIn the event this information is protected by the Federal Confidentiality of Alcohol and Drug Abuse Patient Records regulations: The Federal rules restrict any use of the information to criminally investigate or prosecute any alcohol or drug abuse patient.[facility] AdministrationIn the event this information is protected by the Federal Confidentiality of Alcohol and Drug Abuse Patient Records regulations: The Federal rules restrict any use of the information to criminally investigate or prosecute any alcohol or drug abuse patient.[facility] AdministrationIn the event this information is protected by the Federal Confidentiality of Alcohol and Drug Abuse Patient Records regulations: The Federal rules restrict any use of the information to criminally investigate or prosecute any alcohol or drug abuse patient.[facility] AdministrationIn the event this information is protected by the Federal Confidentiality of Alcohol and Drug Abuse Patient Records regulations: The Federal rules restrict any use of the information to criminally investigate or prosecute any alcohol or drug abuse patient.[facility] AdministrationIn the event this information is protected by the Federal Confidentiality of Alcohol and Drug Abuse Patient Records regulations: The Federal rules restrict any use of the information to criminally investigate or prosecute any alcohol or drug abuse patient.[facility] AdministrationIn the event this information is protected by the Federal Confidentiality of Alcohol and Drug Abuse Patient Records regulations: The Federal rules restrict any use of the information to criminally investigate or prosecute any alcohol or drug abuse patient.[facility] AdministrationIn the event this information is protected by the Federal Confidentiality of Alcohol and Drug Abuse Patient Records regulations: The Federal rules restrict any use of the information to criminally investigate or prosecute any alcohol or drug abuse patient.[facility] AdministrationIn the event this information is protected by the Federal Confidentiality of Alcohol and Drug Abuse Patient Records regulations: The Federal rules restrict any use of the information to criminally investigate or prosecute any alcohol or drug abuse patient.[facility] AdministrationIn the event this information is protected by the Federal Confidentiality of Alcohol and Drug Abuse Patient Records regulations: The Federal rules restrict any use of the information to criminally investigate or prosecute any alcohol or drug abuse patient.[facility] Reason for Visit (unrecogniz ed section and content) Reason Comments PT Discharge Specialty Diagnoses / Procedures Referred By Nadir t Referred To Contact [facility] Diagnoses 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hy or radiculopathy Procedures CONSULT TO PHYSICAL THERAPY PHYSICAL TH[facility]AP[facility] 45 MINS Quentin Álvarez MD [address] [place] [address] [facility] [place] [address] [place] [address] Referral ID Status Reason Start Date Expiration Date Visits Requested Visits Authorized [id number] Authorized PCP Requested Referral Auto-Generate d Referral 05/08/2024 05/08/2025 99 99 Reason Comments Physical Therapy Reason Onset Date Comments Refill Request 01/24/2022 Reason Comments F/U 6 months medication refills Reason Comments Results Reason Onset Date Comments Refill Request 07/17/2022 Reason Comments Establish Care Reason Comments Medicare Wellness Exam Reason Comments Eye Doctor Information Reason Comments F/U 6 months Reason Comments Medicare Wellness Exam F/U 6 months Reason Comments PT Eval Reason Comments Geriatrics Consult Specialty Diagnoses / Procedures Referred By Contac t Referred To Contact Gerontology Diagnoses Memory loss Procedures CONSULT TO GERIATRICS OFFICE/OUTPATIENT [facility] MDM 60 MINUTES Quentin Álvarez MD [address] [place] [address] Referral ID Status Reason Start Date Expiration Date V isits Requested Visits Authorized [id number] Closed PCP Requested Referral 05/07/2024 05/07/2025 1 1 Reason Comments Radiology MRI Reason Comments Cough Cough and congestion x 1 day Reason Comments Cough Chest congestion, fa tigue, SOB, wheeze, x 1 week Reason Onset Date Comments Population Health Navigation Outreach 12/10/2024 [facility] [place] [facility] Reason Onset Date Comments Population Health Navigation Outreach 05/04/2025 [facility] [place] [facility] Care Teams (unrecognized sec tion and content) Water Project Manager Relationship Specialty Start Date End Date Susannah Og MD [address] [facility] [place] [address] PCP - General Family Practice 11/28/16 Water Project Manager Relationship Specialty Start Date End Date Susannah Og MD [address] [facility] [place] [address] PCP - General Family Practice 11/28/16 Water Project Manager Relationship Specialty Start Date End Date Susannah Og MD [address] [facility] [place] [address] PCP - General Family Practice 11/28/16 Water Project Manager Relationship Specialty Start Date End Date Susannah Og MD [address] [facility] [place] [address] PCP - General Family Medicine 11/28/16 Water Project Manager Relationship Specialty Start Date End Date Quentin Álvarez MD [address] [facility] [place] [address] PCP - General Internal Medicine 08/02/22 Water Project Manager Relationship Specialty Start Date End Date Quentin Álvarez MD [address] [facility] [place] [address] PCP - General Internal Medicine 08/02/22 Water Project Manager Relationship Specialty Start Date End Date Quentin Álvarez MD [address] [facility] [place] [address] PCP - General Internal Medicine 08/02/22 Water Project Manager Relationship Specialty Start Date End Date Quentin Álvarez MD [address] [facility] [place] [address] PCP - General Internal Medicine 08/02/22 Water Project Manager Relationship Specialty Start Date End Date Quentin Álvarez MD [address] [facility] [place] [address] PCP - General Internal Medicine 08/02/22 Water Project Manager Relationship Specialty Start Date End Date Quentin Álvarez MD [address] [facility] [place] [address] PCP - General Internal Medicine 08/02/22 Water Project Manager Relationship Specialty Start Date End Date Quentin Álvarez MD [address] [facility] [place] [address] PCP - General Internal Medicine 08/02/22 Water Project Manager Relationship Specialty Start Date End Date Quentin Álvarez MD [address] [facility] [place] [address] PCP - General Internal Medicine 08/02/22 Water Project Manager Relationship Specialty Start Date End Date Quentin Álvarez MD [address] [facility] [place] [address] PCP - General Internal Medicine 08/02/22 Water Project Manager Relationship Specialty Start Date End Date Quentin Álvarez MD [address] [facility] [address] PCP - General Internal Medicine 08/02/22 Water Project Manager Relationship Specialty Start Date End Date Quentin Álvarez MD [address] [facility] [place] [address] PCP - General Internal Medicine 08/02/22 Water Project Manager Relationship Specialty Start Date End Date Quentin Álvarez MD [address] [facility] [place] [address] PCP - General Internal Medicine 08/02/22 Water Project Manager Relationship Specialty Start Date End Date Quentin Álvarez MD [address] [facility] [address] PCP - General Internal Medicine 08/02/22 Water Project Manager Relationship Specialty Start Date End Date Quentin Álvarez MD [address] [facility] [place] [place] [address] PCP - General Internal Medicine 08/02/22 Water Project Manager Relationship Specialty Start Date End Date Susannah Og MD [address] [facility] [place] [address] PCP - General Family Medicine 11/28/16 08/01/22 Water Project Manager Relationship Specialty Start Date End Date Susannah Og MD [address] [facility] [place] [place] [address] PCP - General Family Medicine 11/28/16 08/01/22 Water Project Manager Relationship Specialty Start Date End Date Quentin Álvarez MD [address] [place] [address] PCP - General Internal Medicine 08/02/22 Water Project Manager Relationship Specialty Start Date End Date Quentin Álvarez MD [address] [facility] [place] [address] PCP - General Internal Medicine 08/02/22 Water Project Manager Relationship Specialty Start Date End Date Quentin Álvarez MD [address] [place] [address] PCP - General Internal Medicine 08/02/22 Jailene Canales, HORSES OR MULES TEAMSTER.CLINICAL SECRETARY [address] [place] [address] Litigation Specialist Internal Medicine 09/08/24 Water Project Manager Relationship Specialty Start Date End Date Quentin Álvarez MD [address] [place] [address] PCP - General Internal Medicine 08/02/22 Jailene Canales, HORSES OR MULES TEAMSTER.CLINICAL SECRETARY [address] [place] [address] Litigation Specialist Internal Medicine 09/08/24 Water Project Manager Relationship Specialty Start Date End Date Quentin Álvarez MD [address] [place] [address] PCP - General Internal Medicine 08/02/22 Jailene Canales, HORSES OR MULES TEAMSTER.CLINICAL SECRETARY [address] [place] [address] Litigation Specialist Internal Medicine 09/08/24 Team Status: Active Member Role/Relationship Status Dates Dr. Aris Og MD Family Provider Active Dr. Quentin Álvarez MD Primary Care Provider Active Team Status: Inactive Member Role/Relationship Status Dates Dr. Quentin Álvarez MD Primary Care Provider Active Start: December 25, 2024 End: December 25, 2024 Dr. Marciano Couch MD Attending Provider Active S tart: December 25, 2024 End: December 25, 2024 Team Status: Inactive Member Role/Relationship Status Dates Dr. Quentin Álvarez MD Primary Care Provider Active Start: March 26, 2025 End: March 26, 2025 Dr. Marciano Couch MD Attending Provider Active S tart: March 26, 2025 End: March 26, 2025 Team Status: Inactive Member Role/Relationship Status Dates Dr. Quentin Álvarez MD Primary Care Provider Active Start: April 14, 2025 End: April 14, 2025 Dr. Quentin Álvarez MD Referring Provider Active Start: April 14, 2025 End: April 14, 2025 JIMI Gutierrez Attending Provider Active St art: April 14, 2025 End: April 14, 2025 Team Status: Active Member Role/Relationship Status Dates Dr. Quentin Álvarez MD Primary Care Provider Active Team Status: Inactive Member Role/Relationship Status Dates Dr. Quentin Álvarez MD Primary Care Provider Active Start: April 14, 2025 End: April 14, 2025 JIMI Gutierrez Attending Provider Active St art: April 14, 2025 End: April 14, 2025 JIMI Gutierrez Referring Provider Active St art: April 14, 2025 End: April 14, 2025 Water Project Manager Relationship Specialty Start Date End Date Quentin Álvarez MD [address] [place], [place] [address] PCP - General Internal Medicine 08/02/22 Jailene Canales, HORSES OR MULES TEAMSTER.CLINICAL SECRETARY [address] [place], [place] [address] Litigation Specialist Internal Medicine 09/08/24 Goals (unrecognized section and content) Goals may be documented in a n alternate sectionGoals may be documented in an alternate sectionGoals may be documented in an alternate section FOR RECORDS PERTAINING TO PATIENTS WHO ARE OR HAVE BEEN ENROLLED IN A CHEMICAL DEPENDENCY/SUBSTANCEABUSE PROGRAM, SOME INFORMATION MAY BE OMITTED. This clinical summary was aggregated from multiple sources. Caution should be exercised in using it in the provision of clinical care. This summary normalizes information from multiple sources, and as a consequence, information in this document may materially change the coding, format and clinical context of patient data. In addition, data may be omitted in some cases. CLINICAL DECISIONS SHOULD BE BASED ON THE PRIMARY CLINICAL RECORDS. [facility] [employer] provides no warranty or guarantee of the accuracy or completeness of information in this document.
--- OUTSIDE RECORDS SUMMARY | 2025-05-11 07:23 | XMS RPT_ITS | CCD ---
Author Organization [facility] CliniSyma Care Team Providers Care Procurement Professional Logistics Name Role Phone JAZMIN ABDIEL Unavailable Unavailable [...] Susannah Og MD Primary Care Provider Ally JAVA WEB DEVELOPER.RESEARCH CENTER DIRECTOR, Jailene M Unavailable Dr. Quentin Álvarez MD [...] Attending Unavailable ÁLVAREZ, EVELYNE Primary Care Unavailable ÁVLAREZ, EVELYNE Primary Care Unavailable INGRID BISHOP Referring [...] Propensity to adverse reactions (disorder) 8 Swelling [facility] Repository (1 source) CHICKEN; Translations: [CHICKEN] Propensity to adverse reactions (disorder) [facility] (20 sources) FISH CONTAINING PRODUCTS; Translations: [FISH CONTAINING PRODUCTS] Propensity to adverse reactions (disorder) 7 Intolerance [facility] Repository (3 sources) Latex Allergy to substance 4 Itching [facility] (1 source) Latex Drug allergy (disorder) 4 [facility] Repository Medications Current Medications Medication Drug Class(es) Dates Sig (Normalized) Sig (Original) [id number] 200 actuat albuterol 0.09 mg/actuat metered dose [...] Comment on above: [facility] times a day as needed. dorzolamide [...] Auto (Unsp spec) [#/Vol] 1.40 10*3/uL 0.83-4.51 [facility] Absolute neutrophil countOrd ered By: Ninobrad Gutierrez on 04-14-2025 Neutrophils (Bld) [#/Vol] 4.0 10*3/uL 2.0-7.7 [facility] Anion gap in Serum or Plasma Ordered By: Nino Gutierrez on 04-14-2025 Anion gap [Moles/Vol] 11 mmol/L 02-12 [facility] Automated lymphocyte count a s percentage of total leukocytesOrdered By: Ninobrad Gutierrez on 04-14-2025 Lymphocytes/100 WBC Auto (Unsp spec) 21.3 % - [facility] BUN/creatinine ratioOrdered By: [facility] on 04-14-2025 Urea nitrogen/Creatinine [Mass ratio] 17.6 mg/mg 10- [facility] Basophil percentageOrdered B y: Ninobrad Gutierrez on 04-14-2025 Basophils/100 WBC (Bld) 1.5 % High 0- [facility] Bilirubin, totalOrdered By: Ninobrad Gutierrez on 04-14-2025 Bilirubin [Mass/Vol] 0.95 mg/dL 0.00-1.30 [facility] CBC W/Diff, Automatedon 03-31 Absolute Lymph 1.40 X10 3/uL Normal 0.83-4.51 [facility] Comment on above: Performed By: #### L 100.0100, L501.9520, L501.5200, L500.4100, L500.4050, L503.7505 #### [facility] [address] [place], [address] Absolute Neut 4.0 X10 3/uL Normal 2.0-7.7 [facility] Comment on above: Performed By: #### L 100.0100, L501.9520, L501.5200, L500.4100, L500.4050, L503.7505 #### [facility] [address] [place], [address] Basophils/100 WBC (Bld) 1.5 % High 0-1 [facility] Comment on above: Performed By: #### L 100.0100, L501.9520, L501.5200, L500.4100, L500.4050, L503.7505 #### [facility] [address] [place], [address] Eosinophils/100 WBC (Bld) 7.0 % High 0-5 [facility] Comment on above: Performed By: #### L 100.0100, L501.9520, L501.5200, L500.4100, L500.4050, L503.7505 #### [facility] [address] [place], [address] Erythrocyte distribution width (RBC) [Ratio] 12.9 % Normal 11.6-14.6 [facility] Comment on above: Performed By: #### L 100.0100, L501.9520, L501.5200, L500.4100, L500.4050, L503.7505 #### [facility] [address] [place], [address] Hematocrit (Bld) [Volume fraction] 45.3 % Normal 40-54 [facility] Comment on above: Performed By: #### L 100.0100, L501.9520, L501.5200, L500.4100, L500.4050, L503.7505 #### [facility] [address] [place], [address] Hemoglobin (Bld) [Mass/Vol] 15.1 g/dL Normal 13.0-16.5 [facility] Comment on above: Performed By: #### L 100.0100, L501.9520, L501.5200, L500.4100, L500.4050, L503.7505 #### [facility] [address] [place], [address] IG% 0.200 Normal 0.0-0.9 [facility] Comment on above: Result Comment: IG% - Immature Granulocytes (promyelocytes, myelocytes and metamyelocytes) > 1% indicates that a LEFT SHIFT is Present. Performed By: #### L 100.0100, L501.9520, L501.5200, L500.4100, L500.4050, L503.7505 #### [facility] [address] [place], [address] Lymphocytes/100 WBC (Bld) 21.3 % Normal 19-41 [facility] Comment on above: Performed By: #### L 100.0100, L501.9520, L501.5200, L500.4100, L500.4050, L503.7505 #### [facility] [address] [place], [address] MCH (RBC) [Entitic mass] 31.6 pg Normal 27.0-32.0 [facility] Comment on above: Performed By: #### L 100.0100, L501.9520, L501.5200, L500.4100, L500.4050, L503.7505 #### [facility] [address] [place], [address] MCHC (RBC) [Mass/Vol] 33.3 g/dL Normal 32-36 [facility] Comment on above: Performed By: #### L 100.0100, L501.9520, L501.5200, L500.4100, L500.4050, L503.7505 #### [facility] [address] [place], [address] MCV (RBC) [Entitic vol] 94.8 fL High 80-94 [facility] Comment on above: Performed By: #### L 100.0100, L501.9520, L501.5200, L500.4100, L500.4050, L503.7505 #### [facility] [address] [place], [address] Monocytes/100 WBC (Bld) 8.5 % Normal 0-10 [facility] Comment on above: Performed By: #### L 100.0100, L501.9520, L501.5200, L500.4100, L500.4050, L503.7505 #### [facility] [address] [place], [address] Neutrophils/100 WBC (Bld) 61.5 % Normal 47-70 [facility] Comment on above: Performed By: #### L 100.0100, L501.9520, L501.5200, L500.4100, L500.4050, L503.7505 #### [facility] [address] [place], [address] Nucleated RBC (Bld) [#/Vol] 0 10*3/uL Normal 0-5 [facility] Comment on above: Performed By: #### L 100.0100, L501.9520, L501.5200, L500.4100, L500.4050, L503.7505 #### [facility] [address] [place], [address] Platelet mean volume (Bld) [Entitic vol] 10.0 fL Normal 6.2-12.0 [facility] Comment on above: Performed By: #### L 100.0100, L501.9520, L501.5200, L500.4100, L500.4050, L503.7505 #### [facility] [address] [place], [address] Platelets (Bld) [#/Vol] 224 10*3/uL Normal 150-450 [facility] Comment on above: Performed By: #### L 100.0100, L501.9520, L501.5200, L500.4100, L500.4050, L503.7505 #### [facility] [address] [place], [address] RBC (Bld) [#/Vol] 4.78 10*6/uL Normal 4.6-6.2 [facility] Comment on above: Performed By: #### L 100.0100, L501.9520, L501.5200, L500.4100, L500.4050, L503.7505 #### [facility] [address] [place], [address] RDW SD 45.2 fl High 35.1-43.9 [facility] Comment on above: Performed By: #### L 100.0100, L501.9520, L501.5200, L500.4100, L500.4050, L503.7505 #### [facility] [address] [place], [address] WBC (Bld) [#/Vol] 6.6 10*3/uL Normal 4.4-11.0 [facility] Comment on above: Performed By: #### L 100.0100, L501.9520, L501.5200, L500.4100, L500.4050, L503.7505 #### [facility] [address] [place], [address] Calculated very low density lipoprotein (VLDL) cholesterol measurementOrdered By: Nino Gutierrez on 04-14-2025 Calculated very low density lipoprotein (VLDL) cholesterol measurement 23 mg/dL 5-40 [facility] Carbon dioxide, total [Moles /volume] in Central venous bloodOrdered By: Nino Gutierrez on 04-14-2025 CO2 [Moles/Vol] 24.2 mmol/L 21.0-32.0 [facility] Cardiology Visit Reporton Cardiology Visit Report [facility] [address] [place] [address] OFFICE VISIT Date of Service: 04/14/25 MR#: [id number] Acct: [id number] Name: OLIVIA BRISCOE Rep #: [id number] : 1940 Provider: JIMI Gutierrez Age/Sex: 84/M Location: [facility] Status: Signed HPI HPI History of Present Illness Details: Olivia Briscoe is an 84-year-old male who presents to office today for follow-up for monitoring his cardiovascular health. He has a history of hypertension and obesity. He presented to [facility] in March 2017 and was noted to be in complete heart block and was transferred to [facility] where he underwent placement of a [...] 98 Intake Visit Reasons: 1 Y FU Rn Ccu Required: No Is patient in pain?: No [...] Rhythm: regu (more content not included)... Normal [facility] Chloride assayOrdered By: Ceferino Gutierrez on 04-14-2025 Chloride [Moles/Vol] 104 mmol/L 98-108 [facility] Comprehensive Metabolic Prof ilon 04-14-2025 Albumin [Mass/Vol] 4.0 g/dL Normal 3.4-4.8 [facility] Comment on above: Performed By: #### L 100.0100, L501.9520, L501.5200, L500.4100, L500.4050, L503.7505 #### [facility] [address] [facility], [address] Albumin/Globulin [Mass ratio] 1.3 {ratio} Normal 0.9-2.4 [facility] Comment on above: Performed By: #### L 100.0100, L501.9520, L501.5200, L500.4100, L500.4050, L503.7505 #### [facility] [address] [place], [address] ALK PHOS 90 U/L Normal 40-129 [facility] Comment on above: Performed By: #### L 100.0100, L501.9520, L501.5200, L500.4100, L500.4050, L503.7505 #### [facility] [address] [place], [address] ALT [Catalytic activity/Vol] 15 U/L Normal <=46 [facility] Comment on above: Performed By: #### L 100.0100, L501.9520, L501.5200, L500.4100, L500.4050, L503.7505 #### [facility] [address] [place], [address] AST [Catalytic activity/Vol] 23 U/L Normal <=37 [facility] Comment on above: Result Comment: Hemo lysis present, Results??could be affected. ?? Performed By: #### L 100.0100, L501.9520, L501.5200, L500.4100, L500.4050, L503.7505 #### [facility] [address] [place], [address] Bilirubin [Mass/Vol] 0.95 mg/dL Normal 0.00-1.30 [facility] Comment on above: Performed By: #### L 100.0100, L501.9520, L501.5200, L500.4100, L500.4050, L503.7505 #### [facility] [address] [place], [address] BUN/CRE 17.6 RATIO Normal 10-20 [facility] Comment on above: Performed By: #### L 100.0100, L501.9520, L501.5200, L500.4100, L500.4050, L503.7505 #### [facility] [address] [place], [address] Calcium [Mass/Vol] 9.3 mg/dL Normal 7.6-11.0 [facility] Comment on above: Performed By: #### L 100.0100, L501.9520, L501.5200, L500.4100, L500.4050, L503.7505 #### [facility] [address] [place], [address] Chloride [Moles/Vol] 104 mmol/L Normal 98-108 [facility] Comment on above: Performed By: #### L 100.0100, L501.9520, L501.5200, L500.4100, L500.4050, L503.7505 #### [facility] [address] [place], [address] CO2 [Moles/Vol] 24.2 mmol/L Normal 21.0-32.0 [facility] Comment on above: Performed By: #### L 100.0100, L501.9520, L501.5200, L500.4100, L500.4050, L503.7505 #### [facility] [address] [place], [address] Creatinine [Mass/Vol] 1.08 mg/dL Normal 0.70-1.20 [facility] Comment on above: Performed By: #### L 100.0100, L501.9520, L501.5200, L500.4100, L500.4050, L503.7505 #### [facility] [address] [place], [address] GAP 11 Normal 5-15 [facility] Comment on above: Performed By: #### L 100.0100, L501.9520, L501.5200, L500.4100, L500.4050, L503.7505 #### [facility] [address] [place], [address] GFR/1.73 sq M.predicted among non-blacks MDRD (S/P/Bld) [Vol rate/Area] 68 mL/min/{1.73_m2} Normal >60 [facility] Comment on above: Result Comment: mL/m in/1.73m2 CKD-EPI Creatinine Equation (2020) Performed By: #### L 100.0100, L501.9520, L501.5200, L500.4100, L500.4050, L503.7505 #### [facility] [address] [place], [address] Globulin (S) [Mass/Vol] 3.1 g/dL Normal 2.2-4.2 [facility] Comment on above: Performed By: #### L 100.0100, L501.9520, L501.5200, L500.4100, L500.4050, L503.7505 #### [facility] [address] [place], [address] Glucose [Mass/Vol] 93 mg/dL Normal 70-99 [facility] Comment on above: Performed By: #### L 100.0100, L501.9520, L501.5200, L500.4100, L500.4050, L503.7505 #### [facility] [address] [place], [address] Potassium [Moles/Vol] 4.9 mmol/L Normal 3.3-5.1 [facility] Comment on above: Result Comment: Hemo lysis present, Results??could be affected. ?? Performed By: #### L 100.0100, L501.9520, L501.5200, L500.4100, L500.4050, L503.7505 #### [facility] [address] [place], [address] Sodium [Moles/Vol] 139 mmol/L Normal 133-145 [facility] Comment on above: Performed By: #### L 100.0100, L501.9520, L501.5200, L500.4100, L500.4050, L503.7505 #### [facility] [address] [place], [address] T PROT 7.0 g/dL Normal 5.9-8.4 [facility] Comment on above: Performed By: #### L 100.0100, L501.9520, L501.5200, L500.4100, L500.4050, L503.7505 #### [facility] [address] [place], [place], [address] Urea nitrogen [Mass/Vol] 19 mg/dL Normal 4-19 [facility] Comment on above: Performed By: #### L 100.0100, L501.9520, L501.5200, L500.4100, L500.4050, L503.7505 #### [facility] [address] [place], [place], [address] Eosinophil percentageOrdered By: Nino Guteirrez on 04-14-2025 Eosinophils/100 WBC (Bld) 7.0 % High 0-5 [facility] Erythrocyte distribution wid th ratioOrdered By: Nino Gutierrez on 04-14-2025 Erythrocyte distribution width (RBC) [Ratio] 12.9 % 11.6-14.6 [facility] Erythrocyte distribution wid th standard deviationOrdered By: Ninobrad Gutierrez on 04-14-2025 Erythrocyte distribution width (RBC) [Ratio] 45.2 fl High 35.1-43.9 [facility] Glomerular filtration rate ( GFR) estimation/1.73 sq m using serum, plasma, or whole bOrdered By: Nino Gutierrez on 04-14-2025 GFR/1.73 sq M.predicted among non-blacks MDRD (S/P/Bld) [Vol rate/Area] 68 mL/min/{1.73_m2} >60 [facility] Comment on above: mL/min/1.73m2 CKD-EP I Creatinine Equation (2020) Hematocrit Auto (Bld) [Volum e fraction]Ordered By: Nino Gutierrez on 04-14-2025 Hematocrit (Bld) [Volume fraction] 45.3 % 40-54 [facility] Hemoglobin measurementOrdere d By: Nino Gutierrez on 04-14-2025 Hemoglobin (Bld) [Mass/Vol] 15.1 g/dL 13.0-16.5 [facility] Immature granulocytes/100 WB C Auto (Bld)Ordered By: Nino Gutierrez on 04-14-2025 Immature granulocytes/100 WBC (Bld) 0.200 % 0.0-0.9 [facility] Comment on above: IG% - Immature Granu locytes (promyelocytes, myelocytes and metamyelocytes) > 1% indicates that a LEFT SHIFT is Present. L503.7505on 04-14-2025 Natriuretic peptide B (Bld) [Mass/Vol] 90 pg/mL Normal <=1800 [facility] Comment on above: Result Comment: Hear t Failure Unlikely: < 300 pg/mL Heart Failure Likely < 50 Years: > 450 pg/mL 50-75 Years: > 900 pg/mL >75 Years: > 1800 pg/mL Performed By: #### L 100.0100, L501.9520, L501.5200, L500.4100, L500.4050, L503.7505 #### [facility] [address] [place], [address] LDL calc ser/plasOrdered By: Nino Gutierrez on 04-14-2025 Cholesterol in LDL [Mass/Vol] 115 mg/dL [facility] Comment on above: Wtirvjyexx=973-400 m g/dL & Higher Edfr=662 mg/dL or greater Laboratory - Chemistry and C hemistry - challengeOrdered By: Nino Gutierrez on 04-14-2025 AST [Catalytic activity/Vol] 23 U/L <38 [facility] Comment on above: Hemolysis present, R esults could be affected. Lipid Profileon 04-14-2025 CHOL:HDL 3.86 Normal [facility] Comment on above: Performed By: #### L 100.0100, L501.9520, L501.5200, L500.4100, L500.4050, L503.7505 #### [facility] [address] [place], [address] Cholesterol [Mass/Vol] 186 mg/dL Normal <=200 [facility] Comment on above: Result Comment: Chol esterol level, Desirable <200 mg/dL Borderline high cholesterol 200-239 mg/dL High cholesterol >=240 mg/dL Recommendations of the NCEP Adult Treatment Panel for the following risk-cutoff thresholds for the [place] population. Performed By: #### L 100.0100, L501.9520, L501.5200, L500.4100, L500.4050, L503.7505 #### [facility] [address] [place], [address] Cholesterol in HDL [Mass/Vol] 48 mg/dL Normal [facility] Comment on above: Result Comment: Yesi onal Cholesterol Education Program (NCEP) guidelines: <40 mg/dL: Low HDL-cholesterol (major risk factor for CHD) >= 60 mg/dL: High HDL-cholesterol (negative risk factor for CHD) HDL-cholesterol is affected by a number of factors, e.g. smoking, exercise, hormones, sex and age. Performed By: #### L 100.0100, L501.9520, L501.5200, L500.4100, L500.4050, L503.7505 #### [facility] [address] [place], [address] Cholesterol in LDL [Mass/Vol] 115 mg/dL Normal [facility] Comment on above: Result Comment: Bord dnsbtn=279-751 mg/dL Higher Wksx=289 mg/dL or greater Performed By: #### L 100.0100, L501.9520, L501.5200, L500.4100, L500.4050, L503.7505 #### [facility] [address] [place], [address] Cholesterol in VLDL [Mass/Vol] 23 mg/dL Normal 5-40 [facility] Comment on above: Performed By: #### L 100.0100, L501.9520, L501.5200, L500.4100, L500.4050, L503.7505 #### [facility] [address] [place], [address] Triglyceride [Mass/Vol] 116 mg/dL Normal [facility] Comment on above: Result Comment: The drugs N-Acetylcysteine and Metamizole may falsely depress this assay. Normal range: <150 mg/dL Borderline High: 150-199 mg/dL High: 200-499 mg/dL Very High: >500 mg/dL Performed By: #### L 100.0100, L501.9520, L501.5200, L500.4100, L500.4050, L503.7505 #### [facility] [address] [place], [address] MCV (mean corpuscular volume ) determinationOrdered By: Nino Gutierrez on 04-14-2025 MCV (RBC) [Entitic vol] 94.8 fL High 80-94 [facility] Magnesiumon 04-14-2025 Magnesium [Mass/Vol] 2.5 mg/dL High 1.5-2.2 [facility] Comment on above: Performed By: #### L 100.0100, L501.9520, L501.5200, L500.4100, L500.4050, L503.7505 #### [facility] [address] [place], [place], [address] Magnesium measurement (mass/ volume)Ordered By: Nino Gutierrez on 04-14-2025 Magnesium (Unsp spec) [Mass/Vol] 2.5 mg/dL High 1.5-2.2 [facility] Mean corpuscular hemoglobin (MCH) determinationOrdered By: Nino Gutierrez on 04-14-2025 MCH (RBC) [Entitic mass] 31.6 pg 27.0-32.0 [facility] Mean corpuscular hemoglobin concentration (MCHC) determinationOrdered By: Nino Gutierrez on 04-14-2025 MCHC (RBC) [Mass/Vol] 33.3 g/dL 32-36 [facility] Mean platelet volume determi nationOrdered By: Nino Gutierrez on 04-14-2025 Platelet mean volume (Bld) [Entitic vol] 10.0 fL 6.2-12.0 [facility] Monocyte percentageOrdered B y: Nino Gutierrez on 04-14-2025 Monocytes/100 WBC (Bld) 8.5 % 0-10 [facility] Natriuretic peptide.B prohor ori N-Terminal [Mass/volume] in Serum or PlasmaOrdered By: Nino Gutierrez on 04-14-2025 Natriuretic peptide.B prohormone N-Terminal [Mass/Vol] 90 pg/mL <1800 [facility] Comment on above: Heart Failure Unlike ly: < 300 pg/mLHeart Failure Likely< 50 Years: > 450 pg/mL50-75 Years: > 900 pg/mL>75 Years: > 1800 pg/mL Neutrophil percentageOrdered By: Nino Gutierrez on 04-14-2025 Neutrophils/100 WBC (Bld) 61.5 % 47-70 [facility] Nucleated red blood cell per centageOrdered By: Nino Gutierrez on 04-14-2025 Nucleated RBC/100 WBC (Bld) [Ratio] 0 % 0-5 [facility] Platelet countOrdered By: Ceferino Gutierrez on 04-14-2025 Platelets (Bld) [#/Vol] 224 10*3/uL 150-450 [facility] Potassium measurement (mass/ volume)Ordered By: Nino Gutierrez on 04-14-2025 Potassium (Unsp spec) [Mass/Vol] 4.9 mmol/L 3.3-5.1 [facility] Comment on above: Hemolysis present, R esults could be affected. RBC Auto (Bld) [#/Vol]Ordere d By: Nino Gutierrez on 04-14-2025 RBC (Bld) [#/Vol] 4.78 10*6/uL 4.6-6.2 [facility] Screening total cholesterol/ high density lipoprotein (HDL) cholesterol ratioOrdered By: Nino Gutierrez on 04-14-2025 Cholesterol.total/Chol esterol in HDL [Mass ratio] 3.86 {ratio} [facility] Serum creatinine measurement (mass/volume)Ordered By: Nino Gutierrez on 04-14-2025 Creatinine [Mass/Vol] 1.08 mg/dL 0.70-1.20 [facility] Serum globulin measurementOr dered By: Nion Gutierrez on 04-14-2025 Globulin (S) [Mass/Vol] 3.1 g/dL 2.2-4.2 [facility] Serum glucose measurement (m ass/volume)Ordered By: Nino Matt on 04-14-2025 Glucose [Mass/Vol] 93 mg/dL 70-99 [facility] Serum or plasma alanine zaidi otransferase (ALT) measurementOrdered By: [facility] on 04-14-2025 ALT [Catalytic activity/Vol] 15 U/L <47 [facility] Serum or plasma albumin davin urement (mass/volume)Ordered By: [facility] on 04-14-2025 Albumin [Mass/Vol] 4.0 g/dL 3.4-4.8 [facility] Serum or plasma albumin/glob ulin mass ratioOrdered By: [facility] on 04-14-2025 Albumin/Globulin [Mass ratio] 1.3 {ratio} 0.9-2.4 [facility] Serum or plasma alkaline shnaa sphatase measurementOrdered By: [facility] on 04-14-2025 ALP [Catalytic activity/Vol] 90 U/L 40-129 [facility] Serum or plasma calcium davin urement (mass/volume)Ordered By: [facility] on 04-14-2025 Calcium [Mass/Vol] 9.3 mg/dL 7.6-11.0 [facility] Serum or plasma cholesterol in HDL measurement (mass/volume)Ordered By: Nino Matt on 04-14-2025 Cholesterol in HDL [Mass/Vol] 48 mg/dL >40 [facility] Comment on above: National Cholesterol Education Program (NCEP) guidelines:<40 mg/dL: Low HDL-cholesterol (major risk factor for CHD)>= 60 mg/dL: High HDL-cholesterol (negative risk factor for CHD)HDL-cholesterol is affected by a number of factors, e.g. smoking, exercise, hormones, sex and age. Serum or plasma cholesterol measurement (mass/volume)Ordered By: Nino Gutierrez on 04-14-2025 Cholesterol [Mass/Vol] 186 mg/dL <201 [facility] Comment on above: Cholesterol level, D esirable <200 mg/dLBorderline high cholesterol 200-239 mg/dLHigh cholesterol >=240 mg/dLRecommendations of the NCEP Adult Treatment Panel for the following risk-cutoff thresholds for the [place] population. Serum or plasma urea nitroge n measurement (mass/volume)Ordered By: Nino Gutierrez on 04-14-2025 Urea nitrogen [Mass/Vol] 19 mg/dL 4-19 [facility] Sodium levelOrdered By: Reji Gutierrez on 04-14-2025 Sodium [Moles/Vol] 139 mmol/L 133-145 [facility] TSH DL <= 0.005 mIU/L QnOrde red By: Nino Gutierrez on 04-14-2025 TSH Qn 1.140 uIU/mL 0.300-4.20 0 [facility] Thyroid Stim Hormone (TSH)on 04-14-2025 TSH 1.140 uIU/mL Normal 0.300-4.20 0 [facility] Comment on above: Performed By: #### L 100.0100, L501.9520, L501.5200, L500.4100, L500.4050, L503.7505 #### [facility] [place], [address] Total proteinOrdered By: Fabio Gutierrez on 04-14-2025 Protein [Mass/Vol] 7.0 g/dL 5.9-8.4 [facility] Triglycerides measurementOrd ered By: Nino Gutierrez on 04-14-2025 Triglyceride [Mass/Vol] 116 mg/dL <199 [facility] Comment on above: The drugs N-Acetylcy steine and Metamizole may falsely depress this assay. Normal range: <150 mg/dLBorderline High: 150-199 mg/dLHigh: 200-499 mg/dLVery High: >500 mg/dL White blood cell (WBC) count Ordered By: Nino Gutierrez on 04-14-2025 WBC (Bld) [#/Vol] 6.6 10*3/uL 4.4-11.0 [facility] CNOVon 10-28-2024 CNOV Office Visit (UCWSTR ) OLIVIA BRISCOE ([id number]) 1940 M Date Time Provider Department 10/28/24 1:45 PM ANSHUL MANLEY [facility] During your visit today, we recorded the following information about you: Temperature Pulse Respiration Blood pressure 97 degrees 66/minute 22/minute 118/70 Weight 95 kg Anshul Manley PA 10/28/2024 12:56 PM Signed This note was created using [employer]. Subjective Olivia Briscoe is a 84 year [...] Comments: Certain (more content not included)... Normal [facility] XR CHEST 2V FRONTAL/LATon XR CHEST 2V [...] acute radiographic abnormality. Stable large hiatal hernia. Guest Services Officer: IMMANUEL Transcribe Date/Time: Oct 28 2024 12:50P Dictated by : GERARD ROD MD This examination was interpreted and the report reviewed and electronically signed by: GERARD ROD MD on Oct 28 2024 12:51PM EST [id number] Normal [facility] XR Chest PA and Lateralon IMPRESSION: No acute radiographic abnormality. Stable large hiatal hernia. Guest Services Officer: PSCB Transcribe Date/Time: Oct 28 2024 12:50P Dictated by : GERARD ROD MD This examination was interpreted and the report reviewed and electronically signed by: GERARD ROD MD on Oct 28 2024 12:51PM [facility] * * *Final Report* [...] and degenerative changes. DIVISION OF RADIOLOGY Provider, [facility] - 10/28/2024 * * *Final Report* * [...] acute radiographic abnormality. Stable large hiatal hernia. Guest Services Officer: PSCB Transcribe Date/Time: Oct 28 2024 12:50P Dictated by : GERARD ROD MD This examination was interpreted and the report reviewed and electronically signed by: GERARD ROD MD on Oct 28 2024 12:51PM EST [facility] Radiology Study observation (narrative) [facility] XR Chest PA and LateralOrder ed By: Ccf Provider on 10-28-2024 [facility] Ami 09-04-2024 CNPN Telephone (UCWSTR) OLIVIA BRISCOE ([id number]) 1940 M Date Time Provider Department 09/04/24 INGRID BISHOP [facility] During your visit today, we recorded the following information about you: Ingrid Bishop APRN.RESEARCH CENTER DIRECTOR 09/04/2024 9:05 AM Signed Please reach out [...] Encounter Status:Closed by LUIS IVORY on 09/04/24 [facility] Ami 09-02-2024 CNPN Telephone (UCTR) OLIVIA BRISCOE ([id number]) 1940 M Date Time Provider Department 09/02/24 VISHNU COBIAN [facility] During your visit today, we recorded the [...] Status:Closed by ARA DUMONT on 09/02/24 Normal [facility] CNOVon 09-01-2024 CNOV Office Visit (WSTR ) OLIVIA BRISCOE ([id number]) 1940 M Date Time Provider Department 09/01/24 5:30 PM INGRID BISHOP [facility] During your visit today, we recorded the following information about you: Temperature Pulse Respiration Blood pressure 98.4 degrees 67/minute 16/minute 126/72 Weight 96.1 kg Ingrid Bishop APRN.RESEARCH CENTER DIRECTOR 09/01/2024 6:20 PM Signed This note was [...] history is provided by the patient. 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 Cough This is a new [...] PPI CKD (chronic kidney disease), stage III ([facility]) Colon polyps 07/28/2010 polypectomy 2002, 2004 [...] Ear: Exte (more content not included)... Normal [facility] COVID AND INFLUENZA A/B AND RSV PCR, ROUTINEon 09-01-2024 SARS-CoV-2 (COVID-19) RNA LENNOX+probe Ql (Unsp spec) SARS-COV-2 (AGENT OF COVID-19) RNA: Detected INFLUENZA A RNA: Not detected INFLUENZA B RNA: Not detected RESPIRATORY SYNCYTIAL VIRUS (RSV) RNA: Not detected Abnormal [facility] Comment on above: Performed By: #### C VFLRS ####[facility] [id number] [place] [id number] [place] XR CHEST 2V [...] Stable chest x-ray. No acute radiographic abnormality. Guest Services Officer: IMMANUEL Transcribe Date/Time: Sep 01 2024 6:36P Dictated by : GEOVANNA CRISTOBAL MD This examination was interpreted and the report reviewed and electronically signed by: GEOVANNA CRISTOBAL MD on Sep 01 2024 6:40PM EST [id number] Normal [facility] XR Chest PA and Lateralon IMPRESSION: Stable c hest x-ray. No acute radiographic abnormality. Guest Services Officer: IMMANUEL Transcribe Date/Time: Sep 01 2024 6:36P [...] Scoliosis is noted. DIVISION OF RADIOLOGY Provider, [facility] - 09/01/2024 * * *Final Report* * [...] Stable chest x-ray. No acute radiographic abnormality. Guest Services Officer: IMMANUEL Transcribe Date/Time: Sep 01 2024 6:36P Dictated by : GEOVANNA CRISTOBAL MD This examination was interpreted and the report reviewed and electronically signed by: GEOVANNA CRISTOBAL MD on Sep 01 2024 6:40PM EST [facility] Radiology Study observation (narrative) [facility] XR Chest PA and LateralOrder ed By: Ccf Provider on 09-01-2024 [facility] CNTHERAPYon 07-02-2024 CNTHERAPY OT/PT/Speech Visit ( PTWS) OLIVIA BRISCOE ([id number]) 1940 M Date Time Provider Department 07/02/24 3:00 PM ADRIANO SANTOS PTWS Date Time Provider Department Center 07/02/2024 3:00 PM [id number], COLIN PTWS [employer] Reason for Visit: PT Discharge [752] Primary [...] Take 1 tablet by mouth once daily. Advertising Account Manager: Therapy (PT/OT/Speech/Resp) ID: [id number] 07/02/2024 3:21 PM Author: ADRIANO SANTOS Signed by ADRIANO SANTOS PT on 07/02/2024 at 3:21 PM Document text: Program_ID:[id number] Access Code: [email or web address] URL: [email or web address] Date: 07-02-2024 Prepared By: Adriano Santos Program [...] - 2 sets - 10 reps Normal [facility] THERAPY NTon 07-02-2024 THERAPY NT HNO ID: [id number] Author: ADRIANO SANTOS, PT Service: ? Author Type: Physical Therapist Type: Therapy (PT/OT/Speech/Resp) Filed: 07/02/2024 15:21 Note Text: Program_ID:[id number] Access Code: [email or web address] URL: [email or web address] Date: 07-02-2024 Prepared By: Adriano Santos Program [...] - 2 sets - 10 reps Normal [facility] CNTHERAPYon 06-25-2024 CNTHERAPY OT/PT/Speech Visit ( PTWS) OLIVIA BRISCOE ([id number]) 1940 M Date Time Provider Department 06/25/24 3:30 PM JEANINE KU Date Time Provider Department Center 06/25/2024 3:30 PM [id number] MOLINA [employer] Reason for Visit: Physical Therapy [503] Primary [...] 1 tablet by mouth once daily. Normal [facility] CNTHERAPYon 06-18-2024 CNTHERAPY OT/PT/Speech Visit ( PTWS) OLIVIA BRISCOE ([id number]) 1940 M Date Time Provider Department 06/18/24 3:30 PM JEANINE KU Date Time Provider Department Center 06/18/2024 3:30 PM [id number] KEMP [employer]orlando Lopez Reason for Visit: Physical Therapy [503] [...] 1 tablet by mouth once daily. Normal [facility] CNTHERAPYon 06-12-2024 CNTHERAPY OT/PT/Speech Visit ( PTWS) OLIVIA BRISCOE ([id number]) 1940 M Date Time Provider Department 06/12/24 3:45 PM ADRIANO SANTOS PTWS Date Time Provider Department Center 06/12/2024 3:45 PM [id number], COLIN PTWS [employer] Reason for Visit: Physical Therapy [503] Primary [...] Take 1 tablet by mouth once daily. Advertising Account Manager: Therapy (PT/OT/Speech/Resp) ID: [id number] 06/12/2024 4:20 PM Author: ADRIANO SANTOS Signed by ADRIANO SANTOS PT on 06/12/2024 at 4:20 PM Document text: Program_ID:[id number] Access Code: [email or web address] URL: [email or web address] Date: 06-12-2024 Prepared By: Adriano Santos Program [...] - 2 sets - 10-15 reps Normal [facility] THERAPY NTon 06-12-2024 THERAPY NT HNO ID: [id number] Author: ADRIANO SANTOS, PT Service: ? Author Type: Physical Therapist Type: Therapy (PT/OT/Speech/Resp) Filed: 06/12/2024 16:20 Note Text: Program_ID:[id number] Access Code: [email or web address] URL: [email or web address] Date: 06-12-2024 Prepared By: Adriano Santos Program [...] - 2 sets - 10-15 reps Normal [facility] TSH SerPl-aCncon 06-12-2024 TSH Qn 1.340 m[IU]/L Normal 0.270-4.20 0 [facility] Comment on above: Order Comment: Speci men Type: BLOOD SPECIMEN Ordering Facility: [facility] Address: [address] [place] [address] Performed By: #### 2 132-9, 3016-3 #### [facility] CLIA [id number] [address] [place] [address] [place] Vit B12 SerPl-mCncon 024 Cobalamin (Vitamin B12) [Mass/Vol] 516 pg/mL Normal 232-1245 [facility] Comment on above: Order Comment: Speci men Type: BLOOD SPECIMEN Ordering Facility: [facility] Address: [address] [place] [address] Performed By: #### 2 132-9, 3016-3 #### [facility] CLIA [id number] [address] [place] [address] [place] CNPMargarita 06-05-20[facility]IV[facility] BRISCO[facility] ([id number]) 1940 M Date Time Provider Department 06/05/24 [...] whom you spoke. F Staff Rad: Neuro [phone] The potential risks of the MRI exam [...] by MICHELLE LOVE on 06/05/24 [facility] Patrick 06-04-2024 CNOV Office Visit (INTMWS ) OLIVIA BRISCOE ([id number]) 1940 M Date Time Provider Department 06/04/24 4:00 PM JOEY HALE INTBRIA During your visit today, we recorded the following information about you: Pulse Respiration Blood pressure Weight 60/minute 12/minute 134/78 96.9 kg Joey Hale MD 06/04/2024 5:49 PM Signed error Joey Hale MD 06/04/2024 5:57 PM Addendum [facility] Initial Consult Olivia Briscoe [...] secure location? No Social History: Primary language: Jamaican Marital Status: Living situation: Home w/ Spouse Socially engaged? (participates in activities such as clubs, pentecostal, community center, sports, games, visiting friends/relatives, etc?): NO his is house bound, so he is only going out to see family Caregiver [place] and Stress Are your feeling overwhelmed?no Do [...] 08/01/2021: Chronic diastolic CHF (congestive heart failure) ([facility]) No date: Chronic superficial gastritis without bleeding Comment: History: EGD proven in 11/2016 Assessment: stable Plan: continue home PPI No date: CKD (chronic kidney disease), stage III ([facility]) 07/28/2010: Colon polyps Comment: polypectomy 2002, 2004 (Dr. Verdin); negative in 2006 FH of colon cancer (father) 04/19/2017: Complete heart block ([facility]) Comment: Dr. Couch 2009: Diverticulitis No [...] colonic po (more content not included)... Normal [facility] [id number] 05-29-2024 [id number] HNO ID: [id number] Author: ADRIANO SANTOS PT Service: ? Author Type: Physical Therapist Type: [id number] Filed: 05/29/2024 14:19 Note Text: [facility] Physical Therapy Plan of Care Certification Patient Name: Olivia Briscoe : 1940 [facility] #: [id number] Date: 05/29/2024 To: Quentin Álvarez MD From [...] Episode of Care: established 05/29/24 to 07/10/24. [place] in home exercise program. Patient will decrease [...] Planned: 4 Planned Treatment Interventions: Therapeutic exercise (48259), Neuromuscular re-education (02122), Manual therapy (05320), Therapeutic activities (27875), Self-[place] management (43037), Patient/Family/Caregiver Education PLAN FOR NEXT VISIT: Assess [...] reviewed the treatment plan for Olivia Briscoe, [facility]# [id number] for the period of 05/29/24 -- 07/04/24, established on 05/29/2024. Signature certifies the need for therapy services. Normal [facility] CNTHERAPYon 05-29-2024 CNTHERAPY OT/PT/Speech Visit ( PTWS) OLIVIA BRISCOE ([id number]) 1940 M Date Time Provider Department 05/29/24 12:15 PM ADRIANO SANTOS PTWS Date Time Provider Department Center 05/29/2024 12:15 PM [id number], COLIN PTWS Martínez Lopez Reason for Visit: [...] 1 tablet by mouth once daily. [facility] C[facility]N Telephone (INTMWS) OLIVIA BRISCOE ([id number]) 1940 M Date Time Provider Department 05/08/24 [...] Álvarez with understanding. Assisted with transfer to planner scheduler to get PT appt set up. Allergies [...] Status:Closed by LIZABETH BRUMFIELD on 05/08/24 Normal [facility] CNOVon 05-07-2024 CNOV Office Visit (INTMWS ) OLIVIA BRISCOE ([id number]) 1940 M Date Time Provider Department 05/07/24 [...] - General (Internal Medicine) Outside specialists seen: [facility] Dr. Yaya Schaffer. Dr. Mildred [...] PM Signed This note was created using [employer]. Subjective Olivia Briscoe is a 84 year old male here for follow up, accompanied by his daughter. He complained of chronic neck pain and stiffness 4-5 months. There has been no injury. His hypertension was not controlled. He was taken off lisinopril and started on metoprolol by his aircraft body repairer. Since he had Prevnar, he's had recurrent [...] kg ( (more content not included)... Normal [facility] XR CERVICAL 4V AP/LAT/OBLon 05-07-2024 XR CERVICAL [...] IMPRESSION: DEGENERATIVE CHANGE AND ALIGNMENT ABNORMALITIES DESCRIBED Guest Services Officer: [facility] Transcribe Date/Time: May 07 2024 4:08P Dictated by : OLIVIA KRAUSE MD This examination was interpreted and the report reviewed and electronically signed by: OLIVIA KRAUSE MD on May 07 2024 4:11PM EST [id number] Normal [facility] XR Cervical spine AP and Lat eral and obliqueon 05-07-2024 IMPRESSION: DEGENERATIVE CHANGE AND ALIGNMENT ABNORMALITIES DESCRIBED Guest Services Officer: IMMANUEL Transcribe Date/Time: May 07 2024 4:08P Dictated by : OLIVIA KRAUSE MD This examination was interpreted and the report reviewed and electronically signed by: OLIVIA KRAUSE MD on May 07 2024 4:11PM [facility] DIV[facility] * * *Final Report* [...] encroachment DIVISION OF RADIOLOGY Provider, Regi Garcia [facility] - 05/07/2024 * * *Final Report* [...] IMPRESSION: DEGENERATIVE CHANGE AND ALIGNMENT ABNORMALITIES DESCRIBED Guest Services Officer: IMMANUEL Transcribe Date/Time: May 07 2024 4:08P Dictated by : OLIVIA KRASUE MD This examination was interpreted and the report reviewed and electronically signed by: OLIVIA KRAUSE MD on May 07 2024 4:11PM [facility] Radiology Study observation (narrative) [facility] XR Cervical spine AP and Lat eral and obliqueOrdered By: Ccf Provider on 05-07-2024 [facility] XR Chest PA and Lateralon IMPRESSION: 1. No radiographic evidence of acute cardiopulmonary process. 2. Large hiatal hernia. Guest Services Officer: PSCB Transcribe Date/Time: Oct 27 2023 11:50A Dictated by : GERARD ROD MD This examination was interpreted and the report reviewed and electronically signed by: GERARD ROD MD on Oct 27 2023 11:51AM [facility] * * *Final Report* [...] Multilevel degenerative changes. DIVISION OF RADIOLOGY Provider, [facility] - 10/27/2023 * * *Final Report* * [...] acute cardiopulmonary process. 2. Large hiatal hernia. Guest Services Officer: IMMANUEL Transcribe Date/Time: Oct 27 2023 11:50A Dictated by : GERARD ROD MD This examination was interpreted and the report reviewed and electronically signed by: GERARD ROD MD on Oct 27 2023 11:51AM EST [facility] Radiology Study observation (narrative) [facility] XR Chest PA and LateralOrder ed By: Ccf Provider on 10-27-2023 [facility] Colonoscopyon 01-18-2022 Colonoscopy PATIENTNAME Patient Name: Olivia Briscoe EXAMDATE Procedure Date: 01/18/2022 8:28 AM PATIENTID PATIENTACCOUNTNUM PATIENTDOB Date of : 1940 ADMITTYPE Admit Type: Outpatient PATIENTROOM Site: [facility] Proc RM 1 ETHNICITY Ethnicity: Not or RACE Race: White PROVDR Attending MD: Doug Hensley DO ENDOPROCEDURENAME Procedure: Colonoscopy INDICATION Indications: Screening patient at increased risk: Family history of colorectal cancer in multiple 1st-degree relatives PRIMARYPROVIDER Providers: Doug Hensley DO (Doctor), Sveta Cooper RN (Nurse), Winifred Herring, Half Backer EDREFPROVIDER Referring: Susannah Og CURRENT_MEDS Medicines: Midazolam [...] screening; colonoscopy on individual at high risk [address]8740, Moderate sedation; each additional 15 minutes intraservice time G0500, Moderate sedation services provided by the same physician or other qualified health health care facilities inspector performing a gastrointestinal endoscopic service that sedation supports, requiring the presence of an independent trained observer to assist in the monitoring of the patient's level of consciousness and physiological status; initial 15 minutes of intra-service time; patient age 5 years or older (additional time may be reported (more content not included)... Normal [facility] CORONAVIRUS 2019, SCREEN ASY MPTOMATICon 01-17-2022 SARS-CoV-2 (COVID-19) RNA LENNOX+probe Ql (Unsp spec) Not detected Normal Not Detected [facility] Comment on above: Result Comment: . This [...] patient management decisions. Fact sheet for providers: https://www.fda.gov/media/181555/download Fact sheet for patients: https://www.fda.gov/media/553938/download This test has received FDA Emergency Use Authorization (EUA) and has been verified by [facility] ([facility]). This test is only authorized for the duration of time that circumstances exist to justify the authorization of the emergency use of in vitro diagnostic tests for the detection of SARS-CoV-2 virus and/or diagnosis of COVID-19 infection under section 564(b)(1) of the Act, 21 U.S.C. 360bbb-3(b)(1), unless the authorization is terminated or revoked sooner. [facility] is certified under CLIA-88 as qualified to perform high complexity testing. Testing is performed in the [facility] laboratories located at [address] [place] [address]. Performed By: #### C OVSC #### [address] [place] [address] Covid 19 Resultson SARS-CoV-2 (COVID-19) RNA LENNOX+probe [...] You may also be contacted by the [facility] to see if any of your close [...] or Naproxen (Aleve) can also be used. Zvfd-jek-tjcjpvx cough and cold medicines can be used according to the instructions on the package. Some cnay-pkf-erpfkuw medicines also contain acetaminophen. Make sure you [...] water are not available, use alcohol-based hand audit mgr. Avoid touching your eyes, nose, and mouth [...] 24 tarun (more content not included)... Normal [facility] CORONAVIRUS 2019, SCREEN ASY MPTOMATICon 01-16-2022 Lab Specimen Source Nasal, Nasopharyngeal Normal [facility] Comment on above: Performed By: #### C OVSC #### [facility] [address] [place] [address] XR Chest PA and Lateralon IMPRESSION: Grossly stable chronic interstitial lung changes. No definite vascular redistribution to suggest active pulmonary edema. No focal consolidation. Large hiatal hernia. Guest Services Officer: PSCB Transcribe Date/Time: Jun 02 2021 2:08P Dictated by : LIZABETH CORONADO MD This examination was interpreted and the report reviewed and electronically signed by: LIZABETH CORONADO MD on Jun 02 2021 2:15PM [facility] * * *Final Report* [...] edema. No focal consolidation. Large hiatal hernia. Guest Services Officer: [facility] Transcribe Date/Time: Jun 02 2021 2:08P Dictated by : LIZABETH CORONADO MD This examination was interpreted and the report reviewed and electronically signed by: LIZABETH CORONADO MD on Jun 02 2021 2:15PM EST [facility] Radiology Study observation (narrative) [facility] XR Chest PA and LateralOrder ed By: Ccf Provider on 06-02-2021 [facility] XR Chest PA and Lateralon IMPRESSION: Findings are suggestive of pulmonary venous congestion/pulmonary edema. Hiatal hernia. Guest Services Officer: [employer] Transcribe Date/Time: May 20 2021 3:51P Dictated by : YASMINE OSBORNE MD This examination was interpreted and the report reviewed and electronically signed by: YASMINE OSBORNE MD on May 20 2021 3:53PM [facility] * * *Final Report* [...] shows degenerative changes. DIVISION OF RADIOLOGY [facility] * * *Final Report* [...] of pulmonary venous congestion/pulmonary edema. Hiatal hernia. Guest Services Officer: PSCB Transcribe Date/Time: May 20 2021 3:51P Dictated by : YASMINE OSBORNE MD This examination was interpreted and the report reviewed and electronically signed by: YASMINE OSBORNE MD on May 20 2021 3:53PM EST [facility] Radiology Study observation (narrative) [facility] XR Chest PA and LateralOrder ed By: Ccf Provider on 05-20-2021 [facility] Vital Signs Date Time Vital Sign Value Performing Clinician Facility 04-14-2025 06:23-0400 Body height 172.[address] Quentin Álvarez MD Work Phone: 8(093)[phone] [place] [address] 04-14-2025 06:23-0400 Body mass index (BMI) [Ratio] 31.7 kg/m2 Dr. Quentin Álvarez MD Work Phone: 0(243)982-968295 [place] [address] 04-14-2025 06:23-0400 Body weight 94.[address] Quentin Álvarez MD Work Phone: 2(316)185-554895 [place] [address] 04-14-2025 06:23-0400 Diastolic blood pressure 83 mm[Hg] Dr. Quentin Álvarez MD Work Phone: 4(676)032-634995 [place] [address] 04-14-2025 06:23-0400 Heart rate 64 /min Dr. Quentin Álvarez MD Work Phone: 5(073)814-069595 [place] [address] 04-14-2025 06:23-0400 Respiratory rate 18 /min Dr. Quentin Álvarez MD Work Phone: 0(212)629-924995 [place] [address] 04-14-2025 06:23-0400 SaO2% (BldA) [Mass fraction] 98 % Dr. Quentin Álvarez MD Work Phone: 5(806)187-304495 [place] [address] 04-14-2025 06:23-0400 Systolic blood pressure 138 mm[Hg] Dr. Quentin Álvarez MD Work Phone: 5(262)831-396695 [place] [address] 10-28-2024 12:30-0500 Body mass index (BMI) [Ratio] 33.05 kg/m2 Krispaul Abmarc PA Work Phone: 1(118)104-327444 [place] [address] 10-28-2024 12:30-0500 Body temperature 97 [degF] Krislyn Aberegg PA Work Phone: 8(286)155-628044 [place] [address] 10-28-2024 12:30-0500 Body weight 95 kg Krislyaime Abchachogg PA Work Phone: 0(028)236-766344 [place] [address] 10-28-2024 12:30-0500 Diastolic blood pressure 70 mm[Hg] Krislyn Aberegg PA Work Phone: [facility] 10-28-2024 12:30-0500 Heart rate 66 /min Krislyn Aberegg PA Work Phone: [facility] 10-28-2024 12:30-0500 Respiratory rate 22 /min Krislyn Aberegg PA Work Phone: [facility] 10-28-2024 12:30-0500 SaO2% (BldA) [Mass fraction] 95 % Krislyn Aberegg PA Work Phone: [facility] 10-28-2024 12:30-0500 Systolic blood pressure 118 mm[Hg] Krislyn Aberegg PA Work Phone: [facility] 09-01-2024 17:32-0500 Body mass index (BMI) [Ratio] 33.43 kg/m2 Ingrid Bishop JAVA WEB DEVELOPER.RESEARCH CENTER DIRECTOR Work Phone: [facility] 09-01-2024 17:32-0500 Body temperature 98.4 [degF] Ingrid Bishop JAVA WEB DEVELOPER.RESEARCH CENTER DIRECTOR Work Phone: [facility] 09-01-2024 17:32-0500 Body weight 96.1 kg Ingrid Bishop JAVA WEB DEVELOPER.RESEARCH CENTER DIRECTOR Work Phone: [facility] 09-01-2024 17:32-0500 Diastolic blood pressure 72 mm[Hg] Ingrid Bishop JAVA WEB DEVELOPER.RESEARCH CENTER DIRECTOR Work Phone: [facility] 09-01-2024 17:32-0500 Heart rate 67 /min Ingrid Bishop JAVA WEB DEVELOPER.RESEARCH CENTER DIRECTOR Work Phone: [facility] 09-01-2024 17:32-0500 Respiratory rate 16 /min Ingrid Bishop JAVA WEB DEVELOPER.RESEARCH CENTER DIRECTOR Work Phone: [facility] 09-01-2024 17:32-0500 SaO2% (BldA) [Mass fraction] 96 % Ingrid Bishop JAVA WEB DEVELOPER.RESEARCH CENTER DIRECTOR Work Phone: [facility] 09-01-2024 17:32-0500 Systolic blood pressure 126 mm[Hg] Ingrid Bishop RESEARCH CENTER DIRECTOR Work Phone: [facility] 06-25-2024 15:00-0400 Diastolic blood pressure 84 mm[Hg] Jeanine Ku NIGHT ASSISTANT Work Phone: [facility] 06-25-2024 15:00-0400 Heart rate 61 /min Jeanine Ku NIGHT ASSISTANT Work Phone: [facility] 06-25-2024 15:00-0400 SaO2% (BldA) [Mass fraction] 97 % Jeanine Ku NIGHT ASSISTANT Work Phone: [facility] 06-25-2024 15:00-0400 Systolic blood pressure 145 mm[Hg] Jeanine Truonglake NIGHT ASSISTANT Work Phone: [facility] 06-04-2024 15:19-0400 Body mass index (BMI) [Ratio] 33.71 kg/m2 Joey Hale MD Work Phone: [facility] 06-04-2024 15:19-0400 Body weight 96.89 kg Joey Hale MD Work Phone: [facility] 06-04-2024 15:19-0400 Diastolic blood pressure 78 mm[Hg] Joey Hale MD Work Phone: [facility] 06-04-2024 15:19-0400 Heart rate 60 /min Joey Hale MD Work Phone: [facility] 06-04-2024 15:19-0400 Respiratory rate 12 /min Joey Hale MD Work Phone: [facility] 06-04-2024 15:19-0400 Systolic blood pressure 134 mm[Hg] Joey Hale MD Work Phone: [facility] 05-07-2024 13:40-0400 Diastolic blood pressure 85 mm[Hg] Quentin Álvarez MD Work Phone: [facility] 05-07-2024 13:40-0400 Heart rate 61 /min Quentin Álvarez MD Work Phone: [facility] 05-07-2024 13:40-0400 Systolic blood pressure 153 mm[Hg] Quentin Álvarez MD Work Phone: [facility] 05-07-2024 13:34-0400 Body height 169.5 cm Quentin Álvarez MD Work Phone: [facility] 05-07-2024 13:34-0400 Body mass index (BMI) [Ratio] 33.19 kg/m2 Quentin Álvarez MD Work Phone: [facility] 05-07-2024 13:34-0400 Body temperature 98.01 [degF] Quentin Álvarez MD Work Phone: [facility] 05-07-2024 13:34-0400 Body weight 95.4 kg Quentin Álvarez MD Work Phone: [facility] 05-07-2024 13:34-0400 Respiratory rate 12 /min Quentin Álvarez MD Work Phone: [facility] 11-07-2023 14:15-0500 Body temperature 98.4 [degF] Quentin Álvarez MD Work Phone: [facility] 11-07-2023 14:15-0500 Body weight 93.44 kg Quentin Álvarez MD Work Phone: [facility] 11-07-2023 14:15-0500 Diastolic blood pressure 62 mm[Hg] Quentin Álvarez MD Work Phone: [facility] 11-07-2023 14:15-0500 Heart rate 68 /min Quentin Álvarez MD Work Phone: [facility] 11-07-2023 14:15-0500 Respiratory rate 16 /min Quentin Álvarez MD Work Phone: [facility] 11-07-2023 14:15-0500 Systolic blood pressure 110 mm[Hg] Quentin Álvarez MD Work Phone: [facility] 01-31-2023 14:35-0400 Body height 169.2 cm Quentin Álvarez MD Work Phone: [facility] 01-31-2023 14:35-0400 Body weight 94.35 kg Quentin Álvarez MD Work Phone: [facility] 01-31-2023 14:35-0400 Diastolic blood pressure 62 mm[Hg] Quentin Álvarez MD Work Phone: [facility] 01-31-2023 14:35-0400 Heart rate 64 /min Quentin Álvarez MD Work Phone: [facility] 01-31-2023 14:35-0400 Respiratory rate 16 /min Quentin Álvarez MD Work Phone: [facility] 01-31-2023 14:35-0400 Systolic blood pressure 118 mm[Hg] Quentin Álvarez MD Work Phone: [facility] 08-02-2022 09:21-0400 Body height 169.5 cm Quentin Álvarez MD Work Phone: [facility] 08-02-2022 09:21-0400 Body temperature 97.5 [degF] Quentin Álvarez MD Work Phone: [facility] 08-02-2022 09:21-0400 Body weight 94.35 kg Quentin Álvarez MD Work Phone: [facility] 08-02-2022 09:21-0400 Diastolic blood pressure 74 mm[Hg] Quentin Álvarez MD Work Phone: [facility] 08-02-2022 09:21-0400 Heart rate 68 /min Quentin Álvarez MD Work Phone: [facility] 08-02-2022 09:21-0400 Respiratory rate 16 /min Quentin Álvarez MD Work Phone: [facility] 08-02-2022 09:21-0400 Systolic blood pressure 116 mm[Hg] Quentin Álvarez MD Work Phone: [facility] 01-30-2022 08:45-0400 Body weight 94.62 kg Katerin Podlogar JAVA WEB DEVELOPER.RESEARCH CENTER DIRECTOR Work Phone: [facility] 01-30-2022 08:45-0400 Diastolic blood pressure 64 mm[Hg] Katerin Podlogar JAVA WEB DEVELOPER.RESEARCH CENTER DIRECTOR Work Phone: [facility] 01-30-2022 08:45-0400 Heart rate 71 /min Katerin Podlogar JAVA WEB DEVELOPER.RESEARCH CENTER DIRECTOR Work Phone: [facility] 01-30-2022 08:45-0400 Respiratory rate 18 /min Katerin Podlogar JAVA WEB DEVELOPER.RESEARCH CENTER DIRECTOR Work Phone: [facility] 01-30-2022 08:45-0400 SaO2% (BldA) [Mass fraction] 99 % Katerin Podlogar JAVA WEB DEVELOPER.RESEARCH CENTER DIRECTOR Work Phone: [facility] 01-30-2022 08:45-0400 Systolic blood pressure 122 mm[Hg] Katerin Podlogar JAVA WEB DEVELOPER.RESEARCH CENTER DIRECTOR Work Phone: [facility] Encounters Encounter Date Encounter Type Care Provider Facility Start: 05-11-2025 ambulatory Quentin Reis ty:[facility] Start: 05-04-2025 End: 05-04-2025 ambulatory Winifred Nelson MA [facility] Start: 05-04-2025 End: 05-04-2025 Patient encounter procedure Winifred Nelson MA [facility] Comment on above: Population Health Na vigation Outreach [facility] Start: 04-14-2025 End: 04-14-[address] Quentin Álvarez MD Work Phone: -Laboratory Start: 04-14-2025 End: 04-14-2025 Patient encounter procedure Nino KRAUSE -Laboratory Work Phone: Start: 04-14-2025 End: 04-14-2025 Patient encounter procedure Nino KRAUSE -[facility] Work Phone: Start: 04-14-2025 End: 04-14-[address] Quentin Álvarez MD Work Phone: [facility] Start: 04-14-2025 End: 04-14-2025 ambulatory Quentin Álvarez Facility:[facility] Start: 03-26-2025 End: 03-26-[address] Quentin Álvarez MD Work Phone: [facility] Start: 03-26-2025 End: 03-26-[address] Marciano Couch MD [facility] Work Phone: Start: 12-25-2024 End: 12-25-2024 [facility] Start: 12-25-2024 End: 12-25-[address] Marciano Couch MD [facility] Work Phone: Start: 12-10-2024 End: 12-10-2024 ambulatory Winifred Nelson MA [facility] Start: 12-10-2024 End: 12-10-2024 Patient encounter procedure Winifred Nelson [facility] Comment on above: Population Health Na vigation Outreach ([facility]) Start: 10-28-2024 End: 10-28-2024 Patient encounter procedure Anshul KRAUSE Work Phone: [facility] Comment on above: Acute cough (Primary Dx) Start: 10-28-2024 End: 10-28-2024 ambulatory QUENTIN ÁLVAREZ Facility:[facility] Start: 10-28-2024 End: 10-28-2024 Subsequent hospital visit by physician Xr [facility] Work Phone: Radiology Comment on above: Acute cough [R05.1] Start: 09-25-2024 End: 09-25-2024 ambulatory Quentin Álvarez Facility:[facility] Start: 09-04-2024 End: 09-04-2024 Telephone encounter Ingrid Bishop APRN.CNP Work Phone: [facility] Comment on above: Results Start: 09-02-2024 End: 09-02-2024 Telephone encounter Vishnu Cobian APRN.CNP Work Phone: [facility] Comment on above: Results Start: 09-01-2024 End: 09-01-2024 Subsequent hospital visit by physician [facility] Work Phone: Radiology Comment on above: Acute cough [R05.1] Start: 09-01-2024 End: 09-01-2024 ambulatory EVELYNE MEHUL Facility:[facility] Start: 09-01-2024 End: 09-01-2024 Patient encounter procedure Ingrid Bishop MEHUL.RESEARCH CENTER DIRECTOR Work Phone: [facility] Comment on above: Acute cough (Primary Dx); URI, acute Start: 07-02-2024 End: 07-02-2024 ambulatory Adriano Santos PT Work Phone: [facility] Comment on above: 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) Start: 06-26-2024 End: 06-26-2024 ambulatory Quentin Álvarez Facility:[facility] Start: 06-25-2024 End: 06-25-2024 ambulatory Jeanine Truongba NIGHT ASSISTANT Work Phone: [facility] Comment on above: 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) Start: 06-18-2024 End: 06-18-2024 ambulatory Jeanine Truongba NIGHT ASSISTANT Work Phone: [facility] Comment on above: 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) Start: 06-12-2024 End: 06-12-2024 ambulatory Adriano Santos PT Work Phone: [facility] Comment on above: 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) Start: 06-12-2024 End: 06-12-2024 ambulatory QUENTIN ÁLVAREZ Facility:[facility] Start: 06-05-2024 End: 06-05-2024 ambulatory Michelle [...] Joey Hale MD Work Phone: [facility] Comment on above: Cognitive impairment , mild, so stated (Primary Dx); Memory loss; Hearing impaired person, bilateral; Sleep apnea, unspecified type Start: 06-04-2024 End: 06-04-2024 ambulatory QUENTIN ÁLVAREZ Facility:[facility] Start: 05-29-2024 End: 05-29-2024 ambulatory Adriano Snatos PT Work Phone: [facility] Comment on above: 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) Start: 05-08-2024 Orders Only Quentin raymond MD Work Phone: [facility] Comment on above: 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) Results Start: 05-07-2024 End: 05-07-2024 Subsequent hospital visit by physician Aubrie [facility] Work Phone: Radiology Comment on above: Neck pain, chronic [ M54.2, G89.29] Start: 05-07-2024 End: 05-07-2024 ambulatory QUENTIN ÁLVAREZ Facility:[facility] Start: 05-07-2024 End: 05-07-2024 Patient encounter procedure Quentin Álvarez MD Work Phone: [facility] Comment on above: Medicare annual well ness visit, subsequent (Primary Dx); Screening for depression; Encounter for screening examination for other mental health and behavioral disorders; Primary hypertension; Stage 3a chronic kidney disease (HCC); Pacemaker; Neck pain, chronic; Thoracogenic scoliosis of thoracic region; Diarrhea, unspecified type; Memory loss Start: 11-07-2023 End: 11-07-2023 Patient encounter procedure Quentin Álvarez MD Work Phone: Internal [facility] Comment on above: Paroxysmal dyspnea ( Primary Dx); Primary hypertension; Hiatal hernia; Stage 3a chronic kidney disease (HCC); Need for vaccination Start: 10-27-2023 End: 10-27-2023 Subsequent hospital visit by physician Xr [facility] Work Phone: Radiology Comment on above: URI, acute [J06.9] Start: 05-04-2023 Telephone encounter Quentin cotter MD Work Phone: Internal [facility] Comment on above: [employer] Doctor Informati on Start: 04-06-[address] Yessi Álvarez MD Work Phone: [facility] Comment on above: Bilateral cataract e xtractions Start: 01-31-2023 End: 01-31-2023 Patient encounter procedure Quentin Álvarez MD Work Phone: Internal [facility] Comment on above: Medicare annual well ness visit, subsequent (Primary Dx); Stage 3a chronic kidney disease (HCC); Obesity, Class I, BMI 30-34.9; Primary hypertension; Screening for glaucoma Start: 08-02-2022 End: 08-02-2022 Patient encounter procedure Quentin Álvarez MD Work Phone: Internal [facility] Comment on above: Primary hypertension (Primary Dx); Stage 3a chronic kidney disease (HCC); Obesity (BMI 30-39.9); Complete heart block (HCC) Start: 07-17-2022 Refill Susannah Og MD Work Phone: [facility] Comment on above: Refill Request Start: 01-31-2022 Telephone encounter Katerin mullen APRN.RESEARCH CENTER DIRECTOR Work Phone: [facility] Comment on above: Results Start: 01-30-2022 End: 01-30-2022 Patient encounter procedure Katerin Lerma APRN.CNP Work Phone: [facility] Comment on above: Hypertension, essent ial (Primary Dx); Screening for hyperlipidemia; Stage 3a chronic kidney disease (HCC); Complete heart block (HCC) Start: 01-24-2022 Refill Susannah Og MD Work Phone: [facility] Comment on above: Refill Request Start: 01-18-2022 End: 01-18-[address] Susannah Og Facility:[id number] Start: 06-02-2021 End: 06-02-2021 Subsequent hospital visit by physician Xr [facility] Work Phone: Radiology Comment on above: SOB (shortness of br eat) [R06.02] Start: 05-20-2021 End: 05-20-2021 Subsequent hospital visit by physician Xr [facility] Work Phone: Radiology Comment on above: Cough [R05] Start: 10-16-2018 Ambulatory [facility] Facility :[facility] Start: 02-11-2018 End: 02-11-2018 [facility] Facility:[facility] Start: 09-13-2017 End: 09-13-2017 [facility] Facility:[facility] Start: 08-14-2017 End: 08-14-2017 [facility] Facility:[facility] Procedures Date Procedure Procedure Detail Performing Clinician Start: 10-28-2024 Radiologic exam ches t 2 views Anshul Manley PA Work Phone: Start: 09-01-2024 Radiologic exam ches t 2 views Ingrid Bishop APRN.RESEARCH CENTER DIRECTOR Work Phone: Start: 05-07-2024 Radex spine cervical [...] Detail Author Start: 03-19-2028 Urine microalbumin profile [facility] Start: 05-01-2027 Diabetes Screening Diabetes Screenin g [facility] Start: 05-08-2026 Diabetes Screening Diabetes Screenin g [facility] Start: 01-23-2026 DIABETES SCREEN DIABETES SCREEN [facility] Start: 06-01-2025 Influenza vaccination Influenza Vacc ine (#1) [facility] Start: 05-20-2025 End: 05-20-2025 Patient encounter procedure 05/20/2025 10:40 AM EDT Office Visit [facility] [address] [place], [place] [phone] Quentin Álvarez MD [address] [place], [place] [phone] Medicare Wellness [facility] Comment on above: Medicare Wellness Start: 05-07-2025 Anxiety Screening Anxiety Screening [facility] Start: 05-07-2025 Depression Screening Depression Scre ening [facility] Start: 05-07-2025 Medicare Annual Well ness Visit Medicare Annual Wellness Visit [facility] Start: 01-30-2025 DIABETES SCREEN DIABETES SCREEN [facility] Start: 11-07-2024 Covid-19 Vaccine ( season) Covid-19 Vaccine () [facility] Comment on above: Postponed from 06/01 (Declined at this time) Start: 10-01-2024 Advance Directive Discussion Advance Directive Discussion [facility] Start: 09-05-2024 End: 09-05-2024 Patient encounter procedure 09/05/2024 1:00 PM EST Office Visit Neurology [address] [place], [place] [phone] Carmella Bang, JAVA WEB DEVELOPER.RESEARCH CENTER DIRECTOR [address] [place] [address] Sleep apnea, unspecified type [G47.30] Neurology Comment on above: Sleep apnea, unspeci fied type [G47.30] Start: 08-13-2024 End: 08-13-2024 Patient encounter procedure [facility] Comment on above: 2 month follow up Start: 08-07-2024 End: 08-07-2024 Patient encounter procedure 08/07/2024 2:40 PM EST Office Visit [facility] [address] [place] [address] Quentin Álvarez MD [address] [place] [address] 3 month follow-up [facility] Comment on above: 3 month follow-up Start: 07-02-2024 End: 07-02-2024 ambulatory 07/02/2024 3:00 PM EDT OT/PT/Speech Visit [facility] [address] [place], [place] [phone] Adriano Santos, PT [address] [place] [address] 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 (ICD-10-CM)] [facility] Comment on above: 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 (ICD-10-CM)] Start: 06-12-2024 End: 06-12-2024 ambulatory 06/12/2024 3:45 PM EDT OT/PT/Speech Visit [facility] [address] [place] [address] Adriano Santos, PT [address] [place] [address] 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 (ICD-10-CM)] [facility] Comment on above: 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 (ICD-10-CM)] Start: 06-09-2024 End: 06-09-2024 Patient encounter procedure 06/09/2024 11:30 AM EDT Office Visit Audiology [address] [address] Kellen Longo, AUD [address] [place] [address] Memory loss [R41.3] Audiology Comment on above: Memory loss [R41.3] Start: 06-04-2024 End: 06-04-2024 Patient encounter procedure [facility] Comment on above: Consult to Geriatric s Start: 06-04-2024 End: 09-03-2024 Cobalamin (Vitamin B12) [Mass/volume] in Serum or Plasma VITAMIN B12 Lab Routine Cognitive impairment, mild, so stated Expected: 06/04/2024, Expires: 09/03/2024 [facility] Comment on above: Expected: 06/04/2024 , Expires: 09/03/2024 Start: 06-04-2024 End: 09-03-2024 Thyrotropin [Units/volume] in Serum or Plasma THYROID STIMULATING HORMONE Lab Routine Cognitive impairment, mild, so stated Expected: 06/04/2024, Expires: 09/03/2024 [facility] Comment on above: Expected: 06/04/2024 , Expires: 09/03/2024 Start: 06-01-2024 Covid-19 Vaccine () Covid-19 Vaccine () [facility] Start: 06-01-2024 Covid-19 Vaccine () Covid-19 Vaccine () [facility] Start: 06-01-2024 Influenza vaccination Influenza Vacc ine (#1) [facility] Start: 05-29-2024 End: 05-29-2024 ambulatory 05/29/2024 12:15 PM EDT OT/PT/Speech Visit [facility] [address] [place] [phone] Adriano Santos, PT [address] [place] [address] 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] [facility] Comment on above: 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] Start: 05-07-2024 End: 08-06-2024 CBC panel - Blood by Automated count CBC Lab Routine Primary hypertension Expected: 05/07/2024, Expires: 08/06/2024 [facility] Work Phone: Comment on above: Expected: 05/07/2024 , Expires: 08/06/2024 Start: 05-07-2024 End: 08-06-2024 Comprehensive metabolic 2000 panel - Serum or Plasma COMP METABOLIC PANEL Lab Routine Stage 3a chronic kidney disease (HCC) Expected: 05/07/2024, Expires: 08/06/2024 [facility] Work Phone: Comment on above: Expected: 05/07/2024 , Expires: 08/06/2024 Start: 05-07-2024 End: 08-06-2024 Lipid 1996 panel - Serum or Plasma LIPID PANEL BASIC Lab Routine Primary hypertension Expected: 05/07/2024, Expires: 08/06/2024 [facility] Work Phone: Comment on above: Expected: 05/07/2024 , Expires: 08/06/2024 Start: 03-30-2024 Influenza vaccination Influenza Vacc ine (#1) [facility] Comment on above: Postponed from 06/01 (Declined at this time) Start: 12-21-2023 DIABETES SCREEN DIABETES SCREEN [facility] Start: 10-01-2023 Advance Directive Discussion Advance Directive Discussion [facility] Start: 08-02-2023 COVID-19 VACCINE (3 - Booster for Moderna series) COVID-19 VACCINE (3 - Booster for Moderna series) [facility] Comment on above: Postponed from 12/01 (Declined at this time) Start: 08-02-2023 COVID-19 VACCINE (3 - Moderna series) COVID-19 VACCINE (3 - Moderna series) [facility] Comment on above: Postponed from 12/01 (Declined at this time) Start: 06-01-2023 Influenza vaccination C [facility] Start: 05-03-2023 End: 07-03-2023 Basic metabolic 2000 panel - Serum or Plasma BASIC METABOLIC PNL Lab Routine Stage 3a chronic kidney disease (HCC) Expected: 05/03/2023, Expires: 07/03/2023 [facility] Work Phone: Comment on above: Expected: 05/03/2023 , Expires: 07/03/2023 Start: 03-30-2023 Influenza vaccination INFLUENZA (#1) [facility] Comment on above: Postponed from 06/01 (Declined at this time) Start: 01-30-2023 End: 04-01-2023 Basic metabolic 2000 panel - Serum or Plasma BASIC METABOLIC PNL Lab Routine Stage 3a chronic kidney disease (HCC) Expected: 01/30/2023, Expires: 04/01/2023 [facility] Work Phone: Comment on above: Expected: 01/30/2023 , Expires: 04/01/2023 Start: 01-30-2023 End: 04-01-2023 CBC panel - Blood by Automated count CBC Lab Routine Stage 3a chronic kidney disease (HCC) Expected: 01/30/2023, Expires: 04/01/2023 [facility] Work Phone: Comment on above: Expected: 01/30/2023 , Expires: 04/01/2023 Start: 06-01-2022 Influenza vaccination [facility] Start: 03-06-2022 COVID-19 VACCINE (3 - Booster for Moderna series) COVID-19 VACCINE (3 - Booster for Moderna series) [facility] Start: 01-31-2022 End: 04-02-2022 POTASSIUM BLD POTASSIUM BLD Lab Routine Hyperkalemia Expected: 01/31/2022, Expires: 04/02/2022 [facility] Work Phone: Comment on above: Expected: 01/31/2022 , Expires: 04/02/2022 Start: 01-30-2022 End: 04-01-2022 Comprehensive metabolic 2000 panel - Serum or Plasma [facility] Work Phone: Comment on above: Expected: 01/30/2022 , Expires: 04/01/2022 Start: 01-30-2022 End: 04-01-2022 LIPID PANEL BASIC [facility] Work Phone: Comment on above: Expected: 01/30/2022 , Expires: 04/01/2022 Start: 12-01-2021 COVID-19 VACCINE (3 - Booster for Moderna series) COVID-19 VACCINE (3 - Booster for Moderna series) [facility] Start: 10-01-2021 ADVANCE DIRECTIVE DISCUSSION ADVANCE DIRECTIVE DISCUSSION [facility] Start: 10-01-2021 DEPRESSION ASSESSMENT DEPRESSION ASS ESSMENT [facility] Start: 01-13-2021 COVID-19 VACCINE (2 - Moderna 3-dose series) COVID-19 VACCINE (2 - Moderna 3-dose series) [facility] Start: 05-14-2018 SHINGRIX VACCINE (2 of 2) SHINGRIX VACCINE (2 of 2) [facility] Start: 2000 RSV Vaccine (1 - 1-d ose 60+ series) RSV Vaccine (1 - 1-dose 60+ series) [facility] CBC W Auto Different ial panel - Blood [facility] Clostridioides diffi cile toxin genes [Presence] in Stool by LENNOX with probe detection C. DIFFICILE PCR Lab Routine Diarrhea, unspecified type Ordered: 05/07/2024 [facility] Work Phone: Comment on above: Ordered: 05/07/2024 Comprehensive metabo lic 2000 panel - Serum or Plasma [facility] COVID & INFLUENZA A/ B & RSV PCR, ROUTINE COVID & INFLUENZA A/B & RSV PCR, ROUTINE Microbiology Routine URI, acute Ordered: 09/01/2024 [facility] Work Phone: Comment on above: Ordered: 09/01/2024 End: 06-05-2025 HEARING TEST/AUDIOGRAM HEARING TEST/AUDIOGRAM Audiology Routine Memory loss Cognitive impairment, mild, 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, bilateral 1 Occurrences starting 06/04/2024 until 06/05/2025 [facility] Comment on above: 1 Occurrences starti ng 06/04/2024 until 06/05/2025 Lipid 1996 panel - S usha or Plasma [facility] Magnesium measurement [facility] End: 07-04-2025 MR Brain WO contrast MRI BRAIN W QUANT WO IVCON Radiology Routine Cognitive impairment, mild, so stated 1 Occurrences starting 06/04/2024 until 07/04/2025 [facility] Work Phone: Comment on above: 1 Occurrences starti ng 06/04/2024 until 07/04/2025 End: 07-04-2025 MR Unspecified body region 3D post processing MRI 3D POST PROCESSING Radiology Routine Cognitive impairment, mild, so stated 1 Occurrences starting 06/04/2024 until 07/04/2025 [facility] Comment on above: 1 Occurrences starti ng 06/04/2024 until 07/04/2025 Natriuretic peptide. B prohormone N-Terminal [Mass/volume] in Serum or Plasma [facility] NM Heart Views W str ess and W radionuclide IV [facility] Thyroid stimulating hormone measurement [facility] End: 03-01-2024 US KIDNEY/BLADDER US KIDNEY/BLADDER Radiology Routine Stage 3a chronic kidney disease (HCC) 1 Occurrences starting 01/31/2023 until 03/01/2024 [facility] Work Phone: Comment on above: 1 Occurrences starti ng 01/31/2023 until 03/01/[address] [facility] Immun[facility] Immunization Date Immunization Notes Care Provider Fa cility 11-07-2023 pneumococcal Conjuga te, unspecified formulation Quentin Álvarez MD Work Phone: [facility] Work Phone: 11-07-2023 pneumococcal conjuga te (PCV20) vaccine, 20 valent (PREVNAR 20) Quentin Álvarez MD Work Phone: [facility] 11-25-2018 influenza virus vaccine, unspecified formulation Quentin Álvarez MD Work Phone: [facility] 11-10-2016 pneumococcal conjuga te vaccine, 13 valent Susannah Og MD Work Phone: [facility] 07-28-2010 pneumococcal polysaccharide vaccine, 23 valent Susannah Og MD Work Phone: [facility] Work Phone: 12-02-2004 pneumococcal polysaccharide vaccine, 23 valent Susannah Og MD Work Phone: [facility] Payers Date Payer Category Payer Self-pay 2019 Private Health Insurance DAVE RM PPO [id number] 2019-Present [phone] [address] [place] [address] PPO [id number] 2019 Private Health Insurance [id number] 2007 Private Health Insurance [id number] 2005 Medicare MEDICARE MEDICAR E A AND B [id number] 2005-Present [phone] [place] [address] Medicare [id number] 2005 Medicare [id number] 2005 Medicare [id number] 1940 Unknown [id number] Medicare [id number] Unknown [id number] Unknown [id number] Unknown [id number] Unknown [id number] Unknown [id number] Unknown [id number] Unknown [id number] Unknown [id number] Social History Date Type Detail Facility Start: 04-20-2017 End: 06-04-2024 Tobacco smoking status DEIS Ex-smoker [facility] Work Phone: End: 10-01-1961 History of tobacco use Current smoker [facility] Work Phone: End: 10-01-1961 History of tobacco use Cigarette Smoker [facility] Work Phone: Start: 07-18-2021 End: 10-28-2024 Alcohol intake Current non-drinker of alcohol (finding) [facility] Start: 08-03-2010 End: 08-02-2022 Tobacco Comment 2 quit [facility] Start: 1940 Sex Assigned At Not on file [facility] Start: 04-20-2021 End: 08-02-2022 Exposure to SARS-CoV-2 (event) Not sure [facility] Work Phone: Start: 04-20-2017 End: 01-31-2023 Cigarettes smoked current (pack per day) - Reported 0.5 [facility] Work Phone: Start: 04-20-2017 End: 06-04-2024 Tobacco use and exposure Smokeless tobacco non-user [facility] Work Phone: Start: 1940 Sex Assigned At Male [facility] Start: 01-31-2023 History SDOH Alcohol Frequency 1 [facility] Start: 01-31-2023 History SDOH Alcohol Std Drinks 0 [facility] Start: 01-31-2023 End: 05-07-2024 Alcohol Use Disorder Identification Test - Consumption [AUDIT-C] [facility] Work Phone: How often to you hav e a drink containing alcohol? Never [facility] Work Phone: How many standard dr inks containing alcohol do you have on a typical day? Patient does not drink [facility] Work Phone: Do you feel stress - tense, restless, nervous, or anxious, or unable to sleep at night because your mind is troubled all the time - these days [OSQ] Not at all [facility] Work Phone: Start: 08-01-2022 Gender identity Identifies as male gender (finding) [facility] Start: 08-01-2022 Sexual orientation Heterosexual (finding) [facility] Medical Equipment Procedure Code Equipment Code Equipment Origin al Text Equipment Identifier Dates [id number] Advisa [id number] Start: 04-23-2017 Functional Status Date Assessment Result Facility 04-24-2017 Are you deaf, or do you have serious difficulty hearing No 04/24/2017 3:12 PM EDT Roque Randle, DANISH No [facility] 04-24-2017 Are you blind, or do you have serious difficulty seeing, even when wearing glasses No 04/24/2017 3:12 PM EDT Roque Randle, DANISH No [facility] 04-24-2017 Do you have serious difficulty walking or climbing stairs No 04/24/2017 3:12 PM EDT Roque Randle RN No [facility] 04-24-2017 Do you have difficul ty dressing or bathing No 04/24/2017 3:12 PM EDT Roque Randle, DANISH No [facility] 04-24-2017 Because of a physica l, mental, or emotional condition, do you have difficulty doing errands alone such as visiting a physician's office or shopping No 04/24/2017 3:12 PM EDT Roque Randle RN No [facility] Mental Status Date Assessment Result Facility 04-24-2017 Because of a physica l, mental, or emotional condition, do you have serious difficulty concentrating, remembering, or making decisions No 04/24/2017 3:12 PM EDT Roque Randle RN No [facility] Clinical Notes 04-20-2017 to 05-04-2025 Winifred Nelson MA - 05/04/2025 3:32 PM EDT Note Date & Type Note Facility 05-04-2025 Note HNO ID: [id number] Author: WINIFRED NELSON MA Service: ? Author Type: Shore Hand Dredge Or Barge Type: Progress Notes Filed: 05/04/2025 15:37 Note [...] Nelson MA May 04, 2025 3:32 PM [facility] 05-04-2025 History of Present illness Narrative POPULATION [...] 2025 3:32 PM documented in this encounter [facility] 05-04-2025 Note Patient Outreach (ERICH TNAV) OLIVIA BRISCOE ([id number]) 1940 M Date Time Provider Department 05/04/25 [...] Encounter Status:Closed by WINIFRED NELSON on 05/04/25 [facility] 04-14-2025 Evaluation note Diagnosis Onset Date Resolution Dyspnea on exertion acute April 14, 2025 10:29am Nonsustained ventricular tachycardia acute April 14, 2025 10:29am Complete heart block April 19, 2017 chronic April 14, 2025 10:29am Essential (primary) hypertension chronic April 14, 2025 10:29am History of permanent cardiac pacemaker placement April 23, 2017 chronic April 14, 2025 10:29am [facility] Work Phone: [phone]) 196-566903-12-2025 NoteHNO ID: [id number] Author: WINIFRED NELSON MA Service: ? Author Type: Shore Hand Dredge Or Barge Type: Progress Notes Filed: 12/10/2024 13:54 Note Text: POPULATION HEALTH NAVIGATION OUTREACH Action/FYI [facility] [employer] MESSAGE SENT Topic Due (Y or N) [...] or unnecessary to reach patient: Left message trend.[email or web address] message sent HCC related Navigation Signature: Winifred Nelson MA December 10, 2024 1:48 [facility] History of Present illness Narrative* Winifred Nelson MA - 12/10/2024 1:48 PM EDT POPULATION HEALTH NAVIGATION OUTREACH Action/FYI [facility] [employer] MESSAGE SENT Topic Due (Y or N) [...] 10, 2024 1:48 PM documented in this encounterC[facility] NotePatient Outreach (NETNAV) OLIVIA BRISCOE ([id number]) 1940 M Date Time Provider Department 12/10/24 WINIFRED NELSON NETNAV During your visit today, we recorded the following information about you: Winifred Nelson MA 12/10/2024 1:54 PM Signed POPULATION HEALTH NAVIGATION OUTREACH Action/FYI [facility] MYCHART MESSAGE SENT Topic Due (Y or [...] or unnecessary to reach patient: Left message trend.[email or web address] message sent HCC related Navigation Signature: Winifred [...] myelopat*05/08/2024 Encounter Status:Closed by WINIFRED NELSON on 12/10/24[facility] History of Present illness Narrative* Joycelyn Santos [...] PATIENT PRESENTS WITH AN IMPLANTABLE OR ATTACHED COGNOS LEAD: No RADIOLOGY DEPARTMENT: General X-ray: Exam(s) Completed: Chest X-Ray PERIPHERAL IV DATA: Not applicable SIGNED BY: Neli Krause October 28, 2024 12:50 PM documented in this encounterC[facility]-28-2025 NoteHNO ID: [id number] Author: JOYCELYN SANTOS Tech Service: ? Author [...] PATIENT PRESENTS WITH AN IMPLANTABLE OR ATTACHED COGNOS LEAD: No RADIOLOGY DEPARTMENT: General X-ray: Exam(s) Completed: Chest X-Ray PERIPHERAL IV DATA: Not applicable SIGNED BY: Neli Krause October 28, 2024 12:50 [facility]01-28-2025 NoteHNO ID: [id number] Author: ANSHUL MANLEY PA Service: ? Author Type: Physician Plating Stripper Type: Progress Notes Filed: 10/28/2024 12:56 Note Text: This note was created using ISO Groupriter. Subjective Olivia Briscoe is a 84 year [...] warranting prompt ER evaluation. Anshul Manley [facility]01-28-2025 History of Present illness Narrative* Anshul Manley, JIMI - 10/28/2024 12:37 PM EST This note was created using ISO Groupriter. Subjective Olivia Briscoe is a 84 year [...] ER evaluation. JIMI Oconnell documented in this encounterC[facility] Telephone encounter Note * Telephone Encounter - Luis Ivory MA - 09/04/2024 9:57 AM EST Patient notified. Luis Ivory MA [facility]12-05-2024 Miscellaneous Notes* Telephone Encounter - Luis Ivory MA - 09/04/2024 9:57 AM EST Patient notified. Luis Ivory MA * Telephone Encounter - Ingrid Bishop APRN.CNP - 09/04/2024 9:04 AM EST Images from the original note were not included. Please reach out and share the above with patient. documented in this encounterC[facility]12-[facility]-2024 Telephone encounter Note * Telephone Encounter - Ingrid Bishop APRN.CNP - 09/04/2024 9:04 AM EST Images from the original note were not included. Please reach out and share the above with patient. [facility] Work Phone: [phone] 260-639912-03-2024 Telephone encounter Note* Telephone Encounter - Ara Dumont MA - 09/02/2024 7:52 AM EST Patient given results and verbalized understanding of instructions given. Ara Dumont MA [facility]12-03-2024 Miscellaneous Notes* Telephone Encounter - Ara Dumont [...] for flu and RSV. documented in this encounterC[facility]12-03-2024 Telephone encounter Note * Telephone Encounter - Ara Dumont MA - 09/02/2024 7:51 AM EST Patient given results and verbalized understanding of instructions given. Ara Dumont MA [facility]12-03-2024 Telephone encounter Note* Telephone Encounter - Vishnu Cobian APRN.CNP - 09/02/2024 7:45 AM EST Please call patient let him know he is positive for COVID. Patient should do supportive therapies at home. Patient was negative for flu and RSV. [facility] Work Phone: [phone]) 646-407212-02-2024 NoteHNO ID: [id number] Author: INGRID BISHOP APRN.CNP Service: ? Author Type: Nurse Practitioner Type: Progress Notes Filed: 09/01/2024 19:02 Note Text: Attempted to call patient to inform of negative CXR No answer. VM left [employer] message sent.[facility]12-02-2024 History of Present illness Narrative* Ingrid Bishop APRN.CNP - 09/01/2024 7:00 PM EST Attempted to call patient to inform of negative CXR No answer. VM left [employer] message sent. * Ingrid Bishop APRN.CNP - 09/01/2024 5:46 PM EST This note was created using [employer]. Subjective Olivia Briscoe is a 84 year [...] history is provided by the patient. 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 Cough This is a new [...] Date Chronic diastolic CHF (congestive heart failure) ([facility]) 08/01/2021 Chronic superficial gastritis without bleeding History: EGD proven in 11/2016 Assessment: stable Plan: continue home PPI CKD (chronic kidney disease), stage III ([facility]) Colon polyps 07/28/2010 polypectomy 2002, 2004 (Dr. Verdin); negative in 2006 FH of colon cancer (father) Complete heart block ([facility]) 04/19/2017 Dr. Couch Diverticulitis 2009 Dysphagia [...] RSV PCR, ROUTINE-obtained and pending Ingrid Bishop APRN.RESEARCH CENTER DIRECTOR documented in this encounterCleveland Clinic [facility]12-02-2024 History of Present illness Narrative* Dwain Heath [...] PATIENT PRESENTS WITH AN IMPLANTABLE OR ATTACHED COGNOS LEAD: No RADIOLOGY DEPARTMENT: General X-ray: Exam(s) Completed: Chest X-Ray PERIPHERAL IV DATA: Not applicable SIGNED BY: RT Juan David(Brad) September 01, 2024 6:25 PM documented in this encounterCleveland Clinic [facility]12-02-2024 NoteHNO ID: [id number] Author: DWAIN HEATH RT(R) Service: Radiology Author [...] PATIENT PRESENTS WITH AN IMPLANTABLE OR ATTACHED COGNOS LEAD: No RADIOLOGY DEPARTMENT: General X-ray: Exam(s) Completed: Chest X-Ray PERIPHERAL IV DATA: Not applicable SIGNED BY: RT Juan David(Brad) September 01, 2024 6:25 [facility]12-02-2024 NoteHNO ID: [id number] Author: INGRID BISHOP APRN.RESEARCH CENTER DIRECTOR Service: ? Author Type: Nurse Practitioner Type: Progress Notes Filed: 09/01/2024 18:20 Note Text: This note was created using [employer]. Subjective Olivia Briscoe is a 84 year [...] history is provided by the patient. 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 Cough This is a new [...] Date Chronic diastolic CHF (congestive heart failure) ([facility]) 08/01/2021 Chronic superficial gastritis without bleeding History: EGD proven in 11/2016 Assessment: stable Plan: continue home PPI CKD (chronic kidney disease), stage III ([facility]) Colon polyps 07/28/2010 polypectomy 2002, 2004 (Dr. Verdin); negative in 2006 FH of colon cancer (father) Complete heart block ([facility]) 04/19/2017 Dr. Couch Diverticulitis 2009 Dysphagia [...] No discharge. Extraocular Moveme (more content not included)...[facility] 07-02-2024 History of Present illness Narrative* Adriano Santos, PT - 07/02/2024 3:21 PM EDT Program_ID:[id number] Access Code: [email or web address] URL: [email or web address] Date: 07-02-2024 Prepared By: Adriano Santos Program [...] treatment included: Therapeutic exercise, Manual therapy, and Self-[place] [facility] management. Updated 07/02/24. Goals for Episode of Care: established 05/29/24 to 07/10/24. [place] in home exercise program. (Goal Met) Patient [...] 1530 Adriano Santos PT documented in this encounterC[facility]10-02-2024 NoteHNO ID: [id number] Author: ADRIANO SANTOS PT Service: ? Author [...] treatment included: Therapeutic exercise, Manual therapy, and Self-[place] [facility] [place] management. Updated 07/02/24. Goals for Episode of Care: established 05/29/24 to 07/10/24. [place] in home exercise program. (Goal Met) Patient [...] Session Stop Time : [address] [facility]09-25-2024 NoteHNO ID: [id number] Author: JEANINE KU PTA Service: ? Author Type: Shafting Worker Type: Progress Notes Filed: 06/26/2024 09:51 Note [...] and assessment of patient's response to intervention. Self-Skilled Nursing Management: 1: Advised pt to re-check BP [...] Stop Time : 1620 NICHOLE Rodriguez, PT, DPT.[facility]09-25-2024 History of Present illness Narrative* Jeanine Ku [...] and assessment of patient's response to intervention. Self-Skilled Nursing Management: 1: Advised pt to re-check BP [...] NICHOLE Rodriguez, PT, DPT. documented in this encounterCleveland Clinic [facility]09-18-2024 NoteHNO ID: [id number] Author: INGRID TALBOT PT Service: ? Author [...] Location: Neck - Left Post Treatment Symptoms: [place]y looser at end of session OBJECTIVE MEASURES [...] Session Stop Time : 1608 NICHOLE Rodriguez, [facility]09-18-2024 History of Present illness Narrative* Ingrid [...] Location: Neck - Left Post Treatment Symptoms: [place] looser at end of session OBJECTIVE MEASURES [...] 1608 NICHOLE Rodriguez PT documented in this encounterC[facility]09-12-2024 History of Present illness Narrative* Adriano Santos, PT - 06/12/2024 4:20 PM EDT Program_ID:[id number] Access Code: [email or web address] URL: [email or web address] Date: 06-12-2024 Prepared By: Adriano Santos Program [...] 1625 Adriano Santos PT documented in this encounterCleveland Clinic [facility]09-12-2024 NoteHNO ID: [id number] Author: ADRIANO SANTOS PT Service: ? Author [...] Session Stop Time : [address] [facility]09-05-2024 Telephone encounter Note * Telephone Encounter - Joey Hale MD - 06/05/2024 12:52 PM EDT We should wait on the mri then Joey Cox MD [facility] Work Phone: [phone] Miscellaneous Notes* Telephone Encounter - Joey Hale MD - 06/05/2024 12:52 PM EDT We should wait on the mri then Joye Cox MD * Telephone Encounter - Michelle [...] of the radiologist with whom you spoke. [facility] Staff Rad: Neuro [phone] The potential risks of the MRI exam [...] / MRI Safety Team documented in this encounterCleveland Clinic [facility]09-05-2024 Telephone encounter Note * Telephone Encounter - [...] of the radiologist with whom you spoke. [facility] Staff Rad: Neuro [phone] The potential risks of the MRI exam [...] MR Imaging Education / MRI Safety Team [facility]09-04-2024 NoteHNO ID: [id number] Author: JOEY HALE MD Service: ? Author Type: Physician Type: Progress Notes Filed: 06/04/2024 17:57 Note Text: [facility] Initial Consult Olivia Briscoe [...] secure location? No Social History: Primary language: Jamaican Marital Status: Living situation: Home w/ Spouse Socially engaged? (participates in activities such as clubs, pentecostal, community center, sports, games, visiting friends/relatives, etc?): NO his is house bound, so he is only going out to see family Caregiver [place] and Stress Are your feeling overwhelmed?no Do [...] No date: TONSILLECTOMY PRIMARY/S (more content not included)...[facility]09-04-2024 History of Present illness Narrative* Joey Hale MD - 06/04/2024 4:13 PM EDT [facility] Initial Consult Olivia Briscoe [...] secure location? No Social History: Primary language: Jamaican Marital Status: Living situation: Home w/ Spouse Socially engaged? (participates in activities such as clubs, pentecostal, community center, sports, games, visiting friends/relatives, etc?): NO his is house bound, so he is only going out to see family Caregiver [place] and Stress Are your feeling overwhelmed?no Do [...] date: CKD (chronic kidney disease), stage III ([facility]) 07/28/2010: Colon polyps Comment: polypectomy 2002, [...] Vision No vision problems reported Follows with painter:YES Hearing - Hearing aid : Hearing impairment, [...] daughter to look into Silver sneakers at [employer] which will also get him out and get him to do stuff. 3-Medications and chronic medical conditions He is not on medication that could cause him too many issues. Obesity is a concern and weight loss would be beneficial for him Plan 4- Matters Most - We will discuss about will living will and healthcare power of manager coding in the upcoming visits. REFERRALS AND RECOMMENDATIONS 1. Discussed the cognitive benefits of memory exercises and reviewed examples 2. Discussed the cognitive benefits of physical exercise and socialization Joey Hale MD [facility] * Joey Hale MD - 06/04/2024 4:03 PM EDT error documented in this encounterCleveland Clinic [facility]09-04-2024 NoteHNO ID: [id number] Author: JOEY HALE MD Service: ? Author Type: Physician Type: Progress Notes Filed: 06/04/2024 17:49 Note Text: [facility]Hol[facility]24 NoteHNO ID: [id number] Author: ADRIANO SANTOS PT Service: ? Author [...] Episode of Care: established 05/29/24 to 07/10/24. [place] in home exercise program. Patient will decrease [...] Planned: 4 Planned Treatment Interventions: Therapeutic exercise (90171), Neuromuscular re-education (00896), Manual therapy (43516), Therapeutic activities (61931), Self-[place] [facility] [place] management (53571), Patient/Family/Caregiver Education PLAN FOR NEXT VISIT: Assess [...] R UE Strength: Grossly (more content not included)...[facility] 05-29-2024 History of Present illness Narrative* Adriano [...] Episode of Care: established 05/29/24 to 07/10/24. [place] in home exercise program. Patient will decrease [...] Planned: 4 Planned Treatment Interventions: Therapeutic exercise (44407), Neuromuscular re- education (87139), Manual therapy (16691), Therapeutic activities (88547), [place]- [place] health care facility management ([id number]), Patient/Family/Caregiver Education PLAN FOR NEXT VISIT: Assess [...] PT Treatment Interventions: Therapeutic Exercise, Manual Therapy, Self-Skilled Nursing Management Evaluation Therapeutic Exercise: 1: *Cervical Rotation [...] and assessment of patient's response to intervention. Self-Skilled Nursing Management: 1: *General discussion on radiograph findings [...] 1304 Adriano Santos PT documented [facility] encounterC[facility] Telephone encounter Note * Telephone Encounter - Lizabeth Brumfield LPN - 05/08/2024 3:05 PM EDT Phoned patient went over results, notes from Dr Álvarez with understanding. Assisted with transfer to planner scheduler to get PT appt set up. [facility]08-08-2024 Miscellaneous Notes* Telephone Encounter - Lizabeth Brumfield LPN - 05/08/2024 3:05 PM EDT Phoned patient went over results, notes from Dr Álvarez with understanding. Assisted with transfer to planner scheduler to get PT appt set up. * Telephone Encounter - Lizabeth Brumfield LPN - 05/08/2024 3:00 PM EDT ----- Message from Quentin Álvarez MD sent at 05/08/2024 1:53 PM EDT ----- Significant degenerative joint disease. PT consult ordered. He can decide and schedule if desired. documented in this encounterC[facility]24 Telephone encounter Note * Telephone Encounter - Lizabeth Brumfield LPN - 05/08/2024 3:00 PM EDT ----- Message from Quentin Álvarez MD sent at 05/08/2024 1:53 PM EDT ----- Significant degenerative joint disease. PT consult ordered. He can decide and schedule if desired. [facility]08-07-[facility] History of Present illness Narrative* Nano Peters [...] PATIENT PRESENTS WITH AN IMPLANTABLE OR ATTACHED COGNOS LEAD: No RADIOLOGY DEPARTMENT: General X-ray: Exam(s) Completed: Spine X-Ray(s): Cervical AP / LAT / OBL PERIPHERAL IV DATA: Not applicable SIGNED BY: RT Yobani(R) May 07, 2024 3:02 PM documented in this encounterC[facility]08-07-2024 NoteHNO ID: [id number] Author: NANO PETERS RT(R) Service: ? Author Type: Half Backer Type: Progress Notes Filed: 05/07/2024 15:16 Note [...] PATIENT PRESENTS WITH AN IMPLANTABLE OR ATTACHED COGNOS LEAD: No RADIOLOGY DEPARTMENT: General X-ray: Exam(s) Completed: Spine X-Ray(s): Cervical AP / LAT / OBL PERIPHERAL IV DATA: Not applicable SIGNED BY: RT Yobani(R) May 07, 2024 3:02 [facility]08-07-2024 NoteHNO ID: [id number] Author: QUENTIN ÁLVAREZ MD Service: ? Author Type: Physician Type: Progress Notes Filed: 05/07/2024 15:00 Note Text: This note was created using [employer]. Subjective Olivia Briscoe is a 84 year old male here for follow up, accompanied by his daughter. He complained of chronic neck pain and stiffness 4-5 months. There has been no injury. His hypertension was not controlled. He was taken off lisinopril and started on metoprolol by his aircraft body repairer. Since he had Prevnar, he's had recurrent [...] Low (H) High Assessme (more content not included)...[facility]08-07-2024 History of Present illness Narrative* Quentin Álvarez [...] lisinopril and started on metoprolol by his aircraft body repairer. Since he had Prevnar, he's had recurrent [...] Thought Content: Thought content normal. Latest Ref [facility] 05/01/2024 Protein, Total 6.3 - 8.0 g/dL [...] out about hypertension.Medications are coming from his aircraft body repairer. 5. Stage 3a chronic kidney disease (HCC) [...] - General (Internal Medicine) Outside specialists seen: [facility] Dr. Yaya Schaffer. Dr. Mildred Couch, [...] vaccine at his pharmacy. documented in this encounterC[facility]08-07-2024 NoteHNO ID: [id number] Author: QUENTIN ÁLVAREZ MD Service: ? Author [...] - General (Internal Medicine) Outside specialists seen: [facility] Dr. Yaya Schaffer. Dr. Mildred [...] 33.19 kg/(m2) - RSV vaccine at his pharmacy.[facility]02-07-2024 History of Present illness Narrative* Quentin Álvarez MD - 11/07/2023 2:20 PM EST This note was created using [employer]. Subjective Olivia Briscoe is a 83 year [...] 20) Quentin Álvarez MD documented in this encounterC[facility]01-27-2024 History of Present illness Narrative* Dwain Heath, [...] PATIENT PRESENTS WITH AN IMPLANTABLE OR ATTACHED COGNOS LEAD: No RADIOLOGY DEPARTMENT: General X-ray: Exam(s) Completed: Chest X-Ray PERIPHERAL IV DATA: Not applicable SIGNED BY: RT Juan David(R) October 27, 2023 11:51 AM documented in this encounterC[facility]08-04-2023 Miscellaneous Notes* Telephone Encounter - Beth Barbosa RN - 05/04/2023 5:01 PM EDT Patient's calls and states that patient goes to [facility] Dr. Bartolome Pham OD [address] [facility] [address]. [phone] Phone. [facility] is where work for cataract surgery plus follow up from glaucoma is done. Dr. Yaya Schaffer was the doctor who will do procedure. Beth Barbosa RN documented in this encounterC[facility]05-03-2023 History of Present illness Narrative* Quentin Álvarez MD - 01/31/2023 3:17 PM EDT This note was created using [employer]. Subjective Olivia Briscoe is a 82 year [...] screening Quentin Álvarez MD documented in this encounterC[facility]11-02-2022 Instructions* Patient Instructions* Quentin Álvarez MD - 08/02/2022 10:02 AM EDT BLOOD WORK IN 6 MONTHS. documented in this encounterC[facility] Clinic [facility]11-02-2022 History of Present illness Narrative* Quentin Álvarez MD - 08/02/2022 9:41 AM EDT This note was created using [employer]. Subjective Patient presents with: Establish Care Olivia [...] PPM. Quentin Álvarez MD documented in this encounterC[facility]10-17-2022 Miscellaneous Notes* Telephone Encounter - Beth Barbosa RN - 07/17/2022 8:09 AM EDT Last Office Visit: 01/30/2022 Future Office Visit: 08/02/2022 Last Medication Refill: Lisinopril 04/11/2022 90 tab 0 refill Date of Last Labs: 01/30/2022 documented in this encounterC[facility]05-03-2022 Miscellaneous Notes* Telephone Encounter - Frances Peña [...] Thanks, Katerin Lerma APRN.CNP documented in this encounterC[facility] Clinic [facility]05-02-2022 History of Present illness Narrative* Katerin Lerma [...] Dizziness: No. HEART: Has upcoming follow-up with [facility]. Denies SOB, dyspnea, orthopnea, chest pain,palpitations, or leg edema CKD: reports eating low salt diet and avoids NSAID products Wants to switch PCP's. Patient reports Dr. Og put something his chart about his buddhism Had colonoscopy about 2 weeks ago. He [...] agreeable to treatment plan. documented in this encounterC[facility] Clinic [facility]04-27-2022 Miscellaneous Notes* Telephone Encounter - Lorrie Xiao [...] notify patient. Armida Bullock documented in this encounterC[facility] Clinic [facility]09-02-2021 History of Present illness Narrative* Alecia Sargent [...] 02, 2021 1:53 PM documented in this encounterC[facility]08-20-2021 History of Present illness Narrative* Alecia Sargent [...] 20, 2021 3:34 PM documented in this encounterC[facility]07-24-2017 History of Past illness Narrative* Problem Noted [...] of this encounter (statuses as of 11/08/2023) [facility] History of Past illness Narrative* Problem Noted [...] of this encounter (statuses as of 08/03/2022) [facility] History of Past illness Narrative* Problem Noted [...] of this encounter (statuses as of 02/01/2023) [facility] History of Past illness Narrative* Problem Noted [...] of this encounter (statuses as of 05/08/2023) [facility] History of Past illness Narrative* Problem Noted Date Resolved Date RAZIA (acute kidney injury) 04/20/20172016 Dysphagia 11/09/2016 2017 Encounter for screening colonoscopy 11/09/2016 2017 Obesity 07/28/2010 11/25/2018 documented as of this encounter (statuses as of 01/25/2022) [facility] History of Past illness Narrative* Problem Noted Date Resolved Date RAZIA (acute kidney injury) 04/20/20172016 Dysphagia 11/09/2016 2017 Encounter for screening colonoscopy 11/09/2016 2017 Obesity 07/28/2010 11/25/2018 documented as of this encounter (statuses as of 01/30/2022) [facility] of Past illness Narrative* Problem Noted Date Resolved Date RAZIA (acute kidney injury) 04/20/20172016 Dysphagia 11/09/2016 2017 Encounter for screening colonoscopy 11/09/2016 2017 Obesity 07/28/2010 11/25/2018 documented as of this encounter (statuses as of 01/31/2022) [facility] History of Past illness Narrative* Problem Noted Date Resolved Date RAZIA (acute kidney injury) 04/20/20172016 Dysphagia 11/09/2016 2017 Encounter for screening colonoscopy 11/09/2016 2017 Obesity 07/28/2010 11/25/2018 documented as of this encounter (statuses as of 07/17/2022) [facility]* Diagnosis Hypertension, essential Unspecified essential hypertension [facility] this encounter [facility]* Diagnosis Hypertension, essential- Primary Unspecified essential hypertension Screening for hyperlipidemia Screening for lipoid disorders Stage 3a chronic kidney disease (HCC) Complete heart block (HCC) Atrioventricular block, complete documented [facility] this encounter [facility]* Diagnosis Hyperkalemia- Primary Hyperpotassemia [facility] Diagnosis Hypertension, essential Unspecified essential hypertension [facility] Diagnosis Primary hypertension- Primary Unspecified essential hypertension Stage 3a chronic kidney disease (HCC) Obesity (BMI 30-39.9) Obesity, unspecified Complete heart block (HCC) Atrioventricular block, complete [facility]* Diagnosis Medicare annual wellness visit, subsequent- Primary Routine general medical examination at a health care facility Stage 3a chronic kidney disease (HCC) Obesity, Class I, BMI 30-34.9 Obesity, unspecified Primary hypertension Unspecified essential hypertension Screening for glaucoma [facility]* Diagnosis Paroxysmal dyspnea- Primary Other dyspnea and respiratory abnormality Primary hypertension Unspecified essential hypertension Hiatal hernia Diaphragmatic hernia without mention of obstruction or gangrene Stage 3a chronic kidney disease (HCC) Need for vaccination Need for prophylactic vaccination and inoculation against unspecified single disease documented in this encounter [facility]* Diagnosis Medicare annual wellness visit, subsequent- [...] pain, chronic Cervicalgia [facility] this [facility]* Diagnosis 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 [facility]* Diagnosis 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 [facility]* Diagnosis Cognitive impairment, mild, so stated- Primary Mild cognitive impairment, so stated Memory loss Hearing impaired person, bilateral Sleep apnea, unspecified type documented [facility] this encounter [facility]* Diagnosis Neck pain, chronic Cervicalgia documented in this encounter [facility]* Diagnosis URI, acute Acute upper respiratory infections of unspecified site Acute cough [facility]* Diagnosis 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 [facility]* Diagnosis 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 [facility]* Diagnosis 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 documented in this encounter [facility]* Diagnosis Cough SOB (shortness of breath) Shortness of breath documented [facility] this encounter [facility]* Diagnosis SOB (shortness of breath) Shortness of breath [facility]* Diagnosis Acute cough- Primary URI, acute Acute upper respiratory infections of unspecified site Acute cough documented [facility] this encounter [facility]* Diagnosis Acute cough [facility]* Diagnosis Acute cough- Primary Acute cough documented in this encounter [facility] noteNo assessment information availableVencor Hospital Work Phone: Reason for referral (narrative)* Diagnostic Procedure Only (Routine) - Authorized Specialty Diagnoses / Procedures Referred By Contac t Referred To Contact US IMAGING Diagnoses Stage 3a chronic kidney disease (HCC) Procedures US KIDNEY/BLADDER US RETROPERITONEAL REAL TIME W/IMAGE COMPLETE Quentin Álvarez MD [address] [place] [address] Us Imaging Referral ID Status Reason Start Date Expiration Date Visits Requested Visits Authorized [id number] Authorized Auto-Generat ed Referral 01/31/2023 03/01/2024 1 1 * Consult, Test, Treat (Routine) - Authorized Specialty Diagnoses / Procedures Referred By Contart t Referred To Contact Ophthalmology Diagnoses Screening for glaucoma Procedures CONSULT TO OPHTHALMOLOGY OFFICE/OUTPATIENT [facility] 60-74 MINUTES Quentin Álvarez MD [address] [place] [address] Referral ID Status Reason Start Date Expiration Date Visits Requested Visits Authorized [id number] Authorized PCP Requested Referral 01/31/2023 01/31/2024 1 1 [facility] for referral (narrative)* Diagnostic Procedure Only (Routine) - Closed Specialty Diagnoses / Procedures Referred By Nadir t Referred To Contact XR IMAGING Diagnoses Neck pain, chronic Procedures XR CERV OTHER 4V AP/LAT/OBL RADEX SPINE CERVICAL 4 OR 5 VIEWS Quentin Álvarez MD [address] [place] [address] [place] [address] Referral ID Status Reason Start Date Expiration Date V isits Requested Visits Authorized [id number] Closed Auto-Generate d Referral 05/07/2024 06/06/2025 1 1 [facility] for referral (narrative)No reason for referral information availableVencor Hospital Work Phone: Reason for visit Narrative* Diagnostic Procedure Only (Routine) - Closed Specialty Diagnoses / Procedures Referred By Contac t Referred To Contact XR IMAGING Diagnoses Neck pain, chronic Procedures XR CERV OTHER 4V AP/LAT/OBL RADEX SPINE CERVICAL 4 OR 5 VIEWS Quentin Álvarez MD [address] [place] [address] [place] [address] Referral ID Status Reason Start Date Expiration Date V isits Requested Visits Authorized [id number] Closed Auto-Generate d Referral 05/07/2024 06/06/2025 1 1 [facility] Summary Purpose Family History No Family History Records Found Relationship Condition Age at Onset Recorded Date/T minal father Malignant neoplasm of colon Unknown Advance Directives No Advanced Directives Records FoundDocuments on File Type Date Recorded Patient Rn Testing Expl anation Advance Directive(s) 04/20/2017 2:30 PM Advance Directive(s) 11/28/2016 1:36 PM Advance Directive Response Recorded Date/ Time Living Will No May 04, 2021 12:16pm Do you have a Healthcare Power of Treasury Specialist? No May 04, 2021 12:16pm Health Concerns Infection Onset Date Last Indicated Resolved Time RSV 10/26/2023 10/26/2023 Reason for Referral Specialty Diagnoses / Procedures Referred By Contac t Referred To Contact Gerontology Diagnoses Memory loss Procedures CONSULT TO GERIATRICS OFFICE/OUTPATIENT [facility] 60 MINUTES Quentin Álvarez MD [address] [place] [address] Referral ID Status Reason Start Date Expiration Date Visits Requested Visits Authorized [id number] Authorized PCP Requested Referral 05/07/2024 05/07/2025 1 1 Specialty Diagnoses / Procedures Referred By Contac t Referred To Contact XR IMAGING Diagnoses Neck pain, chronic Procedures XR CERV OTHER 4V AP/LAT/OBL RADEX SPINE CERVICAL 4 OR 5 VIEWS Quentin Álvarez MD [address] [place] [address] [place] [address] Referral ID Status Reason Start Date Expiration Date V isits Requested Visits Authorized [id number] Closed Auto-Generate d Referral 05/07/2024 06/06/2025 1 1 Specialty Diagnoses / Procedures Referred By Contac t Referred To Contact [facility] Diagnoses 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hy or radiculopathy Procedures CONSULT TO PHYSICAL THERAPY PHYSICAL THERAPY EVALUATION HIGH COMPLEX 45 MINS Quentin Álvarez MD [address] [place] [address] [facility] [address] [place] [address] Referral ID Status Reason Start Date Expiration Date Visits Requested Visits Authorized [id number] Authorized PCP Requested Referral Auto-Generate d Referral 05/08/2024 05/08/2025 99 99 Specialty Diagnoses / Procedures Referred By Contac t Referred To Contact Diagnoses Sleep apnea, unspecified type Procedures CONSULT TO SLEEP MEDICINE - ADULT OFFICE/OUTPATIENT [facility] MDM 60 MINUTES Joey Hale MD [address] [place] [address] Referral ID Status Reason Start Date Expiration Date Visits Requested Visits Authorized [id number] Authorized PCP Requested Referral 06/04/2024 06/04/2025 1 1 Specialty Diagnoses / Procedures Referred By Contac t Referred To Contact Diagnoses Memory loss Cognitive impairment, mild, 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, bilateral Procedures HEARING TEST/AUDIOGRAM COMPRE AUDIOMETRY THRESHOLD EVAL SP RECOGNIJ Joey Hale MD [address] [place] [address] [facility] [address] [place] [address] Referral ID Status Reason Start Date Expiration Date Visits Requested Visits Authorized [id number] Authorized Auto-Generat ed Referral 06/04/2024 09/02/2024 1 1 Specialty Diagnoses / Procedures Referred By Contac t Referred To Contact MR IMAGING Diagnoses Cognitive impairment, mild, so stated Procedures MRI 3D POST PROCESSING 3D RENDERING W/INTERP&POSTPROC DIFF WORK STATION Joey Hale MD [facility] [place] [address] [place] [address] Referral ID Status Reason Start Date Expiration Date Visits Requested Visits Authorized [id number] New Request Auto-Generat ed Referral 06/04/2024 07/04/2025 1 1 Specialty Diagnoses / Procedures Referred By Contac t Referred To Contact MR IMAGING Diagnoses Cognitive impairment, mild, so stated Procedures MRI BRAIN W QUANT WO IVCON MRI BRAIN BRAIN STEM W/O CONTRAST MATERIAL Joey Hale MD [address] [facility] [place] [address] [place] [address] Referral ID Status Reason Start Date Expiration Date Visits Requested Visits Authorized [id number] New Request Auto-Generat ed Referral 06/04/2024 07/04/2025 [...] section and content) DATE CREATED AUTHOR 03/20/2018 [facility] DATE CREATED AUTHOR AUTHOR'S ORGANIZ ATION 01/19/2022 [facility] DATE CREATED AUTHOR AUTHOR'S ORGANIZ ATION 12/20/2022 [facility] DATE CREATED AUTHOR AUTHOR'S ORGANIZ ATION 06/07/2024 [facility] DATE CREATED AUTHOR AUTHOR'S ORGANIZ ATION 05/07/2025 [facility] DATE CREATED AUTHOR AUTHOR'S ORGANIZ ATION 05/09/2025 [facility] Source Comments (unrecognize d section and content) In the event this informatio n is protected by the Federal Confidentiality of Alcohol and Drug Abuse Patient Records regulations: The Federal rules restrict any use of the information to criminally investigate or prosecute any alcohol or drug abuse patient.[facility] the event this information is protected by the Federal Confidentiality of Alcohol and Drug Abuse Patient Records regulations: The Federal rules restrict any use of the information to criminally investigate or prosecute any alcohol or drug abuse patient.[facility] General[facility] the event this information is protected by the Federal Confidentiality of Alcohol and Drug Abuse Patient Records regulations: The Federal rules restrict any use of the information to criminally investigate or prosecute any alcohol or drug abuse patient.[facility] General[facility] the event this information is protected by the Federal Confidentiality of Alcohol and Drug Abuse Patient Records regulations: The Federal rules restrict any use of the information to criminally investigate or prosecute any alcohol or drug abuse patient.[facility] General[facility] the event this information is protected by the Federal Confidentiality of Alcohol and Drug Abuse Patient Records regulations: The Federal rules restrict any use of the information to criminally investigate or prosecute any alcohol or drug abuse patient.[facility] General[facility] the event this information is protected by the Federal Confidentiality of Alcohol and Drug Abuse Patient Records regulations: The Federal rules restrict any use of the information to criminally investigate or prosecute any alcohol or drug abuse patient.[facility] General[facility] the event this information is protected by the Federal Confidentiality of Alcohol and Drug Abuse Patient Records regulations: The Federal rules restrict any use of the information to criminally investigate or prosecute any alcohol or drug abuse patient.[facility] General[facility] the event this information is protected by the Federal Confidentiality of Alcohol and Drug Abuse Patient Records regulations: The Federal rules restrict any use of the information to criminally investigate or prosecute any alcohol or drug abuse patient.[facility] General[facility] the event this information is protected by the Federal Confidentiality of Alcohol and Drug Abuse Patient Records regulations: The Federal rules restrict any use of the information to criminally investigate or prosecute any alcohol or drug abuse patient.[facility] General[facility] the event this information is protected by the Federal Confidentiality of Alcohol and Drug Abuse Patient Records regulations: The Federal rules restrict any use of the information to criminally investigate or prosecute any alcohol or drug abuse patient.[facility] General[facility] the event this information is protected by the Federal Confidentiality of Alcohol and Drug Abuse Patient Records regulations: The Federal rules restrict any use of the information to criminally investigate or prosecute any alcohol or drug abuse patient.[facility] GeneralIn the event this information is protected by the Federal Confidentiality of Alcohol and Drug Abuse Patient Records regulations: The Federal rules restrict any use of the information to criminally investigate or prosecute any alcohol or drug abuse patient.[facility] GeneralIn the event this information is protected by the Federal Confidentiality of Alcohol and Drug Abuse Patient Records regulations: The Federal rules restrict any use of the information to criminally investigate or prosecute any alcohol or drug abuse patient.[facility] General[facility] the event this information is protected by the Federal Confidentiality of Alcohol and Drug Abuse Patient Records regulations: The Federal rules restrict any use of the information to criminally investigate or prosecute any alcohol or drug abuse patient.[facility] GeneralIn the event this information is protected by the Federal Confidentiality of Alcohol and Drug Abuse Patient Records regulations: The Federal rules restrict any use of the information to criminally investigate or prosecute any alcohol or drug abuse patient.[facility] GeneralIn the event this information is protected by the Federal Confidentiality of Alcohol and Drug Abuse Patient Records regulations: The Federal rules restrict any use of the information to criminally investigate or prosecute any alcohol or drug abuse patient.[facility] GeneralIn the event this information is protected by the Federal Confidentiality of Alcohol and Drug Abuse Patient Records regulations: The Federal rules restrict any use of the information to criminally investigate or prosecute any alcohol or drug abuse patient.[facility] GeneralIn the event this information is protected by the Federal Confidentiality of Alcohol and Drug Abuse Patient Records regulations: The Federal rules restrict any use of the information to criminally investigate or prosecute any alcohol or drug abuse patient.[facility] GeneralIn the event this information is protected by the Federal Confidentiality of Alcohol and Drug Abuse Patient Records regulations: The Federal rules restrict any use of the information to criminally investigate or prosecute any alcohol or drug abuse patient.[facility] GeneralIn the event this information is protected by the Federal Confidentiality of Alcohol and Drug Abuse Patient Records regulations: The Federal rules restrict any use of the information to criminally investigate or prosecute any alcohol or drug abuse patient.[facility] GeneralIn the event this information is protected by the Federal Confidentiality of Alcohol and Drug Abuse Patient Records regulations: The Federal rules restrict any use of the information to criminally investigate or prosecute any alcohol or drug abuse patient.[facility] GeneralIn the event this information is protected by the Federal Confidentiality of Alcohol and Drug Abuse Patient Records regulations: The Federal rules restrict any use of the information to criminally investigate or prosecute any alcohol or drug abuse patient.[facility] GeneralIn the event this information is protected by the Federal Confidentiality of Alcohol and Drug Abuse Patient Records regulations: The Federal rules restrict any use of the information to criminally investigate or prosecute any alcohol or drug abuse patient.[facility] GeneralIn the event this information is protected by the Federal Confidentiality of Alcohol and Drug Abuse Patient Records regulations: The Federal rules restrict any use of the information to criminally investigate or prosecute any alcohol or drug abuse patient.[facility] GeneralIn the event this information is protected by the Federal Confidentiality of Alcohol and Drug Abuse Patient Records regulations: The Federal rules restrict any use of the information to criminally investigate or prosecute any alcohol or drug abuse patient.[facility] GeneralIn the event this information is protected by the Federal Confidentiality of Alcohol and Drug Abuse Patient Records regulations: The Federal rules restrict any use of the information to criminally investigate or prosecute any alcohol or drug abuse patient.[facility] GeneralIn the event this information is protected by the Federal Confidentiality of Alcohol and Drug Abuse Patient Records regulations: The Federal rules restrict any use of the information to criminally investigate or prosecute any alcohol or drug abuse patient.[facility] GeneralIn the event this information is protected by the Federal Confidentiality of Alcohol and Drug Abuse Patient Records regulations: The Federal rules restrict any use of the information to criminally investigate or prosecute any alcohol or drug abuse patient.[facility] GeneralIn the event this information is protected by the Federal Confidentiality of Alcohol and Drug Abuse Patient Records regulations: The Federal rules restrict any use of the information to criminally investigate or prosecute any alcohol or drug abuse patient.[facility] GeneralIn the event this information is protected by the Federal Confidentiality of Alcohol and Drug Abuse Patient Records regulations: The Federal rules restrict any use of the information to criminally investigate or prosecute any alcohol or drug abuse patient.[facility] GeneralIn the event this information is protected by the Federal Confidentiality of Alcohol and Drug Abuse Patient Records regulations: The Federal rules restrict any use of the information to criminally investigate or prosecute any alcohol or drug abuse patient.[facility] Reason for Visit (unrecogniz ed section and content) Reason Comments PT Discharge Specialty Diagnoses / Procedures Referred By Nadir t Referred To Contact [facility] Diagnoses 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hy or radiculopathy Procedures CONSULT TO PHYSICAL THERAPY [facility] 45 MINS Quentin Álvarez MD [address] [place] [address] [facility] [place] [address] [place] [address] Referral ID Status Reason Start Date Expiration Date Visits Requested Visits Authorized [id number] Authorized PCP Requested Referral Auto-Generate d Referral [...] Memory loss Procedures CONSULT TO GERIATRICS OFFICE/OUTPATIENT [facility] MDM 60 MINUTES Quentin Álvarez MD [address] [place] [address] Referral ID Status Reason Start Date Expiration Date V isits Requested Visits Authorized [id number] Closed PCP Requested Referral 05/07/2024 05/07/2025 1 1 Reason Comments Radiology MRI Reason Comments Cough Cough and congestion x 1 day Reason Comments Cough Chest congestion, fa tigue, SOB, wheeze, x 1 week Reason Onset Date Comments Population Health Navigation Outreach 12/10/2024 [facility] Reason Onset Date Comments Population Health Navigation Outreach 05/04/2025 [facility] [place] [facility] Care Teams (unrecognized sec tion and content) [employer] Professional Logistics Relationship Specialty Start Date End Date Susannah Og MD [address] [facility] [place] [address] PCP - General Family Practice 11/28/16 [employer] Professional Log[employer] Relationship Specialty Start Date End Date Susannah Og MD [address] [facility] [place] [address] PCP - General Family Practice 11/28/16 Proc[employer]ment Professional Logistics Relationship Specialty Start Date End Date Susannah Og MD [address] [facility] [place] [address] PCP - General Family Practice 11/28/16 Procurement Professional Logistics Relationship Specialty Start Date End Date Susannah Og MD [address] [facility] [place] [address] PCP - General Family Medicine 11/28/16 Proc[employer]ment Professional Logistics Relationship Specialty Start Date End Date Quentin Álvarez MD [address] [facility] [place] [address] PCP - General Internal Medicine 08/02/22 Proc[employer]ment Professional Logistics Relationship Specialty Start Date End Date Quentin Álvarez MD [address] [facility] [place] [address] PCP - General Internal Medicine 08/02/22 Procurement Professional Logistics Relationship Specialty Start Date End Date Quentin Álvarez MD [address] [facility] [place] [address] PCP - General Internal Medicine 08/02/22 Procurement Professional Logistics Relationship Specialty Start Date End Date Quentin Álvarez MD [address] [facility] [place] [address] PCP - General Internal Medicine 08/02/22 Procurement Professional Logistics Relationship Specialty Start Date End Date Quentin Álvarez MD [address] [facility] [place] [address] PCP - General Internal Medicine 08/02/22 Procurement Professional Logistics Relationship Specialty Start Date End Date Quentin Álvarez MD [address] [facility] [place] [address] PCP - General Internal Medicine 08/02/22 Procurement Professional Logistics Relationship Specialty Start Date End Date Quentin Álvarez MD [address] [facility] [place] [address] PCP - General Internal Medicine 08/02/22 Procurement Professional Logistics Relationship Specialty Start Date End Date Quentin Álvarez MD [address] [facility] [place] [address] PCP - General Internal Medicine 08/02/22 Procurement Professional Logistics Relationship Specialty Start Date End Date Quentin Álvarez MD [address] [facility] [place] [address] PCP - General Internal Medicine 08/02/22 Procurement Professional Logistics Relationship Specialty Start Date End Date Quentin Álvarez MD [address] [facility] [place] [address] PCP - General Internal Medicine 08/02/22 Procurement Professional Logistics Relationship Specialty Start Date End Date Quentin Álvarez MD [address] [facility] [place] [address] PCP - General Internal Medicine 08/02/22 Procurement Professional Logistics Relationship Specialty Start Date End Date Quentin Álvarez MD [address] [facility] [place] [address] PCP - General Internal Medicine 08/02/22 Procurement Professional Logistics Relationship Specialty Start Date End Date Quentin Álvarez MD [address] [facility] [place] [address] PCP - General Internal Medicine 08/02/22 Procurement Professional Logistics Relationship Specialty Start Date End Date Quentin Álvarez MD [address] [facility] [place] [address] PCP - General Internal Medicine 08/02/22 Procurement Professional Logistics Relationship Specialty Start Date End Date Susannah Og MD [address] [facility] [place] [address] PCP - General Family Medicine 11/28/16 08/01/22 Procurement Professional Logistics Relationship Specialty Start Date End Date Susannah Og MD [address] [facility] [place] [address] PCP - General Family Medicine 11/28/16 08/01/22 Procurement Professional Logistics Relationship Specialty Start Date End Date Quentin Álvarez MD [address] [place] [address] PCP - General Internal Medicine 08/02/22 Procurement Professional Logistics Relationship Specialty Start Date End Date Quentin Álvarez MD [address] [facility] [place] [address] PCP - General Internal Medicine 08/02/22 Procurement Professional Logistics Relationship Specialty Start Date End Date Quentin Álvarez MD [address] [place] [address] PCP - General Internal Medicine 08/02/22 Jailene Canales, JAVA WEB DEVELOPER.RESEARCH CENTER DIRECTOR [address] [place] [address] Infection Control Coordinator Internal Medicine 09/08/24 Procurement Professional Logistics Relationship Specialty Start Date End Date Quentin Álvarez MD [address] [place] [address] PCP - General Internal Medicine 08/02/22 Jailene Canales, JAVA WEB DEVELOPER.RESEARCH CENTER DIRECTOR [address] [place] [address] Infection Control Coordinator Internal Medicine 09/08/24 Procurement Professional Logistics Relationship Specialty Start Date End Date Quentin Álvarez MD [address] [place] [address] PCP - General Internal Medicine 08/02/22 Jaileen Canales, JAVA WEB DEVELOPER.RESEARCH CENTER DIRECTOR [address] [place] [address] Infection Control Coordinator Internal Medicine 09/08/24 Team Status: Active Member [...] April 14, 2025 End: April 14, 2025 Procurement Professional Logistics Relationship Specialty Start Date End Date Quentin Álvarez MD [address] [place], [place] [address] PCP - General Internal Medicine 08/02/22 Jailene Canales, JAVA WEB DEVELOPER.RESEARCH CENTER DIRECTOR [address] [place], [place] [address] Infection Control Coordinator Internal Medicine 09/08/24 Goals (unrecognized section and [...] BE BASED ON THE PRIMARY CLINICAL RECORDS. [facility] [employer] provides no warranty or guarantee of the accuracy or completeness of information in this document.
--- NOTE | 2025-05-11 19:11 | STRESSREP ---
Stress Test Report Pharmacologic myocardial perfusion stress test. 85-year-old man with a history of dyspnea on exertion Resting EKG demonstrates sinus rhythm with ventricular paced with a rate of 75 bpm. Resting blood pressure is 122/78 mmHg. 0.4 mg of regadenoson was infused per usual protocol followed by rapid intravenous saline flush injection. Continuous EKG monitoring was performed. The maximum heart rate was 94 bpm which was 69% of max impacted heart rate the maximum workload was 1 metabolic equivalent. At rest there were no ST or T wave changes noted to suggest ischemia and at peak infusion nonspecific ST changes were noted which did not meet the criteria for ischemia. No clinical angina is noted. The final blood pressure was 126/70 mmHg. Myocardial perfusion protocol. 15.0 mCi of technetium 99m sestamibi was injected at rest. 0.4 mg of regadenoson was infused per usual protocol. At peak infusion 45.0 mCi of technetium 99m sestamibi was injected stress images were obtained stress and rest images were reconstructed and compared in the short axis vertical long and horizontal long axis. Gated images were also obtained. Perfusion SPECT analysis: Review of the stress images demonstrate normal uptake of tracer noted in all areas of the myocardium. The resting images similar demonstrated normal uptake of tracer noted in all areas of the myocardium. No areas of reversibility are noted to suggest ischemia and no previous infarct is noted. Gated SPECT analysis: The gated ejection fraction is 81%. Conclusion: Normal pharmacologic myocardial perfusion stress test. Preserved ejection fraction.
== END | disposition home or self-care (01) ==
LOC: CVS 07:19
PROVIDERS: PCP Internal Medicine; Referring Provider Student in an Organized Health Care Education/Training Program; Visit Provider Student in an Organized Health Care Education/Training Program
DX: R06.09 Other forms of dyspnea (principal)
CPT/HCPCS: 78452; 93017; 93306; A9500; A4216; J2785